=== PATIENT | female | born 1970 | race Two or more races ===

== ENCOUNTER 2020-03-03 16:26 | Emergency (ER) | payer OTHER, SELFPAY ==
--- NOTE | 2020-03-03 16:43 | ED.URI ---
HPI - URI/Sore Throat General Chief Complaint: Fever Stated Complaint: covid test Time Seen by Provider: 03/03/20 16:43 Source: patient Mode of arrival: ambulatory Limitations: no limitations History of Present Illness HPI Narrative: 49 y/o female with history of obesity, asthma, hx LE cellulitis presenting with intermittent fevers, dry cough, congestion, mid myalgias, MENSAH. Has been taking her PRN albuterol inhaler with improvement. She called her PCP today who recommended she get a COVID-19 test. MD elicited complaint: fever and cough (dry ) Pertinent past history: asthma Onset (ago): day(s) (4) Consistency: intermittent Severity: mild Able to tolerate fluids by mouth: Yes Exacerbating factors: exertion and deep breaths Associated symptoms: headache, nasal congestion and cough Treatments prior to arrival: none Related Data Previous Rx's Medication Instructions Recorded budesonide [Pulmicort Flexhaler] 2 inh INHALATION QAM #1 ea 03/03/20 Allergies Allergy/AdvReac Type Severity Reaction Status Date / Time hydrocodone [From Vicodin] Allergy Intermediate NAUSEA,DIZZ Unverified 02/18/20 14:55 Y acetaminophen [Percocet] Allergy Unknown Verified 12/21/19 00:00 oxycodone [From PERCOCET] AdvReac Intermediate VOMITING Unverified 02/18/20 14:55 Review of Systems Constitutional: Constitutional: Reports body ache(s), Reports fever(s), Reports headache(s) and Reports malaise Eyes: Eyes: Reports no additional eye complaints ENT: Reports system reviewed and no additional complaints, except as documented and Reports headache(s) Cardiovascular: Cardiovascular: Denies chest pain, Denies chest pain at rest, Denies chest pain with activity, Denies pedal edema, Denies leg edema, Denies lightheadedness, Denies dyspnea and Reports dyspnea on exertion (chronically, unchanged ) Respiratory: Respiratory: Denies pain on inspiration, Reports pain with cough, Denies dyspnea and Reports dyspnea on exertion (chronically, unchanged ) Gastrointestinal: Gastrointestinal: Reports no additional gastrointestinal complaints Genitourinary: Genitourinary: Reports no additional female genitourinary complaints Musculoskeletal: Musculoskeletal: Reports myalgias Neurologic: Reports system reviewed and no additional complaints, except as documented and Reports headache(s) Endocrine: Endocrine: Reports no additional endocrine complaints Hematologic/Lymphatic: Hematologic/Lymphatic: Reports no additional hematologic/lymphatic complaints [facility] Past Medical History Medical History (Updated 03/03/20 @ 17:16 by MARY Peralta) Asthma Surgical History (Updated 03/03/20 @ 17:11 by Sharlene Julien) History of hysterectomy History of lung surgery Social History Social History Advance Directives: No Advance Directives Information Provided: No Physical Exam Vital Signs and I&O and Narrative: Vital Signs and I&O: Vital Signs Temp 98.8 F 03/03/20 17:04 Pulse 93 03/03/20 17:04 Resp 20 03/03/20 17:04 BP 113/64 03/03/20 17:04 Pulse Ox 94 03/03/20 17:04 Intake & Output 03/02/20 03/03/20 03/03/20 18:59 06:59 18:59 Weight 136.985 kg Body Mass Index 47.2 Const: General: cooperative, no acute distress, well developed, alert and awake Nutritional Appearance: obese HENMT: Head: Yes normal to inspection Ears: hearing grossly normal bilaterally Face and sinus: Yes normal facial exam Mouth: Normal oral and palatal mucosa present Teeth and gingiva: dentition normal Throat: Yes posterior oropharynx normal Eyes: General: appearance normal, both eyes and all related structures Neck: Neck: Yes normal visual inspection Chest: Chest palpation & inspection: normal inspection of the chest and normal palpation of entire chest wall Resp: Effort & Inspection: normal respiratory effort and able to speak in complete sentences Auscultation: wheezes expiratory wheezes (mild ) and posterior Percussion: percussion normal Cardio: Rate: regular rate Rhythm: regular rhythm Heart sounds: S1 normal heart sound present and S2 normal heart sound present Skin: General skin exam: no rashes or lesions noted Wounds: no wounds Psych: Mental Status: mental status grossly normal Speech and movement: Normal speech and movement present Course Course Hospital Course: pt reports low grade fever for the last 4 days, minimal other symptoms except she feels her asthma is acting up slightly. has been taking her PRN albuterol inhaler with relief. fever resolved with Aleve at home. Afebrile here and patient appears well. COVID swab sent. Patient will follow up with her PCP this week. Instructed to return to the ER if symptoms worsen MDM - URI/Sore Throat Differential Diagnosis Differential diagnosis: Likely upper respiratory infection, sinusitis, viral infection, bronchitis and influenza Medical Records Attestation: I reviewed the patient's medical records. Critical Care Time Critical Care Time Critical Care Time: No Discharge Plan Discharge Clinical Impression: Viral infection Asthma Qualifiers: Asthma severity: mild Asthma persistence: intermittent Asthma complication type: with acute exacerbation Qualified Code(s): J45.21 - Mild intermittent asthma with (acute) exacerbation Patient Disposition: Home, Self-Care Instructions: Asthma (ED), Viral Syndrome (ED) Additional Instructions: You were tested for COVID-19 today. We will call you with the results in 2-4 days. Continue using your albuterol inhaler as needed for shortness of breath. If your asthma symptoms worsen, come back to the ER or call your doctor right away. Prescriptions: New Pulmicort Flexhaler 180 mcg/actuation aerosol powdr breath activated 2 inh inhalation QAM Qty: 1 RF: 0
[2020-03-03 17:04] VITALS: BP 113/64; PULSE 93; RESP 20; TEMP 37.1; O2SAT 94; BMI 47.2
== END 2020-03-03 17:41 | disposition home or self-care (01) ==
PROVIDERS: Emergency Medicine; Emergency Provider Emergency Medicine Emergency Medical Services; PCP Internal Medicine
DX: J45.31 Mild persistent asthma with (acute) exacerbation (principal); B34.9 Viral infection, unspecified; Z20.828 Contact with and (suspected) exposure to other viral communicable diseases
CPT/HCPCS: 36415; 87635; 99283

== ENCOUNTER 2020-04-11 10:22 | Outpatient (REF) | payer OTHER, SELFPAY ==
[2020-04-11 14:19] LABS: Hematocrit 41.8 % (37-47); Hemoglobin 13.1 g/dl (12.0-16.0); Mean Corpuscular HGB Conc 31.3 g/dl (31.0-35.0); Mean Corpuscular Hemoglobin 26.6 pg (27.0-33.0); Mean Corpuscular Volume 84.8 fL (80-98); Mean Platelet Volume 9.7 fL (9.4-12.3); Platelet Count 374 X10*3/uL (160-400); Red Blood Count 4.93 X10*6/uL (4.20-5.50); Red Cell Distribution Width 16.2 % (11.0-16.0); White Blood Count 8.9 X10*3/uL (4.8-10.8)
[2020-04-11 14:23] LABS: INTERNATIONAL NORM RATIO 0.9 (0.9-1.1); Prothrombin Time 11.1 SEC (10.8-13.0)
[2020-04-11 14:26] LABS: Partial Thromboplastin Time 26.7 SEC (24.1-38.0)
[2020-04-11 14:44] LABS: Alanine Aminotransferase 47 U/L (0-31); Albumin Level 4.1 g/dL (3.5-5.0); Alkaline Phosphatase 73 U/L (39-117); Aspartate Amino Transferase 23 U/L (5-31); Bilirubin Direct 0.3 mg/dL (0.0-0.5); Bilirubin Total 0.5 mg/dL (0.0-1.0); Total Protein 7.6 g/dL (6.5-8.0)
== END 2020-04-11 10:23 | disposition home or self-care (01) ==
LOC: HO.10HDL 10:22
PROVIDERS: Visit Provider Internal Medicine Gastroenterology
DX: R79.89 Other specified abnormal findings of blood chemistry (principal)
CPT/HCPCS: 36415; 80076; 85027; 85610; 85730

== ENCOUNTER → 2020-04-22 10:35 | Outpatient (BNVA) | payer OTHER, SELFPAY | PROVIDERS: PCP Internal Medicine; Referring Provider Internal Medicine; Visit Provider Student in an Organized Health Care Education/Training Program | DX: Z76.89 Persons encountering health services in other specified circumstances (principal) ==

== ENCOUNTER 2020-06-22 13:32 | Outpatient (REF) | payer OTHER, SELFPAY ==
[2020-06-22 14:52] LABS: MANUAL DIFF FLAG NO
[2020-06-22 14:57] LABS: Basophils Absolute Auto 0.1 X10*3/uL (0.0-0.2); Basophils Percent Auto 1.1 % (0-2); Eosinophils Absolute Auto 0.4 X10*3/uL (0.0-0.4); Eosinophils Percent Auto 6.6 % (0-4); Hematocrit 40.5 % (37-47); Hemoglobin 12.9 g/dl (12.0-16.0); Imm Gran Abs Auto 0.02 X10*3/uL (0.00-0.03); Imm Gran Pct Auto 0.4 % (0.0-0.4); Lymphocytes Absolute Auto 2.9 X10*3/uL (1.2-4.9); Lymphocytes Percent Auto 51.2 % (20-40); Mean Corpuscular HGB Conc 31.9 g/dl (31.0-35.0); Mean Corpuscular Hemoglobin 27.5 pg (27.0-33.0); Mean Corpuscular Volume 86.4 fL (80-98); Mean Platelet Volume 9.4 fL (9.4-12.3); Monocytes Absolute Auto 0.6 X10*3/uL (0.1-1.2); Monocytes Percent Auto 11.2 % (2-11); Neutrophils Absolute Auto 1.7 X10*3/uL (2.0-8.3); Neutrophils Percent Auto 29.5 % (45-73); Platelet Count 299 X10*3/uL (160-400); Red Blood Count 4.69 X10*6/uL (4.20-5.50); Red Cell Distribution Width 14.9 % (11.0-16.0); White Blood Count 5.6 X10*3/uL (4.8-10.8)
[2020-06-22 15:43] LABS: Erythrocyte Sedimentation Rate 63 MM/HR (0-20)
[2020-06-22 17:31] LABS: Alanine Aminotransferase 57 U/L (0-31); Albumin Level 3.9 g/dL (3.5-5.0); Alkaline Phosphatase 85 U/L (39-117); Anion Gap 13 (12-20); Aspartate Amino Transferase 31 U/L (5-31); Bilirubin Total 0.6 mg/dL (0.0-1.0); Blood Urea Nitrogen 9 mg/dL (9-16); C Reactive Protein 0.89 mg/dL (< or = 0.50); Calcium 9.4 mg/dL (8.4-10.2); Carbon Dioxide 27 mmol/L (22-29); Chloride 105 mmol/L (96-108); Estimated Glomerular Filt Rate > 60; Glucose Random 86 mg/dL (60-115); Potassium 4.1 mmol/l (3.3-5.1); Sodium 141 mmol/L (135-145); Total Protein 7.8 g/dL (6.5-8.0)
[2020-06-23 09:18] LABS: HBS Num1 1.58 mIU/mL (0-7.99); HBc Num1 0.14 S/CO (0.00-0.79); HBsAGNum1 0.23 S/CO (0.00-0.99); Hepatitis A Antibody IgM 0.28 Index (0-0.79); Hepatitis B Core Antibody Nonreactive (Nonreactive); Hepatitis B Surface Antigen Negative (Negative); ~Hepatitis A Antibody IgM Nonreactive (Nonreactive); ~Hepatitis B Surface Antibody NONREACTIVE (Nonreactive); ~Hepatitis C Antibody Nonreactive (Nonreactive)
[2020-06-26 22:43] LABS: TS Negative Control Passed; TS Panel A 0; TS Panel B 0; TS Positive Control Passed; TSpotTB Negative (SeeBelow)
== END 2020-06-22 13:33 | disposition home or self-care (01) ==
LOC: HO.LAB 13:32
PROVIDERS: PCP Internal Medicine; Visit Provider Student in an Organized Health Care Education/Training Program
DX: M47.819 Spondylosis without myelopathy or radiculopathy, site unspecified (principal); Z79.899 Other long term (current) drug therapy
CPT/HCPCS: 36415; 80053; 85025; 85652; 86140; 86481; 86704; 86706; 86709; 86803; 87340

== ENCOUNTER 2020-07-25 09:54 | Outpatient (REF) | payer OTHER, SELFPAY ==
--- NOTE | ~2020-07-25 | MR_ITS ---
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 Chronic low back pain, leg swelling, leg tingling. COMPARISON: Radiographs SI joints and lumbar spine 12/22/2019, CT pelvis 04/20/2019, MRI pelvis noncontrast 09/25/2016. TECHNIQUE: MRI of the pelvis without contrast is targeted to the sacrum with sagittal imaging, oblique coronal, and oblique axial imaging, along the short and long axis of the SI joints. FINDINGS: There is transitional vertebrae L5 with bilateral sacralization similar to prior imaging. There is normal lumbosacral lordosis. Mild broad-based annulus bulging is present at L4-L5. There is normal marrow signal. The SI joints appear normal with no erosive change or subchondral edema or fluid in the joints. There is normal exiting nerves through the sacral foramen. No perineural Tarlov cyst. No intrasacral meningocele. No presacral soft tissue swelling or mass. There is been prior hysterectomy. No pelvic mass or ascites. No bowel obstruction or adenopathy. MR/MR pelvis wo con IMPRESSION: 1. Transitional vertebrae L5 with bilateral sacralization. 2. Unremarkable exam. No sacroiliitis or mass.
== END 2020-07-25 09:55 | disposition home or self-care (01) ==
LOC: HO.MRI 09:54
PROVIDERS: Visit Provider Student in an Organized Health Care Education/Training Program
DX: M47.819 Spondylosis without myelopathy or radiculopathy, site unspecified (principal)
CPT/HCPCS: 72195

== ENCOUNTER → 2020-08-23 08:14 | Outpatient (BNVA) | payer OTHER, SELFPAY | PROVIDERS: PCP Internal Medicine; Referring Provider Internal Medicine; Visit Provider Student in an Organized Health Care Education/Training Program ==

== ENCOUNTER 2020-08-26 07:42 | Day surgery (SDC) | payer OTHER, SELFPAY ==
[2020-08-19 12:51] VITALS: BMI 49.8
--- NOTE | 2020-08-25 09:56 | P.CONAN_ITS ---
Documented by User: Eli Neff 08/25/20 09:59 HPI - Anesthesia Eval Consult details Narrative: 49yo F for Upper Endoscopy s/p RLL lung resection in 1999 [facility] Active Problems Active Problems: All Active Problems (Updated 08/19/20 @ 12:58 by Clare Kelley) Spondyloarthropathy (Acute) Past Medical History Medical History Arthritis Asthma Ear infection Elevated LFTs Fatty liver Headache History of cellulitis Hx of pneumothorax Low back pain Numbness and tingling of both legs Obesity PVD (peripheral vascular disease) Spondyloarthropathy Surgical History Surgical History History of cholecystectomy History of lung surgery Hx of laminectomy Hx of total hysterectomy with removal of both tubes and ovaries Social History Social History Smoking Status: Never smoker Use of substances other than those prescribed or required for medical reasons: No Advance Directives: No Advance Directives Information Provided: No Advance Directives on File: No Meds Allergies Allergy/AdvReac Type Severity Reaction Status Date / Time hydrocodone [From Vicodin] Allergy Severe NAUSEA,DIZZ Verified 08/23/20 08:20 Y oxycodone [From PERCOCET] AdvReac Severe nausea,VOMI Verified 08/23/20 08:20 TING Home Medications Medication Instructions Recorded Confirmed Last Taken Type cyclobenzaprine 10 mg tablet 10 mg PO TID PRN 04/22/20 08/19/20 Unknown History amoxicillin 500 mg PO BID 08/19/20 08/19/20 Unknown History beclomethasone dipropionate [Qvar 2 puff PO BID PRN 08/19/20 08/19/20 Unknown History RediHaler] budesonide [Pulmicort Flexhaler] 2 inh INHALATION Q4-6H PRN 08/19/20 08/19/20 Unknown History Exam Exam Date and Time: August 25, 2020 0956 Height,Weight and Vital Signs: Height 5 ft 7 in Weight 144.242 kg Pertinent Lab Results Pertinent Lab Results: Laboratory Tests 06/22/20 06/22/20 14:44 14:44 WBC 5.6 Hgb 12.9 Hct 40.5 Plt Count 299 Sodium 141 Potassium 4.1 Chloride 105 Carbon Dioxide 27 BUN 9 Creatinine 0.88 Narrative Narrative: EKG 2019: ST otherwise normal Assessment and Plan Assessment Anesthesia Assessment: Chart Reviewed Documented by User: Tanisha Terrell 08/26/20 09:10 [facility] Past Medical History Medical History Arthritis Asthma Ear infection Elevated LFTs Fatty liver Headache History of cellulitis Hx of pneumothorax Low back pain Numbness and tingling of both legs Obesity PVD (peripheral vascular disease) Spondyloarthropathy Surgical History Surgical History History of cholecystectomy History of lung surgery Hx of laminectomy Hx of total hysterectomy with removal of both tubes and ovaries Social History Social History Smoking Status: Never smoker Use of substances other than those prescribed or required for medical reasons: No Advance Directives: No Advance Directives Information Provided: No Advance Directives on File: No Meds Allergies Allergy/AdvReac Type Severity Reaction Status Date / Time hydrocodone [From Vicodin] Allergy Severe NAUSEA,DIZZ Verified 08/23/20 08:20 Y oxycodone [From PERCOCET] AdvReac Severe nausea,VOMI Verified 08/23/20 08:20 TING Home Medications Medication Instructions Recorded Confirmed Last Taken Type cyclobenzaprine 10 mg tablet 10 mg PO TID PRN 04/22/20 08/19/20 Unknown History amoxicillin 500 mg PO BID 08/19/20 08/19/20 Unknown History beclomethasone dipropionate [Qvar 2 puff PO BID PRN 08/19/20 08/19/20 Unknown History RediHaler] budesonide [Pulmicort Flexhaler] 2 inh INHALATION Q4-6H PRN 08/19/20 08/19/20 Unknown History Exam Airway Mallampati Class: II TM Dist: >3cm Neck ROM: Limited Heart: RRR Lungs: CTA Assessment and Plan Assessment Anesthesia Assessment: Anesthesia Plan Discussed and Chart Reviewed Final Anesthetic Review NPO: Yes ASA Class: III Final Preanesthetic Review: Meds/Allgs Chart Reviewed, Consent Obtained/Reviewed and Anes Risks/Benef Reviewed Patient Risk: Intermediate Procedure Risk: Intermediate Anesthetic Plan Anesthetic Plan: MAC: Disposition: Standard PACU
[2020-08-26 08:55] VITALS: BP 117/70; PULSE 78; RESP 18; TEMP 35.9; O2SAT 95
--- NOTE | 2020-08-26 09:32 | MHC.SHP ---
Pre-Procedural Eval Section A The patient is an INPATIENT: No Changes since office visit: No Cold of Flu in the past 2 weeks, No New Medical Problems, No Changes in Medication and No Patient answered all questions The History & Physical has been completed within 30 days and I have reviewed it.: Yes Section B Chief Complaint: abd pain Allergies: Allergies Allergy/AdvReac Type Severity Reaction Status Date / Time hydrocodone [From Vicodin] Allergy Severe NAUSEA,DIZZ Verified 08/23/20 08:20 Y oxycodone [From PERCOCET] AdvReac Severe nausea,VOMI Verified 08/23/20 08:20 TING Plan I have reviewed the history and physical and performed a pertinent physical examination on my patient. No changes have occurred unless specified.
--- NOTE | 2020-08-26 09:56 | PM.OP ---
Brief Operative Note Date of Service: 08/26/20 Pre-op diagnosis: ruq pain Post-op diagnosis: same Surgeon: Jan Del Rio Anesthesia: MAC Estimated blood loss (mL): 2 Pathology: other Condition: stable Disposition: PACU
[2020-08-26 09:57] VITALS: BP 109/68; PULSE 73; RESP 20; TEMP 36.1
[2020-08-26 10:12] VITALS: BP 115/56; PULSE 69; RESP 17; TEMP 36.2; O2SAT 98
--- NOTE | 2020-08-26 10:51 | OP_ITS ---
SURGEON: Jan Del Rio MD PREOPERATIVE DIAGNOSIS: POSTOPERATIVE DIAGNOSIS: PROCEDURE PERFORMED: Upper endoscopy with biopsy. ESTIMATED BLOOD LOSS: COMPLICATIONS: ANESTHESIA: ASSISTANTS: SPECIMENS: INDICATION: Right upper quadrant pain. MEDICATIONS: Monitored anesthesia care. DESCRIPTION OF PROCEDURE: History and physical performed. The risks and benefits of the procedure were explained to the patient. Informed consent was obtained. The patient was placed in left lateral decubitus position. The Olympus video gastroscope was introduced into the esophagus, stomach, and duodenum. Examination was performed and the scope was removed. She tolerated the procedure well and was taken to recovery area in stable condition. FINDINGS: ESOPHAGUS: The esophagus was normal. There was no esophagitis. Biopsies were obtained from the EG junction. STOMACH: The stomach showed no evidence of masses, ulcers, or polyps. Biopsies were obtained from the antrum. DUODENUM: The bulb and second portion were normal. IMPRESSION: Normal upper endoscopy. RECOMMENDATION: Follow up the biopsy results. Jan Del Rio MD BC/MODL / [id number]
== END 2020-08-26 11:09 | disposition home or self-care (01) ==
PROVIDERS: PCP Internal Medicine; Visit Provider Internal Medicine Gastroenterology
PROC: 0DJ08ZZ Inspection of Upper Intestinal Tract, Via Natural or Artificial Opening Endoscopic (ICD-10-PCS; CPT 43235; principal; 2020-08-26 09:10)
DX: R10.11 Right upper quadrant pain (principal); R79.89 Other specified abnormal findings of blood chemistry; K76.0 Fatty (change of) liver, not elsewhere classified; J45.909 Unspecified asthma, uncomplicated; I10 Essential (primary) hypertension; M19.90 Unspecified osteoarthritis, unspecified site; I73.9 Peripheral vascular disease, unspecified; N80.9 Endometriosis, unspecified; E66.9 Obesity, unspecified; Z68.42 Body mass index [BMI] 45.0-49.9, adult; Z90.49 Acquired absence of other specified parts of digestive tract; Z79.899 Other long term (current) drug therapy; Z79.51 Long term (current) use of inhaled steroids
CPT/HCPCS: 43239; 88305; 88342

== ENCOUNTER → 2020-09-12 08:08 | Outpatient (BNVA) | payer OTHER, SELFPAY | PROVIDERS: PCP Student in an Organized Health Care Education/Training Program; Visit Provider Nurse Practitioner Family ==

== ENCOUNTER 2020-12-08 15:05 | Outpatient (REF) | payer OTHER, SELFPAY ==
[2020-12-08 16:04] LABS: MANUAL DIFF FLAG NO
[2020-12-08 16:09] LABS: Basophils Absolute Auto 0.1 X10*3/uL (0.0-0.2); Basophils Percent Auto 1.1 % (0-2); Eosinophils Absolute Auto 0.3 X10*3/uL (0.0-0.4); Eosinophils Percent Auto 4.7 % (0-4); Hematocrit 41.1 % (37-47); Imm Gran Abs Auto 0.04 X10*3/uL (0.00-0.03); Imm Gran Pct Auto 0.6 % (0.0-0.4); Lymphocytes Absolute Auto 3.2 X10*3/uL (1.2-4.9); Mean Corpuscular HGB Conc 31.6 g/dl (31.0-35.0); Mean Corpuscular Hemoglobin 27.5 pg (27.0-33.0); Mean Corpuscular Volume 86.9 fL (80-98); Mean Platelet Volume 9.2 fL (9.4-12.3); Monocytes Absolute Auto 0.7 X10*3/uL (0.1-1.2); Monocytes Percent Auto 10.2 % (2-11); Neutrophils Absolute Auto 2.3 X10*3/uL (2.0-8.3); Neutrophils Percent Auto 35.4 % (45-73); Platelet Count 313 X10*3/uL (160-400); Red Blood Count 4.73 X10*6/uL (4.20-5.50); Red Cell Distribution Width 15.2 % (11.0-16.0); White Blood Count 6.6 X10*3/uL (4.8-10.8)
[2020-12-08 16:26] LABS: Alanine Aminotransferase 37 U/L (0-31); Alkaline Phosphatase 80 U/L (39-117); Anion Gap 14 (12-20); Aspartate Amino Transferase 21 U/L (5-31); Bilirubin Total 0.6 mg/dL (0.0-1.0); Blood Urea Nitrogen 11 mg/dL (9-16); C Reactive Protein 1.38 mg/dL (< or = 0.50); Calcium 9.8 mg/dL (8.4-10.2); Carbon Dioxide 24 mmol/L (22-29); Chloride 109 mmol/L (96-108); Estimated Glomerular Filt Rate 59; Glucose Random 96 mg/dL (60-115); Potassium 4.2 mmol/L (3.3-5.1); Sodium 143 mmol/L (135-145); Total Protein 7.6 g/dL (6.5-8.0)
[2020-12-08 17:34] LABS: Erythrocyte Sedimentation Rate 51 MM/HR (0-20)
== END 2020-12-08 15:06 | disposition home or self-care (01) ==
LOC: HO.LAB 15:05
PROVIDERS: PCP Internal Medicine; Referring Provider Internal Medicine; Visit Provider Student in an Organized Health Care Education/Training Program
DX: M47.819 Spondylosis without myelopathy or radiculopathy, site unspecified (principal); E66.01 Morbid (severe) obesity due to excess calories; E78.00 Pure hypercholesterolemia, unspecified; L03.115 Cellulitis of right lower limb
CPT/HCPCS: 36415; 80053; 85025; 85652; 86140

== ENCOUNTER 2021-01-29 17:24 | Inpatient (IN) | payer OTHER, SELFPAY ==
--- NOTE | ~2021-01-29 | XR_ITS ---
EXAMINATION: XR TIBIA AND FIBULA, LEFT CLINICAL INFORMATION: Cellulitis. Question subcutaneous air COMPARISON: 05/20/2019 TECHNIQUE: AP and lateral views of the left tibia and fibula were obtained. FINDINGS: There is diffuse soft tissue swelling with reticulation of the subcutaneous fat consistent with edema. No subcutaneous edema or radiopaque foreign body seen. Mild medial compartment joint space narrowing of the left knee. Left tibia and fibula are intact. XR/XR tibia fibula LT 2V IMPRESSION: Diffuse soft tissue swelling with reticulation of the subcutaneous fat consistent with edema. No radiopaque foreign body or soft tissue gas seen however.
--- NOTE | ~2021-01-29 | US_ITS ---
EXAMINATION: ULTRASOUND ARTERIAL DUPLEX LOWER EXTREMITY LEFT CLINICAL INFORMATION: Cellulitis for 1.5 months and swelling for one week. COMPARISON: None TECHNIQUE: Multiple 2-D grayscale and duplex Doppler ultrasound images of the arteries of the left lower extremity were obtained. FINDINGS: Duplex Doppler interrogation of the left lower extremity showed normal tri and biphasic arterial waveforms. Arterial peak systolic velocities are as follows: Common femoral: 147 cm/sec Profunda femoral: 70 cm/sec Superficial femoral proximal: 156 cm/sec Superficial femoral mid: 168 cm/sec. Superficial femoral distal: 97 cm/sec Popliteal: 91 cm/sec. Peroneal: 60 cm/sec Posterior tibial: 68cm/sec Mild to moderate subcutaneous edema is seen in the left calf without focal fluid collection. US/US arterial duplex LE LT IMPRESSION: 1. No hemodynamically significant arterial stenosis in the visualized arteries of the left lower extremity. 2. Mild to moderate subcutaneous edema in the left calf.
[2021-01-29 17:33] VITALS: BP 155/95; PULSE 95; RESP 20; TEMP 36.2; O2SAT 98; BMI 49.3
--- NOTE | 2021-01-29 19:29 | ED_ITS ---
HPI - Extremity Problem General Chief complaint: Extremity Problem Stated complaint: Leg pain Time Seen by Provider: 01/29/21 19:28 Source: patient Mode of arrival: ambulatory Limitations: no limitations History of Present Illness HPI Narrative: Patient with redness and swelling of the left leg for last 1 month noticed tiny red area at the nava questionable insect bite on 12/30 took 1 week of doxycycline and cephalexin without any response then repeated the same for 1 week and 2 days ago started on Bactrim from which she got hives and for last 24 hours redness has increased with increased pain. Patient does have history of recurrent cellulitis on the right leg Related Data Home Medications Medication Instructions Recorded Confirmed beclomethasone dipropionate 80 2 puff PO BID PRN 08/19/20 01/29/21 mcg/actuation HFA breath activated aerosol (Qvar RediHaler) budesonide 180 mcg/actuation 2 inh INHALATION Q4-6H PRN 08/19/20 01/29/21 breath activated powder inhaler (Pulmicort Flexhaler) Previous Rx's Medication Instructions Recorded cyclobenzaprine 10 mg tablet 10 mg PO TID PRN #90 tab 10/04/20 gabapentin 300 mg capsule 300 mg PO BEDTIME #30 cap 12/08/20 Allergies Allergy/AdvReac Type Severity Reaction Status Date / Time hydrocodone [From Vicodin] Allergy Severe NAUSEA,DIZZ Verified 01/29/21 17:37 Y sulfamethoxazole Allergy Rash Verified 01/29/21 20:35 [From Bactrim] trimethoprim [From Bactrim] Allergy Rash Verified 01/29/21 20:35 oxycodone [From PERCOCET] AdvReac Severe nausea,VOMI Verified 01/29/21 17:37 TING Review of Systems Review of Systems: Yes all other systems are reviewed and are negative PMFSH Past Medical History Medical History Arthritis Asthma Ear infection Elevated LFTs Fatty liver Headache History of cellulitis Hx of pneumothorax Low back pain Numbness and tingling of both legs Obesity PVD (peripheral vascular disease) Spondyloarthropathy Surgical History History of cholecystectomy History of lung surgery Hx of laminectomy Hx of total hysterectomy with removal of both tubes and ovaries Family History Family History Father Diabetes HTN (hypertension) Mother Stroke CVD (cardiovascular disease) Social History Social History Alcohol intake: current Alcohol intake frequency: holidays/special occasions only Patient Tobacco Use Status: Never used Tobacco Use of substances other than those prescribed or required for medical reasons: No Advance Directives: No Advance Directives Information Provided: Yes Patient : No Physical Exam Vital Signs: Vital Signs: Last Vital Signs Temp 98.7 F 01/29/21 21:50 Pulse 90 01/29/21 23:57 Resp 20 01/29/21 23:57 BP 118/66 01/29/21 23:57 Pulse Ox 98 01/29/21 23:57 Body Mass Index 49.3 Appearance: Alert. Oriented X3. No acute distress. ENT: Pharynx normal. Oral Mucosa moist Neck: Normal inspection. Neck supple. CVS: Normal heart rate and rhythm. Pulses normal. Respiratory: No respiratory distress. Equal air entry bilateral, no Abdomen: Soft and nontender. Skin: Skin warm and dry. Normal skin color. Normal skin turgor. Extremities: Nonpitting edema bilateral legs, area of cellulitis in left nava tender to touch Neuro: Oriented X 3. Extrem: Upper/lower leg/hip images: 1. Tender erythematous cellulitic area left lower leg no crepitus no calf tenderness neurovascular intact skin intact MDM - Extremity (Nontraumatic) MDM Narrative Medical decision making narrative: Patient with impressive cellulitis of left leg x-ray negative for subcutaneous air failed antibiotic treatment as outpatient 2 times will admit patient for IV antibiotics Lab Data Attestation: I reviewed the patient's lab results. Result diagrams: 01/29/21 20:12 01/29/21 20:12 Labs: Lab Results 01/29/21 01/29/21 01/29/21 Range/Units 20:12 20:12 20:12 WBC 8.8 (4.8-10.8) X10*3/uL RBC 4.88 (4.20-5.50) X10*6/uL Hgb 13.2 (12.0-16.0) g/dl Hct 42.6 (37-47) % MCV 87.3 (80-98) fL MCH 27.0 (27.0-33.0) pg MCHC 31.0 (31.0-35.0) g/dl RDW 15.0 (11.0-16.0) % Plt Count 298 (160-400) X10*3/uL MPV 9.1 L (9.4-12.3) fL Immature Gran % (Auto) 0.5 H (0.0-0.4) % Neut % (Auto) 54.7 (45-73) % Lymph % (Auto) 30.5 (20-40) % [place] % (Auto) 9.0 (2-11) % Eos % (Auto) 4.7 H (0-4) % Baso % (Auto) 0.6 (0-2) % Lymph # (Auto) 2.7 (1.2-4.9) X10*3/uL [place] # (Auto) 0.8 (0.1-1.2) X10*3/uL Eos # (Auto) 0.4 (0.0-0.4) X10*3/uL Baso # (Auto) 0.1 (0.0-0.2) X10*3/uL Abs Immat Gran (auto) 0.04 H (0.00-0.03) X10*3/uL Absolute Neuts (auto) 4.8 (2.0-8.3) X10*3/uL Absolute Nucleated RBC 0.000 (0.0-0.012) X10*3/uL Nucleated RBC % (auto) 0.0 (0.0-0.2) /100WBC Sodium 140 (135-145) mmol/L Potassium 4.2 (3.3-5.1) mmol/L Chloride 104 (96-108) mmol/L Carbon Dioxide 26 (22-29) mmol/L Anion Gap 14 (12-20) BUN 9 (9-16) mg/dL Creatinine 1.07 (0.5-1.4) mg/dL Estim Creat Clear Calc 95.5 Estimated GFR 55 Random Glucose 88 (60-115) mg/dL Lactic Acid 1.6 (0.5-2.0) mmol/L Calcium 10.0 (8.4-10.2) mg/dL COVID-19 (DANIELA) (Negative) COVID-19 Clin Com 01/29/21 Range/Units 20:12 WBC (4.8-10.8) X10*3/uL RBC (4.20-5.50) X10*6/uL Hgb (12.0-16.0) g/dl Hct (37-47) % MCV (80-98) fL MCH (27.0-33.0) pg MCHC (31.0-35.0) g/dl RDW (11.0-16.0) % Plt Count (160-400) X10*3/uL MPV (9.4-12.3) fL Immature Gran % (Auto) (0.0-0.4) % Neut % (Auto) (45-73) % Lymph % (Auto) (20-40) % [place] % (Auto) (2-11) % Eos % (Auto) (0-4) % Baso % (Auto) (0-2) % Lymph # (Auto) (1.2-4.9) X10*3/uL [place] # (Auto) (0.1-1.2) X10*3/uL Eos # (Auto) (0.0-0.4) X10*3/uL Baso # (Auto) (0.0-0.2) X10*3/uL Abs Immat Gran (auto) (0.00-0.03) X10*3/uL Absolute Neuts (auto) (2.0-8.3) X10*3/uL Absolute Nucleated RBC (0.0-0.012) X10*3/uL Nucleated RBC % (auto) (0.0-0.2) /100WBC Sodium (135-145) mmol/L Potassium (3.3-5.1) mmol/L Chloride (96-108) mmol/L Carbon Dioxide (22-29) mmol/L Anion Gap (12-20) BUN (9-16) mg/dL Creatinine (0.5-1.4) mg/dL Estim Creat Clear Calc Estimated GFR Random Glucose (60-115) mg/dL Lactic Acid (0.5-2.0) mmol/L Calcium (8.4-10.2) mg/dL COVID-19 (DANIELA) Negative (Negative) COVID-19 Clin Com See Note Discharge Plan Discharge Clinical Impression: Cellulitis Qualifiers: Site of cellulitis: extremity Site of cellulitis of extremity: lower extremity Laterality: left Qualified Code(s): L03.116 - Cellulitis of left lower limb Patient Disposition: Admitted As Inpatient
[2021-01-29 20:19] LABS: MANUAL DIFF FLAG NO
[2021-01-29 20:20] LABS: Basophils Absolute Auto 0.1 X10*3/uL (0.0-0.2); Basophils Percent Auto 0.6 % (0-2); Eosinophils Absolute Auto 0.4 X10*3/uL (0.0-0.4); Eosinophils Percent Auto 4.7 % (0-4); Hematocrit 42.6 % (37-47); Hemoglobin 13.2 g/dl (12.0-16.0); Imm Gran Abs Auto 0.04 X10*3/uL (0.00-0.03); Imm Gran Pct Auto 0.5 % (0.0-0.4); Lymphocytes Absolute Auto 2.7 X10*3/uL (1.2-4.9); Lymphocytes Percent Auto 30.5 % (20-40); Mean Corpuscular Volume 87.3 fL (80-98); Mean Platelet Volume 9.1 fL (9.4-12.3); Monocytes Absolute Auto 0.8 X10*3/uL (0.1-1.2); Neutrophils Absolute Auto 4.8 X10*3/uL (2.0-8.3); Neutrophils Percent Auto 54.7 % (45-73); Platelet Count 298 X10*3/uL (160-400); Red Blood Count 4.88 X10*6/uL (4.20-5.50); White Blood Count 8.8 X10*3/uL (4.8-10.8)
[2021-01-29 20:28] VITALS: BP 124/66; PULSE 82; RESP 18; TEMP 36.9; O2SAT 99
[2021-01-29 20:36] LABS: Lactic Acid 1.6 mmol/L (0.5-2.0)
[2021-01-29] MEDS: Piperacillin Sodium/Tazobactam 4.5 GM in 0.9 % Sodium Chloride 100 ML IV (20:37)
[2021-01-29 20:39] LABS: Anion Gap 14 (12-20); Blood Urea Nitrogen 9 mg/dL (9-16); Carbon Dioxide 26 mmol/L (22-29); Chloride 104 mmol/L (96-108); Creatinine Clr Calc Pharmacy 95.5; Estimated Glomerular Filt Rate 55; Glucose Random 88 mg/dL (60-115); Potassium 4.2 mmol/L (3.3-5.1); Sodium 140 mmol/L (135-145)
[2021-01-29 20:43] LABS: COVID-19 Test Negative (Negative)
--- NOTE | 2021-01-29 20:52 | PC.NURSE ---
Pt resting on stretcher in NAD, breathing with ease on RA, VSS. Pt c/o 03/12 LLE pain. This RN verifies pt's labs and bc x 2 have been drawn then medicated with IV abx per orders. Pt requesting pain control, this RN to notify provider. Pt provided warmed blankets per request. Stretcher low locked, rails raised, call vanessa within reach
[2021-01-29] MEDS: Ketorolac Tromethamine 15 MG/ML VIAL IVPUSH (21:44)
[2021-01-29 21:50] VITALS: BP 143/88; PULSE 85; RESP 22; TEMP 37.1; O2SAT 100
[2021-01-29 23:57] VITALS: BP 118/66; PULSE 90; RESP 20; O2SAT 98
[2021-01-30] VITALS (9 sets, daily range): BP systolic 105–162; BP diastolic 58–84; PULSE 72–110; RESP 16–29; TEMP 35.8–37.2; O2SAT 94–98; BMI 51.4
[2021-01-30] MEDS: Morphine Sulfate 4 MG/ML CARTRIDGE IVPUSH (01:31)
[2021-01-30] MEDS: cefTRIAXone sodium 1 GM in 0.9 % Sodium Chloride 50 ML IV (01:32)
[2021-01-30] MEDS: Gabapentin 300 MG CAPSULE PO (01:32)
--- NOTE | 2021-01-30 02:21 | PC.NURSE ---
MIRTHA Abdalla to bedside to bring pt up to assigned inpatient room. Pt c/o possible rxn to morphine. Rm notified this RN. This RN to bedside. Pt with sweat dripping off of face. Pt reports I just got cold sweats and belly cramping. This RN paused pt's rocephin. Pt reports I've had morphine before and this same thing happened but I didn't realize until now that it was a reaction to the morphine. This RN assessed pt's BGL; 123. This RN TT Dr Oliveira to notify her. No response at this time. This RN to call Dr Torre. Pt without angioedema/SOB. Pt's VSS.
--- NOTE | 2021-01-30 02:28 | PC.NURSE ---
This RN spoke to Dr Oliveira. Per Dr Oliveira, ok to resume rocephin and to treat pt's allergic response to morphine should it progress. This RN made CHRIS Ortega (receiving RN) aware.
[2021-01-30 02:29] LABS: Glucose, Whole Blood 123 mg/dL (60-115)
[2021-01-30 06:16] LABS: Basophils Percent Auto 0.4 % (0-2); Eosinophils Absolute Auto 0.1 X10*3/uL (0.0-0.4); Hematocrit 37.7 % (37-47); Hemoglobin 11.9 g/dl (12.0-16.0); Imm Gran Abs Auto 0.04 X10*3/uL (0.00-0.03); Imm Gran Pct Auto 0.6 % (0.0-0.4); Lymphocytes Absolute Auto 1.1 X10*3/uL (1.2-4.9); Lymphocytes Percent Auto 15.1 % (20-40); MANUAL DIFF FLAG NO; Mean Corpuscular HGB Conc 31.6 g/dl (31.0-35.0); Mean Corpuscular Hemoglobin 27.4 pg (27.0-33.0); Mean Corpuscular Volume 86.9 fL (80-98); Mean Platelet Volume 9.4 fL (9.4-12.3); Monocytes Absolute Auto 0.8 X10*3/uL (0.1-1.2); Monocytes Percent Auto 11.5 % (2-11); Neutrophils Percent Auto 71.4 % (45-73); Platelet Count 254 X10*3/uL (160-400); Red Blood Count 4.34 X10*6/uL (4.20-5.50); Red Cell Distribution Width 14.9 % (11.0-16.0)
--- NOTE | 2021-01-30 06:28 | PM.IMHP ---
History of Present Illness Date of Service: 01/29/21 Chief Complaint: Leg cellulitis 42-year-old female with past medical history of obesity, asthma presents to the hospital with complaints of nonhealing cellulitis of left lower extremity. Patient reports that the redness and swelling started in mid December, patient went to [place] and at the end of December started developing cellulitis symptoms. At that time she was giving a course of doxycycline which she finished 7 days of. She initially improved but continued to have swelling, with gradual return of pain, she went to [facility] and was given a 2nd course of doxycycline which was a higher dose per patient, with no significant improvements of her symptoms. Patient was then seen by her PCP and started on Bactrim about 4 days ago, but after starting Bactrim patient developed hives and therefore decided to come to the ED. Patient reports redness, swelling, pain in her left lower extremity around the nava area. Denies any fever but has chills, denies any nausea vomiting no abdominal pain, no diarrhea constipation, no chest pain or shortness of breath, no urinary symptoms and no numbness tingling. Vitals on arrival reviewed show a temp of 98.7?, heart rate of 85, respiratory rate of 22, blood pressure 143/88 satting 100% on room air Labs are Unremarkable Arterial duplex of left lower extremity shows no hemodynamically significant arterial stenosis in the visualized arteries mild to moderate subcutaneous edema in the left scalp Given her failed outpatient therapy patient will be admitted Review of Systems Review of Systems: Yes all other systems are reviewed and are negative [facility] Medical History Arthritis Asthma Ear infection Elevated LFTs Fatty liver Headache History of cellulitis Hx of pneumothorax Low back pain Numbness and tingling of both legs Obesity PVD (peripheral vascular disease) Spondyloarthropathy Family History Father Diabetes HTN (hypertension) Mother Stroke CVD (cardiovascular disease) Surgical History History of cholecystectomy History of lung surgery Hx of laminectomy Hx of total hysterectomy with removal of both tubes and ovaries Social History Household Members: Family Housing: Apartment Do you presently have visiting nurse or other home services: No Alcohol intake: current Alcohol intake frequency: holidays/special occasions only Patient Tobacco Use Status: Never used Tobacco Use of substances other than those prescribed or required for medical reasons: No Have you been hit, kicked, punched, or otherwise hurt by someone within the past year? If so, by whom?: No Do you feel safe in your current relationship?: Yes Is there a partner from a previous relationship who is making you feel unsafe now?: No Are you made to feel afraid or neglected: No Advance Directives: No Advance Directives Information Provided: Yes Do you have thoughts of harming others: None Do you have a plan to hurt others: No Plan Recently lost weight without trying: No Nutrition Risks: No Nutritional Risk Patient : No : No Poor oral hygiene: Yes Meds Allergies Allergy/AdvReac Type Severity Reaction Status Date / Time hydrocodone [From Vicodin] Allergy Severe NAUSEA,DIZZ Verified 01/29/21 17:37 Y sulfamethoxazole Allergy Rash Verified 01/29/21 20:35 [From Bactrim] trimethoprim [From Bactrim] Allergy Rash Verified 01/29/21 20:35 oxycodone [From PERCOCET] AdvReac Severe nausea,VOMI Verified 01/29/21 17:37 TING Active Medications: Current Medications Generic Name Dose Route Start Last Admin Trade Name Freq PRN Reason Stop Dose Admin Acetaminophen 650 mg 01/29/21 23:57 Acetaminophen 325 Mg Tablet PO Q6H PRN Pain, Mild (Pain Scale 1-3) Budesonide 2 puff 01/29/21 23:57 Budesonide 180 Mcg Aer.Pow.Ba INHALE Q4H PRN Shortness Of Breath Or Wheezing Cyclobenzaprine HCl 10 mg 01/29/21 23:57 Cyclobenzaprine Hcl 10 Mg Tablet PO TID PRN Pain Docusate Sodium 100 mg 01/29/21 23:57 Docusate Sodium 100 Mg Capsule PO DAILY PRN Constipation Fluticasone Propionate 2 puff 01/30/21 06:30 Fluticasone Propionate 100 Mcg Blst.W.Dev INHALE RBID PRN Shortness Of Breath Or Wheezing Gabapentin 300 mg 01/29/21 23:57 01/30/21 01:32 Gabapentin 300 Mg Capsule PO 300 mg BEDTIME [facility] Administration Heparin Sodium (Porcine) 5,000 unit 01/30/21 00:00 01/30/21 01:26 Heparin Sodium,Porcine 5,000 Unit/Ml Vial SUBCUT Not Given Q8H [facility] Ceftriaxone Sodium 1 gm/ 50 mls @ 100 mls/hr 01/30/21 01:00 01/30/21 03:11 Sodium Chloride IV Infused Q24H [facility] Infusion Morphine Sulfate 4 mg 01/29/21 23:57 01/30/21 01:31 Morphine Sulfate 4 Mg/Ml Cartridge IVPUSH 4 mg Q6H PRN Administration Pain, Severe (Pain Scale 7-10) Protocol Ondansetron HCl 4 mg 01/29/21 23:57 Ondansetron Hcl 4 Mg/2 Ml Vial IVPUSH Q8H PRN Nausea and Vomiting Sodium Chloride 3 ml 01/30/21 00:00 01/30/21 01:27 0.9 % Sodium Chloride Flush 3 Ml Syringe IVFLUSH Not Given QSHIFT [facility] Home Medications Medication Instructions Recorded Confirmed Last Taken Type beclomethasone dipropionate 80 2 puff PO BID PRN 08/19/20 01/29/21 Unknown History mcg/actuation HFA breath activated aerosol (Qvar RediHaler) budesonide 180 mcg/actuation 2 inh INHALATION Q4-6H PRN 08/19/20 01/29/21 Unknown History breath activated powder inhaler (Pulmicort Flexhaler) Physical Exam Vital Signs and Narrative: Vital Signs: Last Vital Signs Temp 97.8 F 01/30/21 03:16 Pulse 85 01/30/21 03:16 Resp 17 01/30/21 03:16 BP 162/84 H 01/30/21 03:16 Pulse Ox 98 01/30/21 03:16 Body Mass Index 51.4 Const: General: cooperative and no acute distress Orientation/consciousness: patient oriented x3 Eyes: General: appearance normal, both eyes and all related structures Resp: Effort & Inspection: normal respiratory effort Auscultation: clear to auscultation bilaterally Cardio: Rate: regular rate Rhythm: regular rhythm GI: Palpation (GI): Soft to palpation Auscultation: normal bowel sounds Skin: Other: Left lower extremity has erythema tenderness, warm as well as edema around the left nava region Neuro: General: patient oriented x3 Cognition (Neuro): normal cognition Extrem: General: Yes no pedal edema Results Labs CBC and Chem 7: 01/30/21 05:59 01/29/21 20:12 Labs: Laboratory Results - last 24 hr 01/29/21 01/29/21 01/29/21 20:12 20:12 20:12 MCV 87.3 MCH 27.0 MCHC 31.0 RDW 15.0 Plt Count 298 MPV 9.1 L Immature Gran % (Auto) 0.5 H Neut % (Auto) 54.7 Lymph % (Auto) 30.5 [place] % (Auto) 9.0 Eos % (Auto) 4.7 H Baso % (Auto) 0.6 Lymph # (Auto) 2.7 [place] # (Auto) 0.8 Eos # (Auto) 0.4 Baso # (Auto) 0.1 Abs Immat Gran (auto) 0.04 H Absolute Neuts (auto) 4.8 Absolute Nucleated RBC 0.000 Nucleated RBC % (auto) 0.0 Anion Gap 14 Estim Creat Clear Calc 95.5 Estimated GFR 55 POC Glucose Random Glucose 88 Lactic Acid 1.6 Calcium 10.0 COVID-19 (DANIELA) COVID-19 Clin Com 01/29/21 01/30/21 01/30/21 20:12 02:21 05:59 MCV 86.9 MCH 27.4 MCHC 31.6 RDW 14.9 Plt Count 254 MPV 9.4 Immature Gran % (Auto) 0.6 H Neut % (Auto) 71.4 Lymph % (Auto) 15.1 L [place] % (Auto) 11.5 H Eos % (Auto) 1.0 Baso % (Auto) 0.4 Lymph # (Auto) 1.1 L [place] # (Auto) 0.8 Eos # (Auto) 0.1 Baso # (Auto) 0.0 Abs Immat Gran (auto) 0.04 H Absolute Neuts (auto) 5.0 Absolute Nucleated RBC 0.000 Nucleated RBC % (auto) 0.0 Anion Gap Estim Creat Clear Calc Estimated GFR POC Glucose 123 H Random Glucose Lactic Acid Calcium COVID-19 (DANIELA) Negative COVID-19 Clin Com See Note Imaging Radiologist's Impressions: Impressions Tibia/Fibula X-Ray 01/29/21 19:37 IMPRESSION: Diffuse soft tissue swelling with reticulation of the subcutaneous fat consistent with edema. No radiopaque foreign body or soft tissue gas seen however. Duplex Scan Lower Extremity Artery 01/29/21 23:50 IMPRESSION: 1. No hemodynamically significant arterial stenosis in the visualized arteries of the left lower extremity. 2. Mild to moderate subcutaneous edema in the left calf. Assessment and Plan (1) Cellulitis: Qualifiers: Laterality: left Site of cellulitis: extremity Site of cellulitis of extremity: lower extremity Qualified Code(s): L03.116 - Cellulitis of left lower limb Status: Acute This is a 50-year-old female with past medical history of obesity, and osteoarthritis presents to the hospital with nonhealing cellulitis. # cellulitis - failed outpatient therapy - underwent 2 courses of doxycycline as well as Bactrim with no healing of cellulitis of left lower extremity - no systemic signs of infection - will start on ceftriaxone - follow cultures # asthma - continue home inhalers DVT prophylaxis: Heparin subQ Quality Stroke Does the patient have a stroke diagnosis?: No VTE Prior VTE?: No VTE Risk Level:: Medical - moderate - high VTE Device Contraindication: Treatment Not Indicated VTE Drug Contraindication: N/A - Med Ordered
[2021-01-30 06:44] LABS: Anion Gap 13 (12-20); Blood Urea Nitrogen 9 mg/dL (9-16); Calcium 8.8 mg/dL (8.4-10.2); Carbon Dioxide 24 mmol/L (22-29); Chloride 105 mmol/L (96-108); Creatinine Clr Calc Pharmacy 98.9; Estimated Glomerular Filt Rate 55; Glucose Random 124 mg/dL (60-115); Potassium 4.7 mmol/L (3.3-5.1); Sodium 137 mmol/L (135-145)
--- NOTE | 2021-01-30 08:45 | MHC.CM.PN ---
PATIENT LIVES WITH HER FAMILY. SHE IS FULLY INDEPENDENT WITH ADLS. NO DME OR VNA SERVICES. HCP IS ON FILE AND VERIFIED PATIENT HOPES TO RETURN HOME WITH NO SERVICES. CASE MANAGEMENT FOLLOWING FOR DISCHARGE NEEDS.
[2021-01-30] MEDS: Clindamycin Phosphate/D5W 600 MG/50 ML PIGGYBACK 100 MG IV ×3 (08:54→23:06)
[2021-01-30] MEDS: Heparin Sodium,Porcine 5,000 UNIT/ML VIAL 5000 UNIT SUBCUT ×3 (08:54→23:05)
[2021-01-30] MEDS: 0.9 % Sodium Chloride Flush 3 ML SYRINGE IVFLUSH ×3 (08:54→23:06)
--- NOTE | 2021-01-30 10:16 | PC.NURSE ---
Skin assessemnt completed today. Patient has bilateral lower leg cellulitis- no open areas just red and hot. No other skin issues noted.
[2021-01-30] MEDS: Miconazole 2 % Extra Thick Cr 56.7 Gm Tube 1 APPL TOPICAL ×2 (12:35→20:04)
--- NOTE | 2021-01-30 14:55 | P.PNIM_ITS ---
Subjective Subjective Date of Service: 01/30/21 Interval History: The patient was seen and evaluated this morning Laying in bed, feels comfortable Complaining of pain in her left lower extremity with swelling and tenderness Denies any fever, chills or shortness of breath No reported other overnight events. Systemic review: No fever, chills or weakness No chest pain, palpitation No shortness of breath or coughing No abdominal pain, nausea or vomiting No urinary symptoms Erythema and pain Physical Exam Vital Signs: Vital Signs: Last Vital Signs Temp 96.5 F L 01/30/21 11:51 Pulse 81 01/30/21 11:51 Resp 18 01/30/21 11:51 BP 116/71 01/30/21 11:51 Pulse Ox 98 01/30/21 11:51 Body Mass Index 51.4 Const: Other: Constitutional : Alert, oriented, not in distress Neck : Normal inspection, Supple Cardiovascular : RRR, S1 S2, no lower extremity edema Respiratory : Good bilateral air entry, no crackles, wheezes or rhonchi Gastrointestinal: soft, lax, Normal bowel sounds, Non tender Skin : Warm, Dry, bilateral lower extremity stasis dermatitis findings, LLE with erythema, warmth and tenderness with palpation and central dark colored area with no drainage noted. Neurological : Alert & oriented x3, No focal deficit Objective Data Current Medications Generic Name Dose Route Start Last Admin Trade Name Freq PRN Reason Stop Dose Admin Acetaminophen 650 mg 01/29/21 23:57 Acetaminophen 325 Mg Tablet PO Q6H PRN Pain, Mild (Pain Scale 1-3) Budesonide 2 puff 01/29/21 23:57 Budesonide 180 Mcg Aer.Pow.Ba INHALE Q4H PRN Shortness Of Breath Or Wheezing Cyclobenzaprine HCl 10 mg 01/29/21 23:57 Cyclobenzaprine Hcl 10 Mg Tablet PO TID PRN Pain Docusate Sodium 100 mg 01/29/21 23:57 Docusate Sodium 100 Mg Capsule PO DAILY PRN Constipation Fluticasone Propionate 2 puff 01/30/21 06:30 Fluticasone Propionate 100 Mcg Blst.W.Dev INHALE RBID PRN Shortness Of Breath Or Wheezing Gabapentin 300 mg 01/29/21 23:57 01/30/21 01:32 Gabapentin 300 Mg Capsule PO 300 mg BEDTIME [facility] Administration Heparin Sodium (Porcine) 5,000 unit 01/30/21 00:00 01/30/21 08:54 Heparin Sodium,Porcine 5,000 Unit/Ml Vial SUBCUT 5,000 unit Q8H [facility] Administration Clindamycin Phosphate 600 mg in 50 mls @ 100 mls/hr 01/30/21 08:00 01/30/21 09:39 Cleocin IV Infused Q8H [facility] Infusion Miconazole Nitrate 1 appl 01/30/21 10:40 01/30/21 12:35 Miconazole 2 % Extra Thick Cr 56.7 Gm Tube TOPICAL 1 appl BID [facility]CO[facility] Administration Protocol Morphine Sulfate 4 mg 01/29/21 23:57 01/30/21 01:31 Morphine Sulfate 4 Mg/Ml Cartridge IVPUSH 4 mg Q6H PRN Administration Pain, Severe (Pain Scale 7-10) Protocol Ondansetron HCl 4 mg 01/29/21 23:57 Ondansetron Hcl 4 Mg/2 Ml Vial IVPUSH Q8H PRN Nausea and Vomiting Sodium Chloride 3 ml 01/30/21 00:00 01/30/21 08:54 0.9 % Sodium Chloride Flush 3 Ml Syringe IVFLUSH 3 ml QSHIFT [facility] Administration Labs CBC & Chem 7: 01/30/21 05:59 01/30/21 05:59 Labs: Laboratory Results - last 24 hr 01/29/21 01/29/21 01/29/21 20:12 20:12 20:12 MCV 87.3 MCH 27.0 MCHC 31.0 RDW 15.0 Plt Count 298 MPV 9.1 L Immature Gran % (Auto) 0.5 H Neut % (Auto) 54.7 Lymph % (Auto) 30.5 [place] % (Auto) 9.0 Eos % (Auto) 4.7 H Baso % (Auto) 0.6 Lymph # (Auto) 2.7 [place] # (Auto) 0.8 Eos # (Auto) 0.4 Baso # (Auto) 0.1 Abs Immat Gran (auto) 0.04 H Absolute Neuts (auto) 4.8 Absolute Nucleated RBC 0.000 Nucleated RBC % (auto) 0.0 Anion Gap 14 Estim Creat Clear Calc 95.5 Estimated GFR 55 POC Glucose Random Glucose 88 Lactic Acid 1.6 Calcium 10.0 COVID-19 (DANIELA) COVID-19 Clin Com 01/29/21 01/30/21 01/30/21 20:12 02:21 05:59 MCV 86.9 MCH 27.4 MCHC 31.6 RDW 14.9 Plt Count 254 MPV 9.4 Immature Gran % (Auto) 0.6 H Neut % (Auto) 71.4 Lymph % (Auto) 15.1 L [place] % (Auto) 11.5 H Eos % (Auto) 1.0 Baso % (Auto) 0.4 Lymph # (Auto) 1.1 L [place] # (Auto) 0.8 Eos # (Auto) 0.1 Baso # (Auto) 0.0 Abs Immat Gran (auto) 0.04 H Absolute Neuts (auto) 5.0 Absolute Nucleated RBC 0.000 Nucleated RBC % (auto) 0.0 Anion Gap Estim Creat Clear Calc Estimated GFR POC Glucose 123 H Random Glucose Lactic Acid Calcium COVID-19 (DANIELA) Negative COVID-19 Clin Com See Note 01/30/21 05:59 MCV MCH MCHC RDW Plt Count MPV Immature Gran % (Auto) Neut % (Auto) Lymph % (Auto) [place] % (Auto) Eos % (Auto) Baso % (Auto) Lymph # (Auto) [place] # (Auto) Eos # (Auto) Baso # (Auto) Abs Immat Gran (auto) Absolute Neuts (auto) Absolute Nucleated RBC Nucleated RBC % (auto) Anion Gap 13 Estim Creat Clear Calc 98.9 Estimated GFR 55 POC Glucose Random Glucose 124 H D Lactic Acid Calcium 8.8 D COVID-19 (DANIELA) COVID-19 Clin Com Assessment and Plan (1) Cellulitis: Status: Acute Assessment and Plan: This is a 50-year-old female with past medical history of obesity, and osteoarthritis presents to the hospital with nonhealing cellulitis. # cellulitis failed outpatient therapy Start clindamycin To use Néstor wrap Pending cultures # asthma continue home inhalers DVT prophylaxis Heparin subQ Quality Stroke Does the patient have a stroke diagnosis?: No VTE Prior VTE?: No VTE Risk Level:: Medical - moderate - high VTE Device Contraindication: Treatment Not Indicated VTE Drug Contraindication: N/A - Med Ordered
[2021-01-31 03:12] VITALS: BP 148/84; PULSE 90; RESP 20; TEMP 36.6; O2SAT 93
[2021-01-31 06:45] LABS: Anion Gap 12 (12-20); Blood Urea Nitrogen 11 mg/dL (9-16); Calcium 9.5 mg/dL (8.4-10.2); Carbon Dioxide 24 mmol/L (22-29); Chloride 107 mmol/L (96-108); Creatinine Clr Calc Pharmacy 111.5; Estimated Glomerular Filt Rate > 60; Glucose Random 101 mg/dL (60-115); Potassium 4.1 mmol/L (3.3-5.1); Sodium 139 mmol/L (135-145)
[2021-01-31 07:20] VITALS: BP 117/78; PULSE 91; RESP 18; TEMP 36.6; O2SAT 95
[2021-01-31] MEDS: Clindamycin Phosphate/D5W 600 MG/50 ML PIGGYBACK 100 MG IV ×2 (08:49→16:18)
[2021-01-31] MEDS: 0.9 % Sodium Chloride Flush 3 ML SYRINGE IVFLUSH ×3 (08:59→22:03)
[2021-01-31] MEDS: Miconazole 2 % Extra Thick Cr 56.7 Gm Tube 1 APPL TOPICAL ×2 (08:59→22:02)
[2021-01-31 11:23] VITALS: BP 119/85; PULSE 96; RESP 18; TEMP 36.3; O2SAT 97
--- NOTE | 2021-01-31 11:23 | MHC.CM.PN ---
PLAN IS FOR ONE MORE DAY OF IV ABX, AND POTENTIAL DISCHARGE HOME ON SATURDAY. PATIENT IS INDEPENDENT WITH HER ADLS AND CARE
--- NOTE | 2021-01-31 12:59 | HO.PM.IMPN ---
Subjective Subjective Date of Service: 01/31/21 Interval History: The patient was seen and evaluated this morning Laying in bed, feels comfortable Complaining of pain in her left lower extremity , erythema and swelling improving Denies any fever, chills or shortness of breath No reported other overnight events. Systemic review: No fever, chills or weakness No chest pain, palpitation No shortness of breath or coughing No abdominal pain, nausea or vomiting No urinary symptoms Erythema and pain Physical Exam Vital Signs: Vital Signs: Last Vital Signs Temp 97.4 F 01/31/21 11:23 Pulse 96 01/31/21 11:23 Resp 18 01/31/21 11:23 BP 119/85 01/31/21 11:23 Pulse Ox 97 01/31/21 11:23 Body Mass Index 51.4 Const: Other: Constitutional : Alert, oriented, not in distress Neck : Normal inspection, Supple Cardiovascular : RRR, S1 S2, no lower extremity edema Respiratory : Good bilateral air entry, no crackles, wheezes or rhonchi Gastrointestinal: soft, lax, Normal bowel sounds, Non tender Skin : Warm, Dry, bilateral lower extremity stasis dermatitis findings, LLE with erythema, warmth and tenderness with palpation and central dark colored area with no drainage noted. Improved with Néstor wrap. Between toes evidence of lung infection. Neurological : Alert & oriented x3, No focal deficit Objective Data Current Medications Generic Name Dose Route Start Last Admin Trade Name Freq PRN Reason Stop Dose Admin Acetaminophen 650 mg 01/29/21 23:57 Acetaminophen 325 Mg Tablet PO Q6H PRN Pain, Mild (Pain Scale 1-3) Budesonide 2 puff 01/29/21 23:57 Budesonide 180 Mcg Aer.Pow.Ba INHALE Q4H PRN Shortness Of Breath Or Wheezing Cyclobenzaprine HCl 10 mg 01/29/21 23:57 Cyclobenzaprine Hcl 10 Mg Tablet PO TID PRN Pain Docusate Sodium 100 mg 01/29/21 23:57 Docusate Sodium 100 Mg Capsule PO DAILY PRN Constipation Fluticasone Propionate 2 puff 01/30/21 06:30 Fluticasone Propionate 100 Mcg Blst.W.Dev INHALE RBID PRN Shortness Of Breath Or Wheezing Gabapentin 300 mg 01/29/21 23:57 01/30/21 20:04 Gabapentin 300 Mg Capsule PO Not Given BEDTIME [facility] Heparin Sodium (Porcine) 5,000 unit 01/30/21 00:00 01/31/21 08:55 Heparin Sodium,Porcine 5,000 Unit/Ml Vial SUBCUT Not Given Q8H [facility] Hydromorphone HCl 0.5 mg 01/31/21 09:52 Hydromorphone Hcl 0.5 Mg/0.5 Ml Syringe IVPUSH Q4H PRN Pain, Severe (Pain Scale 7-10) Protocol Clindamycin Phosphate 600 mg in 50 mls @ 100 mls/hr 01/30/21 08:00 01/31/21 09:19 Cleocin IV Infused Q8H REPLACED BY [facility] Infusion Miconazole Nitrate 1 appl 01/30/21 10:40 01/31/21 08:59 Miconazole 2 % Extra Thick Cr 56.7 Gm Tube TOPICAL 1 appl BID REPLACED BY [facility] Administration Protocol Ondansetron HCl 4 mg 01/29/21 23:57 Ondansetron Hcl 4 Mg/2 Ml Vial IVPUSH Q8H PRN Nausea and Vomiting Sodium Chloride 3 ml 01/30/21 00:00 01/31/21 08:59 0.9 % Sodium Chloride Flush 3 Ml Syringe IVFLUSH 3 ml QSHIFT REPLACED BY [facility] Administration Labs CBC & Chem 7: 01/30/21 05:59 01/31/21 05:46 Labs: Laboratory Results - last 24 hr 01/31/21 05:46 Anion Gap 12 Estim Creat Clear Calc 111.5 Estimated GFR > 60 Random Glucose 101 Calcium 9.5 D Microbiology Microbiology Results: Microbiology 01/29/21 20:24 Blood Culture - Preliminary Blood - Venous No growth after 24 hours. 01/29/21 20:12 Blood Culture - Preliminary Blood - Venous No growth after 24 hours. Assessment and Plan (1) Cellulitis: Status: Acute Assessment and Plan: This is a 50-year-old female with past medical history of obesity, and osteoarthritis presents to the hospital with nonhealing cellulitis. # cellulitis failed outpatient therapy Continue IV clindamycin To use Néstor wrap Pending cultures # asthma continue home inhalers DVT prophylaxis Heparin subQ Quality Stroke Does the patient have a stroke diagnosis?: No VTE Prior VTE?: No VTE Risk Level:: Medical - moderate - high VTE Device Contraindication: Treatment Not Indicated VTE Drug Contraindication: N/A - Med Ordered
[2021-01-31] MEDS: HYDROmorphone HCl 0.5 MG/0.5 ML SYRINGE IVPUSH (14:25)
[2021-01-31 15:30] VITALS: BP 141/80; PULSE 79; RESP 20; TEMP 36.6; O2SAT 92
[2021-01-31] MEDS: Heparin Sodium,Porcine 5,000 UNIT/ML VIAL 5000 UNIT SUBCUT (16:18)
[2021-01-31 19:36] VITALS: BP 149/77; PULSE 90; RESP 20; TEMP 36.1; O2SAT 93
[2021-01-31] MEDS: Gabapentin 300 MG CAPSULE PO (22:02)
[2021-01-31 23:20] VITALS: BP 136/84; PULSE 85; RESP 17; TEMP 36.4; O2SAT 96
[2021-02-01] MEDS: Heparin Sodium,Porcine 5,000 UNIT/ML VIAL 5000 UNIT SUBCUT (01:38)
[2021-02-01] MEDS: Clindamycin Phosphate/D5W 600 MG/50 ML PIGGYBACK 100 MG IV ×2 (01:38→08:07)
[2021-02-01 03:11] VITALS: BP 129/72; PULSE 80; RESP 17; TEMP 36.3; O2SAT 95
[2021-02-01 06:42] LABS: Hematocrit 39.7 % (37-47); Hemoglobin 12.2 g/dl (12.0-16.0); Mean Corpuscular HGB Conc 30.7 g/dl (31.0-35.0); Mean Corpuscular Hemoglobin 27.1 pg (27.0-33.0); Mean Platelet Volume 9.7 fL (9.4-12.3); Platelet Count 295 X10*3/uL (160-400); Red Blood Count 4.51 X10*6/uL (4.20-5.50); Red Cell Distribution Width 15.4 % (11.0-16.0); White Blood Count 6.1 X10*3/uL (4.8-10.8)
[2021-02-01 07:03] LABS: Anion Gap 19 (12-20); Blood Urea Nitrogen 11 mg/dL (9-16); Carbon Dioxide 24 mmol/L (22-29); Chloride 103 mmol/L (96-108); Creatinine Clr Calc Pharmacy 123.3; Estimated Glomerular Filt Rate > 60; Glucose Random 114 mg/dL (60-115); Potassium 4.3 mmol/L (3.3-5.1); Sodium 142 mmol/L (135-145)
[2021-02-01 07:49] VITALS: BP 141/83; PULSE 83; RESP 18; TEMP 36; O2SAT 95
[2021-02-01] MEDS: 0.9 % Sodium Chloride Flush 3 ML SYRINGE IVFLUSH (08:12)
[2021-02-01 09:00] LABS: C Reactive Protein 6.39 mg/dL (< or = 0.50)
--- NOTE | 2021-02-01 11:08 | PM.DS ---
DS: Providers Provider Date of Service: 02/01/21 Date of admission: 01/29/21 22:45 Date of discharge: 02/01/21 Primary care physician: Kaitlynn Tam MD Admitting clinician: Gelacio Oliveira Attending physician on discharge: Brandon Aguilera DS: Diagnosis Discharge Diagnosis (1) Cellulitis: Status: Acute (2) Morbid obesity: Status: Acute DS: Medications Discharge Medications Home Medications: Home Medications Medication Instructions Recorded Confirmed beclomethasone dipropionate 80 2 puff PO BID PRN 08/19/20 01/29/21 mcg/actuation HFA breath activated aerosol (Qvar RediHaler) budesonide 180 mcg/actuation 2 inh INHALATION Q4-6H PRN 08/19/20 01/29/21 breath activated powder inhaler (Pulmicort Flexhaler) Previous Rx's Medication Instructions Recorded cyclobenzaprine 10 mg tablet 10 mg PO TID PRN #90 tab 10/04/20 gabapentin 300 mg capsule 300 mg PO BEDTIME #30 cap 12/08/20 clindamycin HCl 300 mg capsule 300 mg PO QID #28 cap 02/01/21 DS: Summary Hospital Course Hospital Course: from admission H+P by hospitalist Gelacio Oliveira, 01/29/21: 42-year-old female with past medical history of obesity, asthma presents to the hospital with complaints of nonhealing cellulitis of left lower extremity.? Patient reports that the redness and swelling started in mid December, patient went to [place] and at the end of December started developing cellulitis symptoms.? At that time she was giving a course of doxycycline which she finished 7 days of.? She initially improved but continued to have swelling, with gradual return of pain, she went to [facility] and was given a 2nd course of doxycycline which was a higher dose per patient, with no significant improvements of her symptoms.? Patient was then seen by her PCP and started on Bactrim about 4 days ago, but after starting Bactrim patient developed hives and therefore decided to come to the ED. Patient reports redness, swelling, pain in her left lower extremity around the nava area.? Denies any fever but has chills, denies any nausea vomiting no abdominal pain, no diarrhea constipation, no chest pain or shortness of breath, no urinary symptoms and no numbness tingling. Vitals on arrival reviewed show a temp of 98.7?, heart rate of 85, respiratory rate of 22, blood pressure 143/88 satting 100% on room air Labs are Unremarkable Arterial duplex of left lower extremity shows no hemodynamically significant arterial stenosis in the visualized arteries mild to moderate subcutaneous edema in the left scalp Given her failed outpatient therapy patient will be admitted The patient was admitted to the medical/surgical floor. She had clinical improvement with IV clindamycin. She was not septic. Blood cultures were negative. She was discharged home with 7 more days of clindamycin PO. She should follow up with her primary care doctor within 1 weeks. Outpatient bariatrics evaluation should be considered. Time Spent with Patient Time attestation: Total time spent providing and/or coordinating discharge services: Discharge coordination time: Greater than 30 minutes Quality: Stroke Does the patient have a stroke diagnosis?: No Physical Exam Vital Signs: Vital Signs: Last Vital Signs Temp 96.8 F 02/01/21 07:49 Pulse 83 02/01/21 07:49 Resp 18 02/01/21 07:49 BP 141/83 H 02/01/21 07:49 Pulse Ox 95 02/01/21 07:49 Body Mass Index 51.4 Gen: in no acute distress HEENT: sclera anicteric, moist mucus membranes Neck: supple Lungs: clear to auscultation bilaterally Heart: regular rate and rhythm, no murmurs Abd: soft, non-tender, non-distended, morbidly obese Ext: no edema Skin: warm/well-perfused, minimal swelling and hyperpigmentation left nava with no fluctuant areas Neuro: alert and oriented x3, no focal findings Psych: appropriate affect DS: Data Data Completed and Pending Completed studies during hospitalization [Text1]: Laboratory Results WBC 6.1 X10*3/uL (4.8-10.8) 02/01/21 06:01 RBC 4.51 X10*6/uL (4.20-5.50) 02/01/21 06:01 Hgb 12.2 g/dl (12.0-16.0) 02/01/21 06:01 Hct 39.7 % (37-47) 02/01/21 06:01 MCV 88.0 fL (80-98) 02/01/21 06:01 MCH 27.1 pg (27.0-33.0) 02/01/21 06:01 MCHC 30.7 g/dl (31.0-35.0) L 02/01/21 06:01 RDW 15.4 % (11.0-16.0) 02/01/21 06:01 Plt Count 295 X10*3/uL (160-400) 02/01/21 06:01 MPV 9.7 fL (9.4-12.3) 02/01/21 06:01 Immature Gran % (Auto) 0.6 % (0.0-0.4) H 01/30/21 05:59 Neut % (Auto) 71.4 % (45-73) 01/30/21 05:59 Lymph % (Auto) 15.1 % (20-40) L 01/30/21 05:59 Stearns % (Auto) 11.5 % (2-11) H 01/30/21 05:59 Eos % (Auto) 1.0 % (0-4) 01/30/21 05:59 Baso % (Auto) 0.4 % (0-2) 01/30/21 05:59 Lymph # (Auto) 1.1 X10*3/uL (1.2-4.9) L 01/30/21 05:59 Stearns # (Auto) 0.8 X10*3/uL (0.1-1.2) 01/30/21 05:59 Eos # (Auto) 0.1 X10*3/uL (0.0-0.4) 01/30/21 05:59 Baso # (Auto) 0.0 X10*3/uL (0.0-0.2) 01/30/21 05:59 Abs Immat Gran (auto) 0.04 X10*3/uL (0.00-0.03) H 01/30/21 05:59 Absolute Neuts (auto) 5.0 X10*3/uL (2.0-8.3) 01/30/21 05:59 Absolute Nucleated RBC 0.000 X10*3/uL (0.0-0.012) 02/01/21 06:01 Nucleated RBC % (auto) 0.0 /100WBC (0.0-0.2) 02/01/21 06:01 Sodium 142 mmol/L (135-145) 02/01/21 06:01 Potassium 4.3 mmol/L (3.3-5.1) 02/01/21 06:01 Chloride 103 mmol/L (96-108) 02/01/21 06:01 Carbon Dioxide 24 mmol/L (22-29) 02/01/21 06:01 Anion Gap 19 (12-20) 02/01/21 06:01 BUN 11 mg/dL (9-16) 02/01/21 06:01 Creatinine 0.85 mg/dL (0.5-1.4) 02/01/21 06:01 Estim Creat Clear Calc 123.3 02/01/21 06:01 Estimated GFR > 60 02/01/21 06:01 POC Glucose 123 mg/dL (60-115) H 01/30/21 02:21 Random Glucose 114 mg/dL (60-115) 02/01/21 06:01 Lactic Acid 1.6 mmol/L (0.5-2.0) 01/29/21 20:12 Calcium 10.0 mg/dL (8.4-10.2) 02/01/21 06:01 C-Reactive Protein 6.39 mg/dL (< or = 0.50) H 02/01/21 06:01 COVID-19 (DANIELA) Negative (Negative) 01/29/21 20:12 COVID-19 Clin Com See Note 01/29/21 20:12 Impressions Tibia/Fibula X-Ray 01/29/21 19:37 IMPRESSION: Diffuse soft tissue swelling with reticulation of the subcutaneous fat consistent with edema. No radiopaque foreign body or soft tissue gas seen however. Duplex Scan Lower Extremity Artery 01/29/21 23:50 IMPRESSION: 1. No hemodynamically significant arterial stenosis in the visualized arteries of the left lower extremity. 2. Mild to moderate subcutaneous edema in the left calf. Labs on day of discharge: Laboratory Results - last 24 hr 02/01/21 02/01/21 06:01 06:01 WBC 6.1 RBC 4.51 Hgb 12.2 Hct 39.7 MCV 88.0 MCH 27.1 MCHC 30.7 L RDW 15.4 Plt Count 295 MPV 9.7 Absolute Nucleated RBC 0.000 Nucleated RBC % (auto) 0.0 Sodium 142 Potassium 4.3 Chloride 103 Carbon Dioxide 24 Anion Gap 19 BUN 11 Creatinine 0.85 Estim Creat Clear Calc 123.3 Estimated GFR > 60 Random Glucose 114 Calcium 10.0 C-Reactive Protein 6.39 H Preliminary micro results at discharge 01/29/21 20:24 Blood Culture - Preliminary Blood - Venous No growth after 48 hours. 01/29/21 20:12 Blood Culture - Preliminary Blood - Venous No growth after 48 hours. Discharge Plan Discharge Patient Disposition: Home, Self-Care Discharge Diagnosis: cellulitis Referrals: Kaitlynn Tam MD [Primary Care Provider] - 1 Week Discharge Medications: New clindamycin HCl 300 mg capsule 300 mg PO QID Qty: 28 RF: 0 Continued cyclobenzaprine 10 mg tablet 10 mg PO TID PRN (Reason: Pain) Qty: 90 RF: 5 Pulmicort Flexhaler 180 mcg/actuation aerosol powdr breath activated 2 inh inhalation Q4-6H PRN (Reason: Shortness Of Breath Or Wheezing) RF: 0 Qvar RediHaler 80 mcg/actuation HFA aerosol breath activated 2 puff PO BID PRN (Reason: Shortness Of Breath Or Wheezing) RF: 0 gabapentin 300 mg capsule 300 mg PO BEDTIME Qty: 30 RF: 3 Discharge Orders: Discharge Order (Routine); Ordered 02/01/21 Ordered By: Brandon Aguilera Diet: advance to usual diet Activity on Discharge: As tolerated Stand Alone Forms: Patient Portal Discharge page Care Plan Goals: resolution of infection Health Concerns: cellulitis morbid obesity Plan of Treatment: clindamycin 300 mg 4x a day for 7 days total follow up with your primary care doctor within 1 week cnsider bariatrics evaluation Assessment: as above Patient Instructions: Clindamycin (By mouth), Cellulitis (DC)
--- NOTE | 2021-02-01 11:45 | MHC.CM.PN ---
PT CLEARED TO DC HOME TODAY WITH NO SERVICES
== END 2021-02-01 12:46 | disposition home or self-care (01) | DRG 603 ==
LOC: HO.ED 21:32 → HO.EDOVER 22:58 → HO.S3 01-30 02:03
PROVIDERS: Student in an Organized Health Care Education/Training Program; Admitting Provider Internal Medicine; Emergency Provider Internal Medicine; PCP Internal Medicine; Visit Provider Family Medicine
DX: L03.116 Cellulitis of left lower limb (principal); Z68.43 Body mass index [BMI] 50.0-59.9, adult; E66.01 Morbid (severe) obesity due to excess calories; J45.909 Unspecified asthma, uncomplicated; Z20.822 Contact with and (suspected) exposure to COVID-19; Z88.2 Allergy status to sulfonamides; Z88.5 Allergy status to narcotic agent; Z79.899 Other long term (current) drug therapy
CPT/HCPCS: 36415; 73590; 80048; 82947; 83605; 85025; 85027; 86140; 87040; 87635; 93926; 96365; 96367; 96375; 99218; 99285; J0696; J1170; J1885; J2270; J2543; J3370

== ENCOUNTER 2021-02-24 08:47 | Day surgery (SDC) | payer OTHER, SELFPAY ==
[2021-02-17 14:54] VITALS: BMI 49.3
--- NOTE | 2021-02-23 09:26 | HO.ANESPROP2 ---
Documented by User: Eli Neff NP 02/23/21 09:28 HPI - Anesthesia Eval Consult details Narrative: 50yo F for L3-L4-DR-L5 Diagnostic Medial Branch Blocks s/p RLL lung resection in 1999 [facility] Active Problems Active Problems: All Active Problems (Updated 02/17/21 @ 14:39 by Alejandra Willis RN) Lumbar facet arthropathy (Acute) Cellulitis (Acute) Morbid obesity (Acute) Spondyloarthropathy (Acute) Past Medical History Medical History Arthritis Asthma Ear infection Elevated LFTs Fatty liver Headache History of cellulitis Hx of pneumothorax Low back pain Numbness and tingling of both legs Obesity PVD (peripheral vascular disease) Spondyloarthropathy Family History Family History Father Diabetes HTN (hypertension) Mother Stroke CVD (cardiovascular disease) Surgical History Surgical History History of cholecystectomy History of esophagogastroduodenoscopy (EGD) History of lung surgery Hx of laminectomy Hx of total hysterectomy with removal of both tubes and ovaries Social History Social History Household Members: Family Housing: Apartment Do you presently have visiting nurse or other home services: No Alcohol intake: current Alcohol intake frequency: holidays/special occasions only Patient Tobacco Use Status: Never used Tobacco Use of substances other than those prescribed or required for medical reasons: No Advance Directives Information Provided: No (as above noted) Advance Directives on File: No service: No Current occupational status: employed Meds Allergies Allergy/AdvReac Type Severity Reaction Status Date / Time hydrocodone [From Vicodin] Allergy Severe NAUSEA,DIZZ Verified 01/29/21 17:37 Y sulfamethoxazole Allergy Rash Verified 01/29/21 20:35 [From Bactrim] trimethoprim [From Bactrim] Allergy Rash Verified 01/29/21 20:35 oxycodone [From PERCOCET] AdvReac Severe nausea,VOMI Verified 01/29/21 17:37 TING morphine AdvReac Unknown Verified 02/24/21 08:52 Home Medications Medication Instructions Recorded Confirmed Last Taken Type beclomethasone dipropionate 80 2 puff PO BID PRN 08/19/20 02/17/21 Unknown History mcg/actuation HFA breath activated aerosol (Qvar RediHaler) budesonide 180 mcg/actuation 2 inh INHALATION Q4-6H PRN 08/19/20 02/17/21 Unknown History breath activated powder inhaler (Pulmicort Flexhaler) Exam Exam Date and Time: February 23, 202126 Height,Weight and Vital Signs: Height 5 ft 7 in Weight 142.882 kg Pertinent Lab Results Pertinent Lab Results: Laboratory Tests 02/01/21 02/01/21 06:01 06:01 WBC 6.1 Hgb 12.2 Hct 39.7 Plt Count 295 Sodium 142 Potassium 4.3 Chloride 103 Carbon Dioxide 24 BUN 11 Creatinine 0.85 Narrative Narrative: EKG 2019: ST otherwise normal Assessment and Plan Assessment Anesthesia Assessment: Chart Reviewed Documented by User: Tanisha Terrell MD 02/24/21 11:15 PMFSH Past Medical History Medical History Arthritis Asthma Ear infection Elevated LFTs Fatty liver Headache History of cellulitis Hx of pneumothorax Low back pain Numbness and tingling of both legs Obesity PVD (peripheral vascular disease) Spondyloarthropathy Family History Family History Father Diabetes HTN (hypertension) Mother Stroke CVD (cardiovascular disease) Surgical History Surgical History History of cholecystectomy History of esophagogastroduodenoscopy (EGD) History of lung surgery Hx of laminectomy Hx of total hysterectomy with removal of both tubes and ovaries History of Problems with Anesthesia: No Social History Social History Household Members: Family Housing: Apartment Do you presently have visiting nurse or other home services: No Alcohol intake: current Alcohol intake frequency: holidays/special occasions only Patient Tobacco Use Status: Never used Tobacco Use of substances other than those prescribed or required for medical reasons: No Advance Directives Information Provided: No (as above noted) Advance Directives on File: No service: No Current occupational status: employed Meds Allergies Allergy/AdvReac Type Severity Reaction Status Date / Time hydrocodone [From Vicodin] Allergy Severe NAUSEA,DIZZ Verified 01/29/21 17:37 Y sulfamethoxazole Allergy Rash Verified 01/29/21 20:35 [From Bactrim] trimethoprim [From Bactrim] Allergy Rash Verified 01/29/21 20:35 oxycodone [From PERCOCET] AdvReac Severe nausea,VOMI Verified 01/29/21 17:37 TING morphine AdvReac Unknown Verified 02/24/21 08:52 Home Medications Medication Instructions Recorded Confirmed Last Taken Type beclomethasone dipropionate 80 2 puff PO BID PRN 08/19/20 02/17/21 Unknown History mcg/actuation HFA breath activated aerosol (Qvar RediHaler) budesonide 180 mcg/actuation 2 inh INHALATION Q4-6H PRN 08/19/20 02/17/21 Unknown History breath activated powder inhaler (Pulmicort Flexhaler) Exam Airway Mallampati Class: III (Full neck) TM Dist: >3cm Neck ROM: Limited Heart: RRR Lungs: CTA Assessment and Plan Assessment Anesthesia Assessment: Anesthesia Plan Discussed Final Anesthetic Review History of Problems with Anesthesia: No NPO: Yes ASA Class: III Final Preanesthetic Review: Meds/Allgs Chart Reviewed, Consent Obtained/Reviewed and Anes Risks/Benef Reviewed Patient Risk: Intermediate Procedure Risk: Intermediate Anesthetic Plan Anesthetic Plan: GA Disposition: Standard PACU
--- NOTE | 2021-02-23 20:57 | MHC.SHP ---
Pre-Procedural Eval Section A Date of Service: 02/23/21 The patient is an INPATIENT: No Changes since office visit: Yes Patient answered all questions The History & Physical has been completed within 30 days and I have reviewed it.: No Section B Chief Complaint: Lumbar Facet Arthropathy Details of Present Illness: as above Relevant Family History (Specify if Yes): No Relevant Social History: None Present Medications: see Short Stay Collaborative assessment Medical History: No relevant PMH History of Previous Operations: No relevant previous surgery Allergies: Allergies Allergy/AdvReac Type Severity Reaction Status Date / Time hydrocodone [From Vicodin] Allergy Severe NAUSEA,DIZZ Verified 01/29/21 17:37 Y sulfamethoxazole Allergy Rash Verified 01/29/21 20:35 [From Bactrim] trimethoprim [From Bactrim] Allergy Rash Verified 01/29/21 20:35 oxycodone [From PERCOCET] AdvReac Severe nausea,VOMI Verified 01/29/21 17:37 TING Review of Systems Sugical H&P ROS: Negative: Constitution, Cardiovascular, Respiratory, Neurological, Psychiatric, Hem-Onc, Allergic/Immunologic, Gastrointestinal, Genitourinary, Musculoskeletal, Integumentary, Endocrine and Eyes/Ears/Nose/Throat Exam Surgical H&P Exam: Normal: HEENT, Normal: Heart, Normal: Lungs, Normal: Extremities, Normal: Abdomen, Normal: Skin and Normal: Neurological Plan Diagnosis/Plan: Unchanged I have reviewed the history and physical and performed a pertinent physical examination on my patient. No changes have occurred unless specified.
[2021-02-24] VITALS (8 sets, daily range): BP systolic 110–143; BP diastolic 74–95; PULSE 73–85; RESP 16–18; TEMP 36.1–37.1; O2SAT 95–100
--- NOTE | ~2021-02-24 | FL_ITS ---
EXAMINATION: XR FLUOROSCOPY WITH IMAGES CLINICAL INFORMATION: Medial branch block COMPARISON: Radiographs lumbar spine 12/22/2019 TECHNIQUE: Fluoroscopy performed by Dr. Reji Wallis. Fluoroscopy time: 0.7 minutes DAP: 17.9 Gycm2 Images: 6 FINDINGS: There is transitional vertebrae at L5 with bilateral sacralization. There are spinal needles overlying the bilateral outer L3, L4, and L5 neural foramen. There is some contrast seen in the respective nerve sheaths. Some early transforaminal epidural extension is suggested. No visible vascular communication. FL/FL guidance in OR IMPRESSION: Fluoroscopy for pain management procedures.
[2021-02-24] MEDS: Lactated Ringers 1,000 ML 100 ML IVCONT (09:20)
--- NOTE | 2021-02-24 12:12 | P.BOP_ITS ---
Brief Operative Note Date of Service: 02/24/21 Pre-op diagnosis: Spondylosis lumbar spine Post-op diagnosis: same Procedure: Diagnostic medial branch block L3-L4 does ramus L5 bilateral. Implants: In a Surgeon: Reji Wallis MD Anesthesia: GETA Was an Rag Cutting Machine Operator used for this Procedure?: No Estimated blood loss (mL): 0 Disposition: PACU
--- NOTE | 2021-02-24 12:13 | P.OP_ITS ---
Operative Note Operative Note Date of Service: 02/24/21 Narrative: Madyson is very pleasant 50 years old female who is suffering from spondylosis of lumbar spine. She is also morbidly obese. Her BMI is 49.3 kg per squared meter. She came today to the operating room for the performance of diagnostic bilateral medial branch block L3-L4 dorsal ramus L5. The patient came to the operating room after obtaining informed consent. The patient was positioned supine in stretcher [place] [employer] monitors were applied and patient was induced with general anesthesia. She actually insisted on having general anesthesia for this procedure despite the explanations given about benefits of avoiding general anesthesia for this procedure. Endotracheal intubation was performed and after that the patient was transferred on the operating table prone. All pressure points were protected. Time-out was performed delineating correct site and side of the procedure. Date of and full name of the patient has were pronounced and risk of fire, antibiotic prophylaxis need, risk of DVT prophylaxis were assessed. Her lower back and upper buttocks were prepped with DuraPrep and draped with four utility sterile towels. C-arm was brought over the operating field and sq picture of L4 and L5 vertebra as as well as upper sacrum were delineated on the screen. The point of interest were delineated as confluence of the silhouette of the superior articular process of L4 and L5 vertebra bilaterally with corresponding transverse process bilaterally as well as bilateral superior articular process silhouette of S1 vertebra confluence with bilateral sacral alae. The projection of the point of interest into the skin were injected with small amount of mixture of lidocaine 2% with bupivacaine 0.5%. After that 22 gauge 5 in needle was driven to were the point of interest in tunnel vision fashion sequentially. When needle gently contacted the bone the small amount of the contrast was injected into this each side. There were no intravascular or intrathecal spread of the contrast. After that small amount of bupivacaine 0.5% was injected into each needle position without any Kenalog. Upon completion of the all injections the needle was removed sterile Band-Aids were applied. The patient was awaken transferred to the stretcher supine extubated and transferred stable to PACU for recovery. She went home without immediate complications.
[2021-02-24] MEDS: Acetaminophen 325 MG TABLET 650 MG PO (12:36)
[2021-02-24] MEDS: fentaNYL citrate/PF 100 MCG/2 ML VIAL 25 MCG IVPUSH (12:37)
== END 2021-02-24 14:11 | disposition home or self-care (01) ==
PROVIDERS: PCP Internal Medicine; Visit Provider Anesthesiology
PROC: (CPT 64493; principal; 2021-02-24 10:30)
DX: M47.816 Spondylosis without myelopathy or radiculopathy, lumbar region (principal); E66.01 Morbid (severe) obesity due to excess calories; Z68.42 Body mass index [BMI] 45.0-49.9, adult
CPT/HCPCS: 64493; 64494; J1100; J2250; J2370; J2405; J3010; Q9967

== ENCOUNTER → 2021-03-03 13:02 | Outpatient (BNVA) | payer OTHER, SELFPAY | PROVIDERS: PCP Internal Medicine; Visit Provider Nurse Practitioner Family ==

== ENCOUNTER → 2021-04-05 12:19 | Outpatient (BNVA) | payer OTHER, SELFPAY | PROVIDERS: PCP Internal Medicine; Visit Provider Nurse Practitioner Family ==

== ENCOUNTER 2021-04-13 17:55 | Outpatient (REF) | payer OTHER, SELFPAY ==
--- NOTE | ~2021-04-13 | MR_ITS ---
EXAMINATION: MR LUMBAR SPINE WITHOUT CONTRAST CLINICAL INFORMATION: 50-year-old with left-sided low back pain and lumbar radicular symptoms. COMPARISON: 02/20/2016 MRI. TECHNIQUE: MRI of the lumbar spine was obtained using routine sequences without contrast. FINDINGS: Coronal Alignment: Normal. Sagittal Alignment: Normal. Lumbosacral Junction: Transitional anatomy with lowest lumbar-like segment labeled as L5, which is partially sacralized on the left, with a rudimentary intervertebral disc space. Vertebral Bodies: Normal height. Disc Spaces and Endplates: Disc space heights are well maintained stable in appearance with disc desiccation noted at L4-L5, unchanged in appearance. There is new mild disc desiccation at L3-L4. Spinal Canal: No abnormal developmental findings. Bone Marrow: No significant marrow-replacing process or bone marrow edema. Conus Medullaris: Terminates at L2. Morphology and signal is normal. Intradural Nerve Roots: Within normal limits. SPINAL LEVELS: L5-S1: Transitional intervertebral disc noted without significant canal or neural foraminal stenosis, stable in appearance. L4-L5: Minor annular bulging with a tiny central disc protrusion stable in appearance, with minimal facet arthrosis stable in appearance without significant canal stenosis. No significant neural foraminal stenosis. L3-L4: Previously noted left-sided foraminal/extraforaminal disc protrusion is again noted, now with an annular fissure noted on the left at this location on the current study. Disc protrusion probably contacts the exiting left L3 nerve root with associated mild left-sided foraminal narrowing. No significant canal stenosis. There is [id number] facet arthropathy on the left slightly progressed from previous study. L2-L3: Disc space height and signal well maintained without significant disc bulge or herniation and no significant spondylosis, facet arthrosis, canal or neural foraminal stenosis. L1-L2: Disc space height and signal well maintained without significant disc bulge or herniation and no significant spondylosis, facet arthrosis, canal or neural foraminal stenosis. Paraspinal/Retroperitoneal: The paravertebral soft tissues are unremarkable. There is moderate distention of a left-sided extrarenal pelvis without hydroureter. MR/MR lumbar spine wo con IMPRESSION: 1. Mild disc desiccation at L4-L5 with tiny central disc protrusion and minimal annular bulging at this level stable in appearance, with L5 being a transitional level unchanged. 2. New mild disc desiccation at L3-L4. Small left-sided foraminal/extraforaminal disc protrusion at this level again noted, now with a left-sided annular fissure which contacts the exiting left L3 nerve root, similar to the previous exam. Left-sided facet arthrosis at this level appears slightly more prominent with mild left-sided neural foraminal stenosis, largely unchanged. 3. Transitional lumbosacral anatomy.
== END 2021-04-13 17:56 | disposition home or self-care (01) ==
LOC: HO.MRI 17:55
PROVIDERS: Visit Provider Nurse Practitioner Family
DX: M54.16 Radiculopathy, lumbar region (principal)
CPT/HCPCS: 72148

== ENCOUNTER → 2021-05-19 11:59 | Outpatient (BNVA) | payer OTHER, SELFPAY | PROVIDERS: PCP Internal Medicine; Visit Provider Nurse Practitioner Family ==

== ENCOUNTER → 2021-06-14 11:46 | Outpatient (BNVA) | payer OTHER, SELFPAY | PROVIDERS: Visit Provider Nurse Practitioner Family ==

== ENCOUNTER 2021-06-20 14:59 | Outpatient (REF) | payer OTHER, SELFPAY ==
[2021-06-20 15:10] LABS: MANUAL DIFF FLAG NO
[2021-06-20 15:37] LABS: Basophils Absolute Auto 0.1 X10*3/uL (0.0-0.2); Basophils Percent Auto 1.2 % (0-2); Eosinophils Absolute Auto 0.6 X10*3/uL (0.0-0.4); Eosinophils Percent Auto 8.2 % (0-4); Hematocrit 42.5 % (37.0-47.0); Hemoglobin 13.1 g/dl (12.0-16.0); Imm Gran Abs Auto 0.04 X10*3/uL (0.00-0.03); Imm Gran Pct Auto 0.6 % (0.0-0.4); Lymphocytes Absolute Auto 3.1 X10*3/uL (1.2-4.9); Lymphocytes Percent Auto 45.1 % (20-40); Mean Corpuscular HGB Conc 30.8 g/dl (31.0-35.0); Mean Corpuscular Hemoglobin 26.7 pg (27.0-33.0); Mean Corpuscular Volume 86.6 fL (80.0-98.0); Mean Platelet Volume 9.3 fL (9.4-12.3); Monocytes Absolute Auto 0.7 X10*3/uL (0.1-1.2); Monocytes Percent Auto 9.8 % (2-11); Neutrophils Absolute Auto 2.4 x10*3/uL (2.0-8.3); Neutrophils Percent Auto 35.1 % (45-73); Platelet Count 325 X10*3/uL (160-400); Red Blood Count 4.91 X10*6/uL (4.20-5.50); Red Cell Distribution Width 15.3 % (11.0-16.0); White Blood Count 6.8 X10*3/uL (4.8-10.8)
[2021-06-20 16:03] LABS: Alanine Aminotransferase 52 U/L (0-31); Albumin Level 3.7 g/dL (3.5-5.0); Alkaline Phosphatase 92 U/L (39-117); Anion Gap 12 (12-20); Aspartate Amino Transferase 31 U/L (5-31); Bilirubin Total 0.6 mg/dL (0.0-1.0); Blood Urea Nitrogen 10 mg/dL (9-16); Calcium 9.7 mg/dL (8.4-10.2); Carbon Dioxide 27 mmol/L (22-29); Chloride 108 mmol/L (96-108); Cholesterol 178 mg/dL; Estimated Glomerular Filt Rate > 60; Glucose Random 77 mg/dL (60-115); HDL Cholesterol 47 mg/dL; LDL Cholesterol Calculated 90 mg/dl; Potassium 4.4 mmol/L (3.3-5.1); Sodium 143 mmol/L (135-145); Total Protein 7.9 g/dL (6.5-8.0); Triglycerides 207 mg/dL
[2021-06-20 16:23] LABS: Thyroid Stimulating Hormone 1.05 uIU/mL (0.32-4.0)
== END 2021-06-20 15:00 | disposition home or self-care (01) ==
LOC: HO.LAB 14:59
PROVIDERS: PCP Internal Medicine; Visit Provider Internal Medicine
DX: E66.01 Morbid (severe) obesity due to excess calories (principal); E78.00 Pure hypercholesterolemia, unspecified; I73.9 Peripheral vascular disease, unspecified; L03.115 Cellulitis of right lower limb
CPT/HCPCS: 36415; 80053; 80061; 84443; 85025

== ENCOUNTER → 2021-07-06 12:42 | Outpatient (BNVA) | payer OTHER, SELFPAY | PROVIDERS: PCP Internal Medicine; Visit Provider Nurse Practitioner Family ==

== ENCOUNTER 2021-10-06 09:10 | Outpatient (REF) | payer OTHER, SELFPAY ==
[2021-10-06 10:14] LABS: MANUAL DIFF FLAG NO
[2021-10-06 10:34] LABS: Basophils Absolute Auto 0.1 X10*3/uL (0.0-0.2); Basophils Percent Auto 0.9 % (0-2); Eosinophils Absolute Auto 0.4 X10*3/uL (0.0-0.4); Eosinophils Percent Auto 6.6 % (0-4); Hematocrit 41.3 % (37.0-47.0); Hemoglobin 12.8 g/dl (12.0-16.0); Imm Gran Abs Auto 0.04 X10*3/uL (0.00-0.03); Imm Gran Pct Auto 0.6 % (0.0-0.4); Lymphocytes Absolute Auto 2.8 X10*3/uL (1.2-4.9); Lymphocytes Percent Auto 42.3 % (20-40); Mean Corpuscular Hemoglobin 26.8 pg (27.0-33.0); Mean Corpuscular Volume 86.6 fL (80.0-98.0); Mean Platelet Volume 9.5 fL (9.4-12.3); Monocytes Absolute Auto 0.8 X10*3/uL (0.1-1.2); Monocytes Percent Auto 11.6 % (2-11); Neutrophils Absolute Auto 2.5 x10*3/uL (2.0-8.3); Platelet Count 308 X10*3/uL (160-400); Red Blood Count 4.77 X10*6/uL (4.20-5.50); White Blood Count 6.7 X10*3/uL (4.8-10.8)
[2021-10-06 10:54] LABS: Alanine Aminotransferase 40 U/L (0-31); Albumin Level 3.9 g/dL (3.5-5.0); Alkaline Phosphatase 77 U/L (39-117); Anion Gap 12 (12-20); Aspartate Amino Transferase 22 U/L (5-31); Bilirubin Total 0.7 mg/dL (0.0-1.0); Blood Urea Nitrogen 11 mg/dL (9-16); C Reactive Protein 1.25 mg/dL (< or = 0.50); Calcium 9.7 mg/dL (8.4-10.2); Carbon Dioxide 26 mmol/L (22-29); Chloride 108 mmol/L (96-108); Estimated Glomerular Filt Rate > 60; Glucose Random 100 mg/dL (60-115); Potassium 4.2 mmol/L (3.3-5.1); Sodium 142 mmol/L (135-145); Total Protein 7.5 g/dL (6.5-8.0)
[2021-10-06 11:46] LABS: Erythrocyte Sedimentation Rate 51 MM/HR (0-20)
== END 2021-10-06 09:11 | disposition home or self-care (01) ==
LOC: HO.LAB 09:10
PROVIDERS: PCP Internal Medicine; Visit Provider Nurse Practitioner Family
DX: M47.819 Spondylosis without myelopathy or radiculopathy, site unspecified (principal)
CPT/HCPCS: 36415; 80053; 85025; 85652; 86140

== ENCOUNTER 2021-12-13 11:01 | Outpatient (REF) | payer OTHER, SELFPAY ==
[2021-12-13 11:09] LABS: MANUAL DIFF FLAG NO
[2021-12-13 11:29] LABS: Basophils Absolute Auto 0.1 X10*3/uL (0.0-0.2); Basophils Percent Auto 1.4 % (0-2); Eosinophils Absolute Auto 0.3 X10*3/uL (0.0-0.4); Eosinophils Percent Auto 4.9 % (0-4); Hematocrit 43.9 % (37.0-47.0); Hemoglobin 13.6 g/dl (12.0-16.0); Imm Gran Abs Auto 0.02 X10*3/uL (0.00-0.03); Imm Gran Pct Auto 0.3 % (0.0-0.4); Lymphocytes Absolute Auto 2.4 X10*3/uL (1.2-4.9); Lymphocytes Percent Auto 42.2 % (20-40); Mean Corpuscular Hemoglobin 26.6 pg (27.0-33.0); Mean Corpuscular Volume 85.9 fL (80.0-98.0); Mean Platelet Volume 9.5 fL (9.4-12.3); Monocytes Absolute Auto 0.6 X10*3/uL (0.1-1.2); Monocytes Percent Auto 10.5 % (2-11); Neutrophils Absolute Auto 2.3 x10*3/uL (2.0-8.3); Neutrophils Percent Auto 40.7 % (45-73); Platelet Count 302 X10*3/uL (160-400); Red Blood Count 5.11 X10*6/uL (4.20-5.50); Red Cell Distribution Width 15.2 % (11.0-16.0); White Blood Count 5.7 X10*3/uL (4.8-10.8)
[2021-12-13 11:39] LABS: Estimated Average Glucose 123 mg/dL; Hemoglobin A1c % 5.9 %
[2021-12-13 12:03] LABS: Alanine Aminotransferase 43 U/L (0-31); Albumin Level 4.1 g/dL (3.5-5.0); Alkaline Phosphatase 77 U/L (39-117); Anion Gap 13 (12-20); Aspartate Amino Transferase 25 U/L (5-31); Bilirubin Total 0.7 mg/dL (0.0-1.0); Blood Urea Nitrogen 10 mg/dL (9-16); Calcium 9.9 mg/dL (8.4-10.2); Carbon Dioxide 26 mmol/L (22-29); Chloride 108 mmol/L (96-108); Cholesterol 191 mg/dL; Estimated Glomerular Filt Rate > 60; Glucose Random 106 mg/dL (60-115); HDL Cholesterol 56 mg/dL; LDL Cholesterol Calculated 111 mg/dl; Potassium 4.6 mmol/L (3.3-5.1); Sodium 142 mmol/L (135-145); Total Protein 7.8 g/dL (6.5-8.0); Triglycerides 124 mg/dL
== END 2021-12-13 11:02 | disposition home or self-care (01) ==
LOC: HO.LAB 11:01
PROVIDERS: PCP Internal Medicine; Visit Provider Internal Medicine
DX: Z00.00 Encounter for general adult medical examination without abnormal findings (principal); E66.8 Other obesity; M51.16 Intervertebral disc disorders with radiculopathy, lumbar region; R74.01 Elevation of levels of liver transaminase levels
CPT/HCPCS: 36415; 80053; 80061; 83036; 85025

== ENCOUNTER 2022-06-25 11:37 | Outpatient (REF) | payer OTHER, SELFPAY ==
[2022-06-25 11:55] LABS: MANUAL DIFF FLAG NO
[2022-06-25 12:25] LABS: Basophils Absolute Auto 0.1 X10*3/uL (0.0-0.2); Basophils Percent Auto 1.1 % (0-2); Eosinophils Absolute Auto 0.3 X10*3/uL (0.0-0.4); Eosinophils Percent Auto 5.4 % (0-4); Hematocrit 41.6 % (37.0-47.0); Hemoglobin 13.3 g/dl (12.0-16.0); Imm Gran Abs Auto 0.04 X10*3/uL (0.00-0.03); Imm Gran Pct Auto 0.6 % (0.0-0.4); Lymphocytes Absolute Auto 2.5 X10*3/uL (1.2-4.9); Mean Corpuscular Hemoglobin 27.9 pg (27.0-33.0); Mean Corpuscular Volume 87.2 fL (80.0-98.0); Mean Platelet Volume 9.6 fL (9.4-12.3); Monocytes Absolute Auto 0.7 X10*3/uL (0.1-1.2); Monocytes Percent Auto 11.6 % (2-11); Neutrophils Absolute Auto 2.7 x10*3/uL (2.0-8.3); Neutrophils Percent Auto 42.3 % (45-73); Platelet Count 307 X10*3/uL (160-400); Red Blood Count 4.77 X10*6/uL (4.20-5.50); Red Cell Distribution Width 15.3 % (11.0-16.0); White Blood Count 6.3 X10*3/uL (4.8-10.8)
[2022-06-25 13:05] LABS: Erythrocyte Sedimentation Rate 56 MM/HR (0-20)
[2022-06-25 13:27] LABS: Alanine Aminotransferase 37 U/L (0-31); Aspartate Amino Transferase 20 U/L (5-31); Estimated Glomerular Filt Rate > 60
== END 2022-06-25 11:38 | disposition home or self-care (01) ==
LOC: HO.LAB 11:37
PROVIDERS: PCP Internal Medicine; Visit Provider Nurse Practitioner Family
DX: M47.819 Spondylosis without myelopathy or radiculopathy, site unspecified (principal)
CPT/HCPCS: 36415; 82565; 84450; 84460; 85025; 85652; 86140

== ENCOUNTER 2022-08-27 12:09 | Outpatient (REF) | payer OTHER, SELFPAY ==
--- NOTE | ~2022-08-27 | MM_ITS ---
EXAMINATION: MM SCREENING DIGITAL BREAST TOMOSYNTHESIS, BILATERAL CLINICAL INFORMATION: Screening. Asymptomatic. The lifetime risk of breast cancer based on the Tyrer-Cuzick Model is 4%. COMPARISON: Mammography: 09/06/2010, 10/14/2008 TECHNIQUE: Digital breast tomosynthesis is performed in both the craniocaudal and mediolateral oblique views along with computer-aided detection (CAD). Synthesized 2D images are generated from the tomosynthesis. Additional left CC and right MLO views are provided. FINDINGS: The breasts are almost entirely fatty (ACR BI-RADS breast composition Category a). Background stromal markings are normal. There are no significant masses, abnormal calcifications, or other abnormalities. There are scattered intramammary nodes again seen bilateral outer quadrants. No developing density or architectural abnormality. The axilla and skin contours are unremarkable. MM/MM tomosynthesis screening BI IMPRESSION: No mammographic evidence of malignancy. ASSESSMENT: BI-RADS 2: Benign RECOMMENDATION: Routine annual mammography screening. This patient's information was entered into a reminder system with a target due date for their next mammogram.
== END 2022-08-27 12:10 | disposition home or self-care (01) ==
LOC: HO.MAMMO 12:09
PROVIDERS: PCP Internal Medicine; Visit Provider Internal Medicine
DX: Z12.31 Encounter for screening mammogram for malignant neoplasm of breast (principal)
CPT/HCPCS: 77063; 77067

== ENCOUNTER → 2022-09-12 11:30 | Outpatient (BNVA) | payer OTHER, SELFPAY | PROVIDERS: PCP Internal Medicine; Visit Provider Nurse Practitioner Family | DX: Z13.89 Encounter for screening for other disorder (principal) ==

== ENCOUNTER 2022-11-13 08:35 | Day surgery (SDC) | payer OTHER, SELFPAY ==
--- NOTE | 2022-10-11 09:58 | HO.ANESPROP2 ---
HPI - Anesthesia Eval Consult details Narrative: 52yo F for Colonoscopy PMF Active Problems Active Problems: All Active Problems (Updated 09/13/22 @ 17:37 by Sunita Nam NP) Left lumbar radiculopathy (Acute) Lumbar facet arthropathy (Acute) Cellulitis (Acute) Morbid obesity (Acute) Spondyloarthropathy (Acute) Past Medical History Medical History (Updated 10/11/22 @ 09:59 by Eli Neff NP) Arthritis Asthma Ear infection Elevated LFTs Fatty liver Headache History of cellulitis HTN (hypertension) Hx of pneumothorax Low back pain Migraine Numbness and tingling of both legs Obesity PVD (peripheral vascular disease) Spondyloarthropathy Family History Family History Father Diabetes HTN (hypertension) Mother Stroke CVD (cardiovascular disease) Surgical History Surgical History History of cholecystectomy History of esophagogastroduodenoscopy (EGD) History of lung surgery Hx of laminectomy Hx of total hysterectomy with removal of both tubes and ovaries History of Problems with Anesthesia: No Social History Social History Household Members: Family Housing: Apartment Do you presently have visiting nurse or other home services: No Alcohol intake: current Alcohol intake frequency: holidays/special occasions only Patient Tobacco Use Status: Never used Tobacco service: No Current occupational status: employed Meds Allergies Allergy/AdvReac Type Severity Reaction Status Date / Time hydrocodone [From Vicodin] Allergy Severe NAUSEA,DIZZ Verified 09/12/22 11:49 Y sulfamethoxazole Allergy Rash Verified 09/12/22 11:49 [From Bactrim] trimethoprim [From Bactrim] Allergy Rash Verified 09/12/22 11:49 oxycodone [From PERCOCET] AdvReac Severe nausea,VOMI Verified 09/12/22 11:49 TING morphine AdvReac Unknown Verified 09/12/22 11:49 Home Medications Medication Instructions Recorded Confirmed Last Taken Type beclomethasone dipropionate 80 2 puff PO BID PRN Shortness Of 08/19/20 01/19/22 Unknown History mcg/actuation HFA breath activated Breath Or Wheezing aerosol (Qvar RediHaler) budesonide 180 mcg/actuation 2 inh inhalation Q4-6H PRN 08/19/20 01/19/22 Unknown History breath activated powder inhaler Shortness Of Breath Or Wheezing (Pulmicort Flexhaler) naproxen sodium 220 mg capsule 440 mg PO BID PRN 01/19/22 01/19/22 Unknown History (Aleve) omeprazole 40 mg capsule,delayed 40 mg PO DAILY 09/12/22 Unknown History release Exam Exam Date and Time: October 11, 2022 0958 Pertinent Lab Results Pertinent Lab Results: Laboratory Tests 06/25/22 11:54 WBC 6.3 Hgb 13.3 Hct 41.6 Plt Count 307 Assessment and Plan Assessment Anesthesia Assessment: Chart Reviewed Final Anesthetic Review History of Problems with Anesthesia: No
--- NOTE | 2022-11-12 12:59 | HO.ANESPROP2 ---
Documented by User: Eli Neff NP 11/12/22 13:00 HPI - Anesthesia Eval Consult details Narrative: 52yo F for Colonoscopy PMFSH Active Problems Active Problems: All Active Problems (Updated 10/11/22 @ 09:59 by Eli Neff NP) Left lumbar radiculopathy (Acute) Lumbar facet arthropathy (Acute) Cellulitis (Acute) Morbid obesity (Acute) Spondyloarthropathy (Acute) Past Medical History Medical History (Updated 10/11/22 @ 09:59 by Eli Neff NP) Arthritis Asthma Ear infection Elevated LFTs Fatty liver Headache History of cellulitis HTN (hypertension) Hx of pneumothorax Low back pain Migraine Numbness and tingling of both legs Obesity PVD (peripheral vascular disease) Spondyloarthropathy Family History Family History Father Diabetes HTN (hypertension) Mother Stroke CVD (cardiovascular disease) Surgical History Surgical History History of cholecystectomy History of esophagogastroduodenoscopy (EGD) History of lung surgery Hx of laminectomy Hx of total hysterectomy with removal of both tubes and ovaries History of Problems with Anesthesia: No Social History Social History Household Members: Family Housing: Apartment Do you presently have visiting nurse or other home services: No Alcohol intake: current Alcohol intake frequency: holidays/special occasions only Patient Tobacco Use Status: Never used Tobacco Use of substances other than those prescribed or required for medical reasons: No Are you DNR?: No Advance Directives: No Advance Directives Information Provided: Yes Recently lost weight without trying: No Nutrition Risks: No Nutritional Risk service: No Current occupational status: employed Meds Allergies Allergy/AdvReac Type Severity Reaction Status Date / Time hydrocodone [From Vicodin] Allergy Severe NAUSEA,DIZZ Verified 09/12/22 11:49 Y sulfamethoxazole Allergy Severe Rash Verified 11/13/22 08:48 [From Bactrim] trimethoprim [From Bactrim] Allergy Severe Rash Verified 11/13/22 08:48 morphine AdvReac Severe Chills Verified 11/13/22 08:48 oxycodone [From PERCOCET] AdvReac Severe nausea,VOMI Verified 09/12/22 11:49 TING Home Medications Medication Instructions Recorded Confirmed Last Taken Type beclomethasone dipropionate 80 2 puff PO BID PRN Shortness Of 08/19/20 11/13/22 Unknown History mcg/actuation HFA breath activated Breath Or Wheezing aerosol (Qvar RediHaler) budesonide 180 mcg/actuation 2 inh inhalation Q4-6H PRN 08/19/20 11/13/22 Unknown History breath activated powder inhaler Shortness Of Breath Or Wheezing (Pulmicort Flexhaler) omeprazole 40 mg capsule,delayed 40 mg PO DAILY 09/12/22 11/13/22 Unknown History release Exam Exam Date and Time: November 12, 2022 1259 Pertinent Lab Results Pertinent Lab Results: Laboratory Tests 06/25/22 11:54 WBC 6.3 Hgb 13.3 Hct 41.6 Plt Count 307 Assessment and Plan Assessment Anesthesia Assessment: Chart Reviewed Final Anesthetic Review History of Problems with Anesthesia: No Documented by User: Maral Gonzalez MD 11/13/22 09:27 [facility] Past Medical History Medical History (Updated 10/11/22 @ 09:59 by Eli Neff NP) Arthritis Asthma Ear infection Elevated LFTs Fatty liver Headache History of cellulitis HTN (hypertension) Hx of pneumothorax Low back pain Migraine Numbness and tingling of both legs Obesity PVD (peripheral vascular disease) Spondyloarthropathy Family History Family History Father Diabetes HTN (hypertension) Mother Stroke CVD (cardiovascular disease) Family history of problems with anesthesia: No Surgical History Surgical History History of cholecystectomy History of esophagogastroduodenoscopy (EGD) History of lung surgery Hx of laminectomy Hx of total hysterectomy with removal of both tubes and ovaries Social History Social History Household Members: Family Housing: Apartment Do you presently have visiting nurse or other home services: No Alcohol intake: current Alcohol intake frequency: holidays/special occasions only Patient Tobacco Use Status: Never used Tobacco Use of substances other than those prescribed or required for medical reasons: No Are you DNR?: No Advance Directives: No Advance Directives Information Provided: Yes Recently lost weight without trying: No Nutrition Risks: No Nutritional Risk service: No Current occupational status: employed Meds Allergies Allergy/AdvReac Type Severity Reaction Status Date / Time hydrocodone [From Vicodin] Allergy Severe NAUSEA,DIZZ Verified 09/12/22 11:49 Y sulfamethoxazole Allergy Severe Rash Verified 11/13/22 08:48 [From Bactrim] trimethoprim [From Bactrim] Allergy Severe Rash Verified 11/13/22 08:48 morphine AdvReac Severe Chills Verified 11/13/22 08:48 oxycodone [From PERCOCET] AdvReac Severe nausea,VOMI Verified 09/12/22 11:49 TING Home Medications Medication Instructions Recorded Confirmed Last Taken Type beclomethasone dipropionate 80 2 puff PO BID PRN Shortness Of 08/19/20 11/13/22 Unknown History mcg/actuation HFA breath activated Breath Or Wheezing aerosol (Qvar RediHaler) budesonide 180 mcg/actuation 2 inh inhalation Q4-6H PRN 08/19/20 11/13/22 Unknown History breath activated powder inhaler Shortness Of Breath Or Wheezing (Pulmicort Flexhaler) omeprazole 40 mg capsule,delayed 40 mg PO DAILY 09/12/22 11/13/22 Unknown History release Exam Airway Mallampati Class: III TM Dist: >3cm Neck ROM: Full Heart: rrr Lungs: cta Assessment and Plan Assessment Anesthesia Assessment: Anesthesia Plan Discussed Final Anesthetic Review Family History of Problems with Anesthesia: No NPO: Yes ASA Class: III Final Preanesthetic Review: No Changes in Pt Med Stat, Meds/Allgs Chart Reviewed, Consent Obtained/Reviewed and Anes Risks/Benef Reviewed Patient Risk: Intermediate Procedure Risk: Low Anesthetic Plan Anesthetic Plan: MAC: Disposition: Standard PACU
[2022-11-13 08:45] VITALS: BMI 51.7
[2022-11-13 08:55] VITALS: BP 140/85; PULSE 68; RESP 16; TEMP 36.1; O2SAT 95
[2022-11-13] MEDS: Lactated Ringers 1,000 ML 100 ML IVCONT (09:17)
--- NOTE | 2022-11-13 09:45 | MHC.SHP ---
Pre-Procedural Eval Section A Date of Service: 11/13/22 Section B Chief Complaint: Screening Details of Present Illness: see H&P no changes Relevant Family History (Specify if Yes): No Relevant Social History: None Present Medications: see Short Stay Collaborative assessment Medical History: No relevant PMH History of Previous Operations: No relevant previous surgery Allergies: Allergies Allergy/AdvReac Type Severity Reaction Status Date / Time hydrocodone [From Vicodin] Allergy Severe NAUSEA,DIZZ Verified 09/12/22 11:49 Y sulfamethoxazole Allergy Severe Rash Verified 11/13/22 08:48 [From Bactrim] trimethoprim [From Bactrim] Allergy Severe Rash Verified 11/13/22 08:48 morphine AdvReac Severe Chills Verified 11/13/22 08:48 oxycodone [From PERCOCET] AdvReac Severe nausea,VOMI Verified 09/12/22 11:49 TING Review of Systems Sugical H&P ROS: Negative: Constitution, Cardiovascular, Respiratory, Neurological, Psychiatric, Hem-Onc, Allergic/Immunologic, Gastrointestinal, Genitourinary, Musculoskeletal, Integumentary, Endocrine and Eyes/Ears/Nose/Throat Exam Surgical H&P Exam: Normal: HEENT, Normal: Heart, Normal: Lungs, Normal: Extremities, Normal: Abdomen, Normal: Skin and Normal: Neurological Plan Diagnosis/Plan: Unchanged I have reviewed the history and physical and performed a pertinent physical examination on my patient. No changes have occurred unless specified. Time Spent With Patient Time: Total time managing care of this patient today ____ minutes.
--- NOTE | 2022-11-13 10:16 | P.BOP_ITS ---
Brief Operative Note Date of Service: 11/13/22 Pre-op diagnosis: screening Procedure: colonoscopy Surgeon: Jan Del Rio Anesthesia: MAC Was an Enrollment Eligibility Representative used for this Procedure?: No Estimated blood loss (mL): 0 Pathology: other Condition: stable Disposition: PACU
[2022-11-13 10:19] VITALS: BP 109/61; PULSE 71; RESP 18; TEMP 36.6; O2SAT 94
[2022-11-13 10:34] VITALS: BP 119/69; PULSE 66; RESP 16; TEMP 36.4; O2SAT 96
--- NOTE | 2022-11-13 11:51 | OP_ITS ---
DATE OF SERVICE: 11/13/2022 SURGEON: Jan Del Rio MD INDICATIONS: Colon cancer screening. PREOPERATIVE DIAGNOSIS: POSTOPERATIVE DIAGNOSIS: PROCEDURE PERFORMED: Colonoscopy to the hepatic flexure. ESTIMATED BLOOD LOSS: COMPLICATIONS: ANESTHESIA: Monitored anesthesia care. ASSISTANTS: SPECIMENS: DESCRIPTION OF PROCEDURE: A history and physical was performed. The risks and benefits of the procedure were explained to the patient. Informed consent was obtained. The patient was placed in the left lateral decubitus position. A digital rectal exam was performed and was found to be normal. The Olympus pediatric video colonoscope was introduced into the rectum and advanced to the right colon. Examination was performed. The scope was removed. She tolerated the procedure well and was returned to the recovery area in stable condition. FINDINGS: The quality of the prep was poor with a large amount of formed and liquid stool, which limited the sensitivity examination for detection of small polyps. The scope was advanced to the hepatic flexure and proximal right colon, but the prep did not improve in the more proximal colon. No polyps were identified. Retroflexed examination was normal. IMPRESSION: Incomplete colonoscopy, nondiagnostic as above. RECOMMENDATION: Follow up for repeat colonoscopy in 6 to 12 months with a 2 day prep. MD DOREEN Nunes/CHASE / [id number]
== END 2022-11-13 10:50 | disposition home or self-care (01) ==
PROVIDERS: PCP Internal Medicine; Visit Provider Internal Medicine Gastroenterology
PROC: 0DJD8ZZ Inspection of Lower Intestinal Tract, Via Natural or Artificial Opening Endoscopic (ICD-10-PCS; CPT 45378; principal; 2022-11-13 09:30)
DX: Z12.11 Encounter for screening for malignant neoplasm of colon (principal); K21.9 Gastro-esophageal reflux disease without esophagitis; K76.0 Fatty (change of) liver, not elsewhere classified; R10.11 Right upper quadrant pain; I10 Essential (primary) hypertension; I73.9 Peripheral vascular disease, unspecified; J45.909 Unspecified asthma, uncomplicated; E66.01 Morbid (severe) obesity due to excess calories; G43.909 Migraine, unspecified, not intractable, without status migrainosus; L30.9 Dermatitis, unspecified; M19.90 Unspecified osteoarthritis, unspecified site; Z79.899 Other long term (current) drug therapy; Z79.1 Long term (current) use of non-steroidal anti-inflammatories (NSAID); Z79.51 Long term (current) use of inhaled steroids; Z90.49 Acquired absence of other specified parts of digestive tract; Z88.8 Allergy status to other drugs, medicaments and biological substances; Z88.2 Allergy status to sulfonamides
CPT/HCPCS: 45378; J3010

== ENCOUNTER 2022-12-13 08:24 | Outpatient (REF) | payer OTHER, SELFPAY ==
[2022-12-13 11:04] LABS: MANUAL DIFF FLAG NO
[2022-12-13 11:44] LABS: Basophils Absolute Auto 0.1 X10*3/uL (0.0-0.2); Basophils Percent Auto 0.8 % (0-2); Eosinophils Absolute Auto 0.3 X10*3/uL (0.0-0.4); Eosinophils Percent Auto 3.7 % (0-4); Hematocrit 42.2 % (37.0-47.0); Hemoglobin 13.2 g/dl (12.0-16.0); Imm Gran Abs Auto 0.07 X10*3/uL (0.00-0.03); Imm Gran Pct Auto 0.8 % (0.0-0.4); Lymphocytes Absolute Auto 3.1 X10*3/uL (1.2-4.9); Lymphocytes Percent Auto 33.6 % (20-40); Mean Corpuscular HGB Conc 31.3 g/dl (31.0-35.0); Mean Corpuscular Hemoglobin 26.8 pg (27.0-33.0); Mean Corpuscular Volume 85.8 fL (80.0-98.0); Mean Platelet Volume 11.4 fL (9.4-12.3); Monocytes Absolute Auto 0.7 X10*3/uL (0.1-1.2); Monocytes Percent Auto 7.1 % (2-11); Neutrophils Absolute Auto 4.9 x10*3/uL (2.0-8.3); Platelet Count 297 X10*3/uL (160-400); Red Blood Count 4.92 X10*6/uL (4.20-5.50); White Blood Count 9.1 X10*3/uL (4.8-10.8)
[2022-12-13 12:06] LABS: Alanine Aminotransferase 63 U/L (0-31); Albumin Level 3.8 g/dL (3.5-5.0); Alkaline Phosphatase 88 U/L (39-117); Anion Gap 11 (12-20); Aspartate Amino Transferase 35 U/L (5-31); Bilirubin Total 0.9 mg/dL (0.0-1.0); Blood Urea Nitrogen 11 mg/dL (9-16); Carbon Dioxide 28 mmol/L (22-29); Chloride 106 mmol/L (96-108); Cholesterol 167 mg/dL; Estimated Glomerular Filt Rate > 60; Glucose Random 100 mg/dL (60-115); HDL Cholesterol 57 mg/dL; LDL Cholesterol Calculated 90 mg/dl; Potassium 3.9 mmol/L (3.3-5.1); Sodium 141 mmol/L (135-145); Total Protein 7.6 g/dL (6.5-8.0); Triglycerides 101 mg/dL
[2022-12-13 12:25] LABS: Thyroid Stimulating Hormone 1.75 uIU/mL (0.32-4.0)
== END 2022-12-13 08:25 | disposition home or self-care (01) ==
LOC: HO.10HDL 08:24
PROVIDERS: Visit Provider Internal Medicine
DX: E66.8 Other obesity (principal); R74.01 Elevation of levels of liver transaminase levels; R19.7 Diarrhea, unspecified
CPT/HCPCS: 36415; 80053; 80061; 84443; 85025

== ENCOUNTER 2023-03-20 08:24 | Outpatient (AMB) | payer OTHER, SELFPAY ==
[2023-03-20 08:27] VITALS: BP 118/72; PULSE 67; TEMP 36.2; O2SAT 96; BMI 50.6
--- NOTE | 2023-03-20 08:27 | MHC.OFFVIS ---
Intake Vital Signs 03/20/23 08:27 Height 5 ft 7 in Weight 323 lb 3.163 oz BMI 50.6 BP 118/72 Blood Pressure Location Lt brachial Position Sitting Pulse 67 Pulse Source Pulse Oximeter Temp 97.1 F Temp Source Skin Pulse Oximetry (%) 96 Intake Visit Reasons: Back pain Intake Note: Patient presents today to follow up on spondyloarthropathy. Last seen- 09/12/22 Sunita Acid Operator Required: No Accompanied by: Self / Same As Patient Allergies hydrocodone [From Vicodin] Allergy (Severe, Verified 09/12/22 11:49) NAUSEA,DIZZY sulfamethoxazole [From Bactrim] Allergy (Severe, Verified 11/13/22 08:48) Rash trimethoprim [From Bactrim] Allergy (Severe, Verified 11/13/22 08:48) Rash morphine Adverse Reaction (Severe, Verified 11/13/22 08:48) Chills oxycodone [From PERCOCET] Adverse Reaction (Severe, Verified 09/12/22 11:49) nausea,VOMITING Medication List - Last Reconciled 03/20/23 by Jose Morocho MD beclomethasone dipropionate 80 mcg/actuation (Qvar RediHaler) 2 puffs PO BID PRN budesonide 180 mcg/actuation (Pulmicort Flexhaler) 2 inhalations inhalation Q4-6H PRN cyclobenzaprine 10 mg PO BEDTIME PRN omeprazole 40 mg PO DAILY HPI HPI Comments History of Present Illness Details The patient returns for evaluation of her back pain. She had been treated a few years ago for spondyloarthritis with Humira and then Enbrel. There was not a dramatic response that persisted. She eventually had to stop them because of recurrent lower extremity edema leading to cellulitis. She has not been on the TNF inhibitors for a couple of years. There still isl low back pain. It seems to be worse with prolonged sitting, standing or walking. It sometimes bothers her at night. It does occasionally radiate to the buttocks with some leg paresthesias. She was seen in pain management. She did get some evaluation but they wanted to put in a stimulator. She seems to not want to do that so she has not seen them in a couple of years. She does take acetaminophen 650 mg slow acting at night usually. Sometimes she takes it during the daytime. She also has some cyclobenzaprine 10 mg that she takes, usually in the evenings, if there is more back pain. She does work in a job requiring a lot of sitting but does get up and try to walk a bit. NSAIDs have been avoided because of her history of GERD. Recently she has been getting some right shoulder pain. This has been about 2 weeks now. Symptoms are worse with lying on the shoulder at night and lifting the arm overhead. There was no recent injury. She does recall a distant injury of an elbow fracture in the past but does not recall if there was any injury to the shoulder at the time. FOR[facility]LY [facility], [facility] Medical History (Updated 03/20/23 @ 08:52 by Jose Morocho MD) Migraine HTN (hypertension) Obesity Arthritis Low back pain History of cellulitis Headache PVD (peripheral vascular disease) Numbness and tingling of both legs Elevated LFTs Fatty liver Ear infection Hx of pneumothorax Spondyloarthropathy Asthma Surgical History History of esophagogastroduodenoscopy (EGD) History of cholecystectomy Hx of total hysterectomy with removal of both tubes and ovaries Hx of laminectomy History of lung surgery Family History Father Diabetes HTN (hypertension) Mother Stroke CVD (cardiovascular disease) Social History Household Members: Family Housing: Apartment Do you presently have visiting nurse or other home services: No Alcohol intake: current Alcohol intake frequency: holidays/special occasions only Patient Tobacco Use Status: Never used Tobacco service: No Current occupational status: employed Review of Systems Const Details: Negative for appetite change, weight change, fever, chills, malaise and fatigue Eyes Details: Negative for vision change, dry eyes,headaches and dizziness GI Details: Heartburn seems to be helped with regular use of omeprazole. Presently negative for indigestion,heartburn, nausea, abdominal pain, bowel changes, diarrhea, constipation and bloody stool. Details: Negative for dysuria, hematuria, nocturia, urinary retention or incontinence, decreased force/flow and genital discharge Skin/Breast Details: Negative for itching, rash, hives, Raynaud's symptoms, sun sensitivity, and skin cancer Neuro Details: Negative for epilepsy, palsy, stroke, changes in speech, tingling and weakness Endo Details: Negative for polyuria and polydypsia Rony/Lymph Details: Negative for excessive bruising or bleeding. Physical Exam Vital Signs: Last Vital Signs Temp 97.1 F 03/20/23 08:27 Pulse 67 03/20/23 08:27 BP 118/72 03/20/23 08:27 Pulse Ox 96 03/20/23 08:27 BMI result Body Mass Index 50.6 APPEARANCE: Patient in no acute distress EYES no redness, pupils equal and reactive to light, eyelids normal EXTREMITIES: Mild pretibial and pedal edema. There was some venous stasis changes in the skin but no open areas. Slight pretibial tenderness. No calf tenderness, normal peripheral pulses. NEURO: Oriented and alert x3. No focal weakness. Reflexes symmetric. Gait normal. SKIN: No inflammatory or neoplastic lesions. Normal color and turgor JOINT EXAM: ?? Cervical Spine: Full range of motion without pain; no tenderness. Thoracic Spine:? No scoliosis.? No tenderness on palpation. Lumbar Spine: Alignment normal.? Full range of motion, some pain with flexion at 70 degrees. Negative Sai's test. Normal occiput wall test. Tenderness to palpation of the lumbar spine and over the left posterior buttock. Positive straight leg raise on the left at about 60 degrees causing some lumbar pain to the buttock.. Hands:? Normal pain-free range of motion without tenderness, swelling, increased warmth or erythema. 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 Wrists:? Normal pain-free range of motion without tenderness, swelling, increased warmth or erythema. Elbows: Right: Mild lateral discomfort with extremes of extension. Slight lateral epicondylar tenderness but no tenderness or swelling over the joint space. Left: Normal pain-free range of motion without tenderness, swelling, increased warmth or erythema. Shoulders: Right: Mild pain with abduction at 90 degrees or with more than 20 degrees of internal or external rotation. There is mild anterior and subacromial tenderness without swelling, abductor weakness or adenopathy. Left:? Full range of motion without pain. No tenderness, weakness, swelling, increased warmth or erythema. Hips:? LEFT: Full range of motion, pain reported in left lower back with abduction. RIGHT: Full range of motion without pain. Hip bursa:? No tenderness. Knees:?? Normal pain-free range of motion without tenderness, swelling, increased warmth or erythema.? There is no effusion or crepitation Ankles:?Left: Normal pain free range of motion without tenderness. No swelling, warmth or erythema. Brawny edema noted Right: Normal pain-free range of motion without tenderness, swelling, increased warmth or erythema. Brawny edema noted Feet:? Normal pain-free range of motion without tenderness, swelling, increased warmth or erythema. ? Results Reviewed Results Reviewed: [address] [address] Magnetic Resonance Report Signed Patient: Madyson Arguelles MR#: [id number] : 1970 Acct:[id number] Age/Sex: 50 / F ADM Date: 04/13/[address]: Leda Mccoy NP Ordering Physician: Leda Mccoy NP Date of Service: 04/13/21 Procedure(s): MR lumbar spine wo con Accession Number(s): [id number] cc: Leda Mccoy NP~ EXAMINATION: MR LUMBAR SPINE WITHOUT CONTRAST CLINICAL INFORMATION: 50-year-old with left-sided low back pain and lumbar radicular symptoms. COMPARISON: 02/20/2016 MRI. TECHNIQUE: MRI of the lumbar spine was obtained using routine sequences without contrast. FINDINGS: Coronal Alignment: Normal. Sagittal Alignment: Normal. Lumbosacral Junction: Transitional anatomy with lowest lumbar-like segment labeled as L5, which is partially sacralized on the left, with a rudimentary intervertebral disc space. Vertebral Bodies: Normal height. Disc Spaces and Endplates: Disc space heights are well maintained stable in appearance with disc desiccation noted at L4-L5, unchanged in appearance. There is new mild disc desiccation at L3-L4. Spinal Canal: No abnormal developmental findings. Bone Marrow: No significant marrow-replacing process or bone marrow edema. Conus Medullaris: Terminates at L2. Morphology and signal is normal. Intradural Nerve Roots: Within normal limits. SPINAL LEVELS: L5-S1: Transitional intervertebral disc noted without significant canal or neural foraminal stenosis, stable in appearance. L4-L5: Minor annular bulging with a tiny central disc protrusion stable in appearance, with minimal facet arthrosis stable in appearance without significant canal stenosis. No significant neural foraminal stenosis. L3-L4: Previously noted left-sided foraminal/extraforaminal disc protrusion is again noted, now with an annular fissure noted on the left at this location on the current study. Disc protrusion probably contacts the exiting left L3 nerve root with associated mild left-sided foraminal narrowing. No significant canal stenosis. There is [id number]-evnvvkuv facet arthropathy on the left slightly progressed from previous study. L2-L3: Disc space height and signal well maintained without significant disc bulge or herniation and no significant spondylosis, facet arthrosis, canal or neural foraminal stenosis. L1-L2: Disc space height and signal well maintained without significant disc bulge or herniation and no significant spondylosis, facet arthrosis, canal or neural foraminal stenosis. Paraspinal/Retroperitoneal: The paravertebral soft tissues are unremarkable. There is moderate distention of a left-sided extrarenal pelvis without hydroureter. MR/MR lumbar spine wo con IMPRESSION: 1. Mild disc desiccation at L4-L5 with tiny central disc protrusion and minimal annular bulging at this level stable in appearance, with L5 being a transitional level unchanged. 2. New mild disc desiccation at L3-L4. Small left-sided foraminal/extraforaminal disc protrusion at this level again noted, now with a left-sided annular fissure which contacts the exiting left L3 nerve root, similar to the previous exam. Left-sided facet arthrosis at this level appears slightly more prominent with mild left-sided neural foraminal stenosis, largely unchanged. 3. Transitional lumbosacral anatomy. Dictated By: MOHIT BERMEO MD signed By: <Electronically signed by MOHIT BERMEO MD in OV> 04/19/212019 [address] [address] Magnetic Resonance Report Signed Patient: Madyson Arguelles MR#: [id number] : 1970 Acct:[id number] Age/Sex: 49 / F ADM Date: 07/25/[address]: Tom Pineda MD Ordering Physician: Tom Pineda MD Date of Service: 07/25/20 Procedure(s): MR pelvis wo con Accession Number(s): [id number] cc: Tom Pineda MD~ 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 Chronic low back pain, leg swelling, leg tingling. COMPARISON: Radiographs SI joints and lumbar spine 12/22/2019, CT pelvis 04/20/2019, MRI pelvis noncontrast 09/25/2016. TECHNIQUE: MRI of the pelvis without contrast is targeted to the sacrum with sagittal imaging, oblique coronal, and oblique axial imaging, along the short and long axis of the SI joints. FINDINGS: There is transitional vertebrae L5 with bilateral sacralization similar to prior imaging. There is normal lumbosacral lordosis. Mild broad-based annulus bulging is present at L4-L5. There is normal marrow signal. The SI joints appear normal with no erosive change or subchondral edema or fluid in the joints. There is normal exiting nerves through the sacral foramen. No perineural Tarlov cyst. No intrasacral meningocele. No presacral soft tissue swelling or mass. There is been prior hysterectomy. No pelvic mass or ascites. No bowel obstruction or adenopathy. MR/MR pelvis wo con IMPRESSION: 1. Transitional vertebrae L5 with bilateral sacralization. 2. Unremarkable exam. No sacroiliitis or mass. Dictated By: BRENDA MCGOWAN MD Signed By: <Electronically signed by BRENDA MCGOWAN MD in OV> 07/25/20 1706 Assessment & Plan Assessment & Plan (1) Right rotator cuff tendonitis: Code(s): M75.81 - Other shoulder lesions, right shoulder (2) Lumbar facet arthropathy: Code(s): M47.816 - Spondylosis without myelopathy or radiculopathy, lumbar region Plan Her back pain with some radiation down the legs continues. There is a suggestion here some radiculopathy but she has normal strength and reflexes. She has been treated in the past for spondyloarthritis but I do not see that there is a pain pattern here that would be consistent with that diagnosis and treatment with TNF inhibitors was unsuccessful. I think we should continue with symptomatic measures as we are doing. She could increase her acetaminophen up to 2 or 3 g in the day. She seems to tolerate this cyclobenzaprine so that can be continued as well. She could also revisit Pain Management to see if they had other suggestions since in the last couple of years she has not been seen. The right shoulder is a new finding with some painful range of motion. This does suggest some rotator cuff tendinitis with impingement. I instructed her in some gentle [id number] exercises and some heat in the morning. If this does not improve she should go for an x-ray. We could set her up some more formal physical therapy after that or consider a corticosteroid injection in the future. We will aim for follow-up at about 6 months to monitor her cyclobenzaprine use and back pain. Orders: Orders XR shoulder RT min 2V Today M75.81 - Other shoulder lesions, right shoulder Coding Level of Care Code Est Pt Level 3 (55743) Diagnoses Right rotator cuff tendonitis M75.81 Lumbar facet arthropathy M47.816
== END 2023-03-20 08:55 | disposition home or self-care (01) ==
PROVIDERS: PCP Internal Medicine; Visit Provider Internal Medicine Rheumatology
DX: M75.81 Other shoulder lesions, right shoulder (principal); M47.816 Spondylosis without myelopathy or radiculopathy, lumbar region
CPT/HCPCS: 99213

== ENCOUNTER → 2023-03-20 08:24 | Outpatient (BNVA) | payer OTHER, SELFPAY | PROVIDERS: PCP Internal Medicine; Visit Provider Internal Medicine Rheumatology ==

== ENCOUNTER 2023-06-11 09:08 | Outpatient (REF) | payer OTHER, SELFPAY ==
--- NOTE | ~2023-06-11 | XR_ITS ---
EXAMINATION: XR SHOULDER, RIGHT CLINICAL INFORMATION: Other shoulder lesions, right shoulder COMPARISON: None available. TECHNIQUE: AP external rotation, Grashey, scapular Y, and limited axillary views of the right shoulder. Patient body habitus, best obtainable views; unable to get axillary view after multiple attempts FINDINGS: The bones are intact. No fracture. Glenohumeral and acromioclavicular alignment is anatomic with normal joint space. No abnormal soft tissue calcifications. XR/XR shoulder RT min 2V IMPRESSION: No bony abnormality.
== END 2023-06-11 09:09 | disposition home or self-care (01) ==
LOC: HO.XRAY 09:08
PROVIDERS: PCP Internal Medicine; Visit Provider Internal Medicine Rheumatology
DX: M75.81 Other shoulder lesions, right shoulder (principal)
CPT/HCPCS: 73030

== ENCOUNTER 2023-06-25 10:19 | Outpatient (AMB) | payer OTHER, SELFPAY ==
[2023-06-25 10:27] VITALS: BP 128/86; PULSE 80; TEMP 35.9; O2SAT 94; BMI 50.1
--- NOTE | 2023-06-25 10:27 | A.OFFVIS_ITS ---
Intake Vital Signs 06/25/23 10:27 Height 5 ft 7 in Weight 319 lb 10.724 oz BMI 50.1 BP 128/86 Blood Pressure Location Rt brachial Position Sitting Pulse 80 Pulse Source Pulse Oximeter Temp 96.6 F L Temp Source Skin Pulse Oximetry (%) 94 Oxygen Delivery Method Room Air Intake Visit Reasons: arm pain Intake Note: Patient last seen 03/20/23 presents today for follow up. 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 Accompanied by: Self / Same As Patient Allergies hydrocodone [From Vicodin] Allergy (Severe, Verified 06/25/23 10:34) NAUSEA,DIZZY sulfamethoxazole [From Bactrim] Allergy (Severe, Verified 06/25/23 10:34) Rash trimethoprim [From Bactrim] Allergy (Severe, Verified 06/25/23 10:34) Rash morphine Adverse Reaction (Severe, Verified 06/25/23 10:34) Chills oxycodone [From PERCOCET] Adverse Reaction (Severe, Verified 06/25/23 10:34) nausea,VOMITING Medication List - Last Reconciled 06/25/23 by Manish Reyes MD beclomethasone dipropionate 80 mcg/actuation (Qvar RediHaler) 2 puffs PO BID PRN budesonide 180 mcg/actuation (Pulmicort Flexhaler) 2 inhalations inhalation Q4- 6H PRN cyclobenzaprine 10 mg PO BEDTIME PRN omeprazole 40 mg PO DAILY HPI HPI Comments History of Present Illness Details Patient returns for follow-up. She states that had right elbow and right arm pain for a few months but over the last 2 weeks it has been much worse. 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 She has tried taking Tylenol Arthritis without much relief. She has tried applying lidocaine patches without much relief. Most recent history by Dr. Morocho 03/2023: The patient returns for evaluation of her back pain. She had been treated a few years ago for spondyloarthritis with Humira and then Enbrel. There was not a dramatic response that persisted. She eventually had to stop them because of recurrent lower extremity edema leading to cellulitis. She has not been on the TNF inhibitors for a couple of years. There still isl low back pain. It seems to be worse with prolonged sitting, standing or walking. It sometimes bothers her at night. It does occasionally radiate to the buttocks with some leg p aresthesias. She was seen in pain management. She did get some evaluation but they wanted to put in a stimulator. She seems to not want to do that so she has not seen them in a couple of years. She does take acetaminophen 650 mg slow acting at night usually. Sometimes she takes it during the daytime. She also has some cyclobenzaprine 10 mg that she takes, usually in the evenings, if there is more back pain. She does work in a job requiring a lot of sitting but does get up and try to walk a bit. NSAIDs have been avoided because of her history of GERD. Recently she has been getting some right shoulder pain. This has been about 2 weeks now. Symptoms are worse with lying on the shoulder at night and lifting the arm overhead. There was no recent injury. She does recall a distant injury of an elbow fracture in the past but does not recall if there was any injury to the shoulder at the time. PENDING SALE TO [facility] Medical History Migraine HTN (hypertension) Obesity Arthritis Low back pain History of cellulitis Headache PVD (peripheral vascular disease) Numbness and tingling of both legs Elevated LFTs Fatty liver Ear infection Hx of pneumothorax Spondyloarthropathy Asthma Surgical History H/O colonoscopy History of esophagogastroduodenoscopy (EGD) History of cholecystectomy Hx of total hysterectomy with removal of both tubes and ovaries Hx of laminectomy History of lung surgery Family History Father Diabetes HTN (hypertension) Mother Stroke CVD (cardiovascular disease) Social History Household Members: Family Housing: Apartment Do you presently have visiting nurse or other home services: No Alcohol intake: current Alcohol intake frequency: holidays/special occasions only Patient Tobacco Use Status: Never used Tobacco service: No Current occupational status: employed Review of Systems Musc Reports arthralgias, Reports joint swelling and Reports stiffness Physical Exam Vital Signs: Last Vital Signs Temp 96.6 F L 06/25/23 10:27 Pulse 80 06/25/23 10:27 BP 128/86 06/25/23 10:27 Pulse Ox 94 06/25/23 10:27 Oxygen Delivery Method Room Air 06/25/23 10:27 BMI result Body Mass Index 50.1 Const General: cooperative, healthy appearing and comfortable Nutritional Appearance: obese morbidly obese Orientation/consciousness: patient oriented x3 Limitations: no limitations HEENT Head: Yes normocephalic and Yes atraumatic Resp Effort & Inspection: normal respiratory effort and able to speak in complete sentences Skin General skin exam: no rashes or lesions noted Neuro General: patient oriented x3 Extrem Other: Tenderness at the common extensor origin at the right lateral epicondyle with positive resisted wrist extension test Negative resisted wrist flexion test Negative rotator cuff provocative maneuvers bilaterally Results Reviewed Results Reviewed: [address] [address] Magnetic Resonance Report Signed Patient: Madyson Arguelles MR#: [id number] : 1970 Acct:[id number] Age/Sex: 50 / F ADM Date: 04/13/[address]: Leda Mccoy NP Ordering Physician: Leda Mccoy NP Date of Service: 04/13/21 Procedure(s): MR lumbar spine wo con Accession Number(s): [id number] cc: Leda Mccoy NP~ EXAMINATION: MR LUMBAR SPINE WITHOUT CONTRAST CLINICAL INFORMATION: 50-year-old with left-sided low back pain and lumbar radicular symptoms. COMPARISON: 02/20/2016 MRI. TECHNIQUE: MRI of the lumbar spine was obtained using routine sequences without contrast. FINDINGS: Coronal Alignment: Normal. Sagittal Alignment: Normal. Lumbosacral Junction: Transitional anatomy with lowest lumbar-like segment labeled as L5, which is partially sacralized on the left, with a rudimentary intervertebral disc space. Vertebral Bodies: Normal height. Disc Spaces and Endplates: Disc space heights are well maintained stable in appearance with disc desiccation noted at L4-L5, unchanged in appearance. There is new mild disc desiccation at L3-L4. Spinal Canal: No abnormal developmental findings. Bone Marrow: No significant marrow-replacing process or bone marrow edema. Conus Medullaris: Terminates at L2. Morphology and signal is normal. Intradural Nerve Roots: Within normal limits. SPINAL LEVELS: L5-S1: Transitional intervertebral disc noted without significant canal or neural foraminal stenosis, stable in appearance. L4-L5: Minor annular bulging with a tiny central disc protrusion stable in appearance, with minimal facet arthrosis stable in appearance without significant canal stenosis. No significant neural foraminal stenosis. L3-L4: Previously noted left-sided foraminal/extraforaminal disc protrusion is again noted, now with an annular fissure noted on the left at this location on the current study. Disc protrusion probably contacts the exiting left L3 nerve root with associated mild left-sided foraminal narrowing. No significant canal stenosis. There is [id number] facet arthropathy on the left slightly progressed from previous study. L2-L3: Disc space height and signal well maintained without significant disc bulge or herniation and no significant spondylosis, facet arthrosis, canal or neural foraminal stenosis. L1-L2: Disc space height and signal well maintained without significant disc bulge or herniation and no significant spondylosis, facet arthrosis, canal or neural foraminal stenosis. Paraspinal/Retroperitoneal: The paravertebral soft tissues are unremarkable. There is moderate distention of a left-sided extrarenal pelvis without hydroureter. MR/MR lumbar spine wo con IMPRESSION: 1. Mild disc desiccation at L4-L5 with tiny central disc protrusion and minimal annular bulging at this level stable in appearance, with L5 being a transitional level unchanged. 2. New mild disc desiccation at L3-L4. Small left-sided foraminal/extraforaminal disc protrusion at this level again noted, now with a left-sided annular fissure which contacts the exiting left L3 nerve root, similar to the previous exam. Left-sided facet arthrosis at this level appears slightly more prominent with mild left-sided neural foraminal stenosis, largely unchanged. 3. Transitional lumbosacral anatomy. Dictated By: MOHIT BERMEO MD signed By: <Electronically signed by MOHIT BERMEO MD in OV> 04/19/212019 [address] [address] Magnetic Resonance Report Signed Patient: Madyson Arguelles MR#: [id number] : 1970 Acct:[id number] Age/Sex: 49 / F ADM Date: 07/25/[address]: Tom Pineda MD Ordering Physician: Tom Pineda MD Date of Service: 07/25/20 Procedure(s): MR pelvis wo con Accession Number(s): [id number] cc: Tom Pineda MD~ 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 Chronic low back pain, leg swelling, leg tingling. COMPARISON: Radiographs SI joints and lumbar spine 12/22/2019, CT pelvis 04/20/2019, MRI pelvis noncontrast 09/25/2016. TECHNIQUE: MRI of the pelvis without contrast is targeted to the sacrum with sagittal imaging, oblique coronal, and oblique axial imaging, along the short and long axis of the SI joints. FINDINGS: There is transitional vertebrae L5 with bilateral sacralization similar to prior imaging. There is normal lumbosacral lordosis. Mild broad-based annulus bulging is present at L4-L5. There is normal marrow signal. The SI joints appear normal with no erosive change or subchondral edema or fluid in the joints. There is normal exiting nerves through the sacral foramen. No perineural Tarlov cyst. No intrasacral meningocele. No presacral soft tissue swelling or mass. There is been prior hysterectomy. No pelvic mass or ascites. No bowel obstruction or adenopathy. MR/MR pelvis wo con IMPRESSION: 1. Transitional vertebrae L5 with bilateral sacralization. 2. Unremarkable exam. No sacroiliitis or mass. Dictated By: BRENDA MCGOWAN MD Signed By: <Electronically signed by BRENDA MCGOWAN MD in OV> 07/25/20 9868 Assessment & Plan Assessment & Plan (1) Right tennis elbow: Code(s): M77.11 - Lateral epicondylitis, right elbow Plan: Discussed nature of tennis elbow with patient. It is an overuse tendinitis. I informed patient that the mainstay of therapy is rest and therapy. I offered patient an excuse letter to him prior to takes 2 weeks off of work. She refused. We discussed steroid injections versus occupational therapy. Patient opted to do occupational therapy. If there is no improvement with occupational therapy. Patient can call us and we can do a steroid injection. In the meantime, start taking OTC Aleve 220 mg 2 to 3 times day for 2 weeks then 1-2 tabs daily as needed for pain Plan I spent 16 minutes reviewing patient's chart, evaluating patient, placing orders, counseling patient and documenting in the chart Orders: Orders OT Evaluation and Treatment Today M77.11 - Lateral epicondylitis, right elbow Coding Level of Care Code Est Pt Level 3 (07592) Diagnoses Right tennis elbow M77.11
== END 2023-06-25 10:49 | disposition home or self-care (01) ==
PROVIDERS: PCP Internal Medicine; Visit Provider Student in an Organized Health Care Education/Training Program
DX: M77.11 Lateral epicondylitis, right elbow (principal)
CPT/HCPCS: 99213

== ENCOUNTER → 2023-06-25 10:19 | Outpatient (BNVA) | payer OTHER, SELFPAY | PROVIDERS: PCP Internal Medicine; Visit Provider Student in an Organized Health Care Education/Training Program ==

== ENCOUNTER 2023-08-13 11:45 | Outpatient (AMB) | payer OTHER, SELFPAY ==
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
[2023-08-13 11:47] VITALS: BP 124/68; PULSE 83; O2SAT 97; BMI 50.0
== END 2023-08-13 13:10 | disposition home or self-care (01) ==
LOC: HO.RHE 11:45
PROVIDERS: PCP Internal Medicine; Visit Provider Student in an Organized Health Care Education/Training Program
DX: M77.11 Lateral epicondylitis, right elbow (principal)
CPT/HCPCS: 20550; 99213

== ENCOUNTER → 2023-08-13 11:45 | Outpatient (BNVA) | payer OTHER, SELFPAY | PROVIDERS: PCP Internal Medicine; Visit Provider Student in an Organized Health Care Education/Training Program | DX: M77.11 Lateral epicondylitis, right elbow (principal) | CPT/HCPCS: 20550; J3301 ==

== ENCOUNTER 2023-08-19 14:15 | Outpatient (REF) | payer OTHER, SELFPAY ==
[2023-08-19 14:52] LABS: Basophils Absolute Auto 0.1 X10*3/uL (0.0-0.2); Eosinophils Absolute Auto 0.2 X10*3/uL (0.0-0.4); Eosinophils Percent Auto 3.3 % (0-4); Hematocrit 41.5 % (37.0-47.0); Hemoglobin 13.2 g/dl (12.0-16.0); Imm Gran Abs Auto 0.05 X10*3/uL (0.00-0.03); Imm Gran Pct Auto 0.8 % (0.0-0.4); Lymphocytes Absolute Auto 2.4 X10*3/uL (1.2-4.9); Lymphocytes Percent Auto 38.3 % (20-40); MANUAL DIFF FLAG SCAN; Mean Corpuscular HGB Conc 31.8 g/dl (31.0-35.0); Mean Corpuscular Hemoglobin 27.3 pg (27.0-33.0); Mean Corpuscular Volume 85.9 fL (80.0-98.0); Monocytes Absolute Auto 0.6 X10*3/uL (0.1-1.2); Monocytes Percent Auto 10.2 % (2-11); Neutrophils Absolute Auto 2.9 x10*3/uL (2.0-8.3); Neutrophils Percent Auto 46.4 % (45-73); PLT CLUMP 1; Red Blood Count 4.83 X10*6/uL (4.20-5.50); Red Cell Distribution Width 15.4 % (11.0-16.0); SCAN SMEAR FLAG 1
[2023-08-19 15:10] LABS: White Blood Count 6.3 X10*3/uL (4.8-10.8)
[2023-08-19 15:11] LABS: Platelet Count 314 X10*3/uL (160-400); SLIDE REVIEW VERIFIED
[2023-08-19 15:37] LABS: Alanine Aminotransferase 27 U/L (0-31); Alkaline Phosphatase 76 U/L (39-117); Anion Gap 11 (12-20); Aspartate Amino Transferase 13 U/L (5-31); Bilirubin Total 0.6 mg/dL (0.0-1.0); Blood Urea Nitrogen 12 mg/dL (9-16); Calcium 9.5 mg/dL (8.4-10.2); Carbon Dioxide 25 mmol/L (22-29); Chloride 109 mmol/L (96-108); Cholesterol 194 mg/dL (<200); Estimated Glomerular Filt Rate > 60; Glucose Random 106 mg/dL (60-115); HDL Cholesterol 63 mg/dL (>40); LDL Cholesterol Calculated 106 mg/dL (<100); Potassium 4.1 mmol/L (3.3-5.1); Sodium 141 mmol/L (135-145); Total Protein 7.5 g/dL (6.5-8.0); Triglycerides 127 mg/dL (<150)
[2023-08-19 15:52] LABS: Thyroid Stimulating Hormone 1.42 uIU/mL (0.32-4.0)
== END 2023-08-19 14:16 | disposition home or self-care (01) ==
LOC: HO.LAB 14:15
PROVIDERS: PCP Internal Medicine; Visit Provider Internal Medicine
DX: I10 Essential (primary) hypertension (principal); I73.9 Peripheral vascular disease, unspecified
CPT/HCPCS: 36415; 80053; 80061; 84443; 85025

== ENCOUNTER 2023-10-01 15:07 | Outpatient (AMB) | payer OTHER, SELFPAY ==
--- NOTE | 2023-10-01 15:08 | MHC.OFFVIS ---
Vital Signs 10/01/23 15:09 Height 5 ft 7 in Weight 319 lb BMI 50.0 Intake Visit Reasons: [employer]/ ref for Reoccurring cellulitis Intake Note: [employer]/ for bilateral LE re-occuring cellulitis, states that has been happening 3 years. Always resulted in IV Abx in hospital. States she had a Right GSV Ablation @ [facility] right before covid hit and was scheduled for Left LE as well but was cancelled, they no longer take her insurance. She states she is developing discoloration and large rope like VV. She also states she was bit by a dog on her thigh where she has a cluster of VV and it keeps leaking blood. Accompanied by: Self / Same As Patient Allergies hydrocodone [From Vicodin] Allergy (Severe, Verified 10/01/23 15:20) NAUSEA,DIZZY sulfamethoxazole [From Bactrim] Allergy (Severe, Verified 10/01/23 15:20) Rash trimethoprim [From Bactrim] Allergy (Severe, Verified 10/01/23 15:20) Rash morphine Adverse Reaction (Severe, Verified 10/01/23 15:20) Chills oxycodone [From PERCOCET] Adverse Reaction (Severe, Verified 10/01/23 15:20) nausea,VOMITING HPI HPI [employer]/ ref for Reoccurring cellulitis: Details: Very pleasant 53-year-old female patient presents for painful varicose veins. Complaints include pain over varicosities, swelling of lower extremities, cramping, fatigue, and heaviness of the lower extremities. It has been affecting there daily activities including walking. It is noted more so in left leg. She attributes this all to a spider bite that she had in the past. Patient prior history of right lower extremity venous [place] [address] Cifuentes Patient denies any history of DVT/ PE. Patient denies any history of phlebitis. Trial of compression includes - [id number] They now present for vascular evaluation regarding their varicose veins. [facility] Medical History Migraine HTN (hypertension) Obesity Arthritis Low back pain History of cellulitis Headache PVD (peripheral vascular disease) Numbness and tingling of both legs Elevated LFTs Fatty liver Ear infection Hx of pneumothorax Spondyloarthropathy Asthma Surgical History H/O colonoscopy History of esophagogastroduodenoscopy (EGD) History of cholecystectomy Hx of total hysterectomy with removal of both tubes and ovaries Hx of laminectomy History of lung surgery Family History Father Diabetes HTN (hypertension) Mother Stroke CVD (cardiovascular disease) Social History Household Members: Family Housing: Apartment Do you presently have visiting nurse or other home services: No Alcohol intake: current Alcohol intake frequency: holidays/special occasions only Patient Tobacco Use Status: Never used Tobacco service: No Current occupational status: employed Review of Systems Const Reports as per HPI ENT Reports no additional complaints Card Denies chest pain, Denies chest pain at rest and Denies chest pain with activity Resp Denies chest congestion and Denies cough GI Reports no additional complaints Musc Details: pain over varicosities, aching of lower extremities, swelling, cramping, heaviness and tiredness, itching Denies abnormal gait Skin/Breast Reports pruritus and Denies wounds Neuro Reports no additional complaints and Denies abnormal gait Psych Denies no additional complaints Physical Exam Vital Signs: BMI result Body Mass Index 50.0 Const General: cooperative, healthy appearing and comfortable Orientation/consciousness: oriented to person, oriented to place and oriented to time Neck Carotids: no bruits Chest Chest palpation & inspection: normal inspection of the chest and normal palpation of entire chest wall Resp Effort & Inspection: normal respiratory effort and able to speak in complete sentences Cardio Rate: regular rate Heart sounds: S1 normal heart sound present and S2 normal heart sound present Peripheral pulses: Peripheral pulses 2+ throughout GI Inspection: Yes normal to inspection Skin Other: +2 edema, large rope-like varicosities greater than 4 mm CEAP Classification C4 - skin color changes Ep - Etiology Primary As - superficial veins P - reflux General skin exam: dry skin Neuro General: oriented to person, oriented to place and oriented to time Extrem Right lower extremity: full ROM, normal capillary refill and edema Left lower extremity: full ROM, normal capillary refill and edema Psych Mental Status: mental status grossly normal Assessment & Plan Assessment & Plan (1) Varicose veins of right lower extremity with inflammation: Comment: 2020 - right lower extremity EVLT of great saphenous vein by Dr. Cifuentes at [facility] Code(s): I83.11 - Varicose veins of right lower extremity with inflammation Category: Medical Plan: See below (2) Varicose veins of left lower extremity with inflammation: Code(s): I83.12 - Varicose veins of left lower extremity with inflammation Category: Medical Plan: In short, the patient has evidence of venous insufficiency. I have discussed the pathophysiology with the patient. In addition I have provided informational material regarding venous disease to the patient. We have discussed conservative measures including compression, elevation, and exercise. I have also provided a handout regarding appropriate use of compression stockings and where to purchase good compression stockings as well. I have taken the liberty of ordering venous insufficiency testing with the patient. They will follow up with me after testing. The patient had an opportunity to ask questions regarding the treatment plan. All questions were answered. Imaging studies, laboratory studies and physical exam results were discussed and reviewed in detail. No major barriers to understanding were identified. The patient expressed understanding and agreement with the above treatment plan. The patient is aware they should contact our office by phone for worsening of the current condition or the appearance of new symptoms. Thank you for allowing me to participate in the vascular care of this patient. If you have any questions or concerns regarding the treatment for the above condition please do not hesitate to contact me. The office telephone contact is [phone]. This note is constructed using voice recognition software. While every effort has been made to ensure accuracy, sales and service representative errors may have been included. Thank you for allowing me to participate in the care of your patient. Yours sincerely, Robin Rain MD, FACS, R.P.V.I. Orders: Orders US venous duplex LE BI 1 Week I83.12 - Varicose veins of left lower extremity with inflammation Coding Level of Care Code New Pt Level 4 (34139) Diagnoses Varicose veins of right lower extremity with inflammation I83.11 Varicose veins of left lower extremity with inflammation I83.12
[2023-10-01 15:09] VITALS: BMI 50.0
== END 2023-10-01 15:55 | disposition home or self-care (01) ==
PROVIDERS: PCP Internal Medicine; Visit Provider Surgery Vascular Surgery
DX: I83.11 Varicose veins of right lower extremity with inflammation (principal); I83.12 Varicose veins of left lower extremity with inflammation
CPT/HCPCS: 99203

== ENCOUNTER → 2023-10-01 15:07 | Outpatient (BNVA) | payer OTHER, SELFPAY | PROVIDERS: PCP Internal Medicine; Visit Provider Surgery Vascular Surgery ==

== ENCOUNTER 2023-10-21 12:55 | Outpatient (REF) | payer OTHER, SELFPAY ==
--- NOTE | ~2023-10-21 | US_ITS ---
EXAMINATION: US LOWER EXTREMITY VENOUS (REFLUX EXAM), BILATERAL CLINICAL INDICATION: Lower extremity varicose veins with inflammation COMPARISON: None. TECHNIQUE: Color flow triplex imaging and compression Doppler was performed to evaluate both the deep and the superficial systems bilaterally. To evaluate the superficial system, the examination was performed in the upright position. Color-flow Doppler ultrasound and compression ultrasound were utilized. In addition, maneuvers were utilized to demonstrate reflux. FINDINGS: 1. DEEP VENOUS ULTRASOUND OF THE RIGHT LOWER EXTREMITY: Common Femoral Vein: Compressible, normal respiratory variation and augmented flow. Femoral Vein: Compressible, normal color flow and augmentation. Popliteal Vein: Compressible, normal augmentation. Deep Reflux: There is no evidence of reflux in the deep system in either the common femoral vein, superficial femoral or the popliteal vein. There is no evidence of a Rizvi's cyst. 2. SUPERFICIAL ULTRASOUND WITH DOPPLER OF RIGHT LOWER EXTREMITY: GREAT SAPHENOUS VEIN: Saphenofemoral Junction: 0.9 cm; Reflux: 0 ms Proximal Thigh: 0.4 cm; Reflux: 0 ms Mid Thigh: Not visualized Above Knee: 0.3 cm; Reflux: 0 ms At Knee: 0.2 cm; Reflux: 0 ms Below Knee: 0.2 cm; Reflux: 0 ms Mid Calf: 0.2 cm; Reflux: 0 ms Ankle: 0.2 cm; Reflux: 1928 ms DUPLICATED MEDIAL GREAT SAPHENOUS VEIN: Diameter: None imaged Reflux: NA DUPLICATED LATERAL GREAT SAPHENOUS VEIN: Diameter: None imaged Reflux: NA SMALL SAPHENOUS VEIN: Saphenopopliteal Junction: 0.3 cm; Reflux: 0 ms Proximal: 0.3 cm; Reflux: 0 ms Distal: 0.3 cm; Reflux: 2360 ms VEIN OF GIACOMINI: Size: NA Reflux: NA PERFORATORS: Location: Proximal calf extending into the great saphenous vein Size: 0.5 cm Reflux: 2444 ms VARICOSITIES: Location: Mid calf off the great saphenous vein Size: 0.5 cm Reflux: None 3. DEEP VENOUS ULTRASOUND OF THE LEFT LOWER EXTREMITY: Common Femoral Vein: Compressible, normal respiratory variation and augmented flow. Femoral Vein: Compressible, normal color flow and augmentation. Popliteal Vein: Compressible, normal augmentation. Deep Reflux: There is no evidence of reflux in the deep system in either the common femoral vein, superficial femoral or the popliteal vein. There is no evidence of a Rizvi's cyst. 4. SUPERFICIAL ULTRASOUND WITH DOPPLER OF LEFT LOWER EXTREMITY: GREAT SAPHENOUS VEIN: Saphenofemoral Junction: 1.0 cm; Reflux: 0 ms Proximal Thigh: 0.6 cm; Reflux: 0 ms Mid Thigh: 0.3 cm; Reflux: 2584 ms Above Knee: 0.3 cm; Reflux: 2572 ms At Knee: 0.3 cm; Reflux: 2072 ms Below Knee: 0.2 cm; Reflux: 0 ms Mid Calf: 0.1 cm; Reflux: 0 ms Ankle: 0.2 cm; Reflux: 0 ms DUPLICATED MEDIAL GREAT SAPHENOUS VEIN: Diameter: None imaged Reflux: NA DUPLICATED LATERAL GREAT SAPHENOUS VEIN: Diameter: None imaged Reflux: NA SMALL SAPHENOUS VEIN: Saphenopopliteal Junction: 0.3 cm; Reflux: 0 ms Proximal: 0.3 cm; Reflux: 0 ms Distal: 0.3 cm; Reflux: 0 ms VEIN OF GIACOMINI: Size: NA Reflux: NA PERFORATORS: Location: Mid calf extending into the varicose veins Size: 0.2 cm Reflux: 1532 ms VARICOSITIES: Location: Proximal thigh off the great saphenous vein Size: 0.4 cm Reflux: None US/US venous duplex LE BI IMPRESSION: Right: Focal segmental reflux in the great saphenous vein at the level the ankle. A focal segmental reflux in the small saphenous vein in the distal calf. Scattered small varicose veins, largest seen in the mid calf without significant reflux Left: Segmental areas of reflux in the left great saphenous vein from the mid thigh to the knee with branching varicosity also seen off the great saphenous vein in the proximal thigh as described above. Multiple small varicosities within the left calf.
== END 2023-10-21 12:56 | disposition home or self-care (01) ==
LOC: HO.US 12:55
PROVIDERS: PCP Internal Medicine; Visit Provider Surgery Vascular Surgery
DX: I83.12 Varicose veins of left lower extremity with inflammation (principal)
CPT/HCPCS: 93970

== ENCOUNTER → 2023-10-21 16:00 | Outpatient (BNV) | payer OTHER, SELFPAY | PROVIDERS: PCP Internal Medicine; Visit Provider Radiology Diagnostic Radiology | DX: Z12.31 Encounter for screening mammogram for malignant neoplasm of breast (principal) | CPT/HCPCS: 77063; 77067 ==

== ENCOUNTER 2023-10-21 16:08 | Outpatient (REF) | payer OTHER, SELFPAY | END 2023-10-21 16:09 | disposition home or self-care (01) | LOC: HO.MAMMO 16:08 | PROVIDERS: PCP Internal Medicine; Visit Provider Internal Medicine | DX: Z12.31 Encounter for screening mammogram for malignant neoplasm of breast (principal) | CPT/HCPCS: 77063; 77067 ==

== ENCOUNTER 2023-11-25 13:28 | Outpatient (AMB) | payer OTHER, SELFPAY ==
[2023-11-25 13:32] VITALS: BMI 50.0
--- NOTE | 2023-11-25 13:32 | MHC.OFFVIS ---
Vital Signs 11/25/23 13:32 Height 5 ft 7 in Weight 319 lb BMI 50.0 Intake Visit Reasons: f/u s/p 10/21/23 Intake Note: follow up 10/21/23 for re-occuring cellulitis x 3 yrs . Hx of Right GSV Ablation @ [facility]. Was scheduled for Left LE but was Cx due to covid . Has discoloration and rope like VV. no changes. Accompanied by: Self / Same As Patient Allergies hydrocodone [From Vicodin] Allergy (Severe, Verified 11/25/23 13:35) NAUSEA,DIZZY sulfamethoxazole [From Bactrim] Allergy (Severe, Verified 11/25/23 13:35) Rash trimethoprim [From Bactrim] Allergy (Severe, Verified 11/25/23 13:35) Rash morphine Adverse Reaction (Severe, Verified 11/25/23 13:35) Chills oxycodone [From PERCOCET] Adverse Reaction (Severe, Verified 11/25/23 13:35) nausea,VOMITING HPI HPI f/u s/p 10/21/23: Details: Very pleasant morbidly obese 53-year-old female presents for follow-up regarding venous insufficiency. She actually had undergone a right lower extremity ablation at [facility] back in 2019. She reports that the swelling and discomfort did not significantly improve postprocedure. She continues to have significant swelling of bilateral lower extremities. She now presents to us for follow-up evaluation [facility] Medical History Migraine HTN (hypertension) Obesity Arthritis Low back pain History of cellulitis Headache PVD (peripheral vascular disease) Numbness and tingling of both legs Elevated LFTs Fatty liver Ear infection Hx of pneumothorax Spondyloarthropathy Asthma Surgical History H/O colonoscopy History of esophagogastroduodenoscopy (EGD) History of cholecystectomy Hx of total hysterectomy with removal of both tubes and ovaries Hx of laminectomy History of lung surgery Family History Father Diabetes HTN (hypertension) Mother Stroke CVD (cardiovascular disease) Social History Household Members: Family Housing: Apartment Do you presently have visiting nurse or other home services: No Alcohol intake: current Alcohol intake frequency: holidays/special occasions only Patient Tobacco Use Status: Never used Tobacco service: No Current occupational status: employed Review of Systems Const Reports as per HPI ENT Reports no additional complaints Card Denies chest pain, Denies chest pain at rest and Denies chest pain with activity Resp Denies chest congestion and Denies cough GI Reports no additional complaints Musc Details: pain over varicosities, aching of lower extremities, swelling, cramping, heaviness and tiredness, itching Denies abnormal gait Skin/Breast Reports pruritus and Denies wounds Neuro Reports no additional complaints and Denies abnormal gait Psych Denies no additional complaints Physical Exam Vital Signs: BMI result Body Mass Index 50.0 Const General: cooperative, healthy appearing and comfortable Orientation/consciousness: oriented to person, oriented to place and oriented to time Neck Carotids: no bruits Chest Chest palpation & inspection: normal inspection of the chest and normal palpation of entire chest wall Resp Effort & Inspection: normal respiratory effort and able to speak in complete sentences Cardio Rate: regular rate Heart sounds: S1 normal heart sound present and S2 normal heart sound present Peripheral pulses: Peripheral pulses 2+ throughout GI Inspection: Yes normal to inspection Skin Other: +2 edema, large rope-like varicosities greater than 4 mm CEAP Classification C4 - skin color changes Ep - Etiology Primary As - superficial veins P - reflux General skin exam: dry skin Neuro General: oriented to person, oriented to place and oriented to time Extrem Other: Right in cm: Thigh 78.5 Knee 47 Calf 50.5 Ankle 32 Left in cm: Thigh 71 Knee 48 Calf 51 Ankle 30 Right lower extremity: full ROM, normal capillary refill and edema Left lower extremity: full ROM, normal capillary refill and edema Psych Mental Status: mental status grossly normal Results Reviewed Results Reviewed: Brief summary of venous insufficiency testing is as follows: right great saphenous vein: Ablated right small saphenous vein: negative right accessory vein: none present left great saphenous vein: Positive but vein small in caliber left small saphenous vein: negative left accessory vein: none present Please note there is no evidence of any venous aneurysms or significant tortuosity Assessment & Plan Assessment & Plan (1) Varicose veins of right lower extremity with inflammation: Comment: 2020 - right lower extremity EVLT of great saphenous vein by Dr. Cifuentes at [facility] Code(s): I83.11 - Varicose veins of right lower extremity with inflammation Category: Medical Plan: Doing well (2) Varicose veins of left lower extremity with inflammation: Code(s): I83.12 - Varicose veins of left lower extremity with inflammation Category: Medical Plan: Continue with compression elevation exercise (3) Lymphedema: Code(s): I89.0 - Lymphedema, not elsewhere classified Category: Medical Plan: In short the patient has late on sent lymphedema. The patient has been on conservative treatment for at least 3 months with minimal relief. Patient has tried 30 mm of mercury compression garments, elevation, exercise healthy diet and doing manual says self MLD to the best of their ability for over 4 weeks but with no significant relief. She has been compliant with the program but has provided minimal relief. In addition on physical we are noticing hyperpigmentation, lymphorrhea, and hyperplasia. It appears that she has stage 2 lymphedema. Patient has completed multiple forms of conservative therapy yet significant symptoms remain. Patient requires the use of a pneumatic compression device which we will assist in trying to have the patient obtain them. A pneumatic compression device will help reduce swelling and other lymphedema comorbidities. She will return to see us in lymphedema clinic Thank you for allowing us to assist in this patient's care. Coding Level of Care Code Est Pt Level 4 (12732) Diagnoses Varicose veins of right lower extremity with inflammation I83.11 Varicose veins of left lower extremity with inflammation I83.12 Lymphedema I89.0
== END 2023-11-25 14:00 | disposition home or self-care (01) ==
PROVIDERS: PCP Internal Medicine; Visit Provider Surgery Vascular Surgery
DX: I83.11 Varicose veins of right lower extremity with inflammation (principal); I83.12 Varicose veins of left lower extremity with inflammation; I89.0 Lymphedema, not elsewhere classified
CPT/HCPCS: 99214

== ENCOUNTER → 2023-11-25 13:28 | Outpatient (BNVA) | payer OTHER, SELFPAY | PROVIDERS: PCP Internal Medicine; Visit Provider Surgery Vascular Surgery ==

== ENCOUNTER 2023-12-09 07:38 | Outpatient (REF) | payer OTHER, SELFPAY ==
--- NOTE | ~2023-12-09 | XR_ITS ---
EXAMINATION: XR KNEE, LEFT CLINICAL INFORMATION: Left knee pain. COMPARISON: Left knee radiographs dated 05/20/2019 and left tibia/fibular radiographs dated 01/29/2021. TECHNIQUE: Three views of the left knee. FINDINGS: Mild medial compartment joint space narrowing. Tiny patellofemoral compartment marginal osteophytes. No osseous erosion. No fracture or dislocation. Trace joint effusion. No abnormal soft tissue calcification. XR/XR knee LT 3V IMPRESSION: Minimal medial and patellofemoral compartment arthrosis. Trace joint effusion.
== END 2023-12-09 07:39 | disposition home or self-care (01) ==
LOC: HO.HOSX 07:38
PROVIDERS: Visit Provider Orthopaedic Surgery
DX: M25.562 Pain in left knee (principal)
CPT/HCPCS: 73562

== ENCOUNTER 2023-12-09 08:14 | Outpatient (AMB) | payer OTHER, SELFPAY ==
[2023-12-09 08:40] VITALS: BMI 52.0
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
== END 2023-12-09 09:03 | disposition home or self-care (01) ==
PROVIDERS: PCP Internal Medicine; Visit Provider Orthopaedic Surgery
DX: M25.562 Pain in left knee (principal)
CPT/HCPCS: 99203

== ENCOUNTER 2023-12-18 09:01 | Outpatient (AMB) | payer OTHER, SELFPAY ==
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
[2023-12-18 09:04] VITALS: BP 156/95; PULSE 71; O2SAT 92; BMI 51.4
== END 2023-12-18 09:28 | disposition home or self-care (01) ==
PROVIDERS: PCP Internal Medicine; Visit Provider Registered Nurse Emergency
DX: M54.16 Radiculopathy, lumbar region (principal)
CPT/HCPCS: 99213

== ENCOUNTER → 2023-12-18 09:01 | Outpatient (BNVA) | payer OTHER, SELFPAY | PROVIDERS: PCP Internal Medicine; Visit Provider Registered Nurse Emergency ==

== ENCOUNTER 2024-01-08 15:35 | Outpatient (AMB) | payer OTHER, SELFPAY ==
[2024-01-08 15:48] VITALS: BP 130/64; PULSE 65; O2SAT 96; BMI 51.4
--- NOTE | 2024-01-08 15:48 | A.OFFVIS_ITS ---
Vital Signs 01/08/24 15:48 Height 5 ft 7 in Weight 328 lb BMI 51.4 BP 130/64 Blood Pressure Location Lt brachial Position Sitting Pulse 65 Pulse Source Pulse Oximeter Pulse Oximetry (%) 96 Oxygen Delivery Method Room Air Intake Visit Reasons: Right tennis elbow and lower back pain Intake Note: Patient last seen by Doctor Manish Reyes on 08/13/23. Presents todaypain. for f ollow up on right tennis elbow and lower back Allergies hydrocodone [From Vicodin] Allergy (Severe, Verified 01/08/24 15:52) NAUSEA,DIZZY sulfamethoxazole [From Bactrim] Allergy (Severe, Verified 01/08/24 15:52) Rash trimethoprim [From Bactrim] Allergy (Severe, Verified 01/08/24 15:52) Rash morphine Adverse Reaction (Severe, Verified 01/08/24 15:52) Chills oxycodone [From PERCOCET] Adverse Reaction (Severe, Verified 01/08/24 15:52) nausea,VOMITING Medication List - Last Reconciled 01/08/24 by Manish Reyes MD beclomethasone dipropionate 80 mcg/actuation (Qvar RediHaler) 2 puffs PO BID PRN budesonide 180 mcg/actuation (Pulmicort Flexhaler) 2 inhalations inhalation Q4- 6H PRN cyclobenzaprine 10 mg PO BEDTIME PRN naproxen 500 mg PO BID omeprazole 40 mg PO DAILY semaglutide (weight loss) (Wegovy) mg subcut HPI Comments Details: Patient returns for right tennis elbow evaluation. Patient had a right tennis elbow injection last visit on 08/2023. Per patient the injection helped for approximately 3 months. The pain has recurred in the same area about 2 months ago. She has done occupational therapy in the past. She was recently evaluated by pain management for sciatica and a lumbar spine MRI was ordered for radiculopathy. She started Wegovy about a month ago and she has lost 10 lb so far [facility] Medical History Migraine HTN (hypertension) Obesity Arthritis Low back pain History of cellulitis Headache PVD (peripheral vascular disease) Numbness and tingling of both legs Elevated LFTs Fatty liver Ear infection Hx of pneumothorax Spondyloarthropathy Asthma Surgical History H/O colonoscopy History of esophagogastroduodenoscopy (EGD) History of cholecystectomy Hx of total hysterectomy with removal of both tubes and ovaries Hx of laminectomy History of lung surgery Family History Father Diabetes HTN (hypertension) Mother Stroke CVD (cardiovascular disease) Social History Household Members: Family Housing: Apartment Do you presently have visiting nurse or other home services: No Alcohol intake: current Alcohol intake frequency: holidays/special occasions only Patient Tobacco Use Status: Never used Tobacco service: No Current occupational status: employed Review of Systems Musc Reports back pain, Reports arthralgias, Reports joint swelling, Reports limited range of motion and Reports stiffness Physical Exam Vital Signs: Last Vital Signs Pulse 65 01/08/24 15:48 BP 130/64 01/08/24 15:48 Pulse Ox 96 01/08/24 15:48 Oxygen Delivery Method Room Air 01/08/24 15:48 BMI result Body Mass Index 51.4 Const General: cooperative, healthy appearing and comfortable Nutritional Appearance: obese morbidly obese Orientation/consciousness: patient oriented x3 Limitations: no limitations HEENT Head: Yes normocephalic and Yes atraumatic Resp Effort & Inspection: normal respiratory effort and able to speak in complete sentences Skin General skin exam: no rashes or lesions noted Neuro General: patient oriented x3 Extrem Other: Tenderness and warmth at the common extensor origin at the right lateral epicondyle with positive resisted wrist extension test Negative resisted wrist flexion test Negative rotator cuff provocative maneuvers bilaterally Assessment & Plan Assessment & Plan (1) Right tennis elbow: Code(s): M77.11 - Lateral epicondylitis, right elbow Category: Medical Plan: Patient returns for right tennis elbow evaluation.? Patient had a right tennis elbow injection last visit on 08/2023.? Per patient the injection helped for approximately 3 months.? The pain has recurred in the same area about 2 months ago.? She has done occupational therapy in the past. I think patient should be evaluated by Orthopedics at this time. Follow-up with me as needed Plan I spent 16 minutes reviewing patient's chart, evaluating patient, placing orders, counseling patient and documenting in the chart Orders: Referrals Orthopedics Referral M77.11 - Lateral epicondylitis, right elbow Coding Level of Care Code Est Pt Level 3 (06904) Diagnoses Right tennis elbow M77.11
== END 2024-01-08 16:06 | disposition home or self-care (01) ==
PROVIDERS: PCP Internal Medicine; Visit Provider Student in an Organized Health Care Education/Training Program
DX: M77.11 Lateral epicondylitis, right elbow (principal)
CPT/HCPCS: 99213

== ENCOUNTER → 2024-01-08 15:35 | Outpatient (BNVA) | payer OTHER, SELFPAY | PROVIDERS: PCP Internal Medicine; Visit Provider Student in an Organized Health Care Education/Training Program ==

== ENCOUNTER 2024-01-21 13:34 | Outpatient (AMB) | payer OTHER, SELFPAY ==
--- NOTE | 2024-01-21 13:43 | MHC.OFFVIS ---
Vital Signs 01/21/24 13:50 Height 5 ft 7 in Weight 328 lb BMI 51.4 Intake Visit Reasons: New Prob- Left elbow pain Intake Note: Madyson a 53 year old right hand dominant female who presents today for a new problem visit for her left elbow pain. Patient reports her pain has been present for about 6-8 months and has been getting worse. Denies injury. She was seen by her conservation planner and an injection was given in August however this did not help. She has tried and failed PT. Currently she has throbbing pain and a tingling sensation that radiates down to her hand. She has no strength and finds it difficult to lift items. Finds no relief with naproxen and icing. Finds little relief with lidocaine patches. Allergies hydrocodone [From Vicodin] Allergy (Severe, Verified 01/08/24 15:52) NAUSEA,DIZZY sulfamethoxazole [From Bactrim] Allergy (Severe, Verified 01/08/24 15:52) Rash trimethoprim [From Bactrim] Allergy (Severe, Verified 01/08/24 15:52) Rash morphine Adverse Reaction (Severe, Verified 01/08/24 15:52) Chills oxycodone [From PERCOCET] Adverse Reaction (Severe, Verified 01/08/24 15:52) nausea,VOMITING HPI HPI New Prob- Left elbow pain: Details: 53-year-old right hand dominant female who presents in the office today, as a new patient,?for an evaluation of right elbow pain. The patient was being treated by Rheumatology on 01/08/24 for tennis elbow. He was given an injection of 40 mg of Kenalog mixed with 1 mL of 1% lidocaine on 08/13/2023, which gave her about three months of relief.? ? While in the office today, the patient reports pain that has been present for 6-8 months that has been increasing. She denies any prior injury. She describes her pain as throbbing with a tingling sensation that radiates down to her right hand. She reports having no strengthen and difficulty lifting items. She confirms the use of naproxen and icing with no relief. She reports relief with the use of topical patches. ? ? Patient has been followed by Rheumatology.? ? Patient has attended OT in the past. ? ? Patient has been followed by Pain Management for treatment of sciatica.? ? Patient has a history of left elbow injection with no relief. ? PFSH Medical History Migraine HTN (hypertension) Obesity Arthritis Low back pain History of cellulitis Headache PVD (peripheral vascular disease) Numbness and tingling of both legs Elevated LFTs Fatty liver Ear infection Hx of pneumothorax Spondyloarthropathy Asthma Surgical History H/O colonoscopy History of esophagogastroduodenoscopy (EGD) History of cholecystectomy Hx of total hysterectomy with removal of both tubes and ovaries Hx of laminectomy History of lung surgery Family History Father Diabetes HTN (hypertension) Mother Stroke CVD (cardiovascular disease) Social History Household Members: Family Housing: Apartment Do you presently have visiting nurse or other home services: No Alcohol intake: current Alcohol intake frequency: holidays/special occasions only Patient Tobacco Use Status: Never used Tobacco service: No Current occupational status: employed Review of Systems Const All systems reviewed & are unremarkable except as noted in HPI and below Physical Exam Vital Signs: BMI result Body Mass Index 51.4 Const General: cooperative, healthy appearing and no acute distress Resp Effort & Inspection: normal respiratory effort and able to speak in complete sentences Cardio Rate: regular rate Peripheral pulses: Peripheral pulses 2+ throughout GI Palpation (GI): Soft to palpation Skin Lesions: no lesions Rashes: no rashes Extrem Other: Right elbow: Normal to Inspection. No ecchymosis or erythema. Slight edema is located over the proximal ulna. No edema over the olecranon. No evidence of olecranon bursitis. No tenderness to palpation at the extensor tendon attachment on the lateral epicondyle. Full ROM. She endorses numbness and tingling in the right hand.? Assessment & Plan Assessment & Plan (1) Numbness and tingling in right hand: Code(s): R20.0 - Anesthesia of skin; R20.2 - Paresthesia of skin Category: Medical (2) Right elbow pain: Code(s): M25.521 - Pain in right elbow Category: Medical Plan Ms. Arguelles is a 53-year-old right hand dominant female who presents in the office today, as a new patient,?for an evaluation of right elbow pain. The patient was being treated by Rheumatology on 01/08/24 for tennis elbow. He was given an injection of 40 mg of Kenalog mixed with 1 mL of 1% lidocaine on 08/13/2023, which gave her about three months of relief.? ? While in the office today, the patient reports pain that has been present for 6-8 months that has been increasing. She denies any prior injury. She describes her pain as throbbing with a tingling sensation that radiates down to her right hand. She reports having no strengthen and difficulty lifting items. She confirms the use of naproxen and icing with no relief. She reports relief with the use of topical patches. ? ? Patient has been followed by Rheumatology.? ? Patient has attended OT in the past. ? ? Patient has been followed by Pain Management for treatment of sciatica.? ? Patient has a history of left elbow injection with no relief.? ? The patient complains of pain along the posterior, lateral aspect of the ulna. She endorses numbness and tingling into the right hand. She confirms the use of a counterforce brace, attending occupational therapy, and oral anti-inflammitories with no relief. She has tried topical Icy Hot patches which give mild relief. I have sent a prescription for a topical pain cream to the pharmacy. An order for an MRI of the right elbow was made and an order for an EMG study of the right upper extremity was made in the office today. The patient will contact the office once these have been obtained. I would like her to follow-up with a telehealth visit, or sooner if needed. ? ? X-rays of the right elbow which were obtained while in the office today and were reviewed by me, Janet Guajardo PA-C, revealed no acute fractures or dislocation.? Orders: Orders MR elbow RT wo con Today M77.11 - Lateral epicondylitis, right elbow NE electromyogram (EMG) Today M75.81 - Other shoulder lesions, right shoulder, R20.0 - Anesthesia of skin, R20.2 - Paresthesia of skin Patient Instructions: Scribed by Batool Stanley medical doctor md, for Janet Guajardo PA-C on 01/21/2024 at 1:35 pm, EST.? Coding Level of Care Code Est Pt Level 3 (29738) Diagnoses Numbness and tingling in right hand R20.0; R20.2 Right elbow pain M25.521
[2024-01-21 13:50] VITALS: BMI 51.4
== END 2024-01-21 16:09 | disposition home or self-care (01) ==
LOC: HO.HOS 13:34
PROVIDERS: PCP Internal Medicine; Visit Provider Physician Assistant
DX: R20.0 Anesthesia of skin (principal); R20.2 Paresthesia of skin; M25.521 Pain in right elbow
CPT/HCPCS: 99213

== ENCOUNTER → 2024-01-21 13:34 | Outpatient (BNVA) | payer OTHER, SELFPAY | PROVIDERS: PCP Internal Medicine; Visit Provider Physician Assistant ==

== ENCOUNTER 2024-01-29 07:49 | Outpatient (REF) | payer OTHER, SELFPAY ==
--- NOTE | ~2024-01-29 | MR_ITS ---
EXAMINATION: MR KNEE WITHOUT CONTRAST, LEFT CLINICAL INFORMATION: Left knee pain. COMPARISON: None available. TECHNIQUE: MRI of the knee without contrast was performed using routine sequences on a high-field scanner. FINDINGS: MENISCI: Medial Meniscus: Intact. Lateral Meniscus: Intact. LIGAMENTS: Cruciate: Intact. Collateral: Intact. EXTENSOR MECHANISM: Minimal quadriceps tendinosis. There is edema signal in the quadriceps fat-pad which bulges into the suprapatellar pouch. Patellar tendon is normal. ARTICULAR CARTILAGE/BONE: Patellofemoral Compartment: There is sohb-ra-pznbafqd nonuniform chondral thinning at the patella diffusely, more pronounced of the median ridge, with small marginal osteophytes. Trochlear cartilage appears relatively well preserved aside from minimal chondral surface irregularity at the medial trochlear facet. Medial Compartment: Normal. Lateral Compartment: A small chondral fissure is present at the posterior nonweightbearing surface of the lateral femoral condyle. Articular cartilage is relatively well-preserved at the weightbearing surfaces. JOINT FLUID AND BURSAE: Small joint effusion. No Rizvi's cyst. Mild prepatellar and superficial infrapatellar bursitis. Mild generalized subcutaneous edema. MR/MR knee LT wo con IMPRESSION: 1. 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 2. Intact ligaments and menisci. 3. Small joint effusion. 4. Mild prepatellar and superficial infrapatellar bursitis. 5. Minimal quadriceps tendinosis. 6. Edema signal in the quadriceps fat pad as can be seen with a fat pad impingement syndrome. Electronically signed by: Michael Hernandez MD 01/29/2024 06:13 PM EDT
== END 2024-01-29 07:50 | disposition home or self-care (01) ==
LOC: HO.MRI 07:49
PROVIDERS: PCP Internal Medicine; Visit Provider Orthopaedic Surgery
DX: M25.562 Pain in left knee (principal)
CPT/HCPCS: 73721

== ENCOUNTER 2024-01-31 08:11 | Outpatient (AMB) | payer OTHER, SELFPAY ==
[2024-01-31 08:26] VITALS: BP 132/81; PULSE 67; O2SAT 95; BMI 51.1
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
== END 2024-01-31 08:49 | disposition home or self-care (01) ==
PROVIDERS: PCP Internal Medicine; Visit Provider Registered Nurse Emergency
DX: M54.16 Radiculopathy, lumbar region (principal)
CPT/HCPCS: 99213

== ENCOUNTER → 2024-01-31 08:11 | Outpatient (BNVA) | payer OTHER, SELFPAY | PROVIDERS: PCP Internal Medicine; Visit Provider Registered Nurse Emergency ==

== ENCOUNTER 2024-02-07 08:16 | Outpatient (REF) | payer OTHER, SELFPAY ==
--- NOTE | 2024-02-07 08:19 | EMG_ITS ---
Chief complaint: Right hand numbness Reason for referral: Evaluate for Carpal Tunnel Syndrome Referred by: Janet HERNANDEZ Procedure done: Right upper extremity NCS/EMG Precautions and/or limitations: None The limb temperature was monitored continuously and remained between 32-36 degrees C during the performance of the NCS. Nerve Conduction Studies Anti Sensory Summary Table ?Stim Site NR Onset (ms) Norm Onset (ms) Peak (ms) Norm Peak (ms) O-P Amp (?V) Norm O-P Amp Site1 Site2 Delta-0 (ms) Dist (cm) Cristofer (m/s) Norm Cristofer (m/s) Right Median Anti Sensory (2nd Digit) Wrist ? 2.5 3.3 <3.6 28.3 >10 Wrist 2nd Digit 2.5 14.0 56 Right Ulnar Anti Sensory (5th Digit) Wrist ? 0.9 2.9 <3.7 17.7 >15.0 Wrist 5th Digit 0.9 14.0 156 Motor Summary Table ?Stim Site NR Onset (ms) Norm Onset (ms) O-P Amp (mV) Norm O-P Amp iAmp (mV) Amp (1st) (%) Site1 Site2 Delta-0 (ms) Dist (cm) Cristofer (m/s) Norm Cristofer (m/s) Right Median Motor (Abd Poll Brev) Wrist ? 3.0 <3.9 13.0 >4.5 18.4 100.0 Elbow Wrist 4.0 23.0 58 >45 Elbow ? 7.0 9.8 13.2 75.4 Right Ulnar Motor (Abd Dig Minimi) Wrist ? 2.3 <3.0 7.4 >5 9.7 100.0 B Elbow Wrist 3.8 21.0 55 >45 B Elbow ? 6.1 6.8 8.8 91.9 A Elbow B Elbow 1.1 10.0 91 >45 A Elbow ? 7.2 6.8 8.9 91.9 Comparison Summary Table ?Stim Site NR Peak (ms) Norm Peak (ms) P-T Amp (?V) Site1 Site2 Delta-P (ms) Norm Delta (ms) Right Median/Radial Dig I Comparison (Digit 1 - 10cm) Median ? 2.8 <2.9 289.1 Median Radial 0.6 Radial ? 2.2 <2.8 15.9 EMG ?Side Muscle Nerve Root Ins Act Fibs Psw Amp Dur Poly Recrt Int Pat Comment Right 1stDorInt Ulnar C8-T1 Nml Nml Nml Nml Nml 0 Nml Complete Right FlexCarRad Median C6-7 Nml Nml Nml Nml Nml 0 Nml Complete Right Biceps Musculocut C5-6 Nml Nml Nml Nml Nml 0 Nml Complete Right Triceps Radial C6-7-8 Nml Nml Nml Nml Nml 0 Nml Complete Right Deltoid Axillary C5-6 Nml Nml Nml Nml Nml 0 Nml Complete FINDINGS: Significant interlatency difference between right median radial sensory nerves. Otherwise rest of motor and sensory nerves tested were within normal. Concentric needle EMG was performed in selected muscles of the right upper extremity. Study did not reveal signs of electric abnormalities as shown in the table above. IMPRESSION: 1. This is an abnormal study. 2. There is electrodiagnostic evidence for right very mild/borderline median neuropathy at the wrist, could still be consistent with carpal tunnel syndrome. 3. There is no electrodiagnostic evidence for ulnar neuropathy, brachial plexopathy, or cervical radiculopathy. Thank you for your kind referral. Lizzette Varner MD, MAC Board Certified, [place] Board [employer] and [employer] (ABPMR) Board Certified, [place] Board of Electrodiagnostic [employer] (ABEM) CODIN [id number] MTDD
== END 2024-02-07 08:17 | disposition home or self-care (01) ==
LOC: HO.NEURO 08:16
PROVIDERS: PCP Internal Medicine; Visit Provider Physician Assistant
DX: R20.0 Anesthesia of skin (principal); R20.2 Paresthesia of skin; M75.81 Other shoulder lesions, right shoulder
CPT/HCPCS: 95886; 95909

== ENCOUNTER → 2024-02-07 08:19 | Outpatient (BNV) | payer OTHER, SELFPAY | PROVIDERS: PCP Internal Medicine; Visit Provider Physical Medicine & Rehabilitation | DX: G56.01 Carpal tunnel syndrome, right upper limb (principal) | CPT/HCPCS: 95886; 95909 ==

== ENCOUNTER 2024-02-11 07:44 | Outpatient (REF) | payer OTHER, SELFPAY ==
--- NOTE | 2024-02-11 07:48 | EMG_ITS ---
Left tibial and peroneal motor studies were performed. Left superficial peroneal, sural, median, and lateral plantar sensory studies were performed. Tibial H-reflex was obtained. Needle examination was performed. IMPRESSION: 1. Left lower lumbar radiculopathy. 2. Mild underlying sensory motor peripheral neuropathy. MD RAGHU Alvarado/CHASE / [id number]
== END 2024-02-11 07:45 | disposition home or self-care (01) ==
LOC: HO.NEURO 07:44
PROVIDERS: PCP Internal Medicine; Visit Provider Registered Nurse Emergency
DX: R20.2 Paresthesia of skin (principal)
CPT/HCPCS: 95886; 95910

== ENCOUNTER 2024-02-12 07:32 | Outpatient (AMB) | payer OTHER, SELFPAY ==
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
[2024-02-12 07:43] VITALS: BMI 51.1
== END 2024-02-12 07:58 | disposition home or self-care (01) ==
PROVIDERS: PCP Internal Medicine; Visit Provider Orthopaedic Surgery
DX: M17.12 Unilateral primary osteoarthritis, left knee (principal)
CPT/HCPCS: 99213

== ENCOUNTER → 2024-02-12 07:32 | Outpatient (BNVA) | payer OTHER, SELFPAY | PROVIDERS: PCP Internal Medicine; Visit Provider Orthopaedic Surgery ==

== ENCOUNTER 2024-02-19 18:10 | Outpatient (REF) | payer OTHER, SELFPAY ==
--- NOTE | ~2024-02-19 | MR_ITS ---
EXAMINATION: MR ELBOW WITHOUT CONTRAST, RIGHT CLINICAL INFORMATION: Right elbow pain. Lateral epicondylitis. Pain and swelling. Worsening symptoms. COMPARISON: None available. TECHNIQUE: MRI of the elbow was performed using routine sequences on a high-field scanner. FINDINGS: Ulnar collateral ligament: Intact. Common flexor tendon: Intact. Radial collateral ligament: Intact. Common extensor tendon: Thickening and heterogeneity of the common extensor tendon, consistent with moderate tendinosis. Anterior intrasubstance and undersurface partial tearing measures approximately 1.0 x 1.0 cm. No full-thickness tendon tear or tendon retraction. Adjacent soft tissue edema. Biceps/triceps tendon: Intact. Articular cartilage/bone: No acute fracture or dislocation. No marrow edema or evidence of acute osseous injury. Intact articular cartilage. No osteochondral lesion. Ulnar nerve: Intact. Joint fluid/soft tissues: Trace elbow joint effusion. No soft tissue mass or fluid collection. MR/MR elbow RT wo con IMPRESSION: 1. Moderate common extensor tendinosis with anterior intrasubstance and undersurface partial tearing measuring up to 1.0 x 1.0 cm No full-thickness transverse tendon tear or tendon retraction. Adjacent soft tissue edema. 2. Trace elbow joint effusion. Electronically signed by: Lopez Moraes MD 02/20/2024 04:45 PM EDT
== END 2024-02-19 18:11 | disposition home or self-care (01) ==
LOC: HO.MRI 18:10
PROVIDERS: PCP Internal Medicine; Visit Provider Physician Assistant
DX: M77.11 Lateral epicondylitis, right elbow (principal)
CPT/HCPCS: 73221

== ENCOUNTER 2024-02-20 09:11 | Outpatient (AMB) | payer OTHER, SELFPAY ==
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
== END 2024-02-20 09:12 | disposition home or self-care (01) ==
LOC: HO.PMC 09:11
PROVIDERS: PCP Internal Medicine; Visit Provider Registered Nurse Emergency
DX: M54.16 Radiculopathy, lumbar region (principal)
CPT/HCPCS: 99441

== ENCOUNTER → 2024-02-20 09:11 | Outpatient (BNVA) | payer OTHER, SELFPAY | PROVIDERS: PCP Internal Medicine; Visit Provider Registered Nurse Emergency ==

== ENCOUNTER 2024-02-28 08:44 | Outpatient (REF) | payer OTHER, SELFPAY ==
[2024-02-28 08:56] LABS: MANUAL DIFF FLAG NO
[2024-02-28 09:04] LABS: Basophils Absolute Auto 0.1 X10*3/uL (0.0-0.2); Basophils Percent Auto 1.1 % (0-2); Eosinophils Absolute Auto 0.2 X10*3/uL (0.0-0.4); Eosinophils Percent Auto 3.8 % (0-4); Hematocrit 40.7 % (37.0-47.0); Imm Gran Abs Auto 0.02 X10*3/uL (0.00-0.03); Imm Gran Pct Auto 0.4 % (0.0-0.4); Lymphocytes Absolute Auto 1.8 X10*3/uL (1.2-4.9); Lymphocytes Percent Auto 33.2 % (20-40); Mean Corpuscular HGB Conc 31.9 g/dl (31.0-35.0); Mean Corpuscular Hemoglobin 27.2 pg (27.0-33.0); Mean Corpuscular Volume 85.1 fL (80.0-98.0); Mean Platelet Volume 9.3 fL (9.4-12.3); Monocytes Absolute Auto 0.6 X10*3/uL (0.1-1.2); Monocytes Percent Auto 10.8 % (2-11); Neutrophils Absolute Auto 2.8 x10*3/uL (2.0-8.3); Neutrophils Percent Auto 50.7 % (45-73); Platelet Count 297 X10*3/uL (160-400); Red Blood Count 4.78 X10*6/uL (4.20-5.50); Red Cell Distribution Width 14.7 % (11.0-16.0); White Blood Count 5.5 X10*3/uL (4.8-10.8)
[2024-02-28 09:30] LABS: Alanine Aminotransferase 35 U/L (0-31); Albumin Level 3.9 g/dL (3.5-5.0); Alkaline Phosphatase 79 U/L (39-117); Anion Gap 11 (12-20); Aspartate Amino Transferase 17 U/L (5-31); Bilirubin Total 0.6 mg/dL (0.0-1.0); Blood Urea Nitrogen 11 mg/dL (9-16); Calcium 9.7 mg/dL (8.4-10.2); Carbon Dioxide 26 mmol/L (22-29); Chloride 111 mmol/L (96-108); Cholesterol 168 mg/dL (<200); Estimated Glomerular Filt Rate > 60; Glucose Random 89 mg/dL (60-115); HDL Cholesterol 51 mg/dL (>40); LDL Cholesterol Calculated 87 mg/dL (<100); Sodium 144 mmol/L (135-145); Total Protein 7.6 g/dL (6.5-8.0); Triglycerides 153 mg/dL (<150)
[2024-02-28 09:31] LABS: Estimated Average Glucose 111 mg/dL; Hemoglobin A1c % 5.5 % (<6.0)
== END 2024-02-28 08:45 | disposition home or self-care (01) ==
LOC: HO.LAB 08:44
PROVIDERS: PCP Internal Medicine; Visit Provider Internal Medicine
DX: Z00.00 Encounter for general adult medical examination without abnormal findings (principal); E66.01 Morbid (severe) obesity due to excess calories; J45.909 Unspecified asthma, uncomplicated; K21.9 Gastro-esophageal reflux disease without esophagitis; Z13.1 Encounter for screening for diabetes mellitus; M17.12 Unilateral primary osteoarthritis, left knee
CPT/HCPCS: 20610; 36415; 80053; 80061; 83036; 85025; J7323

== ENCOUNTER 2024-02-28 08:59 | Outpatient (AMB) | payer OTHER, SELFPAY ==
[2024-02-28 09:19] VITALS: BMI 51.1
--- NOTE | 2024-02-28 09:19 | MHC.OFFVIS ---
Vital Signs 02/28/24 09:19 Height 5 ft 7 in Weight 326 lb BMI 51.1 Intake Visit Reasons: Left Knee Euflexxa #1 Intake Note: Madyson is a 53 year old female who presents today for a Left Knee Euflexxa Injection #1 Allergies hydrocodone [From Vicodin] Allergy (Severe, Verified 02/12/24 07:43) NAUSEA,DIZZY sulfamethoxazole [From Bactrim] Allergy (Severe, Verified 02/12/24 07:43) Rash trimethoprim [From Bactrim] Allergy (Severe, Verified 02/12/24 07:43) Rash morphine Adverse Reaction (Severe, Verified 02/12/24 07:43) Chills oxycodone [From PERCOCET] Adverse Reaction (Severe, Verified 02/12/24 07:43) nausea,VOMITING HPI HPI Left Knee Euflexxa #1: Details: Madyson is a 53 year old female who presents today for a Left Knee Euflexxa Injection #1 PFSH Medical History Migraine HTN (hypertension) Obesity Arthritis Low back pain History of cellulitis Headache PVD (peripheral vascular disease) Numbness and tingling of both legs Elevated LFTs Fatty liver Ear infection Hx of pneumothorax Spondyloarthropathy Asthma Surgical History H/O colonoscopy History of esophagogastroduodenoscopy (EGD) History of cholecystectomy Hx of total hysterectomy with removal of both tubes and ovaries Hx of laminectomy History of lung surgery Family History Father Diabetes HTN (hypertension) Mother Stroke CVD (cardiovascular disease) Social History Household Members: Family Housing: Apartment Do you presently have visiting nurse or other home services: No Alcohol intake: current Alcohol intake frequency: holidays/special occasions only Patient Tobacco Use Status: Never used Tobacco service: No Current occupational status: employed Physical Exam Vital Signs: BMI result Body Mass Index 51.1 Office Procedures Joint Injection/Aspiration Joint Injection/Aspiration Details: Injected Euflexxa. Site was prepped using aseptic technique. Patient tolerated the procedure well. Primary Site: left knee Approach Used: anterolateral Coding - Large joint Procedure code (CPT) selection complete Assessment & Plan Assessment & Plan (1) Osteoarthritis of left knee: Code(s): M17.12 - Unilateral primary osteoarthritis, left knee Category: Medical Plan: Euflexxa 06/05. Coding Level of Care Code Est Pt Level 2 (94813) Diagnoses Osteoarthritis of left knee M17.12 CPT Codes Coding - Large joint: 02477 - Large joint ([id number])
== END 2024-02-28 09:39 | disposition home or self-care (01) ==
PROVIDERS: PCP Internal Medicine; Visit Provider Orthopaedic Surgery
DX: M17.12 Unilateral primary osteoarthritis, left knee (principal)
CPT/HCPCS: 20610

== ENCOUNTER 2024-03-06 09:25 | Outpatient (AMB) | payer OTHER, SELFPAY ==
--- NOTE | 2024-03-06 09:31 | MHC.OFFVIS ---
Intake Visit Reasons: Left Knee Euflexxa #2 Intake Note: Madyson is a 53 year old female who presents today for Left Knee Euflexxa #2 Allergies hydrocodone [From Vicodin] Allergy (Severe, Verified 02/12/24 07:43) NAUSEA,DIZZY sulfamethoxazole [From Bactrim] Allergy (Severe, Verified 02/12/24 07:43) Rash trimethoprim [From Bactrim] Allergy (Severe, Verified 02/12/24 07:43) Rash morphine Adverse Reaction (Severe, Verified 02/12/24 07:43) Chills oxycodone [From PERCOCET] Adverse Reaction (Severe, Verified 02/12/24 07:43) nausea,VOMITING HPI HPI Left Knee Euflexxa #2: Details: Madyson is a 53 year old female who presents today for Left Knee Euflexxa #2 PFSH Medical History Migraine HTN (hypertension) Obesity Arthritis Low back pain History of cellulitis Headache PVD (peripheral vascular disease) Numbness and tingling of both legs Elevated LFTs Fatty liver Ear infection Hx of pneumothorax Spondyloarthropathy Asthma Surgical History H/O colonoscopy History of esophagogastroduodenoscopy (EGD) History of cholecystectomy Hx of total hysterectomy with removal of both tubes and ovaries Hx of laminectomy History of lung surgery Family History Father Diabetes HTN (hypertension) Mother Stroke CVD (cardiovascular disease) Social History Household Members: Family Housing: Apartment Do you presently have visiting nurse or other home services: No Alcohol intake: current Alcohol intake frequency: holidays/special occasions only Patient Tobacco Use Status: Never used Tobacco service: No Current occupational status: employed Physical Exam Extrem Other: Skin clean dry and intact Office Procedures Joint Injection/Aspiration Joint Injection/Aspiration Details: Injected Euflexxa. Site was prepped using aseptic technique. Patient tolerated the procedure well. Primary Site: left knee Approach Used: anterolateral Coding 21589 - Large joint Procedure code (CPT) selection complete Assessment & Plan Assessment & Plan (1) Osteoarthritis of left knee: Code(s): M17.12 - Unilateral primary osteoarthritis, left knee Category: Medical Plan: Euflexxa left knee. 2/3 Coding Level of Care Code Est Pt Level 2 (78056) Diagnoses Osteoarthritis of left knee M17.12 CPT Codes Coding - 85203 Large joint: 75638 - Large joint ([id number])
== END 2024-03-06 10:04 | disposition home or self-care (01) ==
PROVIDERS: PCP Internal Medicine; Visit Provider Orthopaedic Surgery
DX: M17.12 Unilateral primary osteoarthritis, left knee (principal)
CPT/HCPCS: 20610

== ENCOUNTER → 2024-03-06 09:25 | Outpatient (BNVA) | payer OTHER, SELFPAY | PROVIDERS: PCP Internal Medicine; Visit Provider Orthopaedic Surgery | DX: M17.12 Unilateral primary osteoarthritis, left knee (principal) | CPT/HCPCS: 20610; J7323 ==

== ENCOUNTER 2024-03-10 15:12 | Outpatient (AMB) | payer OTHER, SELFPAY ==
[2024-03-10 15:38] VITALS: BMI 51.1
--- NOTE | 2024-03-10 15:38 | A.OFFVIS_ITS ---
Vital Signs 03/10/24 15:38 Height 5 ft 7 in Weight 326 lb BMI 51.1 Intake Visit Reasons: OV - right hand EMG review Intake Note: Madyson a 53 year old right hand dominant female who presents today for an EMG review. EMG done 02/07/24 showing mild to borderline median neuropathy on the right hand. 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 Denies numbness and tingling on her hand or fingers. Denies finger locking. Patient states numbness is worse at night. Patient uses a brace on the right hand for tendonitis flares. She states she has had multiple right basal injections to treat tendonitis administered by her PCP, most recent injection administered about a year ago. She has also done OT for her right hand. Denies any prior injuries or surgeries to the right hand. Patient is not interested on a basal join injection today, but would like her right elbow injected. Allergies hydrocodone [From Vicodin] Allergy (Severe, Verified 03/10/24 15:38) NAUSEA,DIZZY sulfamethoxazole [From Bactrim] Allergy (Severe, Verified 03/10/24 15:38) Rash trimethoprim [From Bactrim] Allergy (Severe, Verified 03/10/24 15:38) Rash morphine Adverse Reaction (Severe, Verified 03/10/24 15:38) Chills oxycodone [From PERCOCET] Adverse Reaction (Severe, Verified 03/10/24 15:38) nausea,VOMITING HPI HPI OV - right hand EMG review: Details: Madyson is a 53 year old right hand dominant woman who presents to discuss her right lateral epicondylitis. She complains of having right tennis elbow. She has pain with heavy gripping or lifting activities. She has been seen by Rheumatology for this, and received an injection on 08/13/23, with ~3 months of relief. She denies having an elbow brace. She complains of occasional right thumb numbness. Intermittent & occasional. She would like an elbow injection today. 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 She says these activities cause her pain, particularly piping decorations or heavy lifting/mixing activities. [facility] Medical History Migraine HTN (hypertension) Obesity Arthritis Low back pain History of cellulitis Headache PVD (peripheral vascular disease) Numbness and tingling of both legs Elevated LFTs Fatty liver Ear infection Hx of pneumothorax Spondyloarthropathy Asthma Surgical History H/O colonoscopy History of esophagogastroduodenoscopy (EGD) History of cholecystectomy Hx of total hysterectomy with removal of both tubes and ovaries Hx of laminectomy History of lung surgery Family History Father Diabetes HTN (hypertension) Mother Stroke CVD (cardiovascular disease) Social History Household Members: Family Housing: Apartment Do you presently have visiting nurse or other home services: No Alcohol intake: current Alcohol intake frequency: holidays/special occasions only Patient Tobacco Use Status: Never used Tobacco service: No Current occupational status: employed Review of Systems Const All systems reviewed & are unremarkable except as noted in HPI and below Physical Exam Vital Signs: BMI result Body Mass Index 51.1 Const General: cooperative, healthy appearing and no acute distress Orientation/consciousness: patient oriented x3 HEENT Head: Yes normocephalic and Yes atraumatic Eyes EOM: EOMs intact bilaterally Resp Effort & Inspection: normal respiratory effort and able to speak in complete sentences Cardio Jugular venous distension: no JVD Skin General skin exam: turgor normal Rashes: no rashes Neuro General: patient oriented x3 Extrem Other: Evaluation of Right Upper Extremity: The patient is alert, oriented, and in no acute distress Neuro: Median, Ulnar, Radial nerves motor and sensory intact and sensation is normal to the tips of all digits Vascular: Cap refill brisk ROM: She can make a fist and extend all her digits No locking or catching Skin: No lacerations or abrasions. General: No Ecchymosis. No Erythema or evidence of infection. Tender over the extensor origin, just distal to the lateral epicondyle Also Tender more distally over the muscle bellies of the extensors, though less so Pain with resisted wrist extension referred to the extensor origin Nerve Conduction Study: Right-side only IMPRESSION: 1. This is an abnormal study. 2. There is electrodiagnostic evidence for right very mild/borderline median neuropathy at the wrist, could still be consistent with carpal tunnel syndrome. 3. There is no electrodiagnostic evidence for ulnar neuropathy, brachial plexopathy, or cervical radiculopathy. Lizzette Varner MD, MAC 02/07/24 MRI: MR/MR elbow RT wo con IMPRESSION: 1. Moderate common extensor tendinosis with anterior intrasubstance and undersurface partial tearing measuring up to 1.0 x 1.0 cm No full-thickness transverse tendon tear or tendon retraction. Adjacent soft tissue edema. 2. Trace elbow joint effusion. Lopez Moraes MD 02/20/2024 Psych Appearance: grossly normal Affect: normal affect Attitude: cooperative Office Procedures AMB Fracture Care Details: No fracture, injection Fracture Billing Code: Fracture Billing Code Assessment & Plan Assessment & Plan (1) Right tennis elbow: Code(s): M77.11 - Lateral epicondylitis, right elbow Category: Medical (2) Carpal tunnel syndrome of right wrist: Code(s): G56.01 - Carpal tunnel syndrome, right upper limb Category: Medical Plan Assessment & Plan: 1. Right lateral epicondylitis, S/P injection Date of injection: 08/13/23 done by Rheumatology I educated her about this condition I discussed operative and non-operative treatment options The patient would like to proceed with an injection She should continue to attend OT hand therapy in [place], and perform her exercises at home I discussed activity modification, she should limit or avoid any heavy lifting activities, or activities which cause her pain. Injection #1: The risks and benefits of a steroid injection including but not limited to risk of damage to blood vessels, nerves, tendons, infection, skin bleaching, failure to improve symptoms, increased pain, and possible need for further injections or other intervention were discussed with the patient and the patient wishes to proceed with the steroid injection. Once consent was obtained, I sterilely prepped the area over the Right extensor origin, just distal to the lateral epicondyle. I then injected this area of maximal tenderness with a combination of 1 mL of dexamethasone (4mg/ml), and 1% plain Lidocaine. The patient tolerated the procedure well with no complications. Importantly, they had significant improvement in her painful symptoms. She can follow up in 2-3 months. We could consider another injection at that time if needed 2. Right carpal tunnel syndrome, very mild/borderline Seen on NCS Symptoms intermittent & occasional, only in the thumb Scribed for Jesika Huerta MD by Jun Ruano, medical director occupational health, on 03/10/24 at 4:20 PM, EST. Coding Level of Care Code Est Pt Level 4 (33514) Diagnoses Right tennis elbow M77.11 Carpal tunnel syndrome of right wrist G56.01 CPT Codes Fracture Care - Fracture Billing Code: Fracture Billing Code ([id number])
== END 2024-03-10 16:43 | disposition home or self-care (01) ==
PROVIDERS: PCP Internal Medicine; Visit Provider Orthopaedic Surgery
DX: M77.11 Lateral epicondylitis, right elbow (principal); G56.01 Carpal tunnel syndrome, right upper limb
CPT/HCPCS: 20551; 99213

== ENCOUNTER → 2024-03-10 15:12 | Outpatient (BNVA) | payer OTHER, SELFPAY | PROVIDERS: PCP Internal Medicine; Visit Provider Orthopaedic Surgery | DX: M77.11 Lateral epicondylitis, right elbow (principal); G56.01 Carpal tunnel syndrome, right upper limb | CPT/HCPCS: 20551; J1100; J2003 ==

== ENCOUNTER 2024-03-13 09:40 | Outpatient (AMB) | payer OTHER, SELFPAY ==
--- NOTE | 2024-03-13 09:45 | MHC.OFFVIS ---
Intake Visit Reasons: Left Knee Euflexxa #3 Intake Note: Madyson is a 53 year old female who presents today for her Last Left Knee Euflexxa injection, #3 Allergies hydrocodone [From Vicodin] Allergy (Severe, Verified 03/13/24 09:45) NAUSEA,DIZZY sulfamethoxazole [From Bactrim] Allergy (Severe, Verified 03/13/24 09:45) Rash trimethoprim [From Bactrim] Allergy (Severe, Verified 03/13/24 09:45) Rash morphine Adverse Reaction (Severe, Verified 03/13/24 09:45) Chills oxycodone [From PERCOCET] Adverse Reaction (Severe, Verified 03/13/24 09:45) nausea,VOMITING HPI HPI Left Knee Euflexxa #3: Details: Euflexxa 3/3 PFSH Medical History Migraine HTN (hypertension) Obesity Arthritis Low back pain History of cellulitis Headache PVD (peripheral vascular disease) Numbness and tingling of both legs Elevated LFTs Fatty liver Ear infection Hx of pneumothorax Spondyloarthropathy Asthma Surgical History H/O colonoscopy History of esophagogastroduodenoscopy (EGD) History of cholecystectomy Hx of total hysterectomy with removal of both tubes and ovaries Hx of laminectomy History of lung surgery Family History Father Diabetes HTN (hypertension) Mother Stroke CVD (cardiovascular disease) Social History Household Members: Family Housing: Apartment Do you presently have visiting nurse or other home services: No Alcohol intake: current Alcohol intake frequency: holidays/special occasions only Patient Tobacco Use Status: Never used Tobacco service: No Current occupational status: employed Physical Exam Extrem Other: Skin clean dry and intact Office Procedures Joint Injection/Aspiration Joint Injection/Aspiration Details: Injected Euflexxa. Site was prepped using aseptic technique. Patient tolerated the procedure well. Primary Site: left knee Approach Used: anterolateral Coding 93026 - Large joint Procedure code (CPT) selection complete Assessment & Plan Assessment & Plan (1) Osteoarthritis of left knee: Code(s): M17.12 - Unilateral primary osteoarthritis, left knee Category: Medical Plan: Euflexxa 08/03. f/u 3 mo Coding Level of Care Code Est Pt Level 2 (60543) Diagnoses Osteoarthritis of left knee M17.12 CPT Codes Coding - 87584 Large joint: 19399 - Large joint ([id number])
== END 2024-03-13 10:07 | disposition home or self-care (01) ==
PROVIDERS: PCP Internal Medicine; Visit Provider Orthopaedic Surgery
DX: M17.12 Unilateral primary osteoarthritis, left knee (principal)
CPT/HCPCS: 20610

== ENCOUNTER → 2024-03-13 09:40 | Outpatient (BNVA) | payer OTHER, SELFPAY | PROVIDERS: PCP Internal Medicine; Visit Provider Orthopaedic Surgery | DX: M17.12 Unilateral primary osteoarthritis, left knee (principal) | CPT/HCPCS: 20610; J7323 ==

== ENCOUNTER 2024-04-21 06:05 | Outpatient (REF) | payer OTHER, SELFPAY | END 2024-04-21 06:06 | disposition home or self-care (01) | LOC: CF 06:05 | PROVIDERS: Visit Provider Anesthesiology | DX: M54.16 Radiculopathy, lumbar region (principal) | CPT/HCPCS: 64483; J2003; J3301; Q9967 ==

== ENCOUNTER 2024-04-21 07:18 | Outpatient (AMB) | payer OTHER, SELFPAY ==
[2024-04-21 07:21] VITALS: BP 149/81; PULSE 101; RESP 19; O2SAT 95
[2024-04-21 08:03] VITALS: BP 128/70; PULSE 84; RESP 18; O2SAT 93
--- NOTE | 2024-04-21 08:04 | A.OFFVIS_ITS ---
Vital Signs 04/21/24 07:21 04/21/24 08:03 BP 149/81 H 128/70 Blood Pressure Location Lt brachial Lt brachial Position Sitting Sitting Respiration 19 18 Pulse 101 H 84 Pulse Source Pulse Oximeter Pulse Oximeter Pulse Oximetry (%) 95 93 Oxygen Delivery Method Room Air Room Air Comment Pre-op Post-op Intake Visit Reasons: LEFT L4, L5 TFESI Allergies hydrocodone [From Vicodin] Allergy (Severe, Verified 04/21/24 08:06) NAUSEA,DIZZY sulfamethoxazole [From Bactrim] Allergy (Severe, Verified 04/21/24 08:06) Rash trimethoprim [From Bactrim] Allergy (Severe, Verified 04/21/24 08:06) Rash morphine Adverse Reaction (Severe, Verified 04/21/24 08:06) Chills oxycodone [From PERCOCET] Adverse Reaction (Severe, Verified 04/21/24 08:06) nausea,VOMITING Medication List - Last Reconciled 04/21/24 by Elsa Oviedo beclomethasone dipropionate 80 mcg/actuation (Qvar RediHaler) 2 puffs PO BID PRN budesonide 180 mcg/actuation (Pulmicort Flexhaler) 2 inhalations inhalation Q4- 6H PRN cyclobenzaprine 10 mg PO BEDTIME PRN methocarbamol 500 mg PO TID PRN naproxen 500 mg PO BID omeprazole 40 mg PO DAILY semaglutide (weight loss) (Wegovy) mg subcut PFSH Medical History Migraine HTN (hypertension) Obesity Arthritis Low back pain History of cellulitis Headache PVD (peripheral vascular disease) Numbness and tingling of both legs Elevated LFTs Fatty liver Ear infection Hx of pneumothorax Spondyloarthropathy Asthma Surgical History H/O colonoscopy History of esophagogastroduodenoscopy (EGD) History of cholecystectomy Hx of total hysterectomy with removal of both tubes and ovaries Hx of laminectomy History of lung surgery Family History Father Diabetes HTN (hypertension) Mother Stroke CVD (cardiovascular disease) Social History (Reviewed 02/28/24 @ 09:19 by VASILE Avina Household Members: Family Housing: Apartment Do you presently have visiting nurse or other home services: No Alcohol intake: current Alcohol intake frequency: holidays/special occasions only Patient Tobacco Use Status: Never used Tobacco service: No Current occupational status: employed Physical Exam Vital Signs: Last Vital Signs Pulse 84 04/21/24 08:03 Resp 18 04/21/24 08:03 BP 128/70 04/21/24 08:03 Pulse Ox 93 04/21/24 08:03 Oxygen Delivery Method Room Air 04/21/24 08:03 Assessment & Plan Assessment & Plan (1) Left lumbar radiculopathy: Code(s): M54.16 - Radiculopathy, lumbar region Category: Medical Plan Left L4-5 Transforaminal epidural steroid injection Informed consent was thoroughly explained to the patient before the procedure. The patient came to the operating room. She was positioned prone on operating table with a pillow under her abdomen. Time-out was performed delineating correct site and side of the procedure, nature of the injection, name and date of of the patient. The lower back of the patient was prepped with ChloraPrep and draped with sterile utility towels. C-arm was brought over the operating field and sq picture of L4 vertebra was demonstrated on the screen. The left side was chosen as the side of the injection. Tilting machine ipsilateral to the left at the level of L4 the most prominent picture of the pedicle on the right was demonstrated on the screen. 3 mm below the most lowest point of the pedicle projection to the skin small amount of lidocaine 1% was injected to anesthetize the skin. After that 5 in 22 gauge Quincke point needle was inserted through the skin wheal and was advanced to were the L4-L5 foramina on anterior posterior, lateral and oblique views intermittently. When the needle entered foramina on AP view. When tip of the needle entered foramina projection on AP view injection of the contrast was performed demonstrating epidural and perineural spread of the contrast. After that injection of the treatment medicine 3 cc of preservative-free lidocaine 1% mixed with Kenalog 40 mg was injected into the foramina. No intrathecal and no intravascular spread of the contrast was noted. The needle was removed . Upon completion of the procedure needle was removed and sterile Band-Aid was applied. Patient tolerated the procedure well. Orders: Orders FL guidance in treatment room Today M54.16 - Radiculopathy, lumbar region Coding Level of Care Code Procedure Only Diagnoses Left lumbar radiculopathy M54.16
== END 2024-04-21 08:05 | disposition home or self-care (01) ==
LOC: HO.PMCPRC 07:18
PROVIDERS: PCP Internal Medicine; Visit Provider Anesthesiology
DX: M54.16 Radiculopathy, lumbar region (principal)
CPT/HCPCS: 64483

== ENCOUNTER 2024-05-13 08:00 | Outpatient (AMB) | payer OTHER, SELFPAY ==
[2024-05-13 08:23] VITALS: BP 157/89; PULSE 70; O2SAT 98; BMI 48.5
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
== END 2024-05-13 08:47 | disposition home or self-care (01) ==
PROVIDERS: PCP Internal Medicine; Visit Provider Registered Nurse Emergency
DX: M54.16 Radiculopathy, lumbar region (principal)
CPT/HCPCS: 99213

== ENCOUNTER 2024-05-21 14:47 | Emergency (ER) | payer OTHER, SELFPAY ==
--- NOTE | ~2024-05-21 | XR_ITS ---
EXAMINATION: XR CHEST CLINICAL INFORMATION: cough COMPARISON: 12/06/2018, 10/07/2016. TECHNIQUE: 2 views of the chest were obtained. FINDINGS: The cardiac, hilar, and mediastinal contours are normal. Lungs demonstrate patchy opacity in the left lower lobe, best appreciated on the lateral projection. Findings are suspicious for left lower lobe pneumonia. There are no effusions or pneumothoraces. Right lung is clear. There are cholecystectomy clips. There are no bony abnormalities. XR/XR chest 2V IMPRESSION: Subtle opacity left lower lobe. This is best appreciated on the lateral projection. Pneumonia suspected. Correlate with directed auscultation. Electronically signed by: Michael Mccauley MD 05/21/2024 04:04 PM [facility]
--- NOTE | 2024-05-21 14:51 | ECG_ITS ---
Test Reason : chest pain Blood Pressure : / mmHG Vent. Rate : 076 BPM Atrial Rate : 076 BPM P-R Int : 206 ms QRS Dur : 090 ms QT Int : 378 ms P-R-T Axes : 108 213 190 degrees QTc Int : 425 ms Suspect limb lead reversal, interpretation assumes no reversal Normal sinus rhythm Nonspecific ST and T wave abnormality Abnormal ECG When compared with ECG of 06-DEC-2018 23:29, Vent. rate has decreased BY 40 BPM [place] change vs limb lead reversal Referred By: Batool Vital Electronically Signed By:PREM GALE
[2024-05-21 15:18] VITALS: BP 149/86; PULSE 77; RESP 20; TEMP 36.5; O2SAT 95; BMI 47.9
--- NOTE | 2024-05-21 15:19 | ED_ITS ---
HPI - Asthma General Chief Complaint: Upper Respiratory Symptoms Stated Complaint: Chest pain , asthma Time Seen by Provider: 05/21/24 16:25 Source: patient and RN notes reviewed Mode of arrival: ambulatory Limitations: no limitations History of Present Illness ED Provider: Patricia Cuevas PA-C HPI Narrative: This is a 53-year-old female, with a history of asthma and right partial lobectomy, who presents emergency department with complaints of cough, congestion, shortness for breath, headache, chest tightness for the last 4 days. Patient also endorses subjective fevers and chills. She has been taking [id number] cold and cough medicine however states that this has not improved her symptoms. She also has been using her inhaler without any relief. She does endorse chest tightness with worsens with deep inspiration. She denies any severe chest pain. Reports pain worsens with coughing. Denies any recent travel, surgery, hospitalizations. She is not on control. Denies history of blood clots. She states that a family member was sick with a cold. No other complaints or concerns at this time. MD complaint: shortness of breath and wheezing Onset (ago): day(s) Severity: moderate Context: recent URI Associated symptoms: dry cough, fever and chest pain Related Data Current Asthma Therapy: inhaled bronchodilator Home Medications ?Medication ?Instructions ?Recorded ?Confirmed beclomethasone dipropionate 80 2 puff PO BID PRN Shortness Of 08/19/20 02/12/24 mcg/actuation HFA breath activated Breath Or Wheezing aerosol (Qvar RediHaler) budesonide 180 mcg/actuation 2 inh inhalation Q4-6H PRN 08/19/20 02/12/24 breath activated powder inhaler Shortness Of Breath Or Wheezing (Pulmicort Flexhaler) omeprazole 40 mg capsule,delayed 40 mg PO DAILY 09/12/22 02/12/24 release naproxen 500 mg tablet 500 mg PO BID 12/09/23 02/12/24 semaglutide (weight loss) 0.25 mg subcut 12/09/23 02/12/24 mg/0.5 mL subcutaneous pen injector (Violeta) Previous Rx's ?Medication ?Instructions ?Recorded cyclobenzaprine 10 mg tablet 10 mg PO BEDTIME PRN Pain #30 tabs 09/12/22 methocarbamol 500 mg tablet 500 mg PO TID PRN muscle spasm #90 01/31/24 tabs acetaminophen 500 mg tablet 500 mg PO Q6H PRN pain #30 tabs 05/21/24 (Tylenol Extra Strength) albuterol sulfate 2.5 mg/0.5 mL 5 mg inhalation Q6H PRN shortness 05/21/24 solution for nebulization of breath or wheezing #30 ea amoxicillin 875 mg-potassium 1 tab PO BID 7 days #14 tabs 05/21/24 clavulanate 125 mg tablet azithromycin 250 mg tablet See Rx Instructions PO .COMPLEX #6 05/21/24 tabs benzonatate 100 mg capsule 100 mg PO TID PRN cough #14 caps 05/21/24 ibuprofen 600 mg tablet 600 mg PO Q6H PRN pain #30 tabs 05/21/24 prednisone 20 mg tablet 40 mg (2 x 20 mg) PO DAILY 5 days 05/21/24 #10 tabs Allergies Allergy/AdvReac Type Severity Reaction Status Date / Time hydrocodone [From Vicodin] Allergy Severe NAUSEA,DIZZ Verified 05/21/24 15:23 Y sulfamethoxazole Allergy Severe Rash Verified 05/21/24 15:23 [From Bactrim] trimethoprim [From Bactrim] Allergy Severe Rash Verified 05/21/24 15:23 morphine AdvReac Severe Chills Verified 05/21/24 15:23 oxycodone [From PERCOCET] AdvReac Severe nausea,VOMI Verified 05/21/24 15:23 TING Review of Systems Review of Systems: Yes all other systems are reviewed and are negative Constitutional: Constitutional: Reports as per [facility] Past Medical History Medical History Migraine HTN (hypertension) Obesity Arthritis Low back pain History of cellulitis Headache PVD (peripheral vascular disease) Numbness and tingling of both legs Elevated LFTs Fatty liver Ear infection Hx of pneumothorax Spondyloarthropathy Asthma Surgical History H/O colonoscopy History of esophagogastroduodenoscopy (EGD) History of cholecystectomy Hx of total hysterectomy with removal of both tubes and ovaries Hx of laminectomy History of lung surgery Family History Family History Father Diabetes HTN (hypertension) Mother Stroke CVD (cardiovascular disease) Social History Social History Household Members: Family Housing: Apartment Do you presently have visiting nurse or other home services: No Alcohol intake: current Alcohol intake frequency: holidays/special occasions only Patient Tobacco Use Status: Never used Tobacco Advance Directives: No Advance Directives Information Provided: No Do you have a plan to hurt others: No Plan service: No Current occupational status: employed Physical Exam Vital Signs: Vital Signs: Last Vital Signs Temp 97.7 F 05/21/24 16:57 Pulse 77 05/21/24 16:57 Resp 20 05/21/24 16:57 BP 149/86 H 05/21/24 16:57 Pulse Ox 95 05/21/24 16:57 O2 Del Method Room Air 05/21/24 16:57 BMI result Body Mass Index 47.9 Const: General: cooperative, comfortable and no acute distress Orientation/consciousness: patient oriented x3 Limitations: no limitations HEENT: Other: Frontal, maxillary sinus tenderness palpation Head: Yes normal to inspection, Yes normocephalic and Yes atraumatic Ears: hearing grossly normal bilaterally and TM's normal bilaterally General nose exam: Normal external nose present Face and sinus: Yes normal facial exam Mouth: Normal oral and palatal mucosa present, oropharynx normal and moist mucous membranes Throat: Yes posterior oropharynx normal Eyes: General: appearance normal, both eyes and all related structures Eyelids: Yes eyelids normal Conjunctivae: conjunctivae normal Sclerae: sclerae normal Pupils: Equal, round and reactive pupils present EOM: EOMs intact bilaterally Neck: Neck: Yes normal visual inspection, Yes full ROM and Yes no lymphadenopathy Lymphatic: no lymphadenopathy noted Chest: Chest palpation & inspection: normal inspection of the chest Resp: Effort & Inspection: normal respiratory effort and able to speak in complete sentences Auscultation: clear to auscultation bilaterally, no crackles, no rales, no rhonchi and no wheezes Cardio: Rate: regular rate Rhythm: regular rhythm Heart sounds: S1 normal heart sound present and S2 normal heart sound present GI: Inspection: Yes normal to inspection Skin: General skin exam: no rashes or lesions noted Trauma: no lacerations or abrasions Wounds: no wounds Neuro: General: patient oriented x3 and moves all extremities Cranial nerves: Yes Equal, round and reactive pupils present Extrem: Other: No calf tenderness, no pedal edema General: Yes normal to inspection Right upper extremity: normal to inspection Left upper extremity: normal to inspection Right lower extremity: normal to inspection Left lower extremity: normal to inspection Course Course Course Narrative: This is a Rapid Medical Examination (RME) performed by Lilly Vital PA-C in triage. Full HPI, ROS, assessment and treatment plan per primary provider in the Main ED. 53 yo female presents to the ER for evaluation of sob, wheezing due to asthma with diffuse chest pain w/ coughing. has been using nebulizer and inhalers at home with minimal relief. cough is dry. reports fever of 102 at home. no abdominal pain, n/v/d. no chest pain at rest, only w/ coughing. speaking in complete sentences in triage. lung sounds coarse at the bases but no wheezing or rhonchi. Plan: cxr, viral swab Medical Decision Making Medical Decision Making [facility] Narrative: This is a 53-year-old female who presents emergency department with concerns for cough, congestion, shortness breast, headache, chest tightness, subjective fevers and chills for the last 4 days. On arrival, vital signs within normal limits. She is speaking in full sentences under no acute distress. Lungs are clear to auscultation bilaterally. Chest x-ray was performed, which reveals a subtle opacity in the left lower lobe, no pneumonia suspected. Given this fi nding, patient will be treated with course of azithromycin and Augmentin. Also given course of prednisone. Her lungs are clear therefore updraft not indicated at this time. She is saturating at 95% on room air. At this time, patient stable for discharge with close monitoring of her symptoms. Patient was given strict return precautions. She understands and agrees with plan. Patient stable for discharge Differential Diagnosis Differential Diagnoses: The differential diagnosis associated with the presentation includes Pneumonia, bronchitis, RSV, flu, COVID Admission/Observation Consideration of admission/observation: Escalation of care including admissio n/observation considered Lab Data [facility] Lab Attestation statement: I reviewed the patient's lab results. Negative viral swabs Labs: Lab Results 05/21/24 Range/Units 15:34 Influenza Type A (PCR) NEGATIVE (Negative) Influenza Type B (PCR) NEGATIVE (Negative) RSV RNA Qual (PCR) NEGATIVE (Negative) SARS-CoV-2 RNA (RT-PCR) NEGATIVE (Negative) Independent Interpretation I performed an independent interpretation of an: EKG Interpretation: EKG normal sinus rhythm with no ST elevation or depression. Ventricular rate of 76 beats per minute, QT QTC 382/429 Radiology Impression Discussion of test interpretation with radiology: I have reviewed the radiologist's reading. Radiologist Impression: [address] [address] XRay Report Signed Patient: Madyson Arguelles MR#: [id number] : 1970 Acct:[id number] Age/Sex: 53 / F ADM Date: 05/21/24 Loc: .ED Attending Dr: Ordering Physician: Batool Vital Date of Service: 05/21/24 Procedure(s): XR chest 2V Accession Number(s): [id number] cc: Kaitlynn Tam MD; Batool Vital~ EXAMINATION: XR CHEST CLINICAL INFORMATION: cough COMPARISON: 12/06/2018, 10/07/2016. TECHNIQUE: 2 views of the chest were obtained. FINDINGS: The cardiac, hilar, and mediastinal contours are normal. Lungs demonstrate patchy opacity in the left lower lobe, best appreciated on the lateral projection. Findings are suspicious for left lower lobe pneumonia. There are no effusions or pneumothoraces. Right lung is clear. There are cholecystectomy clips. There are no bony abnormalities. XR/XR chest 2V IMPRESSION: Subtle opacity left lower lobe. This is best appreciated on the lateral projection. Pneumonia suspected. Correlate with directed auscultation. Electronically signed by: Michael Mccauley MD 05/21/2024 04:04 PM [facility] Dictated By: Michael Mccauley MD Discharge Plan Discharge Clinical Impression: Pneumonia Patient Disposition: Home, Self-Care Instructions: Pneumonia (ED) Additional Instructions: You were seen in the emergency department and your chest x-ray was concerning for a left lower lobe pneumonia. Please take prescribed medication as directed, finish the entire course is even if your symptoms improve. Alternate between ibuprofen and or Tylenol as needed for pain and fevers. Drink plenty of fluids get plenty of rest. Tessalon is a medication that can help with cough, please take as prescribed. Prednisone is a steroid, this will help with inflammation. If any new or worsening symptoms occur including but not limited to high fevers not responding to Tylenol or Motrin, severe chest pain, severe shortness for breath, please seek emergent care. Prescriptions: New ibuprofen 600 mg tablet 600 mg PO Q6H PRN (Reason: pain) Qty: 30 0RF acetaminophen [Tylenol Extra Strength] 500 mg tablet 500 mg PO Q6H PRN (Reason: pain) Qty: 30 0RF prednisone 20 mg tablet 40 mg PO DAILY 5 Days Qty: 10 0RF benzonatate 100 mg capsule 100 mg PO TID PRN (Reason: cough) Qty: 14 0RF albuterol sulfate 2.5 mg/0.5 mL solution for nebulization 5 mg inhalation Q6H PRN (Reason: shortness of breath or wheezing) Qty: 30 0RF amoxicillin-pot clavulanate 875-125 mg tablet 1 tab PO BID 7 Days Qty: 14 0RF azithromycin 250 mg tablet See Rx Instructions PO .COMPLEX Qty: 6 0RF Rx Instructions: For 250 mg dose pack: take 500 mg today (day 1), then 250 mg for 4 days (days 2-5) No Action Pulmicort Flexhaler 180 mcg/actuation aerosol powdr breath activated 2 inh inhalation Q4-6H PRN (Reason: Shortness Of Breath Or Wheezing) Qvar RediHaler 80 mcg/actuation HFA aerosol breath activated 2 puff PO BID PRN (Reason: Shortness Of Breath Or Wheezing) omeprazole 40 mg capsule,delayed release(DR/EC) 40 mg PO DAILY cyclobenzaprine 10 mg tablet 10 mg PO BEDTIME PRN (Reason: Pain) Qty: 30 3RF methocarbamol 500 mg tablet 500 mg PO TID PRN (Reason: muscle spasm) Qty: 90 1RF Rx Instructions: Discontinue use of cyclobenzaprine. No driving while taking this medication. Do no take with alcohol or other A P [employer]PER[employer] Depressants Wegovy 0.25 mg/0.5 mL pen injector subcut naproxen 500 mg tablet 500 mg PO BID Stand Alone Forms: Work/School Release Interventions: ED Discharge Assessment Last Done: 05/21/24 16:57 Discharge Date/Time: 05/21/24 17:03 Print Language: [place]
[2024-05-21 16:27] LABS: Influenza A PCR NEGATIVE (Negative); Influenza B PCR NEGATIVE (Negative); Resp Syncy Virus RNA Qual PCR NEGATIVE (Negative); SARS COV2 PCR INHOUSE NEGATIVE (Negative)
[2024-05-21 16:57] VITALS: BP 149/86; PULSE 77; RESP 20; TEMP 36.5; O2SAT 95
== END 2024-05-21 17:03 | disposition home or self-care (01) ==
PROVIDERS: Physician Assistant; Emergency Provider Emergency Medicine; PCP Internal Medicine
DX: J18.9 Pneumonia, unspecified organism (principal); Z03.818 Encounter for observation for suspected exposure to other biological agents ruled out; I10 Essential (primary) hypertension; J45.909 Unspecified asthma, uncomplicated; Z79.899 Other long term (current) drug therapy
CPT/HCPCS: 0241U; 71046; 93005; 99283

== ENCOUNTER → 2024-05-21 14:51 | Outpatient (BNV) | payer OTHER, SELFPAY | PROVIDERS: Emergency Provider Emergency Medicine; PCP Internal Medicine; Visit Provider Internal Medicine | DX: R07.9 Chest pain, unspecified (principal); R94.31 Abnormal electrocardiogram [ECG] [EKG] | CPT/HCPCS: 93010 ==

== ENCOUNTER → 2024-05-21 15:22 | Outpatient (BNV) | payer OTHER, SELFPAY | PROVIDERS: Emergency Provider Emergency Medicine; PCP Internal Medicine; Visit Provider Radiology Diagnostic Radiology | DX: R05.9 Cough, unspecified (principal) | CPT/HCPCS: 71046 ==

== ENCOUNTER 2024-06-09 08:24 | Outpatient (AMB) | payer OTHER, SELFPAY ==
--- NOTE | 2024-06-09 08:29 | A.OFFVIS_ITS ---
Vital Signs 06/09/24 08:36 Height 5 ft 7 in Weight 305 lb BMI 47.8 Intake Visit Reasons: OV 3 mon f/u- right hand CTS Intake Note: Madyson 53 yr old right hand dominant female presents today for a follow up visit s/p right elbow injection from 03/10/24. States injection helped and would like to discuss repeat due to having pain again. Also states her right hand has worsen and would like to discuss CTR. Allergies hydrocodone [From Vicodin] Allergy (Severe, Verified 06/09/24 08:51) NAUSEA,DIZZY sulfamethoxazole [From Bactrim] Allergy (Severe, Verified 06/09/24 08:51) Rash trimethoprim [From Bactrim] Allergy (Severe, Verified 06/09/24 08:51) Rash morphine Adverse Reaction (Severe, Verified 06/09/24 08:51) Chills oxycodone [From PERCOCET] Adverse Reaction (Severe, Verified 06/09/24 08:51) nausea,VOMITING HPI HPI OV 3 mon f/u- right hand CTS: Details: Madyson is a 53 year old right hand dominant woman who returns to discuss her right lateral epicondylitis, S/P injection on 03/10/24. She reports some relief from her prior injection. She has pain with heavy gripping or lifting activities, which has particularly worsened in the last week. She finds limited relief from her elbow brace. 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 Her chief complaint today is her right carpal tunnel syndrome which she says is worsening. She reports numbness primarily in her middle & ring fingers, intermittent but daily. She complains of worsening pain in her hand and difficulty with gripping activities. She reports her whole hand feeling cold at times. 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 She says these activities cause her pain, particularly piping decorations or heavy lifting/mixing activities. She is currently taking Wegovy for weight loss. [facility] Medical History Migraine HTN (hypertension) Obesity Arthritis Low back pain History of cellulitis Headache PVD (peripheral vascular disease) Numbness and tingling of both legs Elevated LFTs Fatty liver Ear infection Hx of pneumothorax Spondyloarthropathy Asthma Surgical History H/O colonoscopy History of esophagogastroduodenoscopy (EGD) History of cholecystectomy Hx of total hysterectomy with removal of both tubes and ovaries Hx of laminectomy History of lung surgery Family History Father Diabetes HTN (hypertension) Mother Stroke CVD (cardiovascular disease) Social History Household Members: Family Housing: Apartment Do you presently have visiting nurse or other home services: No Alcohol intake: current Alcohol intake frequency: holidays/special occasions only Patient Tobacco Use Status: Never used Tobacco service: No Current occupational status: employed Review of Systems Const All systems reviewed & are unremarkable except as noted in HPI and below Physical Exam Vital Signs: BMI result Body Mass Index 47.8 Const General: no acute distress and alert Orientation/consciousness: patient oriented x3 Neuro General: patient oriented x3 Extrem Other: Evaluation of Right Upper Extremity: The patient is alert, oriented, and in no acute distress Neuro: Median, Ulnar, Radial nerves motor and sensory intact and sensation is normal to the tips of all digits No thenar or intrinsic wasting Good APB muscle belly firing and good finger cross Vascular: Cap refill brisk ROM: She can make a fist and extend all her digits No locking or catching Tender over the extensor origin, just distal to the lateral epicondyle Pain with resisted wrist extension referred to the extensor origin Nerve Conduction Study: Right-side only IMPRESSION: 1. This is an abnormal study. 2. There is electrodiagnostic evidence for right very mild/borderline median neuropathy at the wrist, could still be consistent with carpal tunnel syndrome. 3. There is no electrodiagnostic evidence for ulnar neuropathy, brachial plexopathy, or cervical radiculopathy. Lizzette Varner MD, MAC 02/07/24 Psych Appearance: grossly normal Affect: normal affect Attitude: cooperative Assessment & Plan Assessment & Plan (1) Right tennis elbow: Code(s): M77.11 - Lateral epicondylitis, right elbow Category: Medical (2) Carpal tunnel syndrome of right wrist: Code(s): G56.01 - Carpal tunnel syndrome, right upper limb Category: Medical Plan Assessment & Plan: 1. Right carpal tunnel syndrome, very mild/borderline Symptoms intermittent but daily, primarily in the middle & ring fingers I educated her about this condition I discussed operative and non-operative treatment options. I also explained that the more dorsal sided hand pain, swelling and weakness that she has not her hand may not improve following carpal tunnel release. She understands the carpal tunnel releases primarily to alleviate symptoms of numbness and tingling. The patient would like to proceed with surgery The risks and benefits of operative treatment were discussed with the patient and the patient wishes to proceed with surgery. These risks include, but are not limited to risk of damage to blood vessels, nerves, tendons, infection, recurrence, incomplete relief of preoperative symptoms, persistent pain, possible need for further surgery and the risks associated with regional blocks and anesthesia. The plan is to take the patient to the operating room sometime in the next few weeks for the following procedures: 1. Right carpal tunnel release, under local All of the preoperative paperwork including the consent was reviewed today. All the patient's questions were answered. The patient understands that they will be contacted by our presser and blocker knitted goods soon to schedule this procedure She denies Diabetes, blood thinners, heart, lung, kidney issues She has asthma which is controlled with inhalers. She is on Wegovy for weight loss. 2. Right lateral epicondylitis, S/P injections Date of injection: 03/10/24 by me, 08/13/23 done by Rheumatology I educated her about this condition She should continue to perform her stretching exercises at home She will continue to wear her brace with daily activities I discussed activity modification, she should limit or avoid any heavy lifting activities, or activities which cause her pain. We may consider a repeat injection in the future if needed. Scribed for Jesika Huerta MD by Jun Ruano, biomedical field service engineer, on 06/09/24 at 9:00 AM, EST. Coding Level of Care Code Est Pt Level 4 (67996) Diagnoses Right tennis elbow M77.11 Carpal tunnel syndrome of right wrist G56.01
[2024-06-09 08:36] VITALS: BMI 47.8
== END 2024-06-09 09:29 | disposition home or self-care (01) ==
PROVIDERS: PCP Internal Medicine; Visit Provider Orthopaedic Surgery
DX: M77.11 Lateral epicondylitis, right elbow (principal); G56.01 Carpal tunnel syndrome, right upper limb
CPT/HCPCS: 99214

== ENCOUNTER → 2024-06-09 08:24 | Outpatient (BNVA) | payer OTHER, SELFPAY | PROVIDERS: PCP Internal Medicine; Visit Provider Orthopaedic Surgery ==

== ENCOUNTER 2024-06-15 09:10 | Outpatient (AMB) | payer OTHER, SELFPAY ==
--- NOTE | 2024-06-15 09:12 | A.OFFVIS_ITS ---
Intake Visit Reasons: OV - Left Knee OA - S/P Euflexxa Intake Note: Madyson is a 53 year old female who presents today for a follow up of her Left Knee OA. Euflexxa Injections administered 02/28/24-03/13/24. Patient reports that she is doing well, she has occasional flair ups of pain and swelling. The knees are no longer giving out on her. Allergies hydrocodone [From Vicodin] Allergy (Severe, Verified 06/09/24 08:51) NAUSEA,DIZZY sulfamethoxazole [From Bactrim] Allergy (Severe, Verified 06/09/24 08:51) Rash trimethoprim [From Bactrim] Allergy (Severe, Verified 06/09/24 08:51) Rash morphine Adverse Reaction (Severe, Verified 06/09/24 08:51) Chills oxycodone [From PERCOCET] Adverse Reaction (Severe, Verified 06/09/24 08:51) nausea,VOMITING HPI HPI OV - Left Knee OA - S/P Euflexxa: Details: Emily is doing well status post Euflexxa injection. She complains of occasional pain but for the most part she feels that it was helpful. [facility] Medical History Migraine HTN (hypertension) Obesity Arthritis Low back pain History of cellulitis Headache PVD (peripheral vascular disease) Numbness and tingling of both legs Elevated LFTs Fatty liver Ear infection Hx of pneumothorax Spondyloarthropathy Asthma Surgical History H/O colonoscopy History of esophagogastroduodenoscopy (EGD) History of cholecystectomy Hx of total hysterectomy with removal of both tubes and ovaries Hx of laminectomy History of lung surgery Family History Father Diabetes HTN (hypertension) Mother Stroke CVD (cardiovascular disease) Social History Household Members: Family Housing: Apartment Do you presently have visiting nurse or other home services: No Alcohol intake: current Alcohol intake frequency: holidays/special occasions only Patient Tobacco Use Status: Never used Tobacco service: No Current occupational status: employed Physical Exam Extrem Other: No gait antalgia. Motion. No tenderness to palpation. Assessment & Plan Assessment & Plan (1) Osteoarthritis of left knee: Code(s): M17.12 - Unilateral primary osteoarthritis, left knee Category: Medical Plan: 53-year-old woman with left knee osteoarthritis. Viscosupplementation he is helpful. She is currently doing well. I reviewed treatment options for her and recommended she continue to in daily physical activity and she may follow up as needed. We can repeat viscosupplementation 6-9 months depending insurance. Coding Level of Care Code Est Pt Level 3 (66692) Diagnoses Osteoarthritis of left knee M17.12
== END 2024-06-15 09:26 | disposition home or self-care (01) ==
PROVIDERS: PCP Internal Medicine; Visit Provider Orthopaedic Surgery
DX: M17.12 Unilateral primary osteoarthritis, left knee (principal)
CPT/HCPCS: 99213

== ENCOUNTER → 2024-06-15 09:10 | Outpatient (BNVA) | payer OTHER, SELFPAY | PROVIDERS: PCP Internal Medicine; Visit Provider Orthopaedic Surgery ==

== ENCOUNTER 2024-07-02 13:53 | Outpatient (AMB) | payer OTHER, SELFPAY ==
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
[2024-07-02 13:56] VITALS: BP 141/79; PULSE 79; O2SAT 94; BMI 47.6
--- OUTSIDE RECORDS SUMMARY | 2024-07-02 17:45 | XMS_ITS | Clinical Summary ---
Author Organization [facility] Address [id number] [place] [id number] Care Team Providers Care Jewelry Drill Operator Name Role Phone Kaitlynn Garrett MD Primary Care Provider [phone] Medical History Medical History Date Comments Asthma 03/29/2020 DX:Asthma Eczema 03/29/2020 DX:Eczema Social History Tobacco Use Types Packs/Day Years Used Date Smoking Tobacco: Never Smokeless Tobacco: Never Sex and Gender Information Value Date Recorded Sex Assigned at Not on file Gender Identity Not on file Sexual Orientation Not on file Obstetrics History Last Filed Vital Signs Vital Sign Reading Time Taken Comments Blood Pressure - - Pulse - - Temperature - - Respiratory Rate - - Oxygen Saturation - - Inhaled Oxygen Concentration - - Weight 149 kg (328 lb) 08/08/2021 11:53 AM EST Height 170.2 cm (5' 7 ) 08/08/2021 11:53 AM EST Body Mass Index 51.37 08/08/2021 11:53 AM EST Plan of Treatment Health Maintenance Due Date Last Done Comments Pneumococcal Vaccine: Pediat rics (0 to 5 Years) and At-Risk Patients (6 to 64 Years) (1 of 2 - PCV) 1978 DTaP,Tdap,and Td Vaccines (1 - Tdap) 09/01/1991 Hepatitis B Vaccines (1 of 3 - 19+ 3-dose series) 09/01/1991 Cervical Cancer Screening: P ap Smear 1993 Breast Cancer Screening 12/03/2020 12/03/2018 Cholesterol Screening (Lipid Panel) 05/05/2022 Colorectal Cancer Screening: Colonoscopy 05/05/2022 Depression Screening 05/05/2022 HIV Screening 05/05/2022 Hepatitis C Screening 05/05/2022 Social Influencers of Health Screening 05/05/2022 Zoster Vaccines (1 of 2) 2022 COVID-19 Vaccine (2023-2 5 season) 2024 Influenza Vaccine (#1) 2024 07/03/2018 HIB Vaccines Aged Out No longer eligi ble based on patient's age to complete this topic HPV Vaccines Aged Out No longer eligi ble based on patient's age to complete this topic Hepatitis A Vaccines Aged Out No long er eligible based on patient's age to complete this topic IPV Vaccines Aged Out No longer eligi ble based on patient's age to complete this topic MMR Vaccines Aged Out No longer eligi ble based on patient's age to complete this topic Meningococcal ACWY Vaccine Aged Out N o longer eligible based on patient's age to complete this topic RSV Immunization Patients Un ebony 20 months Aged Out No longer eligible b ased on patient's age to complete this topic Varicella Vaccines Aged Out No longer eligible based on patient's age to complete this topic Procedures Procedure Name Priority Date/Time Associated Diagnosis Comments [facility] SCREENING DIGITAL Routine 12/03/2018 5:27 PM EDT Encounter for screening mammogram for malignant neoplasm of breast from Last 3 Months or Most Recently Relevant to Health Maintenance Results * [facility] SCREENING DIGITAL (12/03/2018 5:27 PM EDT) Anatomical Region Laterality Modality Mammography 12/03/2018 3:09 PM EDT Narrative 12/03/2018 5:27 PM EDT [facility] Diagnostic Imaging Department [address] [place], [place] [id number] Patient: ??GLADYS,MADYSON ?/Age/Sex: 1970 - 48 - F Unit#: ??[id number] ? Location/Status: ??SPDIMAM/REG CLI ? Mnemonic/Ordering Site: ??DIGSC/SPMAM Ordering Physician: ??KAITLYNN GARRETT MD Jennifer Screening Digital - 12/03/18 - 1538 History: Bilateral breast cancer screening. Technique: Bilateral digital mammography. Conventional CC and MLO projections with tomosynthesis MLO views and computer-aided detection Comparison: Outside mammography 09/06/2010 and 10/14/2008. Findings: Breast tissue is mostly ??fatty replaced (category A density). ??There is no suspicious group of microcalcification, no suspicious mass, architectural distortion or suspicious change in breast tissue density. Intramammary lymph nodes noted upper outer quadrant bilaterally. Impression: ??No evidence of malignancy. Breast cancer, if present, is more likely to be diagnosed at a smaller size and earlier stage with more frequent intervals of screening. ??Recommend annual or biennial mammography. BIRADS category 1, negative examination, 3341F 81595, , [address] Note: Patient information entered ??into a reminder system with a target due date for the next mammogram; PQRI II 5848F Dictating Physician: ??MIKE CORDERO MD Electronically Signed by: ??MIKE CORDERO MD Dic Date/Time: ??12/03/181722 Sign date/Time: ??12/03/18 1727 Procedure Note Mike Cordero - 05/23/2022 [facility] Diagnostic Imaging Department [address] [place], [place] [id number] Patient: GLADYSMADYSON /Age/Sex: 1970 - 48 - F Unit#: [id number] Location/Status: SPDIMAM/REG CLI Mnemonic/Ordering Site: [facility] Ordering Physician: KAITLYNN GARRETT MD Jennifer Screening Digital - 12/03/18 - 1538 History: Bilateral breast cancer screening. Technique: Bilateral digital mammography. Conventional CC and MLOprojections with tomosynthesis MLO views and computer-aided detection Comparison: Outside mammography 09/06/2010 and 10/14/2008. Findings: Breast tissue is mostly fatty replaced (category A density). There isno suspicious group of microcalcification, no suspicious mass,architectural distortion or suspicious change in breast tissue density. Intramammarylymph nodes noted upper outer quadrant bilaterally. Impression: No evidence of malignancy. Breast cancer, if present, is more likely to be diagnosed at a smallersize and earlier stage with more frequent intervals of screening. Recommend annualor biennial mammography. BIRADS category 1, negative examination, 3341F 42291, , [address] Note: Patient information entered into a reminder system with a targetdue date for the next mammogram; PQRI II 7000F Dictating Physician: MIKE CORDERO MD Electronically Signed by: MIKE CORDERO MD Dic Date/Time: 12/03/181722 Sign date/Time: 12/03/181726 Kaitlynn Garrett MD IMG BI PROCEDURES from Last 3 Months or Most Recently Relevant to Health Maintenance Care Teams Jewelry Drill Operator Relationship Specialty Start Date End Date Kaitlynn Garrett MD [address] [facility] [address] [place], [place] PCP - General Internal Medicine 11/07/16
== END 2024-07-02 14:22 | disposition home or self-care (01) ==
PROVIDERS: PCP Internal Medicine; Visit Provider Registered Nurse Emergency
DX: M54.16 Radiculopathy, lumbar region (principal)
CPT/HCPCS: 99214

== ENCOUNTER → 2024-07-02 13:53 | Outpatient (BNVA) | payer OTHER, SELFPAY | PROVIDERS: PCP Internal Medicine; Visit Provider Registered Nurse Emergency ==

== ENCOUNTER 2024-07-06 09:12 | Outpatient (AMB) | payer OTHER, SELFPAY ==
--- NOTE | 2024-07-06 09:14 | A.SPINEOV_ITS ---
Vital Signs 07/06/24 09:15 Height 5 ft 7 in Weight 304 lb BMI 47.6 Intake Visit Reasons: LBP Intake Note: Ms. Arguelles is here today c/o Left sided low back pain. 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 Allergies hydrocodone [From Vicodin] Allergy (Severe, Verified 07/06/24 09:16) NAUSEA,DIZZY sulfamethoxazole [From Bactrim] Allergy (Severe, Verified 07/06/24 09:16) Rash trimethoprim [From Bactrim] Allergy (Severe, Verified 07/06/24 09:16) Rash morphine Adverse Reaction (Severe, Verified 07/06/24 09:16) Chills oxycodone [From PERCOCET] Adverse Reaction (Severe, Verified 07/06/24 09:16) nausea,VOMITING Physical Exam Vital Signs: BMI result Body Mass Index 47.6 Assessment & Plan Assessment & Plan (1) Left lumbar radiculopathy: Code(s): M54.16 - Radiculopathy, lumbar region Category: Medical Plan Dear Nataliya, Thank you for referring Mrs Arguelles to our office today. She is a very nice 53-year-old female, remote history of what sounds like an arachnoid cyst removed by Dr. Leon from the thoracic spine about 10 years ago or more, who presents now with left leg symptoms that shoot down the left leg from the low back into the outer calf in the foot. The symptoms are aggravated when she bends interest to come up to an upright posture. It seems to be getting worse over the last year so. She is trying different medications without much success. She underwent physical therapy. There was a cortisone injection you did for her recently that gave her about 2 months of relief. That is the only thing that seems to have helped. PMH: History of thoracic arachnoid cyst resected by 10 years ago for myelopathic symptoms, she seemed to do well after that. History of asthma, right lung resection secondary to some kind of infection, hysterectomy, gallbladder removal Social hx: She has not smoke, drink use any recreational drugs Medications: She takes 3 inhalers as well as Wegovy Allergies: Percocet, morphine Physical exam: Awake alert oriented no acute distress, gait is normal, she has a well-healed midline thoracic incision, strength and reflexes normal in the lower extremities. Imaging review: Lumbar MRI done at [facility] reveals normal alignment, some very mild disc degeneration at L4-5 but no evidence of disc herniation or nerve compression. Impression: 53-year-old female, remote history of thoracic arachnoid cyst removal by 10 years ago, presents with left leg pain which seems to be in an L5 distribution. Her MRI is unremarkable with no nerve compression seen. She had an EMG consistent with lumbar radiculopathy. Unfortunately I can not match the 2 together as there is no anatomical compression of the nerves in the lumbar spine. This maybe some kind of intrinsic nerve inflammation. Unfortunately it is nothing that we can offer surgery to fix. I explained all this to the patient. Thank you for allowing us to care for your patient. The total time spent with this visit with this patient was 45 minutes reviewing history, physical exam, lumbar imaging review, and implementation of treatment plan or further diagnostic testing Swapnil Brennan MD,PhD [facility] Coding Level of Care Code New Pt Level 4 (04733) Diagnoses Left lumbar radiculopathy M54.16
[2024-07-06 09:15] VITALS: BMI 47.6
--- OUTSIDE RECORDS SUMMARY | 2024-07-06 09:30 | XMS_ITS | Clinical Summary ---
Author Organization [facility] Address [address] [place] [id number] Care Team Providers Care Dictionary Editor Name Role Phone Kaitlynn Garrett MD Primary Care Provider [phone] Medical History Medical History Date Comments Asthma [...] Procedure Name Priority Date/Time Associated Diagnosis Comments [facility] SCREENING DIGITAL Routine 12/03/2018 5:27 PM EDT Encounter for screening mammogram for malignant neoplasm of breast from Last 3 Months or Most Recently Relevant to Health Maintenance Results * [facility] SCREENING DIGITAL (12/03/2018 5:27 PM EDT) Anatomical Region Laterality Modality Mammography 12/03/2018 3:09 PM EDT Narrative 12/03/2018 5:[address] [facility] Diagnostic Imaging Department [address] [place], [place] [address] Patient: ??GLADYS,MADYSON ?/Age/Sex: 1970 - 48 - F Unit#: ??[id number] ? Location/Status: ??SPDIMAM/REG CLI ? Mnemonic/Ordering Site: [...] mammography. BIRADS category 1, negative examination, 3341F 97794, , [address]12[address] Note: Patient information entered ??into a reminder system with a target due date for the next mammogram; PQRI II 9603F Dictating Physician: ??MIKE CORDERO MD Electronically Signed by: ??MIKE CORDERO MD Dic Date/Time: ??12/03/181722 Sign date/Time: ??12/03/18 1727 Procedure Note Mike Cordero - 05/23/2022 [facility] Diagnostic Imaging Department [address] [place], [place] [address] Patient: GLADYSMADYSON /Age/Sex: 1970 - 48 - F Unit#: [id number] Location/Status: SPDIMAM/REG CLI Mnemonic/Ordering Site: [facility] Ordering Physician: KAITLYNN GARRETT MD Jennifer Screening [...] mammography. BIRADS category 1, negative examination, 3341F 86717, , [address] Note: Patient information entered into a reminder system with a targetdue date for the next mammogram; PQRI II 7015F Dictating Physician: MIKE CORDERO MD Electronically Signed by: MIKE CORDERO MD Dic Date/Time: 12/03/181722 Sign date/Time: 12/03/181726 Kaitlynn Garrett MD IMG BI PROCEDURES from Last 3 Months or Most Recently Relevant to Health Maintenance Care Teams Dictionary Editor Relationship Specialty Start Date End Date Kaitlynn Garrett MD [address] [facility] [address] [place], [place] PCP - General Internal Medicine 11/07/16
== END 2024-07-06 09:59 | disposition home or self-care (01) ==
PROVIDERS: PCP Internal Medicine; Referring Provider Registered Nurse Emergency; Visit Provider Physician Assistant
DX: M54.16 Radiculopathy, lumbar region (principal)
CPT/HCPCS: 99204

== ENCOUNTER → 2024-07-06 09:12 | Outpatient (BNVA) | payer OTHER, SELFPAY | PROVIDERS: PCP Internal Medicine; Referring Provider Registered Nurse Emergency; Visit Provider Physician Assistant ==

== ENCOUNTER 2024-09-08 06:05 | Outpatient (REF) | payer OTHER, SELFPAY ==
--- NOTE | ~2024-09-08 | FL_ITS ---
EXAMINATION: FL GUIDANCE ONLY HISTORY: M54.16 - Radiculopathy, lumbar region COMPARISON: None available. TECHNIQUE: Fluoroscopy time: 19.4 seconds. Cumulative Dose: 16.592 mGy. DAP: 6.2999 mGym2 Images: 3. FINDINGS: Images demonstrate a needle and contrast in the region of the left L4-5 facet joint. FL/FL guidance in treatment room IMPRESSION: Fluoroscopy during procedure. Please see procedure report for additional information. Electronically signed by: Nino Barrera MD 09/08/2024 09:21 AM EDT
--- OUTSIDE RECORDS SUMMARY | 2024-09-08 06:08 | XMS_ITS | Clinical Summary ---
Author Organization [facility] Address [address] [place] [address] Care Team Providers Care Bellhop Service Captain Name Role Phone Kaitlynn Garrett MD Primary Care Provider [phone] Medical History Medical History Date Comments Asthma 03/29/2020 DX:Asthma Eczema 03/29/2020 DX:Eczema Social History Tobacco Use Types Packs/Day Years Used Date Smoking Tobacco: Never Smokeless Tobacco: Never Comments Unknown Sex and Gender Information Value Date Recorded Sex Assigned at Not on file Legal Sex Female 7:31 PM EST Gender Identity Not on file Sexual Orientation [...] Health Maintenance Due Date Last Done Comments DTaP,Tdap,and Td Vaccines (1 - Tdap) 09/01/1991 Hepatitis B Vaccines (1 of 3 - 19+ 3-dose series) 09/01/1991 Pneumococcal Vaccine: 50+ Ye ars (1 of 2 - PCV) 09/01/1991 Pneumococcal Vaccine: Pediat rics (0 to 5 Years) and At-Risk Patients (6 to 64 Years) (1 of 2 - PCV) 09/01/1991 Cervical Cancer Screening: P ap Smear [...] patient's age to complete this topic Meningococcal B Vaccine Aged Out No l onger eligible based on patient's age to complete this topic RSV Immunization Patients Un ebony 20 months Aged Out No longer eligible b ased on patient's age to complete this topic Varicella Vaccines Aged Out No longer eligible based on patient's age to complete this topic Procedures Procedure Name Priority Date/Time Associated Diagnosis Comments [facility] SCREENING DIGITAL Routine 12/03/2018 5:27 PM EDT Encounter for screening mammogram for malignant neoplasm of breast from Last 3 Months or Most Recently Relevant to Health Maintenance Results * [facility] SCREENING DIGITAL (12/03/2018 5:27 PM EDT) Anatomical Region Laterality Modality Mammography 12/03/2018 3:09 PM EDT Narrative 12/03/2018 5:27 PM EDT [facility] Diagnostic Imaging Department [address] [place] [address] Patient: ??MADYSON GRAHAM ?/Age/Sex: 1970 - 48 - F Unit#: ??[id number] ? Location/Status: ??SPDIMAM/REG CLI ? Mnemonic/Ordering Site: [...] mammography. BIRADS category 1, negative examination, 3341F 28805, , [id number] Note: Patient information entered ??into a reminder system with a target due date for the next mammogram; PQRI II 6304F Dictating Physician: ??MIKE CORDERO MD Electronically Signed by: ??MIKE CORDERO MD Dic Date/Time: ??12/03/18 1723 Sign date/Time: ??12/03/18 1727 Procedure Note Mike Cordero - 05/23/2022 [facility] Diagnostic Imaging Department [address] [place] [address] Patient: MADYSON GRAHAM /Age/Sex: 1970 - 48 - F Unit#: [id number] Location/Status: SPDIMAM/REG CLI Mnemonic/Ordering Site: [facility] Ordering Physician: KAITLYNN GARRETT MD Jennifer Screening Digital - 12/03/18 - 153 History: Bilateral breast cancer screening. Technique: Bilateral [...] mammography. BIRADS category 1, negative examination, 3341F 64673, , [address]297 Note: Patient information entered into a reminder system with a targetdue date for the next mammogram; PQRI II 7025F Dictating Physician: MIKE CORDERO MD Electronically Signed by: MIKE CORDERO MD Dic Date/Time: 12/03/181722 Sign date/Time: 12/03/181726 Kaitlynn Garrett MD IMG BI PROCEDURES Final Resul t from Last 3 Months or Most Recently Relevant to Health Maintenance Care Teams Bellhop Service Captain Relationship Specialty Start Date End Date Kaitlynn Garrett MD [address] [place] [address] [address] [place] PCP - General Internal Medicine 11/07/16
== END 2024-09-08 06:06 | disposition home or self-care (01) ==
LOC: CF 06:05
PROVIDERS: Visit Provider Anesthesiology
DX: M54.16 Radiculopathy, lumbar region (principal)
CPT/HCPCS: 64483; J2003; J3301; Q9967

== ENCOUNTER 2024-09-08 07:19 | Outpatient (AMB) | payer OTHER, SELFPAY ==
--- OUTSIDE RECORDS SUMMARY | 2024-09-08 07:21 | XMS_ITS | Clinical Summary ---
Author Organization [facility] Address [address] [place] [address] Care Team Providers Care Biochemistry Teacher Name Role Phone Kaitlynn Garrett MD Primary Care Provider [phone] Medical History Medical History Date Comments Asthma [...] Procedure Name Priority Date/Time Associated Diagnosis Comments [facility] SCREENING DIGITAL Routine 12/03/2018 5:27 PM EDT Encounter for screening mammogram for malignant neoplasm of breast from Last 3 Months or Most Recently Relevant to Health Maintenance Results * JENNIFER SCREENING DIGITAL (12/03/2018 5:27 PM EDT) Anatomical Region Laterality Modality Mammography 12/03/2018 3:09 PM EDT Narrative 12/03/2018 5:27 PM EDT [facility] Diagnostic Imaging Department [address] [place] [address] Patient: ??MADYSON GRAHAM ?/Age/Sex: 1970 - 48 - F Unit#: ??[id number] ? Location/Status: ??SPDIMAM/REG CLI ? Mnemonic/Ordering Site: [...] mammography. BIRADS category 1, negative examination, 3341F 22567, , [address]198 Note: Patient information entered ??into a reminder system with a target due date for the next mammogram; PQRI II 1402F Dictating Physician: ??MIKE CORDERO MD Electronically Signed by: ??MIKE CORDERO MD Dic Date/Time: ??12/03/18 1723 Sign date/Time: ??12/03/18 1727 Procedure Note Mike Cordero - 05/23/2022 [facility] Diagnostic Imaging Department [address] [place] [address] Patient: MADYSON GRAHAM /Age/Sex: 1970 - 48 - F Unit#: [id number] Location/Status: SPDIMAM/REG CLI Mnemonic/Ordering Site: [facility] Ordering Physician: KAITLYNN GARRETT MD [...] mammography. BIRADS category 1, negative examination, 3341F [address]26, , [address]261 Note: Patient information entered into a reminder system with a targetdue date for the next mammogram; PQRI II 7025F Dictating Physician: MIKE CORDERO MD Electronically Signed by: MIKE CORDERO MD Dic Date/Time: 12/03/181722 Sign date/Time: 12/03/181726 Kaitlynn Garrett MD IMG BI PROCEDURES Final Resul t from Last 3 Months or Most Recently Relevant to Health Maintenance Care Teams Biochemistry Teacher Relationship Specialty Start Date End Date Kaitlynn Garrett MD [address] [place] [address] [address] [place] PCP - General Internal Medicine 11/07/16
[2024-09-08 07:30] VITALS: BP 142/86; PULSE 67; RESP 16; O2SAT 99
--- NOTE | 2024-09-08 07:30 | MHC.OFFVIS ---
Vital Signs 09/08/24 07:30 09/08/24 07:49 BP 142/86 H 155/96 H Blood Pressure Location Lt brachial Rt radial Position Sitting Sitting Respiration 16 16 Pulse 67 69 Pulse Source Pulse Oximeter Pulse Oximeter Pulse Oximetry (%) 99 96 Oxygen Delivery Method Room Air Room Air Intake Visit Reasons: LEFT L4, L5 TFESI Occupational Health Coordinator Required: No Allergies hydrocodone [From Vicodin] Allergy (Severe, Verified 09/08/24 07:31) NAUSEA,DIZZY sulfamethoxazole [From Bactrim] Allergy (Severe, Verified 09/08/24 07:31) Rash trimethoprim [From Bactrim] Allergy (Severe, Verified 09/08/24 07:31) Rash morphine Adverse Reaction (Severe, Verified 09/08/24 07:31) Chills oxycodone [From PERCOCET] Adverse Reaction (Severe, Verified 09/08/24 07:31) nausea,VOMITING Medication List - Last Reconciled 09/08/24 by Shira Pizarro LPN acetaminophen (Tylenol Extra Strength) 500 mg PO Q6H PRN albuterol sulfate 5 mg inhalation Q6H PRN beclomethasone dipropionate 80 mcg/actuation (Qvar RediHaler) 2 puffs PO BID PRN benzonatate 100 mg PO TID PRN budesonide 180 mcg/actuation (Pulmicort Flexhaler) 2 inhalations inhalation Q4-6H PRN cyclobenzaprine 10 mg PO BEDTIME PRN duloxetine 20 mg PO BID ibuprofen 600 mg PO Q6H PRN methocarbamol 500 mg PO TID PRN naproxen 500 mg PO BID omeprazole 40 mg PO DAILY semaglutide (weight loss) (Wegovy) mg subcut PFSH Medical History Migraine HTN (hypertension) Obesity Arthritis Low back pain History of cellulitis Headache PVD (peripheral vascular disease) Numbness and tingling of both legs Elevated LFTs Fatty liver Ear infection Hx of pneumothorax Spondyloarthropathy Asthma Surgical History H/O colonoscopy History of esophagogastroduodenoscopy (EGD) History of cholecystectomy Hx of total hysterectomy with removal of both tubes and ovaries Hx of laminectomy History of lung surgery Family History Father Diabetes HTN (hypertension) Mother Stroke CVD (cardiovascular disease) Social History Household Members: Family Housing: Apartment Do you presently have visiting nurse or other home services: No Alcohol intake: current Alcohol intake frequency: holidays/special occasions only Patient Tobacco Use Status: Never used Tobacco service: No Current occupational status: employed Physical Exam Vital Signs: Last Vital Signs Pulse 69 09/08/24 07:49 Resp 16 09/08/24 07:49 BP 155/96 H 09/08/24 07:49 Pulse Ox 96 09/08/24 07:49 Oxygen Delivery Method Room Air 09/08/24 07:49 Assessment & Plan Assessment & Plan (1) Radiculopathy, lumbar region: Code(s): M54.16 - Radiculopathy, lumbar region Category: Medical Plan Transforaminal L4-5 epidural steroid injection on the left. Caren is very pleasant 54 years old female who came today to the injection area to perform left L4-5 transforaminal epidural steroid injection. Informed consent was thoroughly explained to the patient, the risks and benefits were explained to the patient, the risks were delineated as bleeding infection peripheral nerve damage spinal cord damage and headache. the patient was brought to the operating room and positioned prone on operating table. Her lower back was prepped and draped with ChloraPrep and self adhesive sterile utility towels. C-arm was brought over the operating field and sq picture of L4 and L5 vertebra were demonstrated on the screen. Left superior articular process of L5 was chosen as the starting point of the injection. The projection of the starting point to the skin was injected with small amount of lidocaine 1%. After that 22 gauge 5 in spinal needle was inserted through the skin wheal and advanced to were the lateral border superior articular process of L5 under anterior posterior and oblique views. When tip of the needle gently contacted the point of interest it was deviated slightly lateral advanced few mm in and deviated back in medial. The sq picture was demonstrating the tip of the needle positioned few mm in to the silhouette of the spinal column but not beyond the midline of the L4 pedicle. Injection of the contrast demonstrated spread of the contrast in the epidural space. After that injection of the treatment solution of lidocaine 1% 3 cc mixed with Kenalog 40 mg was performed into the needle. The patient tolerated injection well. The needle was withdrawn sterile Band-Aid was applied. Patient of the operating room to recovery room where she recovered uneventfully. Orders: Orders FL guidance in treatment room Today M54.16 - Radiculopathy, lumbar region Coding Level of Care Code Procedure Only Diagnoses Radiculopathy, lumbar region M54.16
[2024-09-08 07:49] VITALS: BP 155/96; PULSE 69; RESP 16; O2SAT 96
== END 2024-09-08 07:49 | disposition home or self-care (01) ==
LOC: HO.PMCPRC 07:19
PROVIDERS: PCP Internal Medicine; Visit Provider Anesthesiology
DX: M54.16 Radiculopathy, lumbar region (principal)
CPT/HCPCS: 64483

== ENCOUNTER 2024-09-22 08:03 | Day surgery (SDC) | payer OTHER, SELFPAY ==
[2024-09-22 08:31] VITALS: BMI 48.3
[2024-09-22 08:32] VITALS: BP 134/79; PULSE 68; RESP 18; TEMP 36.6; O2SAT 97
--- NOTE | 2024-09-22 09:27 | MHC.SHP ---
Pre-Procedural Eval Section A - 24 Hr Update-Section A only Date of Service: 09/22/24 The patient is an INPATIENT: No Changes since office visit: No Cold of Flu in the past 2 weeks, No New Medical Problems, No Changes in Medication and No Patient answered all questions The patient has been examined within 24 hours of the surgical procedure. The History & Physical has been completed within 30 days and I have reviewed it.: Yes Section B - Complete if H&P > 30 days Chief Complaint: Carpal tunnel syndrome, right upper limb Allergies: Allergies Allergy/AdvReac Type Severity Reaction Status Date / Time hydrocodone [From Vicodin] Allergy Severe NAUSEA,DIZZ Verified 09/22/24 08:33 Y sulfamethoxazole Allergy Severe Rash Verified 09/22/24 08:33 [From Bactrim] trimethoprim [From Bactrim] Allergy Severe Rash Verified 09/22/24 08:33 morphine AdvReac Severe Chills Verified 09/22/24 08:33 oxycodone [From PERCOCET] AdvReac Severe nausea,VOMI Verified 09/22/24 08:33 TING Plan Diagnosis/Plan: Unchanged I have reviewed the history and physical and performed a pertinent physical examination on my patient. No changes have occurred unless specified. Time Spent With Patient Time: Total time managing care of this patient today ____ minutes.
--- NOTE | 2024-09-22 09:28 | W.PM.OPN ---
Operative Note Operative Note Date of Service: 09/22/24 Narrative: Preop diagnosis: 1. Right Carpal tunnel syndrome Postop diagnosis: same Procedure: 1. Right Carpal tunnel release Surgeon: Jesika Huerta MD Elevator Service Technician: Deshaun HERNANDEZ Anesthesia: local block using 1% lidocaine with epinephrine Findings: Thickened transverse carpal ligament. EBL: Less than 5 mL Specimens: None Complications: None Disposition: Brought to recovery room in stable condition Plan: Follow-up for 10-14 days for wound check and suture removal Indications: The patient is 54 years old, with right carpal tunnel syndrome that has been unresponsive to nonoperative management. The risks and benefits of operative treatment including but not limited to risk of damage to blood vessels, nerves, tendons, infection, persistent pain, persistent symptoms, or possible need for additional surgery were discussed with the patient and the patient wishes to proceed with surgery. Procedure: Once consent was obtained a local block was performed using a combination of 1% lidocaine with epinephrine. The patient was then brought back to the operating suite and placed on the operative table in supine position. The right upper extremity was prepped and draped in a standard surgical fashion. Once assured that we had a good block, a 2.0 cm longitudinal incision was made centered over the carpal tunnel. The incision was made through the skin to the subcutaneous tissues using a #15 blade. Dissection was made down to the level of the transverse carpal ligament with care being taken to protect the palmar cutaneous nerve. Once the transverse carpal ligament was clearly visualized, a longitudinal incision was made in the transverse carpal ligament 1st using a #15 blade, then using tenotomy scissors under direct visualization. Care was taken to look for and protect the motor branch of the median nerve when seen in this area. Once satisfied with our carpal tunnel release the wound was copiously irrigated with normal saline and hemostasis was obtained with a brief period of local pressure. The skin edges were reapproximated with some 5.0 nylon suture material and a sterile dressing was applied. The patient appears to have tolerated the procedure well and with no complications. All digits were well vascularized at the conclusion of the case.
[2024-09-22 10:15] VITALS: BP 146/84; PULSE 61; RESP 18; TEMP 36.8; O2SAT 98
== END 2024-09-22 10:21 | disposition home or self-care (01) ==
PROVIDERS: PCP Internal Medicine; Visit Provider Orthopaedic Surgery
PROC: (CPT 64721; principal; 2024-09-22 10:30)
DX: G56.01 Carpal tunnel syndrome, right upper limb (principal); M79.641 Pain in right hand; M25.521 Pain in right elbow; M77.11 Lateral epicondylitis, right elbow; Z98.890 Other specified postprocedural states; M19.90 Unspecified osteoarthritis, unspecified site; R20.0 Anesthesia of skin; I10 Essential (primary) hypertension; I73.9 Peripheral vascular disease, unspecified; K76.0 Fatty (change of) liver, not elsewhere classified; J45.909 Unspecified asthma, uncomplicated; E66.9 Obesity, unspecified; Z68.42 Body mass index [BMI] 45.0-49.9, adult; Z79.85 Long-term (current) use of injectable non-insulin antidiabetic drugs; Z88.2 Allergy status to sulfonamides; Z88.5 Allergy status to narcotic agent; Z79.899 Other long term (current) drug therapy
CPT/HCPCS: 64721; J0171; J2003

== ENCOUNTER → 2024-09-22 08:03 | Outpatient (BNV) | payer OTHER, SELFPAY | PROVIDERS: PCP Internal Medicine; Visit Provider Orthopaedic Surgery | DX: G56.01 Carpal tunnel syndrome, right upper limb (principal) | CPT/HCPCS: 64721 ==

== ENCOUNTER 2024-09-29 08:04 | Outpatient (AMB) | payer OTHER, SELFPAY ==
--- OUTSIDE RECORDS SUMMARY | 2024-09-29 08:12 | XMS_ITS | Clinical Summary ---
[facility] Organization [facility] Address [address] [place] [id number] Care Team Providers Care Street Car Inspector Name Role Phone Kaitlynn Garrett MD Primary Care Provider [phone] Medical History Medical History Date Comments Asthma [...] Vaccine (2023-2 5 season) 2024 Influenza Vaccine (Season Ended) 2025 07/03/19 19 HIB Vaccines Aged Out No longer eligi [...] PM EDT Narrative 12/03/2018 5:27 PM EDT [facility] Diagnostic Imaging Department [address] [place], [place] [id number] Patient: ??GRAHAM,MADYSON ?/Age/Sex: 1970 - 48 - F Unit#: ??[id number] ? Location/Status: ??SPDIMAM/REG CLI ? Mnemonic/Ordering Site: [...] mammography. BIRADS category 1, negative examination, 3341F [address]167, , [address] Note: Patient information entered ??into a reminder system with a target due date for the next mammogram; PQRI II 4199F Dictating Physician: ??MIKE CORDERO MD Electronically Signed by: ??MIKE CORDERO MD Dic Date/Time: ??12/03/18 1723 Sign date/Time: ??12/03/18 1727 Procedure Note Mike Cordero - 05/23/2022 [facility] Diagnostic Imaging Department [address] [place] [address] Patient: MADYSON GRAHAM /Age/Sex: 1970 - 48 - F Unit#: [id number] Location/Status: SPDIMAM/REG CLI Mnemonic/Ordering Site: [facility] Ordering Physician: KAITLYNN GARRETT MD [...] mammography. BIRADS category 1, negative examination, 3341F 76597, , [address] Note: Patient information entered into a reminder system with a targetdue date for the next mammogram; PQRI II 7025F Dictating Physician: MIKE CORDERO MD Electronically Signed by: MIKE CORDERO MD Dic Date/Time: 12/03/181722 Sign date/Time: 12/03/181726 Kaitlynn Garrett MD IMG BI PROCEDURES Final Resul t from Last 3 Months or Most Recently Relevant to Health Maintenance Care Teams Street Car Inspector Relationship Specialty Start Date End Date Kaitlynn Garrett MD [address] [place] [address] [address] [place] PCP - General Internal Medicine 11/07/16
--- NOTE | 2024-09-29 08:21 | MHC.OFFVISWM ---
VS Expanded 09/29/24 08:43 Height 5 ft 7 in Weight 304 lb 12 oz BMI 47.7 Body Fat % 50.6 Body Fat Mass 154.2 Fat Free Mass 154.2 Visceral Fat Rating 18 Body Water Mass 107.2 Basal Metabolic Rate/Score 2,170 Intake Visit Reasons: TV [employer] HAND SWL BMI 48.3 Allergies hydrocodone [From Vicodin] Allergy (Severe, Verified 09/29/24 08:23) NAUSEA,DIZZY sulfamethoxazole [From Bactrim] Allergy (Severe, Verified 09/29/24 08:23) Rash trimethoprim [From Bactrim] Allergy (Severe, Verified 09/29/24 08:23) Rash morphine Adverse Reaction (Severe, Verified 09/29/24 08:23) Chills oxycodone [From PERCOCET] Adverse Reaction (Severe, Verified 09/29/24 08:23) nausea,VOMITING Medication List - Last Reconciled 09/29/24 by Haroon Rice MD acetaminophen (Tylenol Extra Strength) 500 mg PO Q6H PRN albuterol sulfate 5 mg inhalation Q6H PRN beclomethasone dipropionate 80 mcg/actuation (Qvar RediHaler) 2 puffs PO BID PRN benzonatate 100 mg PO TID PRN budesonide 180 mcg/actuation (Pulmicort Flexhaler) 2 inhalations inhalation Q4-6H PRN cyclobenzaprine 10 mg PO BEDTIME PRN duloxetine 20 mg PO BID montelukast 10 mg PO DAILY naproxen 500 mg PO BID omeprazole 20 mg PO DAILY HPI HPI [employer] SWL BMI 48.3: Details: Start time: 8.11, End time: 9.11am I spent 55 minutes speaking with the patient on the phone plus an additional 5 minutes reviewing and updating records for a total of 60 minutes HPI Comments Details: Previous weight loss efforts: Herbalife: 10lbs, cleansing, Wegovy (7mths: lost 18lbs) Wakes up: 6am, Sleeps: 11pm Breakfast: eggs with sausage Lunch: 11am (salad or sandwich) Dinner: 6pm (chicken starch, vegetables) Snacks: 9am (yogurt or fruit), 8pm (fruit, cereal) Exercise: none Beverages: Coffee x1/wk (milk and sugar), tea: 1 cup/d (honey), soda: Pepsi and Gingerale (daily), juice: iced tea (with calories), ETOH: none PFSH Medical History (Updated 09/29/24 @ 08:32 by Haroon Rice MD) GERD (gastroesophageal reflux disease) Migraine HTN (hypertension) Obesity Arthritis Low back pain History of cellulitis Headache PVD (peripheral vascular disease) Numbness and tingling of both legs Elevated LFTs Fatty liver Ear infection Hx of pneumothorax Spondyloarthropathy Asthma Surgical History H/O colonoscopy History of esophagogastroduodenoscopy (EGD) History of cholecystectomy Hx of total hysterectomy with removal of both tubes and ovaries Hx of laminectomy History of lung surgery Family History Father Diabetes HTN (hypertension) Mother Stroke CVD (cardiovascular disease) Social History (Reviewed 06/09/24 @ 08:52 by Rebekah Sanchez [facility]) Household Members: Family Housing: Apartment Are you a primary customer care coordinator to a significant other at home: No Do you presently have visiting nurse or other home services: No Alcohol intake: current Alcohol intake frequency: holidays/special occasions only Patient Tobacco Use Status: Never used Tobacco service: No Current occupational status: employed Telehealth Telehealth Telehealth Platform: Telephone Location of provider rendering services: practice address Location of patient: address on file Patient Identification confirmed using: Name, : Yes Telehealth method: voice only Patient verbally consented to treatment: Yes Patient verbally consented to billing insurance company: Yes Patient informed of any privacy concerns related to visit: Yes Minutes spent on Phone/Video with Pt.: 60 Assessment & Plan Assessment & Plan (1) Morbid obesity: Code(s): E66.01 - Morbid (severe) obesity due to excess calories Category: Medical Plan: 1. Plan for lap sleeve gastrectomy. If diaphragmatic or ventral hernias are present at time of surgery, these will be repaired laparoscopically as well. I emphasized the importance of close follow-up, adherence to instructions and good communication. The surgery does not replace the need to change your lifestlyle which is the cause of the obesity problem. The surgery provides the motivation to try again to change your lifestyle, it reduces the appetite and make the transition to a better lifestyle easier and doubles the amount of weight you would lose compared to doing the lifestyle change without the surgery. You will need to be on a liquid diet with protein shakes for 2 weeks before surgery to maximize weight loss and boost your nutritional status to recover better from surgery and also for the first two weeks after surgery to let the stomach heal before we introduce other foods. After the first 2 weeks we will introduce protein bars and soft foods like scrambled eggs, cottage cheese and yogurt and after the 6th week will introduce meat, fish and cooked vegetables in small amounts. Over time you should be able to eat everything in small amounts. Side effects like nausea, vomiting, heartburn or abdominal pain are not common in the practice unless you are not following in the practice. This operation requires lifetime commitment to following in our practice and communication with me. You will much less weight and experience side effects if you don?t communicate or not following in the practice. Complications are rare and in our practice is about 1/10 of the national average. However, you can develop bleeding that may require transfusion (hasn?t happened for year in the practice), you may from complications (we did not have any deaths in the practice) and infections. Infections are usually a result of breakdown in communication or not understanding or following directions correctly. They are difficult to treat, they can happen during the first 6 weeks, they may require to be in the hospital for weeks or even months, not being able to eat by mouth and you may have drains and surgeries to try and correct the issue. Other risks and complications include possible conversion to an open procedure, leaks, small bowel obstruction, blood clots, cardiac, or pulmonary complications, as half-way complications such as ulcers, insufficient weight loss and vitamin deficiencies. 2. You will receive a link of our software dylon to generate an individualized nutritional and exercise plan specific for you. Please send me a screenshot of the plans you will generate Meal to include lean meat (beef, fish, pork, turkey, chicken), or estonian yogurt, or egg whites, or beans with a salad with olive oil and fruits (berries, pears, apples, kiwi). Avoid salt, breads, potatoes, rice, pasta, desserts. 3. If you choose shakes, each shake would be drunk slowly, like coffee in a period of 2 hours. 4. If you choose bars, cut each bar in 4 pieces and eat each piece in 30min to make each bar last 2 hours. 5. I emphasized the importance of measuring accurately the food portion and measure it when serving the food in plate 6. The meal portions include a specific number of forks of meat and salad. You always eat the meat portion but you can replace up to half of salad/vegetables portion with rice, potatoes or pasta, or a fruit if you like. The less you do it the better weight loss will be. 7. One full-size fork is what it can be scooped on the fork without falling aside and not what can be bit with the fork. Use regular forks like those you find in a typical restaurant. 8. Please buy the body composition scale we discussed and send me weight measurements as soon as possible and then once a week. Always include your diet and exercise plan. 9. The best choice would be to purchase a stationary bike, elliptical or treadmill at home that can track calories. Let me know if you do so I can give you an exercise plan. 10. It is important of avoiding and for at least 18 months postoperatively and has been discussed at the infosession. 11. Goal is to lose at least 1.5-2lbs per week 12. Goal to lose 10% of your weight before surgery, which is about 30lbs. Ultimate weight goal: 278lbs before surgery 13. Please follow the diet plan exactly without any change. If you don't like something about the plan or you feel hungry you need to communicate with me so I can help you revise the plan. You should not change the plan yourself. 14. To be scheduled for EGD to assess the stomach's anatomy.The possibility of biopsies was discussed. Patient needs to avoid use of NSAIDs and aspirin for 1 week prior to EGD. You must be on liquids only the day before your endoscopy. Risks of perforation and bleeding was discussed with the patient. This will be an outpatient procedure with IV sedation. Orders: Orders Insulin Today E66.01 - Morbid (severe) obesity due to excess calories, K21.9 - Gastro-esophageal reflux disease without esophagitis IRON PROFILE Today E66.01 - Morbid (severe) obesity due to excess calories, K21.9 - Gastro-esophageal reflux disease without esophagitis Comprehensive Met. Panel Today E66.01 - Morbid (severe) obesity due to excess calories, K21.9 - Gastro-esophageal reflux disease without esophagitis Vitamin B12 and Folate Today E66.01 - Morbid (severe) obesity due to excess calories, K21.9 - Gastro-esophageal reflux disease without esophagitis Vitamin B1 Today E66.01 - Morbid (severe) obesity due to excess calories, K21.9 - Gastro-esophageal reflux disease without esophagitis Ferritin Today E66.01 - Morbid (severe) obesity due to excess calories, K21.9 - Gastro-esophageal reflux disease without esophagitis XR chest 2V Today E66.01 - Morbid (severe) obesity due to excess calories, K21.9 - Gastro-esophageal reflux disease without esophagitis ECG 12 lead EKG Today E66.01 - Morbid (severe) obesity due to excess calories, K21.9 - Gastro-esophageal reflux disease without esophagitis Hemoglobin A1c Today E66.01 - Morbid (severe) obesity due to excess calories, K21.9 - Gastro-esophageal reflux disease without esophagitis H Pylori Breath Test Today E66.01 - Morbid (severe) obesity due to excess calories, K21.9 - Gastro-esophageal reflux disease without esophagitis Complete Blood Count Auto Diff Today E66.01 - Morbid (severe) obesity due to excess calories, K21.9 - Gastro-esophageal reflux disease without esophagitis Lipid Panel Today E66.01 - Morbid (severe) obesity due to excess calories, K21.9 - Gastro-esophageal reflux disease without esophagitis Zinc Today E66.01 - Morbid (severe) obesity due to excess calories, K21.9 - Gastro-esophageal reflux disease without esophagitis C Reactive Protein Today E66.01 - Morbid (severe) obesity due to excess calories, K21.9 - Gastro-esophageal reflux disease without esophagitis Vitamin A Today E66.01 - Morbid (severe) obesity due to excess calories, K21.9 - Gastro-esophageal reflux disease without esophagitis TSH reflex Free T4 Today E66.01 - Morbid (severe) obesity due to excess calories, K21.9 - Gastro-esophageal reflux disease without esophagitis Vitamin D 25-OH Total Today E66.01 - Morbid (severe) obesity due to excess calories, K21.9 - Gastro-esophageal reflux disease without esophagitis US abdomen comp w elastography Today E66.01 - Morbid (severe) obesity due to excess calories, K21.9 - Gastro-esophageal reflux disease without esophagitis FL upper GI w air Today E66.01 - Morbid (severe) obesity due to excess calories, K21.9 - Gastro-esophageal reflux disease without esophagitis Referrals Behavioral Health Referral E66.01 - Morbid (severe) obesity due to excess calories, K21.9 - Gastro-esophageal reflux disease without esophagitis Nutrition/Dietitian Referral E66.01 - Morbid (severe) obesity due to excess calories, K21.9 - Gastro-esophageal reflux disease without esophagitis
[2024-09-29 08:43] VITALS: BMI 47.7
== END 2024-09-29 09:12 | disposition home or self-care (01) ==
LOC: HO.HBS 08:04
PROVIDERS: PCP Internal Medicine; Visit Provider Surgery
DX: E66.01 Morbid (severe) obesity due to excess calories (principal); E66.813 Obesity, class 3; Z68.42 Body mass index [BMI] 45.0-49.9, adult
CPT/HCPCS: 98011

== ENCOUNTER 2024-10-02 10:02 | Outpatient (AMB) | payer OTHER, SELFPAY ==
--- NOTE | 2024-10-02 10:06 | MHC.OFFVIS ---
Intake Visit Reasons: PO RT CTR 09/22/24 AR-wound check Intake Note: Madyson is a 54 year old female who presents today post operatively after undergoing a right hand CTR on 09/22/[address] Huerta. Patient reports her numbness and tingling has subsided. She has concerns of redness around incision and throbbing pain. Denies drainage. Allergies hydrocodone [From Vicodin] Allergy (Severe, Verified 10/02/24 10:11) NAUSEA,DIZZY sulfamethoxazole [From Bactrim] Allergy (Severe, Verified 10/02/24 10:11) Rash trimethoprim [From Bactrim] Allergy (Severe, Verified 10/02/24 10:11) Rash morphine Adverse Reaction (Severe, Verified 10/02/24 10:11) Chills oxycodone [From PERCOCET] Adverse Reaction (Severe, Verified 10/02/24 10:11) nausea,VOMITING HPI HPI PO RT CTR 09/22/24 AR-wound check: Details: Madyson is a 54 year old female who presents today post operatively after undergoing a right hand CTR on 09/22/[address] Huerta. Patient reports her numbness and tingling has subsided. She has concerns of redness around incision and throbbing pain. Denies drainage. [facility] Medical History (Updated 09/29/24 @ 08:32 by Haroon Rice MD) GERD (gastroesophageal reflux disease) Migraine HTN (hypertension) Obesity Arthritis Low back pain History of cellulitis Headache PVD (peripheral vascular disease) Numbness and tingling of both legs Elevated LFTs Fatty liver Ear infection Hx of pneumothorax Spondyloarthropathy Asthma Surgical History H/O colonoscopy History of esophagogastroduodenoscopy (EGD) History of cholecystectomy Hx of total hysterectomy with removal of both tubes and ovaries Hx of laminectomy History of lung surgery Family History Father Diabetes HTN (hypertension) Mother Stroke CVD (cardiovascular disease) Social History (Reviewed 06/09/24 @ 08:52 by Rebekah Sanchez [facility] Household Members: Family Housing: Apartment Are you a primary customer care specialist to a significant other at home: No Do you presently have visiting nurse or other home services: No Alcohol intake: current Alcohol intake frequency: holidays/special occasions only Patient Tobacco Use Status: Never used Tobacco service: No Current occupational status: employed Review of Systems Const All systems reviewed & are unremarkable except as noted in HPI and below Physical Exam Extrem Other: Patient is alert, oriented, and in no acute distress. Neuro: Normal sensation of the tips of all digits of the right hand at this time Vascular: Cap refill brisk Pain: Mild tenderness to palpation about the incision site in the volar right wrist No pain with range of motion ROM: Patient is able to make a closed fist and extend all digits of the right hand fully Skin: Well-approximated incision site noted on the volar right wrist No lacerations or abrasions. General: There is noted to be a small amount of erythema and small amounts of purulence around the 2 most proximal sutures, consistent with small suture abscess No active drainage at this time Psych: Appears grossly normal Affect normal Attitude cooperative Assessment & Plan Assessment & Plan (1) Carpal tunnel syndrome of right wrist: Code(s): G56.01 - Carpal tunnel syndrome, right upper limb Category: Medical Plan 1. Status post right carpal tunnel release DOS 09/22/2024 Sutures removed, Steri-Strips applied Due to evidence of small suture abscess, patient was prescribed a one-week course of Augmentin Patient will follow-up next week for wound check Patient was amenable to this plan Medications: New amoxicillin-pot clavulanate 875-125 mg 1 tab PO BID 7 days 14 tabs 0RF Coding Level of Care Code Global (96970) Diagnoses Carpal tunnel syndrome of right wrist G56.01
--- OUTSIDE RECORDS SUMMARY | 2024-10-02 11:01 | XMS_ITS | Clinical Summary ---
[facility] Address [address] [place] [address] Care Team Providers Care Wheelchair Van Driver Name Role Phone Kaitlynn Garrett MD Primary Care Provider [phone] Medical History Medical History Date Comments Asthma [...] Procedure Name Priority Date/Time Associated Diagnosis Comments [facility] Routine 12/03/2018 5:27 PM EDT Encounter for screening mammogram for malignant neoplasm of breast from Last 3 Months or Most Recently Relevant to Health Maintenance Results * [facility] (12/03/2018 5:27 PM EDT) Anatomical Region Laterality Modality Mammography 12/03/2018 3:09 PM EDT Narrative 12/03/2018 5:27 PM EDT [facility] Diagnostic Imaging Department [address] [place], [place] [id number] Patient: ??GRAHAM,MADYSON ?/Age/Sex: 1970 - 48 - F Unit#: ??[id number] ? Location/Status: ??SPDIMAM/REG CLI ? Mnemonic/Ordering Site: [...] mammography. BIRADS category 1, negative examination, [id number], , [id number] Note: Patient information entered ??into a reminder system with a target due date for the next mammogram; PQRI II [id number] Dictating Physician: ??MIKE CORDERO MD Electronically Signed by: ??MIKE CORDERO MD Dic Date/Time: ??12/03/18 1723 Sign date/Time: ??12/03/18 1727 Procedure Note Mike Cordero - 05/23/2022 [facility] Diagnostic Imaging Department [address] [place] [id number] Patient: MADYSON GRAHAM /Age/Sex: 1970 - 48 - F Unit#: [id number] Location/Status: SPDIMAM/REG CLI Mnemonic/Ordering Site: [facility] Ordering Physician: KAITLYNN GARRETT MD Jennifer [...] mammography. BIRADS category 1, negative examination, 3341F 00141, , [id number] Note: Patient information entered into a reminder system with a targetdue date for the next mammogram; PQRI II [id number] Dictating Physician: MIKE CORDERO MD Electronically Signed by: MIKE CORDERO MD Dic Date/Time: 12/03/181722 Sign date/Time: 12/03/181726 Kaitlynn Garrett MD IMG BI PROCEDURES Final Resul t from Last 3 Months or Most Recently Relevant to Health Maintenance Care Teams Wheelchair Van Driver Relationship Specialty Start Date End Date Kaitlynn Garrett MD [address] [place] [address] [address] [place] P[facility] - General Internal Medicine 11/07/16
== END 2024-10-02 11:49 | disposition home or self-care (01) ==
LOC: HO.HOS 10:03
PROVIDERS: PCP Internal Medicine
DX: G56.01 Carpal tunnel syndrome, right upper limb (principal)
CPT/HCPCS: 99024

== ENCOUNTER → 2024-10-02 10:02 | Outpatient (BNVA) | payer OTHER, SELFPAY | PROVIDERS: PCP Internal Medicine ==

== ENCOUNTER 2024-10-06 09:55 | Outpatient (AMB) | payer OTHER, SELFPAY ==
--- NOTE | 2024-10-06 09:59 | A.OFFVIS_ITS ---
Vital Signs 10/06/24 09:59 Height 5 ft 7 in Intake Visit Reasons: PO RT CTR wound check 09/22/24 AR Intake Note: Madyson is a 54 year old right hand dominant male presents today for a post operative wound check s/p Right CTR 09/22/24. Patient reports that she is ding well, it is feeling better. She had some itching this morning but believes that this is due to healing. Allergies hydrocodone [From Vicodin] Allergy (Severe, Verified 10/02/24 10:11) NAUSEA,DIZZY sulfamethoxazole [From Bactrim] Allergy (Severe, Verified 10/02/24 10:11) Rash trimethoprim [From Bactrim] Allergy (Severe, Verified 10/02/24 10:11) Rash morphine Adverse Reaction (Severe, Verified 10/02/24 10:11) Chills oxycodone [From PERCOCET] Adverse Reaction (Severe, Verified 10/02/24 10:11) nausea,VOMITING HPI HPI PO RT CTR wound check 09/22/24 AR: Details: Madyson is a 54 year old right hand dominant male presents today for a post operative wound check s/p Right CTR 09/22/24. Patient reports that she is ding well, it is feeling better. She had some itching this morning but believes that this is due to healing. The patient also reports she is experiencing significant pain at the base of the thumb near the radial styloid. Denies further numbness and tingling. [facility] Medical History (Updated 10/06/24 @ 10:09 by MARY Carballo) GERD (gastroesophageal reflux disease) Migraine HTN (hypertension) Obesity Arthritis Low back pain History of cellulitis Headache PVD (peripheral vascular disease) Numbness and tingling of both legs Elevated LFTs Fatty liver Ear infection Hx of pneumothorax Spondyloarthropathy Asthma Surgical History H/O colonoscopy History of esophagogastroduodenoscopy (EGD) History of cholecystectomy Hx of total hysterectomy with removal of both tubes and ovaries Hx of laminectomy History of lung surgery Family History Father Diabetes HTN (hypertension) Mother Stroke CVD (cardiovascular disease) Social History Household Members: Family Housing: Apartment Are you a primary care management associate to a significant other at home: No Do you presently have visiting nurse or other home services: No Alcohol intake: current Alcohol intake frequency: holidays/special occasions only Patient Tobacco Use Status: Never used Tobacco service: No Current occupational status: employed Review of Systems Const All systems reviewed & are unremarkable except as noted in HPI and below Physical Exam Extrem Other: Patient is alert, oriented, and in no acute distress. Neuro: Normal sensation of the tips of all digits of the right hand at this time Vascular: Cap refill brisk Pain: No tenderness to palpation about the incision site in the volar right wrist No pain with range of motion Patient does have significant tenderness to palpation of the radial styloid [place] on the right ROM: Patient is able to make a closed fist and extend all digits of the right hand fully Skin: Well-approximated incision site noted on the volar right wrist No lacerations or abrasions. General: Erythema and purulence have resolved completely No active drainage at this time Psych: Appears grossly normal Affect normal Attitude cooperative Assessment & Plan Assessment & Plan (1) Carpal tunnel syndrome of right wrist: Code(s): G56.01 - Carpal tunnel syndrome, right upper limb Category: Medical (2) De Quervain's tenosynovitis, right: Code(s): M65.4 - Radial styloid tenosynovitis [de Quervain] Category: Medical Plan 1. De Quervain tenosynovitis, right Patient is educated about this condition Patient is educated about the typical treatment course At this time, patient is provided with a comfort cool thumb spica brace and a referral to occupational therapy for treatment of de Quervain tenosynovitis Patient was amenable to this plan 2. Status post right carpal tunnel release DOS 09/22/2024 Infection appears resolved No further follow-up needed Patient is educated on proper recovery course Follow-up as needed Orders: Orders OT Evaluation and Treatment Today G56.01 - Carpal tunnel syndrome, right upper limb, M65.4 - Radial styloid tenosynovitis [de Quervain] Coding Level of Care Code Est Pt Level 3 (61187) Diagnoses Carpal tunnel syndrome of right wrist G56.01 De Quervain's tenosynovitis, right M65.4
--- OUTSIDE RECORDS SUMMARY | 2024-10-06 11:08 | XMS_ITS | Clinical Summary ---
Author Organization [facility] Address [address] [place] [id number] Care Team Providers Care Data Integrity Specialist Name Role Phone Kaitlynn Garrett MD Primary Care Provider [phone] Medical History Medical History Date Comments Asthma [...] Procedure Name Priority Date/Time Associated Diagnosis Comments [facility] SCREENING DIGITAL Routine 12/03/2018 5:27 PM EDT Encounter for screening mammogram for malignant neoplasm of breast from Last 3 Months or Most Recently Relevant to Health Maintenance Results * [facility] SCREENING DIGITAL (12/03/2018 5:27 PM EDT) Anatomical Region Laterality Modality Mammography 12/03/2018 3:09 PM EDT Narrative 12/03/2018 5:27 PM EDT [facility] Diagnostic Imaging Department [address] [place], [place] [id number] Patient: ??GRAHAM,MADYSON ?/Age/Sex: 1970 - 48 - F Unit#: ??[id number] ? Location/Status: ??SPDIMAM/REG CLI ? Mnemonic/Ordering Site: [...] mammography. BIRADS category 1, negative examination, 3341F 41800, , [id number] Note: Patient information entered ??into a reminder system with a target due date for the next mammogram; PQRI II 2052F Dictating Physician: ??MIKE CORDERO MD Electronically Signed by: ??MIKE CORDERO MD Dic Date/Time: ??12/03/18 1723 Sign date/Time: ??12/03/18 1727 Procedure Note Mike Cordero - 05/23/2022 [facility] Diagnostic Imaging Department [address] [place] [address] Patient: MADYSON GRAHAM /Age/Sex: 1970 - 48 - F Unit#: [id number] Location/Status: SPDIMAM/REG CLI Mnemonic/Ordering Site: [facility] Ordering Physician: KAITLYNN GARRETT MD Jennifer [...] mammography. BIRADS category 1, negative examination, 3341F 73877, , [id number] Note: Patient information entered into a reminder system with a targetdue date for the next mammogram; PQRI II 7025F Dictating Physician: MIKE CORDERO MD Electronically Signed by: MIKE CORDERO MD Dic Date/Time: 12/03/181722 Sign date/Time: 12/03/181726 Kaitlynn Garrett MD IMG BI PROCEDURES Final Resul t from Last 3 Months or Most Recently Relevant to Health Maintenance Care Teams Data Integrity Specialist Relationship Specialty Start Date End Date Kaitlynn Garrett MD [address] [place] [address] [address] [place] PCP - General Internal Medicine 11/07/16
== END 2024-10-06 10:17 | disposition home or self-care (01) ==
PROVIDERS: PCP Internal Medicine
DX: G56.01 Carpal tunnel syndrome, right upper limb (principal); M65.4 Radial styloid tenosynovitis [de Quervain]
CPT/HCPCS: 99024

== ENCOUNTER 2024-10-08 10:02 | Outpatient (REF) | payer OTHER, SELFPAY ==
--- NOTE | ~2024-10-08 | XR_ITS ---
EXAMINATION: XR CHEST 2 VIEWS HISTORY: E66.01 - Morbid (severe) obesity due to excess calories COMPARISON: Comparison is made with the prior examination dated 05/21/2024. FINDINGS: PA and lateral views of the chest are submitted. Again seen is increased density at the left lung base, although less prominent than on the prior study. There is no pleural effusion, pneumothorax, or pulmonary vascular congestion. The heart is normal in size. The bones are intact. XR/XR chest 2V IMPRESSION: Persistent increased density at the left lung base, although this is less prominent than on the prior study. Further evaluation with chest CT is suggested. Electronically signed by: Nino Barrera MD 10/08/2024 11:36 AM EDT
[2024-10-08 10:44] LABS: MANUAL DIFF FLAG NO
--- NOTE | 2024-10-08 10:44 | ECG_ITS ---
Test Reason : MOR OBESITY Blood Pressure : */* mmHG Vent. Rate : 62 BPM Atrial Rate : 62 BPM P-R Int : 194 ms QRS Dur : 90 ms QT Int : 404 ms P-R-T Axes : 49 -14 18 degrees QTcB Int : 410 ms Normal sinus rhythm Normal ECG When compared with ECG of 21-May-2024 15:03, QRS axis Shifted right Criteria for Anterolateral infarct are no longer Present Referred By: Haroon Rice Electronically Signed By: PREM GALE
--- OUTSIDE RECORDS SUMMARY | 2024-10-08 11:53 | XMS_ITS | Clinical Summary ---
[facility] Address [address] [place] [phone] Care Team Providers Care Maths Tutor Name Role Phone Kaitlynn Garrett MD Primary Care Provider [phone] Medical History Medical History Date Comments Asthma [...] Procedure Name Priority Date/Time Associated Diagnosis Comments [facility] SCREENING DIGITAL Routine 12/03/2018 5:27 PM EDT Encounter for screening mammogram for malignant neoplasm of breast from Last 3 Months or Most Recently Relevant to Health Maintenance Results * [facility] SCREENING DIGITAL (12/03/2018 5:27 PM EDT) Anatomical Region Laterality Modality Mammography 12/03/2018 3:09 PM EDT Narrative 12/03/2018 5:27 PM EDT [facility] Diagnostic Imaging Department [address] [place], [place] [id number] Patient: ??GRAHAM,MADYSON ?/Age/Sex: 1970 - 48 - F Unit#: ??[id number] ? Location/Status: ??SPDIMAM/REG CLI ? Mnemonic/Ordering Site: [...] mammography. BIRADS category 1, negative examination, 3341F [address]5631, , [address] Note: Patient information entered ??into a reminder system with a target due date for the next mammogram; PQRI II 0681F Dictating Physician: ??MIKE CORDERO MD Electronically Signed by: ??MIKE CORDERO MD Dic Date/Time: ??12/03/18 1723 Sign date/Time: ??12/03/18 1727 Procedure Note Mike Cordero - 05/23/2022 [facility] Diagnostic Imaging Department [address] [place] [address] Patient: MADYSON GRAHAM /Age/Sex: 1970 - 48 - F Unit#: [id number] Location/Status: SPDIMAM/REG CLI Mnemonic/Ordering Site: [facility] Ordering Physician: KAITLYNN GARRETT MD Jennifer [...] mammography. BIRADS category 1, negative examination, 3341F 65395, , [address] Note: Patient information entered into a reminder system with a targetdue date for the next mammogram; PQRI II 7025F Dictating Physician: MIKE CORDERO MD Electronically Signed by: MIKE CORDERO MD Dic Date/Time: 12/03/181722 Sign date/Time: 12/03/181726 Kaitlynn Garrett MD IMG BI PROCEDURES Final Resul t from Last 3 Months or Most Recently Relevant to Health Maintenance Care Teams Maths Tutor Relationship Specialty Start Date End Date Kaitlynn Garrett MD [address] [place] [address] [address] [place] PCP - General Internal Medicine 11/07/16
[2024-10-08 11:57] LABS: Basophils Absolute Auto 0.1 X10*3/uL (0.0-0.2); Basophils Percent Auto 1.1 % (0-2); Eosinophils Absolute Auto 0.4 X10*3/uL (0.0-0.4); Eosinophils Percent Auto 6.8 % (0-4); Hematocrit 41.9 % (37.0-47.0); Hemoglobin 13.4 g/dl (12.0-16.0); Imm Gran Abs Auto 0.02 X10*3/uL (0.00-0.03); Imm Gran Pct Auto 0.4 % (0.0-0.4); Lymphocytes Absolute Auto 1.9 X10*3/uL (1.2-4.9); Lymphocytes Percent Auto 34.3 % (20-40); Mean Corpuscular Hemoglobin 27.3 pg (27.0-33.0); Mean Corpuscular Volume 85.5 fL (80.0-98.0); Mean Platelet Volume 9.7 fL (9.4-12.3); Monocytes Absolute Auto 0.6 X10*3/uL (0.1-1.2); Monocytes Percent Auto 11.4 % (2-11); Neutrophils Absolute Auto 2.5 x10*3/uL (2.0-8.3); Platelet Count 329 X10*3/uL (160-400); White Blood Count 5.4 X10*3/uL (4.8-10.8)
[2024-10-08 12:03] LABS: Estimated Average Glucose 117 mg/dL; Hemoglobin A1C 134.8575 umol/L; Hemoglobin A1c % 5.7 % (<6.0)
[2024-10-08 12:40] LABS: Alanine Aminotransferase 42 U/L (0-31); Alkaline Phosphatase 78 U/L (39-117); Anion Gap 11 (12-20); Aspartate Amino Transferase 25 U/L (5-31); Bilirubin Total 0.7 mg/dL (0.0-1.0); Blood Urea Nitrogen 10 mg/dL (9-16); C Reactive Protein 1.15 mg/dL (< or = 0.50); Carbon Dioxide 28 mmol/L (22-29); Chloride 109 mmol/L (96-108); Cholesterol 207 mg/dL (<200); Estimated Glomerular Filt Rate > 60; Glucose Random 78 mg/dL (60-115); HDL Cholesterol 61 mg/dL (>40); Iron 62 mcg/dL (30-160); LDL Cholesterol Calculated 122 mg/dL (<100); Percent Iron Saturation 21 % (15-50); Sodium 144 mmol/L (135-145); Total Iron Binding Capacity 296 mcg/dL (228-428); Total Protein 7.6 g/dL (6.5-8.0); Triglycerides 121 mg/dL (<150); Unsaturated Iron Binding 234 ug/dL
[2024-10-08 13:05] LABS: Folate 6.4 ng/mL (> or = 4.0); Vitamin B12 310 pg/mL (200-900)
[2024-10-08 13:06] LABS: Ferritin 60 ng/mL (10-250); TSH reflex Free T4 1.75 uIU/mL (0.32-4.0); Vitamin D 25-OH Total 9.5 ng/mL (>30)
[2024-10-08 13:10] LABS: Insulin 12 uU/mL (2-29)
[2024-10-11 19:09] LABS: Zinc 63 mcg/dL (60-130)
[2024-10-15 06:28] LABS: Vitamin B1 11 nmol/L (8-30)
== END 2024-10-08 10:03 | disposition home or self-care (01) ==
LOC: HO.XRAY 10:02
PROVIDERS: Absent Provider Surgery; PCP Internal Medicine; Visit Provider Physician Assistant Surgical
DX: E66.01 Morbid (severe) obesity due to excess calories (principal); K21.9 Gastro-esophageal reflux disease without esophagitis; Z13.1 Encounter for screening for diabetes mellitus
CPT/HCPCS: 36415; 71046; 80053; 80061; 82306; 82607; 82728; 82746; 83036; 83525; 83540; 84425; 84443; 84590; 84630; 85025; 86140; 93005

== ENCOUNTER → 2024-10-08 10:44 | Outpatient (BNV) | payer OTHER, SELFPAY | PROVIDERS: Absent Provider Surgery; PCP Internal Medicine; Visit Provider Internal Medicine | DX: E66.01 Morbid (severe) obesity due to excess calories (principal) | CPT/HCPCS: 93010 ==

== ENCOUNTER → 2024-10-08 10:52 | Outpatient (BNV) | payer OTHER, SELFPAY | PROVIDERS: Absent Provider Surgery; PCP Internal Medicine; Visit Provider Radiology Diagnostic Radiology | DX: R91.8 Other nonspecific abnormal finding of lung field (principal) | CPT/HCPCS: 71046 ==

== ENCOUNTER 2024-10-13 08:12 | Outpatient (AMB) | payer OTHER, SELFPAY ==
--- NOTE | 2024-10-13 08:00 | A.OFFWM_ITS ---
Intake Intake Visit Reasons: TV BH Intake Allergies hydrocodone [From Vicodin] Allergy (Severe, Verified 10/02/24 10:11) NAUSEA,DIZZY sulfamethoxazole [From Bactrim] Allergy (Severe, Verified 10/02/24 10:11) Rash trimethoprim [From Bactrim] Allergy (Severe, Verified 10/02/24 10:11) Rash morphine Adverse Reaction (Severe, Verified 10/02/24 10:11) Chills oxycodone [From PERCOCET] Adverse Reaction (Severe, Verified 10/02/24 10:11) nausea,VOMITING PFSH Medical History (Updated 10/11/24 @ 22:52 by Haroon Rice MD) GERD (gastroesophageal reflux disease) Migraine HTN (hypertension) Obesity Arthritis Low back pain History of cellulitis Headache PVD (peripheral vascular disease) Numbness and tingling of both legs Elevated LFTs Fatty liver Ear infection Hx of pneumothorax Spondyloarthropathy Asthma Surgical History H/O colonoscopy History of esophagogastroduodenoscopy (EGD) History of cholecystectomy Hx of total hysterectomy with removal of both tubes and ovaries Hx of laminectomy History of lung surgery Family History Father Diabetes HTN (hypertension) Mother Stroke CVD (cardiovascular disease) Social History Household Members: Family Housing: Apartment Are you a primary nurse wound care to a significant other at home: No Do you presently have visiting nurse or other home services: No Alcohol intake: current Alcohol intake frequency: holidays/special occasions only Patient Tobacco Use Status: Never used Tobacco service: No Current occupational status: employed Behavioral Health Assessment Weight Management Therapy Therapy Notes Details The patient is a 54-year-old female presenting for her initial visit to begin a behavioral health (BH) assessment as part of the surgical weight loss program. She was referred to the program by her primary care provider (PCP). Last year, she was on weight-loss medication (Wegovy) for approximately six months and exp erienced a weight loss of about 30 pounds. Presenting Concerns Referral Source WMP-Provider. Reason for referral Completion of behavioral health assessment as part of process for weight-loss surgery. Precipitating Event Obesity. Food/Weight/Diet Expectations of change PT started the program at 304 lbs, and the initial goal is to lose 10% of her weight before surgery, which is about 30 lbs. Ultimate weight goal: 278 lbs before surgery. PT states her most recent weight as of 10/08/2024 was 302 lbs. The patient's goal is to be back at a weight where she can be active and live a normal life. She doesn't have a target weight goal, but wants to focus on physical health. PT is implementing the following: Current meal plan: Moderate plan - Using RightBMIapp - Combination of shakes, bars, and 1 meal. Exercise plan: Scale: Yes Communication with provider: Yes. History/Relationship with food PT reports she tends to skip meals, then meals would be with multiple carbs, and at times, dinner would be her biggest meal. Since she started We[employer]ream[employer] last year, she has cut down on portions. In her family, they o out to eat for celebrations, however, she tries to pick healthier options. PT denies stress-eating. Example of meals before starting the program: Breakfast: Skip, but always coffee with milk and sugar. Lunch: a sandwich or a salad. When out would be fast food like [employer]. Dinner: @6pm - homemade meals. Rice/beans and a type of meat with salad (potato salad, macaroni salad, or green salad) Snacks: yogurt. Not daily. Drinks/Liquids: Coffee: 1-2 per day. Soda: 3 cans at day (Pepsi). Juice: 1 cup in the morning. Energy Drinks: None. Water: 3-4 bottles at day. History/Relationship with weight PT reports she has always been a big girl . In HS she was around 170Lbs and after she had her first child at age 21 she passed the 200Lbs. PT report she was at 275 for several years, then she was put on prednisone 5 years ago, and during this year she gained about 80 lbs. In the last 10 years, the patient's Lowest weight has been 275Lbs and the highest 352Lbs (2023). History/Relationship with dieting Bethanyy 2023 - lost 30 lbs. Herbalife - Lost 10 Lbs. Slimfast OTC pill for metabolism and gym membership - lost lots of weight, but the medication damaged her gallbladder and then she gained weight. Social History Family history and relationship Pt has been for 4 years. She has 2 adult children from a previous relationship. She has 1 sister on her mom's side, she has 8 siblings on her dad's side. Father , mother is alive. PT reports very close family relationships. Parental/Familial director of workforce development obligations Her 82 year old mother who has medical issues and currently lives with her. Developmental history and status None reported. Currently WNL. Social support , children, mother. Family in general. Community support Some friends and her PCP. Islam/Spirituality Oriental Orthodox. Cultural/Ethnic information . Parents are from [place]. Legal Involvement and History Current or historical involvement with the legal system? None reported. Education Highest grade completed Associate Degree. Preferred learning style Verbal and Visual Currently enrolled in educational program? Yes Interested in further educational program? 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 ) Wants help to find employment? No Meaningful activities Travel, dance, decorating, and listening to music. Financial Situation Describe current financial situation Comfortable Financial assistance? None Service Service? No Questionnaires PHQ-9 Over the last 2 weeks, how often have you been bothered by any of the following problems? 1. Little interest or pleasure in doing things: not at all 2. Feeling down, depressed, or hopeless: not at all 3. Trouble falling or staying asleep, or sleeping too much: not at all 4. Feeling tired or having little energy: not at all 5. Poor appetite or overeating: not at all 6. Feeling bad about yourself - or that you are a failure or have let yourself or your family down: not at all 7. Trouble concentrating on things, such as reading the newspaper or watching television: not at all 8. Moving or speaking so slowly that other people could have noticed. Or the opposite - being so fidgety or restless that you have been moving around a lot more than usual: not at all 9. Thoughts that you would be better off or of hurting yourself in some way: not at all Total score: 0 Depression Screening Interpretation: Negative (From New PT pack completed on 09/15/24) Depression Screening Done: Yes Source: Developed by Drs. Nino Luna, Zamzam Dalton, Dilan Gonzalez and colleagues, with an educational yessy from [employer]. Assessment & Plan Assessment & Plan (1) Adjustment disorder: Code(s): F43.20 - Adjustment disorder, unspecified (2) Inappropriate diet or eating habits: Code(s): Z72.4 - Inappropriate diet and eating habits (3) Pre-bariatric surgery psychological evaluation: Code(s): Z71.89 - Other specified counseling Plan The patient has not yet been cleared, as the behavioral health assessment is still in progress. She is scheduled to follow up in two weeks to continue the evaluation. At the next visit, a new PHQ-9 will be administered, and the Binge Eating Scale (BES) will be reviewed. Next Appointment: 10/29/2024 at 9am, Telehealth. Telehealth Telehealth Telehealth Platform: [facility] Location of provider rendering services: other Location of patient: address on file Patient Identification confirmed using: Name, : Yes Telehealth method: voice only Patient verbally consented to treatment: Yes Patient verbally consented to billing insurance company: Yes Patient informed of any privacy concerns related to visit: Yes Minutes spent on Phone/Video with Pt.: 55 Coding Level of Care Code New Pt Tele Psy Diag Eval (71126) Patient Type New Diagnoses Adjustment disorder F43.20 Inappropriate diet or eating habits Z72.4 Pre-bariatric surgery psychological evaluation Z71.89 Time Spent (min) 55
--- OUTSIDE RECORDS SUMMARY | 2024-10-13 08:17 | XMS_ITS | Clinical Summary ---
[facility] Organization [facility] Address [address] [place] [address] Care Team Providers Care Payloader Operator Name Role Phone Kaitlynn Garrett MD Primary Care Provider [phone] Medical History Medical History Date Comments Asthma [...] Procedure Name Priority Date/Time Associated Diagnosis Comments [facility] SCREENING DIGITAL Routine 12/03/2018 5:27 PM EDT Encounter for screening mammogram for malignant neoplasm of breast from Last 3 Months or Most Recently Relevant to Health Maintenance Results * [facility] SCREENING DIGITAL (12/03/2018 5:27 PM EDT) Anatomical Region Laterality Modality Mammography 12/03/2018 3:09 PM EDT Narrative 12/03/2018 5:27 PM EDT [facility] Diagnostic Imaging Department [address] [place], [place] [address] Patient: ??GRAHAM,MADYSON ?/Age/Sex: 1970 - 48 - F Unit#: ??[id number] ? Location/Status: ??SPDIMAM/REG CLI ? Mnemonic/Ordering Site: [...] mammography. BIRADS category 1, negative examination, 3341F 30417, , [address]76 Note: Patient information entered ??into a reminder system with a target due date for the next mammogram; PQRI II 8410F Dictating Physician: ??MIKE CORDERO MD Electronically Signed by: ??MIKE CORDERO MD Dic Date/Time: ??12/03/18 1723 Sign date/Time: ??12/03/18 1727 Procedure Note Mike Cordero - 05/23/2022 [facility] Diagnostic Imaging Department [address] [place] [address] Patient: MADYSON GRAHAM /Age/Sex: 1970 - 48 - F Unit#: [id number] Location/Status: SPDIMAM/REG CLI Mnemonic/Ordering Site: [facility] Ordering Physician: KAITLYNN GARRETT MD [...] mammography. BIRADS category 1, negative examination, 3341F 77006, , 19308 Note: Patient information entered into a reminder system with a targetdue date for the next mammogram; PQRI II 7025F Dictating Physician: MIKE CORDERO MD Electronically Signed by: MIKE CORDERO MD Dic Date/Time: 12/03/181722 Sign date/Time: 12/03/181726 Kaitlynn Garrett MD IMG BI PROCEDURES Final Resul t from Last 3 Months or Most Recently Relevant to Health Maintenance Care Teams Payloader Operator Relationship Specialty Start Date End Date Kaitlynn Garrett MD [address] [place] [address] [address] [place] PCP - General Internal Medicine 11/07/16
== END 2024-10-13 09:04 | disposition home or self-care (01) ==
LOC: HO.HBST 08:12
PROVIDERS: PCP Internal Medicine; Visit Provider Counselor Mental Health
DX: F43.20 Adjustment disorder, unspecified (principal); Z72.4 Inappropriate diet and eating habits; Z71.89 Other specified counseling
CPT/HCPCS: 90791

== ENCOUNTER 2024-10-16 09:51 | Outpatient (AMB) | payer OTHER, SELFPAY ==
--- NOTE | 2024-10-16 09:52 | MHC.OFFVIS ---
Vital Signs 10/16/24 09:56 Height 5 ft 7 in Weight 304 lb 8 oz BMI 47.7 BP 163/89 H Blood Pressure Location Rt brachial Position Sitting Pulse 66 Pulse Source Pulse Oximeter Pulse Oximetry (%) 94 Oxygen Delivery Method Room Air Intake Visit Reasons: LEFT L4, L5 TFESI Intake Note: Pain today 01/10 Blocker Metal Base Required: No Accompanied by: Self / Same As Patient Allergies hydrocodone [From Vicodin] Allergy (Severe, Verified 10/02/24 10:11) NAUSEA,DIZZY sulfamethoxazole [From Bactrim] Allergy (Severe, Verified 10/02/24 10:11) Rash trimethoprim [From Bactrim] Allergy (Severe, Verified 10/02/24 10:11) Rash morphine Adverse Reaction (Severe, Verified 10/02/24 10:11) Chills oxycodone [From PERCOCET] Adverse Reaction (Severe, Verified 10/02/24 10:11) nausea,VOMITING HPI Comments Details: The patient is a 54-year-old female presenting for follow up 1 month s/p left L4-5 TFESI. She reports the injection about five weeks ago did not yield prolonged relief, leading to persistent and possibly exacerbated symptoms. The pain, which localizes predominantly to the left sacroiliac region, radiates into the buttock and was noted during various physical maneuvers during examination. Additionally, the patient reports coccygeal pain exacerbated by sitting and a history of arthritis. She also experiences discomfort in her thighs and has been managing weight issues, for which she recently began Zepbound, potentially contributing to muscle aches. The patient has a history of back pain due to previous falls and arthritis. Her current pain hampers movement, particularly after sitting, bending, or standing. She denies any recent physical trauma or constipation and does not report falling directly on her buttocks. Despite previous MRI findings suggesting no abnormality, nerve impairment has been noted, supporting the presence of ongoing neurological involvement. Thus, she has been advised for further diagnostic injections to clarify the pain origin and guide treatment. - Pain onset: Persistent, worsened after recent epidural injection five weeks ago. - Quality and Character: Dull and aching, becoming sharp with movement. - Primary Location: Left sacroiliac joint. - Radiation: Buttock and tailbone. - Aggravating Factors: Sitting, bending, standing for prolonged periods, and transitioning from seated. - Alleviating Factors: Lying down, resting. - Interference with Activities: Difficulty moving from sitting, pain when bending during activities such as showering, significant immobility after long periods of standing or walking. - Affect: Reports significant frustration and limitation in daily activities due to pain. - Analgesia: Previous epidural steroid injections with initial relief; now considering diagnostic sacroiliac injection without steroids. - Adverse Effects: Reports muscle aches potentially linked to Zepbound medication. - Activities of Daily Living: Pain restricts normal movement, causing difficulty with basic activities and transitions from sitting. - Aberrant Drug Related Behaviors: None reported. FORMERLY [facility], [facility] Medical History (Updated 10/16/24 @ 11:18 by Nataliya Larsen APRN, NETWORK ENGINEERING ADVISOR) GERD (gastroesophageal reflux disease) Migraine HTN (hypertension) Obesity Arthritis Low back pain History of cellulitis Headache PVD (peripheral vascular disease) Numbness and tingling of both legs Elevated LFTs Fatty liver Ear infection Hx of pneumothorax Spondyloarthropathy Asthma Surgical History H/O colonoscopy History of esophagogastroduodenoscopy (EGD) History of cholecystectomy Hx of total hysterectomy with removal of both tubes and ovaries Hx of laminectomy History of lung surgery Family History Father Diabetes HTN (hypertension) Mother Stroke CVD (cardiovascular disease) Social History Household Members: Family Housing: Apartment Are you a primary director of healthcare systems to a significant other at home: No Do you presently have visiting nurse or other home services: No Alcohol intake: current Alcohol intake frequency: holidays/special occasions only Patient Tobacco Use Status: Never used Tobacco service: No Current occupational status: employed Review of Systems Const Details: - Musculoskeletal: Reports persistent sacroiliac and coccygeal pain, worsened with prolonged standing and movement. - Neurological: Reports episodes of numbness and tingling in the left lower extremity. - Gastrointestinal: Denies constipation. - Genitourinary: Denies recent trauma or fall. Physical Exam Vital Signs: Last Vital Signs Pulse 66 10/16/24 09:56 BP 163/89 H 10/16/24 09:56 Pulse Ox 94 10/16/24 09:56 Oxygen Delivery Method Room Air 10/16/24 09:56 BMI result Body Mass Index 47.7 General: awake, alert, oriented. Answers questions appropriately. Fully engaged in examination. Skin: warm, dry, intact HEENT: Normocephalic. Hearing intact. Cardiac: External chest normal in appearance. Respiratory: No cough, audible wheezing or stridor. Abdomen: without gross distension. MS: No obvious swelling or deformities. Able to transition from sit to stand unassisted. Ambulates with bilaterally normal heel strike and toe off Tenderness over left PSIS. Pain with thigh thrust, [place], SI compression Neurological: Oriented to person, place, time and situation. Thought process intact. No gait abnormalities appreciated. Psychiatric: Appropriate mood and affect. Good judgment and insight. Results Reviewed Results Reviewed: 02/11/24 Left tibial and peroneal motor studies were performed. Left superficial peroneal, sural, median, and lateral plantar sensory studies were performed. Tibial H-reflex was obtained. Needle examination was performed. IMPRESSION: 1. Left lower lumbar radiculopathy. 2. Mild underlying sensory motor peripheral neuropathy. 01/27/24 MRI LS Assessment & Plan Assessment & Plan (1) Radiculopathy, lumbar region: Code(s): M54.16 - Radiculopathy, lumbar region Category: Medical (2) Lumbar spondylosis: Code(s): M47.816 - Spondylosis without myelopathy or radiculopathy, lumbar region Category: Medical (3) Sacroiliac joint dysfunction of left side: Code(s): M53.3 - Sacrococcygeal disorders, not elsewhere classified Category: Medical Plan A diagnostic injection is planned for the left sacroiliac joint without steroids to ascertain pain relief potential. If effective, consider steroid inclusion for subsequent treatments. Order new lumbar and sacroiliac joint X-rays with bending views to investigate back instability. Continue weight management strategies and monitor the patient's adaptation to Zepbound. Addressing sacroiliac joint dysfunction with precise diagnostics and weight management focus allows for a comprehensive approach to reducing pain impact and enhancing mobility in daily activities. We discussed performing a diagnostic injection on the left sacroiliac joint to potentially identify and relieve the pain source. If effective, this may be followed by steroid treatment. The importance of updated imaging, including X-rays with bending views, was emphasized to assess spinal stability. We outlined the role of weight management in alleviating symptoms and considered potential adjustments in medication if muscle aches persisted. The patient is informed about ongoing evaluations to ensure targeted interventions for both pain relief and functional enhancement. Will schedule for fluoroscopy guided left diagnostic sacroiliac joint injection with local anesthetic. Patient was informed and verbally consented to the use of an ambient scribe for clinic note documentation during this visit. Orders: Orders XR sacrum coccyx min 2V Today M53.3 - Sacrococcygeal disorders, not elsewhere classified XR lumbar spine 6V w bending Today M47.816 - Spondylosis without myelopathy or radiculopathy, lumbar region Coding Level of Care Code Est Pt Level 3 (54514) Complex EM visit Add On G2211 Diagnoses Radiculopathy, lumbar region M54.16 Lumbar spondylosis M47.816 Sacroiliac joint dysfunction of left side M53.3
[2024-10-16 09:56] VITALS: BP 163/89; PULSE 66; O2SAT 94; BMI 47.7
--- OUTSIDE RECORDS SUMMARY | 2024-10-16 10:08 | XMS_ITS | Clinical Summary ---
[facility] Organization [facility] Address [address] [place] [id number] Care Team Providers Care Digital Hardware Design Engineer Name Role Phone Kaitlynn Garrett MD Primary Care Provider [phone] Medical History Medical History Date Comments Asthma [...] Procedure Name Priority Date/Time Associated Diagnosis Comments [facility] SCREENING DIGITAL Routine 12/03/2018 5:27 PM EDT Encounter for screening mammogram for malignant neoplasm of breast from Last 3 Months or Most Recently Relevant to Health Maintenance Results * [facility] SCREENING DIGITAL (12/03/2018 5:27 PM EDT) Anatomical Region Laterality Modality Mammography 12/03/2018 3:09 PM EDT Narrative 12/03/2018 5:27 PM EDT [facility] Diagnostic Imaging Department [address] [place], [place] [id number] Patient: ??GRAHAM,MADYSON ?/Age/Sex: 1970 - 48 - F Unit#: ??[id number] ? Location/Status: ??SPDIMAM/REG CLI ? Mnemonic/Ordering Site: [...] mammography. BIRADS category 1, negative examination, 3341F [address]48, , [address]857 Note: Patient information entered ??into a reminder system with a target due date for the next mammogram; PQRI II 9261F Dictating Physician: ??MIKE CORDERO MD Electronically Signed by: ??MIKE CORDERO MD Dic Date/Time: ??12/03/18 1723 Sign date/Time: ??12/03/18 1727 Procedure Note Mike Cordero - 05/23/2022 [facility] Diagnostic Imaging Department [address] [place] [address] Patient: MADYSON GRAHAM /Age/Sex: 1970 - 48 - F Unit#: [id number] Location/Status: SPDIMAM/REG CLI Mnemonic/Ordering Site: [facility] Ordering Physician: KAITLYNN GARRETT MD Jennifer Screening [...] mammography. BIRADS category 1, negative examination, 3341F [address]93, , [address] Note: Patient information entered into a reminder system with a targetdue date for the next mammogram; PQRI II 7025F Dictating Physician: MIKE CORDERO MD Electronically Signed by: MIKE CORDERO MD Dic Date/Time: 12/03/181722 Sign date/Time: 12/03/181726 Kaitlynn Garrett MD IMG BI PROCEDURES Final Resul t from Last 3 Months or Most Recently Relevant to Health Maintenance Care Teams Digital Hardware Design Engineer Relationship Specialty Start Date End Date Kaitlynn Garrett MD [address] [place] [address] [phone] [place] PCP - General Internal Medicine 11/07/16
== END 2024-10-16 10:22 | disposition home or self-care (01) ==
LOC: HO.PMC 09:51
PROVIDERS: PCP Internal Medicine; Visit Provider Registered Nurse Emergency
DX: M54.16 Radiculopathy, lumbar region (principal); M47.816 Spondylosis without myelopathy or radiculopathy, lumbar region; M53.3 Sacrococcygeal disorders, not elsewhere classified
CPT/HCPCS: 99213

== ENCOUNTER 2024-10-16 09:51 | Outpatient (REF) | payer OTHER, SELFPAY ==
--- OUTSIDE RECORDS SUMMARY | 2024-10-16 10:58 | XMS_ITS | Clinical Summary ---
[facility] Organization [facility] Address [address] [place] [id number] Care Team Providers Care Dean Of Student Services Name Role Phone Kaitlynn Garrett MD Primary Care Provider [phone] Medical History Medical History Date Comments Asthma [...] Procedure Name Priority Date/Time Associated Diagnosis Comments [facility] SCREENING DIGITAL Routine 12/03/2018 5:27 PM EDT Encounter for screening mammogram for malignant neoplasm of breast from Last 3 Months or Most Recently Relevant to Health Maintenance Results * [facility] SCREENING DIGITAL (12/03/2018 5:27 PM EDT) Anatomical Region Laterality Modality Mammography 12/03/2018 3:09 PM EDT Narrative 12/03/2018 5:[address] [facility] Diagnostic Imaging Department [address] [place], [place] [id number] Patient: ??GRAHAM,MADYSON ?/Age/Sex: 1970 - 48 - F Unit#: ??[id number] ? Location/Status: ??SPDIMAM/REG CLI ? Mnemonic/Ordering Site: [...] mammography. BIRADS category 1, negative examination, 3341F [address]104, , [address] Note: Patient information entered ??into a reminder system with a target due date for the next mammogram; PQRI II 6864F Dictating Physician: ??MIKE CORDERO MD Electronically Signed by: ??MIKE CORDERO MD Dic Date/Time: ??12/03/18 1723 Sign date/Time: ??12/03/18 1727 Procedure Note Mike Cordero - 05/23/2022 [facility] Diagnostic Imaging Department [address] [place] [address] Patient: MADYSON GRAHAM /Age/Sex: 1970 - 48 - F Unit#: [id number] Location/Status: SPDIMAM/REG CLI Mnemonic/Ordering Site: [facility] Ordering Physician: KAITLYNN GARRETT MD [...] mammography. BIRADS category 1, negative examination, 3341F [address]8864, , [address] Note: Patient information entered into a reminder system with a targetdue date for the next mammogram; PQRI II 7025F Dictating Physician: MIKE CORDERO MD Electronically Signed by: MIKE CORDERO MD Dic Date/Time: 12/03/181722 Sign date/Time: 12/03/181726 Kaitlynn Garrett MD IMG BI PROCEDURES Final Resul t from Last 3 Months or Most Recently Relevant to Health Maintenance Care Teams Dean Of Student Services Relationship Specialty Start Date End Date Kaitlynn Garrett MD [address] [place] [address] [address] [place] PCP - General Internal Medicine 11/07/16
[2024-10-21 00:33] LABS: Vitamin A 40 mcg/dL (38-98)
== END 2024-10-16 09:52 | disposition home or self-care (01) ==
LOC: HO.LAB 09:51
PROVIDERS: Absent Provider Surgery; PCP Internal Medicine; Visit Provider Registered Nurse Emergency
DX: E66.01 Morbid (severe) obesity due to excess calories (principal); K21.9 Gastro-esophageal reflux disease without esophagitis
CPT/HCPCS: 36415; 84590

== ENCOUNTER 2024-10-22 12:47 | Day surgery (SDC) | payer OTHER, SELFPAY ==
[2024-10-20 12:08] VITALS: BMI 47.7
[2024-10-20 15:06] VITALS: BMI 47.6
--- NOTE | 2024-10-20 15:06 | P.CONAN_ITS ---
Documented by User: Eli Neff NP 10/20/24 15:06 HPI - Anesthesia Eval Consult details Narrative: 54yo F for Upper Endoscopy Anesthesia Pre-Procedure Meds Is the patient on any of the following meds?: GLP1/DPP4 PMFSH Active Problems Active Problems: All Active Problems Pre-op evaluation (Acute) Sacroiliac joint dysfunction of left side (Acute) Lumbar spondylosis (Acute) Abnormal chest xray (Acute) Vitamin B12 deficiency (Acute) Vitamin D deficiency (Acute) De Quervain's tenosynovitis, right (Acute) Radiculopathy, lumbar region (Acute) Carpal tunnel syndrome of right wrist (Acute) Osteoarthritis of left knee (Acute) Left leg paresthesias (Acute) Right elbow pain (Acute) Numbness and tingling in right hand (Acute) Left knee pain (Acute) Lymphedema (Acute) Varicose veins of left lower extremity with inflammation (Acute) Varicose veins of right lower extremity with inflammation (Acute) Right tennis elbow (Acute) Right rotator cuff tendonitis (Acute) Left lumbar radiculopathy (Acute) Morbid obesity (Acute) Cellulitis (Acute) Lumbar facet arthropathy (Acute) GERD (gastroesophageal reflux disease) (Acute) Spondyloarthropathy (Acute) Past Medical History Medical History GERD (gastroesophageal reflux disease) Migraine HTN (hypertension) Obesity Arthritis Low back pain History of cellulitis Headache PVD (peripheral vascular disease) Numbness and tingling of both legs Elevated LFTs Fatty liver Ear infection Hx of pneumothorax Spondyloarthropathy Asthma Family History Family History Father Diabetes HTN (hypertension) Mother Stroke CVD (cardiovascular disease) Family history of problems with anesthesia: No Surgical History Surgical History History of carpal tunnel surgery of right wrist (09/22/24) H/O colonoscopy History of esophagogastroduodenoscopy (EGD) History of cholecystectomy Hx of total hysterectomy with removal of both tubes and ovaries Hx of laminectomy History of lung surgery History of Problems with Anesthesia: No Social History Social History Household Members: Family Housing: Apartment Are you a primary care management assistant to a significant other at home: No Do you presently have visiting nurse or other home services: No Alcohol intake: current Alcohol intake frequency: holidays/special occasions only Patient Tobacco Use Status: Never used Tobacco Use of substances other than those prescribed or required for medical reasons: No Have you been hit, kicked, punched, or otherwise hurt by someone within the past year? If so, by whom?: No Are you DNR?: No Advance Directives: No (will bring dos) Advance Directives Information Provided: Yes Advance Directives on File: No Patient : No (hx hysterectomy) Poor oral hygiene: No service: No Current occupational status: employed Meds Allergies Allergy/AdvReac Type Severity Reaction Status Date / Time hydrocodone [From Vicodin] Allergy Severe NAUSEA,DIZZ Verified 10/02/24 10:11 Y sulfamethoxazole Allergy Severe Rash Verified 10/02/24 10:11 [From Bactrim] trimethoprim [From Bactrim] Allergy Severe Rash Verified 10/02/24 10:11 morphine AdvReac Severe Chills Verified 10/02/24 10:11 oxycodone [From PERCOCET] AdvReac Severe nausea,VOMI Verified 10/02/24 10:11 TING Home Medications ?Medication ?Instructions ?Recorded ?Confirmed ?Last Taken ?Type beclomethasone dipropionate 80 2 puff PO BID PRN Shortness Of 08/19/20 10/20/24 Unknown History mcg/actuation HFA breath activated Breath Or Wheezing aerosol (Qvar RediHaler) budesonide 180 mcg/actuation 2 inh inhalation Q4-6H PRN 08/19/20 10/20/24 Unknown History breath activated powder inhaler Shortness Of Breath Or Wheezing (Pulmicort Flexhaler) omeprazole 20 mg capsule,delayed 20 mg PO DAILY 09/15/24 10/20/24 Unknown History release Exam Height,Weight and Vital Signs: Height 5 ft 7 in Weight 138.232 kg Assessment and Plan Assessment Anesthesia Assessment: Chart Reviewed Final Anesthetic Review Family History of Problems with Anesthesia: No History of Problems with Anesthesia: No Documented by User: Tanisha Terrell MD 10/22/24 14:17 PMFSH Past Medical History Medical History GERD (gastroesophageal reflux disease) Migraine HTN (hypertension) Obesity Arthritis Low back pain History of cellulitis Headache PVD (peripheral vascular disease) Numbness and tingling of both legs Elevated LFTs Fatty liver Ear infection Hx of pneumothorax Spondyloarthropathy Asthma Family History Family History Father Diabetes HTN (hypertension) Mother Stroke CVD (cardiovascular disease) Surgical History Surgical History History of carpal tunnel surgery of right wrist (09/22/24) H/O colonoscopy History of esophagogastroduodenoscopy (EGD) History of cholecystectomy Hx of total hysterectomy with removal of both tubes and ovaries Hx of laminectomy History of lung surgery Social History Social History Household Members: Family Housing: Apartment Are you a primary care management assistant to a significant other at home: No Do you presently have visiting nurse or other home services: No Alcohol intake: current Alcohol intake frequency: holidays/special occasions only Patient Tobacco Use Status: Never used Tobacco Use of substances other than those prescribed or required for medical reasons: No Have you been hit, kicked, punched, or otherwise hurt by someone within the past year? If so, by whom?: No Are you DNR?: No Advance Directives: No (will bring dos) Advance Directives Information Provided: Yes Advance Directives on File: No Patient : No (hx hysterectomy) Poor oral hygiene: No service: No Current occupational status: employed Meds Allergies Allergy/AdvReac Type Severity Reaction Status Date / Time hydrocodone [From Vicodin] Allergy Severe NAUSEA,DIZZ Verified 10/02/24 10:11 Y sulfamethoxazole Allergy Severe Rash Verified 10/02/24 10:11 [From Bactrim] trimethoprim [From Bactrim] Allergy Severe Rash Verified 10/02/24 10:11 morphine AdvReac Severe Chills Verified 10/02/24 10:11 oxycodone [From PERCOCET] AdvReac Severe nausea,VOMI Verified 10/02/24 10:11 TING Home Medications ?Medication ?Instructions ?Recorded ?Confirmed ?Last Taken ?Type beclomethasone dipropionate 80 2 puff PO BID PRN Shortness Of 08/19/20 10/20/24 Unknown History mcg/actuation HFA breath activated Breath Or Wheezing aerosol (Qvar RediHaler) budesonide 180 mcg/actuation 2 inh inhalation Q4-6H PRN 08/19/20 10/20/24 Unknown History breath activated powder inhaler Shortness Of Breath Or Wheezing (Pulmicort Flexhaler) omeprazole 20 mg capsule,delayed 20 mg PO DAILY 09/15/24 10/20/24 Unknown History release Exam Airway Mallampati Class: III TM Dist: >3cm Neck ROM: Full Loose/Missing/Broken Teeth: No Heart: RRR Lungs: CTA Assessment and Plan Assessment Anesthesia Assessment: Anesthesia Plan Discussed Final Anesthetic Review NPO: Yes ASA Class: III Final Preanesthetic Review: Meds/Allgs Chart Reviewed, Consent Obtained/Reviewed and Anes Risks/Benef Reviewed Patient Risk: Intermediate Procedure Risk: Intermediate Anesthetic Plan Anesthetic Plan: MAC: Disposition: Standard PACU
[2024-10-22 12:52] VITALS: BP 171/95; PULSE 89; RESP 18; TEMP 36.9; O2SAT 97
[2024-10-22 13:21] VITALS: BMI 47.6
[2024-10-22] MEDS: Lactated Ringers 1,000 ML 100 ML IVCONT (13:34)
--- NOTE | 2024-10-22 13:46 | MHC.SHP ---
Pre-Procedural Eval Section A - 24 Hr Update-Section A only Date of Service: 10/22/24 The patient is an INPATIENT: No The patient has been examined within 24 hours of the surgical procedure. The History & Physical has been completed within 30 days and I have reviewed it.: Yes Section B - Complete if H&P > 30 days Chief Complaint: Morbid (severe) obesity due to excess calories Details of Present Illness: GERD Relevant Family History (Specify if Yes): No Relevant Social History: None Present Medications: None Medical History: No relevant PMH History of Previous Operations: No relevant previous surgery Allergies: Allergies Allergy/AdvReac Type Severity Reaction Status Date / Time hydrocodone [From Vicodin] Allergy Severe NAUSEA,DIZZ Verified 10/02/24 10:11 Y sulfamethoxazole Allergy Severe Rash Verified 10/02/24 10:11 [From Bactrim] trimethoprim [From Bactrim] Allergy Severe Rash Verified 10/02/24 10:11 morphine AdvReac Severe Chills Verified 10/02/24 10:11 oxycodone [From PERCOCET] AdvReac Severe nausea,VOMI Verified 10/02/24 10:11 TING Review of Systems Sugical H&P ROS: Negative: Constitution, Cardiovascular, Respiratory, Neurological, Psychiatric, Hem-Onc, Allergic/Immunologic, Gastrointestinal, Genitourinary, Musculoskeletal, Integumentary, Endocrine and Eyes/Ears/Nose/Throat Exam Surgical H&P Exam: Normal: HEENT, Normal: Heart, Normal: Lungs, Normal: Extremities, Normal: Abdomen, Normal: Skin and Normal: Neurological Plan Diagnosis/Plan: Unchanged (EGD to assess etiology of GERD. Risks of bleeding and perforation were discussed with the patient and she is in agreement with the plan.) I have reviewed the history and physical and performed a pertinent physical examination on my patient. No changes have occurred unless specified. Time Spent With Patient Time: Total time managing care of this patient today ____ minutes.
--- NOTE | 2024-10-22 13:48 | P.BOP_ITS ---
Brief Operative Note Date of Service: 10/22/24 Pre-op diagnosis: GERD Post-op diagnosis: same Procedure: PROCEDURE DATE: 10/22/2024 PREOPERATIVE DIAGNOSIS: GERD POSTOPERATIVE DIAGNOSIS: ?Same as above. 1) small diaphragmatic hernia PROCEDURE: Ponilhxc-pwqfyd-qhratukolzco with biopsies Surgeon: Qamar Rice M.D.. Ph.D. Brake Repairer Hydraulic: None ? Anesthesia: IV sedation Estimated blood loss: ?Minimal FINDINGS AND PROCEDURE: ? OPERATIVE INDICATIONS: ?The patient is a 54 year old female known to me who is interested in bariatric surgery. The patient has GERD. Based on this information I recommended an upper endoscopy to evaluate the patient's symptoms. Risks and complications of the surgery were discussed with the patient in advance particularly the possibility of perforation or bleeding that may require surgical intervention. The patient understood the risks and was in agreement with the plan. ? PROCEDURE: After informed consent was obtained by the patient, the patient was ?transferred to the Operating Room and was placed in the supine position.? After successful induction of IV sedation, a mouth block was inserted and the patient was placed in the left lateral decubitus position. An upper endoscopy was performed next, the oropharynx and esophagus appeared within the normal limits. There was a small 2cm diaphragmatic hernia. The z-line was smooth. Two biopsies were obtained from the distal esophagus 2-3 cm proximal to the GE junction and two additional biopsies from the GE junction. The stomach was entered and it appeared to be of normal size. There was mild gastritis at distal antrum. There was no stricture or ulcer. A biopsy was obtained from the distal antrum. No significant bleeding was noted from any of the biopsy sites. Retroflexion of the scope confirmed the presence of a small diaphragmatic hernia. The scope was then advanced into the duodenum which appeared to be normal as well. At that point the duodenum ?and the stomach were decompressed and the scope was withdrawn from the patient's mouth. The patient extubated and was transferred in stable condition to the Recovery Room for further care. I was present and performed all steps of the procedure. There were no residents to assist with this case. Skyler Rice M.D., Ph.D. Surgeon: Haroon Rice MD Anesthesia: MAC Was an Brake Repairer Hydraulic used for this Procedure?: No Estimated blood loss (mL): 0 IV fluids (mL): 400 Urine output (mL): 0 (Albert Casey to record output) Pathology: other (1) antrum x1, 2) fundus x1, 3) GE junction x2, 4) distal esophagus x2) Condition: stable Disposition: PACU
[2024-10-22 14:27] VITALS: BP 113/52; PULSE 76; RESP 18; TEMP 36.5; O2SAT 95
[2024-10-22 14:42] VITALS: BP 121/59; PULSE 73; RESP 16; O2SAT 96
[2024-10-22 14:56] VITALS: BP 123/67; PULSE 67; RESP 20; TEMP 36.4; O2SAT 95
== END 2024-10-22 15:24 | disposition home or self-care (01) ==
PROVIDERS: PCP Internal Medicine; Visit Provider Surgery
PROC: 0DJ08ZZ Inspection of Upper Intestinal Tract, Via Natural or Artificial Opening Endoscopic (ICD-10-PCS; CPT 43235; principal; 2024-10-22 14:30)
DX: K21.9 Gastro-esophageal reflux disease without esophagitis (principal); E66.01 Morbid (severe) obesity due to excess calories; Z68.42 Body mass index [BMI] 45.0-49.9, adult; K29.50 Unspecified chronic gastritis without bleeding; K29.60 Other gastritis without bleeding; K44.9 Diaphragmatic hernia without obstruction or gangrene; I10 Essential (primary) hypertension; I73.9 Peripheral vascular disease, unspecified; K76.0 Fatty (change of) liver, not elsewhere classified; R79.89 Other specified abnormal findings of blood chemistry; M54.50 Low back pain, unspecified; M47.9 Spondylosis, unspecified; R20.0 Anesthesia of skin; R20.2 Paresthesia of skin; M19.90 Unspecified osteoarthritis, unspecified site; J45.909 Unspecified asthma, uncomplicated; Z79.1 Long term (current) use of non-steroidal anti-inflammatories (NSAID); Z79.899 Other long term (current) drug therapy; Z88.2 Allergy status to sulfonamides; Z88.5 Allergy status to narcotic agent
CPT/HCPCS: 43239; 88305; 88313; 88342; J2003; J2704

== ENCOUNTER → 2024-10-22 12:47 | Outpatient (BNV) | payer OTHER, SELFPAY | PROVIDERS: PCP Internal Medicine; Visit Provider Surgery | DX: K44.9 Diaphragmatic hernia without obstruction or gangrene (principal); K29.70 Gastritis, unspecified, without bleeding | CPT/HCPCS: 43239 ==

== ENCOUNTER 2024-10-29 10:34 | Outpatient (AMB) | payer OTHER, SELFPAY ==
--- NOTE | 2024-10-29 10:30 | MHC.WMTHER ---
Intake Intake Visit Reasons: TV BH Intake Part 2 Allergies hydrocodone [From Vicodin] Allergy (Severe, Verified 10/02/24 10:11) NAUSEA,DIZZY sulfamethoxazole [From Bactrim] Allergy (Severe, Verified 10/02/24 10:11) Rash trimethoprim [From Bactrim] Allergy (Severe, Verified 10/02/24 10:11) Rash morphine Adverse Reaction (Severe, Verified 10/02/24 10:11) Chills oxycodone [From PERCOCET] Adverse Reaction (Severe, Verified 10/02/24 10:11) nausea,VOMITING PFSH Medical History GERD (gastroesophageal reflux disease) Migraine HTN (hypertension) Obesity Arthritis Low back pain History of cellulitis Headache PVD (peripheral vascular disease) Numbness and tingling of both legs Elevated LFTs Fatty liver Ear infection Hx of pneumothorax Spondyloarthropathy Asthma Surgical History History of carpal tunnel surgery of right wrist (09/22/24) H/O colonoscopy History of esophagogastroduodenoscopy (EGD) History of cholecystectomy Hx of total hysterectomy with removal of both tubes and ovaries Hx of laminectomy History of lung surgery Family History Father Diabetes HTN (hypertension) Mother Stroke CVD (cardiovascular disease) Social History Household Members: Family Housing: Apartment Are you a primary customer care coordinator to a significant other at home: No Do you presently have visiting nurse or other home services: No Alcohol intake: current Alcohol intake frequency: holidays/special occasions only Patient Tobacco Use Status: Never used Tobacco service: No Current occupational status: employed Behavioral Health Assessment Weight Management Therapy Therapy Notes Details The patient is a 54-year-old female attending a follow-up visit to complete a behavioral health assessment as part of the surgical weight loss program. She was referred to this program by her primary care provider. Last year, she was on Wegovy for approximately six months, resulting in a weight loss of about 30 pounds. The patient denies any history of mental health treatment, hospitalization, or crisis related to behavioral health. She also reports no history or recent concerns regarding suicidal ideation, suicide attempts, self-harm, or harm to others. Additionally, there is no reported history of substance use. The patient does not exhibit stress or emotional eating, and her Binge Eating Scale (BES) scores indicate a low risk for binge eating behavior. The Patient Health Questionnaire (PHQ) scores reveal no active symptoms or concerns related to depression. Furthermore, her mental status examination is within normal limits, indicating unimpaired functioning. At this time, the patient is cleared from a behavioral health standpoint. Presenting Concerns Referral Source WMP-Provider. Reason for referral Completion of behavioral health assessment as part of process for weight-loss surgery. Precipitating Event Obesity. Living Situation Current Living Situation Rent At risk of losing current housing? No Satisfied with current living situation? Yes Comments PT lives with her , mother and daughter. Food/Weight/Diet Expectations of change PT started the program at 304 lbs, and the initial goal is to lose 10% of her weight before surgery, which is about 30 lbs. Ultimate weight goal: 278 lbs before surgery. weight as of 10/08/2024: 302 lbs. Weight as of 10/25/2024: 294.6Lbs The patient's goal is to be back at a weight where she can be active and live a normal life. She doesn't have a target weight goal, but wants to focus on physical health. PT is implementing the following: Current meal plan: Moderate plan - Using RightBMIapp - Combination of shakes, bars, and 1 meal. Exercise plan: outdoor walking. Scale: Yes Communication with provider: Yes. History/Relationship with food PT reports she tends to skip meals, then meals would be with multiple carbs, and at times, dinner would be her biggest meal. Since she started [employer] last year, she has cut down on portions. In her family, they o out to eat for celebrations, however, she tries to pick healthier options. PT denies stress-eating. Example of meals before starting the program: Breakfast: Skip, but always coffee with milk and sugar. Lunch: a sandwich or a salad. When out would be fast food like [employer]. Dinner: @6pm - homemade meals. Rice/beans and a type of meat with salad (potato salad, macaroni salad, or green salad) Snacks: yogurt. Not daily. Drinks/Liquids: Coffee: 1-2 per day. Soda: 3 cans at day (Pepsi). Juice: 1 cup in the morning. Energy Drinks: None. Water: 3-4 bottles at day. History/Relationship with weight PT reports she has always been a big girl . In HS she was around 170Lbs and after she had her first child at age 21 she passed the 200Lbs. PT report she was at 275 for several years, then she was put on prednisone 5 years ago, and during this year she gained about 80 lbs. In the last 10 years, the patient's Lowest weight has been 275Lbs and the highest 352Lbs (2023). History/Relationship with dieting Violeta 2023 - lost 30 lbs. Herbalife - Lost 10 Lbs. Slimfast OTC pill for metabolism and gym membership - lost lots of weight, but the medication damaged her gallbladder and then she gained weight. Binge Eating Do you frequently eat large amounts of food in short periods of time, not feeling physically hungry? No Do you feel out of control when you eat a large amount of food in a short period of time? No Do you eat large amounts of food rapidly and typically alone? No Night Eating Do you wake up at least once during the night to eat? No If you wake up in the night, do you find that it is necessary to eat something in order to fall back asleep? No Do you have little or no appetite in the morning and feel very hungry in the evening, often overeating between dinner and when you go to bed? No Social History Family history and relationship Pt has been for 4 years. She has 2 adult children from a previous relationship. She has 1 sister on her mom's side, she has 8 siblings on her dad's side. Father , mother is alive. PT reports very close family relationships. Parental/Familial steam conditioner filling obligations Her 82 year old mother who has medical issues and currently lives with her. Developmental history and status None reported. Currently WNL. Social support , children, mother. Family in general. Community support Some friends and her PCP. Spiritism/Spirituality Rastafarian. Cultural/Ethnic information . Parents are from [place]. Legal Involvement and History Current or historical involvement with the legal system? None reported. Education Highest grade completed Associate Degree. Preferred learning style Verbal and Visual Currently enrolled in educational program? Yes Interested in further educational program? 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 ) Wants help to find employment? No Meaningful activities Travel, dance, decorating, and listening to music. Financial Situation Describe current financial situation Comfortable Financial assistance? None Service Service? No Mental Health and Addiction Treatment Current/Past substance abuse? No Comments Alcohol:1-2 month, mix drinks/cocktails no more than 2. Cigarettes/Tobacco: none. Vaping: None Cannabis/Edibles: none. Current/Past addictive behavior concerns? No Psychiatric history PT reports she has never been in counseling, denies ever been in crisis or inpatient for mental health. There is no history and/or current concern about SI/SA and self-harm or other harm. Medical and Physical Health Summary Additional Medical History not covered in history None reported. Sexual History concerns None reported. Physical exam in the last year? Yes (Due in january/2025.) Pain Screening Current pain? Yes Pain in the last few months? Yes Comments the one that bothers her the most is lower back pain is daily. She wakes up in pain most days, there are days she can't walk too much or stand for so long. Medications Is the patient compliant with medications? Yes Does the patient have Maldonado Guardian in place? Not applicable Does the patient use complimentary health approaches? No Trauma/Abuse History History of trauma? No Questionnaires PHQ-9 Over the last 2 weeks, how often have you been bothered by any of the following problems? 1. Little interest or pleasure in doing things: not at all 2. Feeling down, depressed, or hopeless: not at all 3. Trouble falling or staying asleep, or sleeping too much: not at all 4. Feeling tired or having little energy: not at all 5. Poor appetite or overeating: not at all 6. Feeling bad about yourself - or that you are a failure or have let yourself or your family down: not at all 7. Trouble concentrating on things, such as reading the newspaper or watching television: not at all 8. Moving or speaking so slowly that other people could have noticed. Or the opposite - being so fidgety or restless that you have been moving around a lot more than usual: not at all 9. Thoughts that you would be better off or of hurting yourself in some way: not at all Total score: 0 Depression Screening Interpretation: Negative Depression Screening Done: Yes 65509 - PHQ-9 Billing: Yes Source: Developed by Drs. Nino Luna, Zamzam Dalton, Dilan Gonzalez and colleagues, with an educational yessy from [employer]. Binge Eating Scale Group 1 A. I don't feel self-conscious about my wt. or body size when I'm with others. B. I feel concerned about how I look to others, but it normally does not make me fell disappointed with myself C. I do get self-conscious about my appearance and wt. which makes me feel disappointed in myself. D. I feel very self-conscious about my wt. and frequently I feel intense shame and disgust for myself. I try to avoid social contacts because of my self-consciousness. Response Group 1: C Group 2 A. I don't have any difficulty eating slowly in the proper manner. B. Although I seem to gobble down foods, I don't end up feeling stuffed because of eating to much. C. At times, I tend to eat quickly and then, I feel uncomfortably full afterwards. D. I have the habit of bolting down my food, without really chewing it. When this happens I usually feel uncomfortably stuffed because I've eaten to much. Response Group 2: A Group 3 A. I feel capable to control my eating urges when I want to. B. I feel like I have failed to control my eating more than the average person. C. I feel utterly helpless when it comes to feeling in control of my eating urges. D. Because I feel so helpless about controlling my eating I have become very desperate about trying to get control. Response Group 3: A Group 4 A. I don't have the habit of eating when I'm bored. B. I sometimes eat when I'm bored, but often I'm able to get busy and get my mind off food. C. I have a regular habit of eating when I'm bored, but occasionally, I can use some other activity to get my mind off eating. D. I have a strong habit of eating when I'm bored. Nothing seems to help me breath the habit. Response Group 4: A Group 5 A. I'm usually physically hungry when I eat something. B. Occasionally, I eat something on impulse even though I really am not hungry. C. I have the regular habit of eating foods, that I might not really enjoy, to satisfy a hungry feeling even though physically, I don't need the food. D. Although I'm not physically hungry, I get a hungry feeling in my mouth that only seems to be satisfied when I eat a food, like sandwich, that fills my mouth. Sometimes, when I eat the food to satisfy my mouth hunger, I then spit the food out so I won't gain weight. Response Group 5: A Group 6 A. I don't feel any guilt or self-hate after I overeat. B. After I overeat, occasionally I feel guilt or self-hate. C. Almost all the time I experience strong guilt or self-hate after I overeat. Response Group 6: A Group 7 A. I don't lose total control of my eating when dieting even after periods when I overeat. B. Sometimes when I eat a forbidden food on a diet, I feel like I blew it and eat even more. C. Frequently, I have the habit of saying to myself, I've blown it now, why not go all the way, when I overeat on a diet. When that happens I eat more. D. I have a regular habit of starting a strict diets for myself but I break the diets by going on an eating binge. My life seems to be either a feast or famine. Response Group 7: A Group 8 A. I rarely eat so much food that I feel uncomfortably stuffed afterwards. B. Usually about once a month, I each such a quantity of food, I end up feeling very stuffed. C. I have regular periods during the month when I eat large amounts of food, either at mealtime or at snacks. D. I eat so much food that I regularly feel quite uncomfortable after eating and sometimes a bit nauseous. Response Group 8: A Group 9 A. My level of calorie intake does not go up very high or go down very low on a regular basis. B. Sometimes after I overeat, I will try to reduce my caloric intake to almost nothing to compensate for the excess calories I've eaten. C. I have a regular habit of overeating during the night. It seems that my routine is not to be hungry in the morning but overeat in the evening. D. In my adult years, I have had week-long periods where I practically starve myself. This follows periods when I overeat. It seems I live a life of either feast or famine. Response Group 9: A Group 10 A. I usually am able to stop eating when I want to. I know when enough is enough. B. Every so often, I experience a compulsion to eat which I can't seem to control. C. Frequently, I experience strong urges to eat which I seem unable to control, but at other times I can control my eating urges. D. I feel incapable of controlling urges to eat. I have a fear of not being able to stop eating voluntarily. Response Group 10: A Group 11 A. I don't have any problem stopping eating when I feel full. B. I usually can stop eating when I feel full but occasionally overeat leaving me feeling uncomfortably stuffed. C. I have a problem stopping eating once I start and usually I feel uncomfortably stuffed after I eat a meal. D. Because I have a problem not being able to stop eating when I want, I sometimes have to induce vomiting to relieve my stuffed feeling. Response Group 11: A Group 12 A. I seem to eat just as much when I'm with others, Family social gatherings as when I'm by myself. B. Sometimes, when I'm with other persons, I don't eat as much as I want to eat because I'm self-conscious about my eating. C. Frequently, I eat only a small amount of food when others are present, because I'm very embarrassed about my eating. D. I feel so ashamed about overeating that I pick times to overeat when I know no one will see me. I feel like a closet eater. Response Group 12: B Group 13 A. I eat three meals a day with only an occasional between meal snack. B. I eat 3 meals a day, but I also normally snack between meals. C. When I am snacking heavily, I get in the habit of skipping regular meals. D. There are regular periods when I seem to be continually eating, with no planned meals. Response Group 13: A Group 14 A. I don't think much about trying to control unwanted eating urges. B. At least some of the time, I feel my thoughts are pre-occupied with trying to control my eating urges. C. I feel that frequently I spend much time thinking about how much I ate or about trying not to eat anymore. D. It seems to me that most of my waking hours are pre-occupied by thoughts about eating or not eating. I feel like I'm constantly struggling not to eat. Response Group 14: A Group 15 A. I don't think about food a great deal. B. I have strong craving for food but they last only for brief periods of time. C. I have days when I can't seem to think about anything else but food. D. Most of my days seem to be pre-occupied with thoughts about food. I feel like I live to eat. Response Group 15: A Group 16 A. I usually know whether or not I'm physically hungry. I take the right portion of food to satisfy me. B. Occasionally, I feel uncertain about knowing whether or not I'm physically hungry. A these times it's hard to know how much food I should take to satisfy me. C. Even though I might know how many calories I should eat, I don't have any idea what is a normal amount of food for me. Response Group 16: A Binge Eating Score: 3 Score less than 17 Minimal Risk Score between 18-26 Moderate Risk Score between 27-46 High Risk Assessment & Plan Assessment & Plan (1) Adjustment disorder: Code(s): F43.20 - Adjustment disorder, unspecified (2) Inappropriate diet or eating habits: Code(s): Z72.4 - Inappropriate diet and eating habits (3) Pre-bariatric surgery psychological evaluation: Code(s): Z71.89 - Other specified counseling Plan The patient has been cleared from a behavioral health standpoint and is ready to be submitted for insurance approval. She will be scheduled for a follow-up visit 2-4 weeks post-surgery for continued behavioral health support. Telehealth Telehealth Telehealth Platform: Telephone Location of provider rendering services: practice address Location of patient: address on file Patient Identification confirmed using: Name, : Yes Telehealth method: voice only Patient verbally consented to treatment: Yes Patient verbally consented to billing insurance company: Yes Patient informed of any privacy concerns related to visit: Yes Minutes spent on Phone/Video with Pt.: 40 Coding Level of Care Code Established Pt Tele Psytx 45 mins (53321) Patient Type Established Diagnoses Adjustment disorder F43.20 Inappropriate diet or eating habits Z72.4 Pre-bariatric surgery psychological evaluation Z71.89 Additional Codes PHQ-9 - 39399 - PHQ-9 Billing: Yes ([id number]) Time Spent (min) 40
--- OUTSIDE RECORDS SUMMARY | 2024-10-29 11:01 | XMS_ITS | Clinical Summary ---
[facility] Organization [facility] Address [address] [place] [address] Care Team Providers Care Setter Induction Heating Equipment Name Role Phone Kaitlynn Garrett MD Primary Care Provider [phone] Medical History Medical History Date Comments Asthma [...] Procedure Name Priority Date/Time Associated Diagnosis Comments [facility] SCREENING DIGITAL Routine 12/03/2018 5:27 PM EDT Encounter for screening mammogram for malignant neoplasm of breast from Last 3 Months or Most Recently Relevant to Health Maintenance Results * [facility] SCREENING DIGITAL (12/03/2018 5:27 PM EDT) Anatomical Region Laterality Modality Mammography 12/03/2018 3:09 PM EDT Narrative 12/03/2018 5:27 PM EDT [facility] Diagnostic Imaging Department [address] [place], [place] [address] Patient: ??GRAHAM,MADYSON ?/Age/Sex: 1970 - 48 - F Unit#: ??[id number] ? Location/Status: ??SPDIMAM/REG CLI ? Mnemonic/Ordering Site: [...] mammography. BIRADS category 1, negative examination, 3341F 56514, , 59451 Note: Patient information entered ??into a reminder system with a target due date for the next mammogram; PQRI II 1978F Dictating Physician: ??MIKE CORDERO MD Electronically Signed by: ??MIKE CORDERO MD Dic Date/Time: ??12/03/18 1723 Sign date/Time: ??12/03/18 1727 Procedure Note Mike Cordero - 05/23/2022 [facility] Diagnostic Imaging Department [address] [place] [address] Patient: MADYSON GRAHAM /Age/Sex: 1970 - 48 - F Unit#: [id number] Location/Status: SPDIMAM/REG CLI Mnemonic/Ordering Site: [facility] Ordering Physician: KAITLYNN GARRETT MD Jennifer [...] mammography. BIRADS category 1, negative examination, 3341F 29869, , 50995 Note: Patient information entered into a reminder system with a targetdue date for the next mammogram; PQRI II 7025F Dictating Physician: MIKE CORDERO MD Electronically Signed by: MIKE CORDERO MD Dic Date/Time: 12/03/181722 Sign date/Time: 12/03/181726 Kaitlynn Garrett MD IMG BI PROCEDURES Final Resul t from Last 3 Months or Most Recently Relevant to Health Maintenance Care Teams Setter Induction Heating Equipment Relationship Specialty Start Date End Date Kaitlynn Garrett MD [address] [place] [address] [address] [place] PCP - General Internal Medicine 11/07/16
== END 2024-10-29 11:11 | disposition home or self-care (01) ==
LOC: HO.HBST 10:34
PROVIDERS: PCP Internal Medicine; Visit Provider Counselor Mental Health
DX: F43.20 Adjustment disorder, unspecified (principal); Z72.4 Inappropriate diet and eating habits; Z71.89 Other specified counseling
CPT/HCPCS: 90834

== ENCOUNTER 2024-11-13 08:13 | Outpatient (REF) | payer SELFPAY ==
--- NOTE | ~2024-11-13 | US_ITS ---
EXAMINATION: US ABDOMEN COMPLETE WITH LIVER ELASTOGRAPHY HISTORY: E66.01 - Morbid (severe) obesity due to excess calories TECHNIQUE: Real-time grayscale ultrasound imaging of the abdomen was performed and images were reviewed. COMPARISON: Comparison is made with the prior examination dated 01/22/2020. FINDINGS: Liver: The right lobe of the liver measures 17.1 cm in size. The left lobe of the liver measures 12.5 cm in size. The liver demonstrates increased echotexture, consistent with steatosis. No focal mass or intrahepatic biliary ductal dilatation is identified. There is normal hepatopedal flow in the portal vein. Ultrasound elastography of the liver was performed with 10 separate measurements of the liver parenchyma with the patient in the supine position. Measurements were obtained approximately 2 cm below Brandon's capsule and perpendicular to the capsule. The median shear wave velocity is 1.13 m/s. The interquartile range/median (IQR/median) is 0.24. Gallbladder and biliary tree: The gallbladder is surgically absent. The common bile duct is normal in caliber measuring 4 mm. Kidneys: The right kidney measures 11.3 cm in length. The left kidney measures 10.6 cm in length. The kidneys are unremarkable, without evidence of masses, hydronephrosis, or calculi. Pancreas: The pancreatic head, neck, and body are unremarkable. The pancreatic tail is obscured by bowel gas. Spleen: The spleen is normal in size and contour, measuring 8.8 cm in length. Abdominal aorta and inferior vena cava: The visualized portions of the abdominal aorta and inferior vena cava are normal in caliber. There is no free fluid in the abdomen. US/US abdomen comp w elastography IMPRESSION: Hepatomegaly and hepatic steatosis. The median shear wave velocity in the liver is 1.13 m/s, corresponding to a median liver stiffness of 3.87 kPa. The IQR/median value is 0.24. This is indicative of a poor quality data set, and the estimated liver stiffness may be unreliable. Findings are indicative of a normal elastography value with a low likelihood of severe fibrosis or cirrhosis. REFERENCE: Society of Radiologists in Ultrasound Liver Stiffness Thresholds (2019): LIVER STIFFNESS THRESHOLDS: *Shear wave velocity less than 1.3 m/s (Liver Stiffness equal or less than 5 kPa): High probability of being normal. *Shear wave velocity less than 1.7 m/s (Liver Stiffness less than 9 kPa): In the absence of other known clinical signs, rules out compensated advanced chronic liver disease. *Shear wave velocity between 1.7-2.1 m/s (Liver Stiffness 9-13 kPa): Suggestive of compensated advanced chronic liver disease but need further test for confirmation. *Shear wave velocity between 2.1-2.4 m/s (Liver Stiffness 13-17 kPa): Rules in compensated advanced chronic liver disease. *Shear wave velocity greater than 2.4 m/s (Liver Stiffness over 17 kPa): Suggestive of clinically significant portal hypertension. QUALITY OF DATA SET: *IQR/Median value equal or less than 0.15 implies a quality data set. *IQR/Median value over 0.15 implies a poor quality data set. SIGNIFICANT CHANGE FROM PRIOR EXAM: Significant change if liver stiffness measurement is 10% or greater from prior exam. OTHER CONSIDERATIONS: The stage of liver fibrosis may be overestimated in the setting of acute hepatitis, liver inflammation, elevated liver function tests, hepatic vascular congestion, obstructive cholestasis, non-fasting state, and infiltrative diseases such as amyloidosis and lymphoma. In some patients with NAFLD, the liver stiffness thresholds for compensated advanced chronic liver disease may be lower. In causes other than viral hepatitis and NAFLD, liver stiffness thresholds are not well established. Electronically signed by: Nino Barrera MD 11/13/2024 09:16 AM EDT
--- OUTSIDE RECORDS SUMMARY | 2024-11-13 08:19 | XMS_ITS | Clinical Summary ---
[facility] Organization [facility] Address [address] [place] [address] Care Team Providers Care Metal Furniture Glazier Name Role Phone Kaitlynn Garrett MD Primary Care Provider [phone] Medical History Medical History Date Comments Asthma [...] Procedure Name Priority Date/Time Associated Diagnosis Comments [facility] SCREENING DIGITAL Routine 12/03/2018 5:27 PM EDT Encounter for screening mammogram for malignant neoplasm of breast from Last 3 Months or Most Recently Relevant to Health Maintenance Results * [facility] SCREENING DIGITAL (12/03/2018 5:27 PM EDT) Anatomical Region Laterality Modality Mammography 12/03/2018 3:09 PM EDT Narrative 12/03/2018 5:27 PM EDT [facility] Diagnostic Imaging Department [address] [place], [place] [id number] Patient: ??GRAHAM,MADYSON ?/Age/Sex: 1970 - 48 - F Unit#: ??[id number] ? Location/Status: ??SPDIMAM/REG CLI ? Mnemonic/Ordering Site: [...] mammography. BIRADS category 1, negative examination, 3341F 43724, , 98991 Note: Patient information entered ??into a reminder system with a target due date for the next mammogram; PQRI II 0318F Dictating Physician: ??MIKE CORDERO MD Electronically Signed by: ??MIKE CORDERO MD Dic Date/Time: ??12/03/18 1723 Sign date/Time: ??12/03/18 1727 Procedure Note Mike Cordero - 05/23/2022 [facility] Diagnostic Imaging Department [address] [place] [address] Patient: MADYSON GRAHAM /Age/Sex: 1970 - 48 - F Unit#: [id number] Location/Status: SPDIMAM/REG CLI Mnemonic/Ordering Site: [facility] Ordering Physician: KAITLYNN GARRETT MD [...] mammography. BIRADS category 1, negative examination, 3341F 32981, , 27348 Note: Patient information entered into a reminder system with a targetdue date for the next mammogram; PQRI II 7025F Dictating Physician: MIKE CORDERO MD Electronically Signed by: MIKE CORDERO MD Dic Date/Time: 12/03/181722 Sign date/Time: 12/03/181726 Kaitlynn Garrett MD IMG BI PROCEDURES Final Resul t from Last 3 Months or Most Recently Relevant to Health Maintenance Care Teams Metal Furniture Glazier Relationship Specialty Start Date End Date Kaitlynn Garrett MD [address] [place] [address] 216 [place] PCP - General Internal Medicine 11/07/16
== END 2024-11-13 08:14 | disposition home or self-care (01) ==
LOC: HO.US 08:13
PROVIDERS: PCP Internal Medicine; Visit Provider Surgery
DX: E66.01 Morbid (severe) obesity due to excess calories (principal); K21.9 Gastro-esophageal reflux disease without esophagitis
CPT/HCPCS: 76700; 76981

== ENCOUNTER → 2024-11-13 08:17 | Outpatient (BNV) | payer SELFPAY | PROVIDERS: PCP Internal Medicine; Visit Provider Radiology Diagnostic Radiology | DX: R16.0 Hepatomegaly, not elsewhere classified (principal) | CPT/HCPCS: 76700 ==

== ENCOUNTER 2024-11-16 14:31 | Outpatient (REF) | payer OTHER, SELFPAY ==
--- NOTE | ~2024-11-16 | XR_ITS ---
EXAMINATION: XR LUMBOSACRAL SPINE CLINICAL INFORMATION: M47.816 - Spondylosis without myelopathy or radiculopathy, lumbar region COMPARISON: December 22, 2019 TECHNIQUE: 6 views of the lumbar spine, inclusive of flexion and extension views, were obtained. FINDINGS: Clips in the upper quadrant related to prior cholecystectomy. There are 5 nonrib-bearing lumbar segments. There is sacralization of the fifth lumbar segment with enlarged transverse processes that may pseudoarticulating with the superior sacrum, greater on the left. L1-2: There is minimal disc space narrowing L2-3: There is a stable subtle retrolisthesis. There is abutment of the spinous processes on the neutral view and sclerosis. L3-4: There is mild grade 1 anterolisthesis, stable. There is mild disc space narrowing and mild facet sclerosis. L4-5: Disc spaces preserved. There is facet sclerosis and osteophytes. L5-S1: There is mild disc space narrowing and facet sclerosis. No evidence of instability during flexion and extension. XR/XR lumbar spine 6V w bending IMPRESSION: Multilevel degenerative disc disease and facet arthropathy, described above, and increased since the prior. L2-3: Possible abutment of the spinous processes which can be symptomatic. Sacralized L5 segment. Electronically signed by: Tyler Duarte MD 11/16/2024 04:56 PM EDT
--- NOTE | ~2024-11-16 | CT_ITS ---
EXAMINATION: CT CHEST WITH CONTRAST CLINICAL INFORMATION: R93.89 - Abnormal findings on diagnostic imaging of other specified body. Left basilar density on chest x-ray DLP: 319 mGY*cm COMPARISON: None available. TECHNIQUE: Multidetector volumetric CT imaging of the chest was obtained after the administration of 50 mL of Omnipaque 350 intravenous contrast without immediate adverse reactions. Axial MIP volume rendering provided. Sagittal and coronal reformatted images were obtained. This CT examination was performed using dose optimization techniques as appropriate, variously including the following: *Automated exposure control *Adjustment of mA and/or kV according to patient size (this includes techniques or standardized protocols for targeted exams where dose is matched to indication/reason for exam; i.e. extremities or head) *Use of iterative reconstruction technique FINDINGS: LUNGS: There is a 16 mm nodule in the posterior lateral basal left lower lobe with slightly spiculated margins. It contacts pleura. Focal pleural calcification 3 cm wide is noted in the medial posterior base of the right lower lobe. There is comet tail opacity extending anteriorly from the anterior pleural thickening suggesting rounded atelectasis. Lungs are clear otherwise. MEDIASTINUM: The mediastinum is normal. PLEURA: There is no pleural effusion. There is pleural thickening with calcification, as noted in the Lungs section. AXILLA: No lymphadenopathy. UPPER ABDOMEN: Fatty changes are present in the liver. Cholecystectomy clips are present. OSSEOUS STRUCTURES: Disc space narrowing and vacuum phenomenon is present in the mid to lower thoracic spine. CT/CT chest w IV con IMPRESSION: 16 mm nodular density is evident in the posterior lateral base of the left lower lobe with slightly spiculated margins. Fleischner recommendation is consider CT in 3 months, PET/CT, or tissue sampling Focal pleural thickening with calcification and adjacent comet tail artifact in the medial basal right lower lobe likely represents rounded atelectasis. Fatty liver Cholecystectomy Electronically signed by: Tyler Durate MD 11/16/2024 06:11 PM EDT
--- NOTE | ~2024-11-16 | XR_ITS ---
EXAMINATION: XR SACRUM AND COCCYX CLINICAL INFORMATION: M53.3 - Sacrococcygeal disorders, not elsewhere classified COMPARISON: None available. TECHNIQUE: 2 views of the sacrum and 2 views of the coccyx were obtained. FINDINGS: Mild sclerosis and the sacroiliac joints. No acute cortical disruption. No lytic or blastic lesions. Vascular clips in the dependent portion left lower pelvis and overlapping the right transverse processes of L5. Prominent transverse processes of L5, right greater than the left side joining the S1. XR/XR sacrum coccyx min 2V IMPRESSION: No acute fracture. 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 Electronically signed by: Jacques Patiño MD 11/16/2024 03:57 PM EDT
[2024-11-16 15:48] LABS: Anion Gap 11 (12-20); Blood Urea Nitrogen 14 mg/dL (9-16); Calcium 9.9 mg/dL (8.4-10.2); Carbon Dioxide 27 mmol/L (22-29); Chloride 109 mmol/L (96-108); Estimated Glomerular Filt Rate > 60; Glucose Random 89 mg/dL (60-115); Sodium 143 mmol/L (135-145)
--- OUTSIDE RECORDS SUMMARY | 2024-11-16 16:17 | XMS_ITS | Clinical Summary ---
Author Organization [facility] Address [address] [place] [address] Care Team Providers Care Glass Beveler Name Role Phone Kaitlynn Garrett MD Primary Care Provider [phone] Medical History Medical History Date Comments Asthma [...] Procedure Name Priority Date/Time Associated Diagnosis Comments [facility] SCREENING DIGITAL Routine 12/03/2018 5:27 PM EDT Encounter for screening mammogram for malignant neoplasm of breast from Last 3 Months or Most Recently Relevant to Health Maintenance Results * [facility] SCREENING DIGITAL (12/03/2018 5:27 PM EDT) Anatomical Region Laterality Modality Mammography 12/03/2018 3:09 PM EDT Narrative 12/03/2018 5:27 PM EDT [facility] Diagnostic Imaging Department [address] [place], [place] [address] Patient: ??GRAHAM,MADYSON ?/Age/Sex: 1970 - 48 - F Unit#: ??[id number] ? Location/Status: ??SPDIMAM/REG CLI ? Mnemonic/Ordering Site: [...] mammography. BIRADS category 1, negative examination, 3341F 40148, , 854[address] Note: Patient information entered ??into a reminder system with a target due date for the next mammogram; PQRI II 5746F Dictating Physician: ??MIKE CORDERO MD Electronically Signed by: ??MIKE CORDERO MD Dic Date/Time: ??12/03/18 1723 Sign date/Time: ??12/03/18 1727 Procedure Note Mike Cordero - 05/23/2022 [facility] Diagnostic Imaging Department [address] [place] [address] Patient: MADYSON GRAHAM /Age/Sex: 1970 - 48 - F Unit#: [id number] Location/Status: SPDIMAM/REG CLI Mnemonic/Ordering Site: [facility] Ordering Physician: KAITLYNN GARRETT MD Jennifer [...] mammography. BIRADS category 1, negative examination, 3341F 45668, , [address] Note: Patient information entered into a reminder system with a targetdue date for the next mammogram; PQRI II 7025F Dictating Physician: MIKE CORDERO MD Electronically Signed by: MIKE CORDERO MD Dic Date/Time: 12/03/181722 Sign date/Time: 12/03/181726 Kaitlynn Garrett MD IMG BI PROCEDURES Final Resul t from Last 3 Months or Most Recently Relevant to Health Maintenance Care Teams Glass Beveler Relationship Specialty Start Date End Date Kaitlynn Garrett MD [address] [place] [address] 216 [place]ridge[place] PCP - General Internal Medicine 11/07/16
[2024-11-16] MEDS: iohexoL 350 MG/ML 100 ML INFUS..BTL IV (17:09)
== END 2024-11-16 14:32 | disposition home or self-care (01) ==
LOC: HO.CT 14:31
PROVIDERS: PCP Internal Medicine; Visit Provider Physician Assistant Surgical
DX: Z01.818 Encounter for other preprocedural examination (principal); M53.3 Sacrococcygeal disorders, not elsewhere classified; M47.816 Spondylosis without myelopathy or radiculopathy, lumbar region; R93.89 Abnormal findings on diagnostic imaging of other specified body structures
CPT/HCPCS: 36415; 71260; 72114; 72220; 80048; Q9967

== ENCOUNTER → 2024-11-16 14:50 | Outpatient (BNV) | payer OTHER, SELFPAY | PROVIDERS: PCP Internal Medicine; Visit Provider Radiology Diagnostic Radiology | DX: R91.1 Solitary pulmonary nodule (principal); M47.816 Spondylosis without myelopathy or radiculopathy, lumbar region; M46.1 Sacroiliitis, not elsewhere classified | CPT/HCPCS: 71260; 72114; 72220 ==

== ENCOUNTER 2024-11-18 09:20 | Outpatient (RCR) | payer OTHER, SELFPAY ==
--- NOTE | 2024-10-28 12:27 | MHC.OT.EP ---
[address] [phone] Occupational Therapy Plan of Care Patient Name: Madyson Arguelles Date of Evaluation: 10/28/24 Diagnosis: Right DeQuervains tenosynovitis and s/p right CTR Pain Location: Right volar wrist Current: 6/10 Worst: 8/10 Pain Score: 6 Pain Scale Used: Numeric (0 - 10) Aggravating Factors: Rainy weather, grasping, repetitive movements, heavy lifting Alleviating Factors: Ice, ibuprofen Assessment: Pt is a 54 y/o right hand dominant female referred to OT s/p right CTR on 09/22/[address] Huerta. Since the procedure, she reports increased pain in the right thumb and demonstrates a positive River?s test. She also experiences intermittent numbness at the base of the right thumb and reports constant pain rated at 6/10 in the right radial wrist. QuickDASH score is 36.4%, indicating moderate functional impairment. Right hand wreath and garland maker strength measures 15 lbs compared to 40 lbs on the left. Patient would benefit from skilled OT services to address pain, functional deficits, and strength limitations in order to support her return to prior level of function. Frequency and Duration: The patient will be seen 2x/wk for 6 weeks Short Term Goals: Decrease right wrist/thumb pain <3/10 IND with joint protection and adaptive techniques with cake decorating and work tasks Improve right wreath and garland maker strength by 10# Halfway Goals: Pain free right hand/thumb with ADL's/IADL's IND with HEP Right gross grasp >30# Increase hand function as evidenced by Quick DASH <20% Treatment Plan: Therapeutic Exercise Therapeutic Activity Home Exercise Program Patient Education Ultrasound MHP Soft Tissue Mobilization Kinesiotaping Electronically Signed By: Symone Raza MS OTR/L Please Sign and return to therapist. Thank you once again for your referral.
--- NOTE | 2024-11-25 12:09 | MHC.OT.DC ---
[address] [phone] F: [phone] Occupational Therapy Discharge Note Patient Name: Madyson Arguelles Provider: Deshaun Kemp Diagnosis: Right DeQuervains tenosynovitis and s/p right CTR Date of Surgery: 09/22/24 Date of Evaluation: 10/28/24 Date of Discharge: 11/25/24 Treatments to Date: 3 Discharge Status: Patient Elected to Stop Discharge Summary: Pt arrived with increased pain and hypersensitivity in volar scar site. Focused on pain management and desensitizing with modalities. No increased redness, although noted swelling today. Pt encouraged to continue with scar massage and towel rubbing. Verbalized understanding of k-tape wearing schedule and skin checks. 11/26/23 - Pt called to self-discharge due to conflicting appointments and personal reasons. Electronically Signed By: Symone Raza MS OTR/L Reviewed/agree with student documentation: Therapist: Please Sign and return to therapist, thank you for your referral.
== END 2025-03-10 14:08 | disposition home or self-care (01) ==
LOC: HO.OTS 09:20
DX: G56.01 Carpal tunnel syndrome, right upper limb (principal); M65.4 Radial styloid tenosynovitis [de Quervain]
CPT/HCPCS: 97035; 97110; 97165

== ENCOUNTER 2024-12-28 08:08 | Outpatient (AMB) | payer OTHER, SELFPAY ==
--- OUTSIDE RECORDS SUMMARY | 2024-12-28 08:15 | XMS_ITS | Clinical Summary ---
Author Organization [facility] Address [address] [place] [address] Phone Care Team Providers Care Cigarette Making Machine Operator Name Role Phone Kaitlynn Tam MD Primary Care Provider Allergies Active Allergy Reactions Criticality Noted Date Comments Oxycodone-Acetaminophen Nausea and/or Vomiting 05/05/2020 Medications inhaler spacing device (AEROCHAMBER,BEATA ATHERITE) Spcr Inhale into the lungs. Active cyclobenzaprine (FLEXERIL) 10 MG tablet Take 10 mg by mouth 3 (three) times a day as needed for muscle spasms. Active Family History Medical History Relation Comments Skin cancer Neg Hx Social History Tobacco Use Types Packs/Day Years Used Date Smoking Tobacco: Never Assessed Education Answer Date Recorded Are you interested in more education? Not on paola e 09/28/2022 Are you concerned about learning? Not on file 09/28/2022 No 09/28/2022 No 09/28/2022 Digital Access Answer Date Recorded No 10/27/2022 No 10/27/2022 Reliable internet access at home? Not on file 10/27/2022 Device with a working camera? Not on file Comments Unknown Sex and Gender Information Value Date Recorded Sex Assigned at Female 03/24/2020 1:41 PM EDT Legal Sex Female 1:33 PM EDT Gender Identity Female 03/24/2020 1:41 PM EDT Sexual Orientation Straight 03/24/2020 1: 41 PM EDT Plan of Treatment Health Maintenance Due Date Last Done Comments Adult Td,Tdap Booster 1970 LIPID PANEL 1972 DEPRESSION SCREENING 1984 SMOKING Hx and SMOKELESS TOBACCO SCREENING 1985 HEPATITIS C SCREENING 1990 HIV ONE-TIME SCREENING (18-6 5 YEARS) 1990 PAP SMEAR 1993 MAMMOGRAM 2012 COLOGUARD 2017 COLONOSCOPY 2017 COLORECTAL CANCER SCREENING 2017 FIT TEST 2017 FOBT 2017 SIGMOIDOSCOPY 2017 VIRTUAL COLONOSCOPY 2017 PNEUMOCOCCAL VACCINES (50+ years) (1 of 1 - PCV) 2022 ZOSTER VACCINES (1 of 2) 2022 COVID-19 VACCINE (3 - 2023-2 5 season) 2024 10/14/2020, 09/23/2020 HEPATITIS A VACCINES Aged Out No long er eligible based on patient's age to complete this topic HIB VACCINES Aged Out No longer eligi ble based on patient's age to complete this topic MENINGOCOCCAL VACCINES (ACWY) Aged Out No longer eligible based on patient's age to complete this topic MENINGOCOCCAL VACCINES (B) Aged Out N o longer eligible based on patient's age to complete this topic Medical Devices Not on file [facility] POS CIG[place] [facility] CIG HMO POS CIG HMO POS CIGNA HMO POS Care Teams Cigarette Making Machine Operator Relationship Specialty Start Date End Date Kaitlynn Tam MD [address] [place] [address] [place] [phone] PCP - General Internal Medicine 03/24/20 Additional Source Comments The information contained in this document represents components of the legal health record. It is not the complete legal health record.[facility]
--- OUTSIDE RECORDS SUMMARY | 2024-12-28 08:15 | XMS_ITS | Clinical Summary ---
Author Organization [facility] Address [address] [place] [phone] Care Team Providers Care Industrial Court Magistrate Name Role Phone Kaitlynn Garrett MD Primary Care Provider [phone] Medical History Medical History Date Comments Asthma [...] ars (1 of 2 - PCV) 09/01/1991 Cervical Cancer Screening: P ap Smear 1993 Breast Cancer Screening 12/03/2020 12/03/2018 Cholesterol Screening (Lipid Panel) 05/05/2022 Colorectal Cancer Screening: Colonoscopy 05/05/2022 HIV Screening 05/05/2022 Hepatitis C Screening 05/05/2022 Social Influencers of Health Screening 05/05/2022 Zoster Vaccines (1 of 2) 2022 COVID-19 Vaccine ( - 2023-2 5 season) 2024 Depression Screening 06/03/2024 Influenza Vaccine (#1) 2025 07/03/2018 HIB Vaccines Aged Out No longer [...] Procedure Name Priority Date/Time Associated Diagnosis Comments [facility] SCREENING DIGITAL Routine 12/03/2018 5:27 PM EDT Encounter for screening mammogram for malignant neoplasm of breast from Last 3 Months or Most Recently Relevant to Health Maintenance Results * [facility] SCREENING DIGITAL (12/03/2018 5:27 PM EDT) Anatomical Region Laterality Modality Mammography 12/03/2018 3:09 PM EDT Narrative 12/03/2018 5:27 PM EDT [facility] Diagnostic Imaging Department [address] [place] [address] Patient: GLADYSKISHOREMADYSON /Age/Sex: 1970 - 48 - F Unit#: [id number] Location/Status: SPDIMAM/REG CLI Mnemonic/Ordering Site: [facility] Ordering Physician: KAITLYNN GARRETT MD Jennifer Screening Digital - 12/03/18 - 1538 History: Bilateral breast cancer screening. Technique: Bilateral digital mammography. Conventional CC and MLO projections with tomosynthesis MLO views and computer-aided detection Comparison: Outside mammography 09/06/2010 and 10/14/2008. Findings: Breast tissue is mostly fatty replaced (category A density). There is no suspicious group of microcalcification, no suspicious mass, architectural distortion or suspicious change in breast tissue density. Intramammary lymph nodes noted upper outer quadrant bilaterally. Impression: No evidence of malignancy. Breast cancer, if present, is more likely to be diagnosed at a smaller size and earlier stage with more frequent intervals of screening. Recommend annual or biennial mammography. BIRADS category 1, negative examination, 3341F 12732, , 48871 Note: Patient information entered into a reminder system with a target due date for the next mammogram; PQRI II 7017F Dictating Physician: MIEK CORDERO MD Electronically Signed by: MIKE CORDERO MD Dic Date/Time: 12/03/181722 Sign date/Time: 12/03/181726 Procedure Note Mike Cordero - 05/23/2022 [facility] Diagnostic Imaging Department [address] [place] [address] Patient: MADYSON GRAHAM /Age/Sex: 1970 - 48 - F Unit#: [id number] Location/Status: [facility] CLI Mnemonic/Ordering Site: [facility] Ordering Physician: KAITLYNN GARRETT MD Jennifer Screening [...] mammography. BIRADS category 1, negative examination, 3341F 28432, , 72429 Note: Patient information entered into a reminder system with a targetdue date for the next mammogram; PQRI II 7025F Dictating Physician: MIKE CORDERO MD Electronically Signed by: MIKE CORDERO MD Dic Date/Time: 12/03/181722 Sign date/Time: 12/03/181726 Kaitlynn Garrett MD IMG BI PROCEDURES Final Resul t from Last 3 Months or Most Recently Relevant to Health Maintenance Care Teams Industrial Court Magistrate Relationship Specialty Start Date End Date Kaitlynn Garrett MD [address] [facility] [address] [place] PCP - General Internal Medicine 11/07/16
--- NOTE | 2024-12-28 12:05 | MHC.OFFVISWM ---
VS Expanded 12/28/24 12:27 Height 5 ft 7 in Weight 272 lb 8 oz BMI 42.7 Body Fat % 57.5 Body Fat Mass 156.8 Fat Free Mass 116 Visceral Fat Rating 23 Body Water % 29.2 Body Water Mass 79.6 Basal Metabolic Rate/Score 1,505 Intake Visit Reasons: TV Pre Op LSG 01/12/2025 Allergies hydrocodone (From Vicodin) Allergy (Severe, Verified 12/28/24 12:15) NAUSEA,DIZZY sulfamethoxazole (From Bactrim) Allergy (Severe, Verified 12/28/24 12:15) Rash trimethoprim (From Bactrim) Allergy (Severe, Verified 12/28/24 12:15) Rash morphine Adverse Reaction (Severe, Verified 12/28/24 12:15) Chills oxycodone (From PERCOCET) Adverse Reaction (Severe, Verified 12/28/24 12:15) nausea,VOMITING Medication List - Last Reconciled 12/28/24 by Haroon Rice MD albuterol sulfate 5 mg inhalation Q6H PRN beclomethasone dipropionate 80 mcg/actuation (Qvar RediHaler) 2 puffs PO BID PRN budesonide 180 mcg/actuation (Pulmicort Flexhaler) 2 inhalations inhalation Q4-6H PRN cholecalciferol (vitamin D3) 125 mcg PO DAILY duloxetine 20 mg PO BID mecobalamin (vitamin B12) 1,000 mcg sublingual DAILY omeprazole 20 mg PO DAILY ondansetron 4 mg PO Q12H pantoprazole 40 mg PO DAILY polyethylene glycol 3350 17 grams PO DAILY sucralfate 10 mL PO BID HPI HPI TV Pre Op LSG 01/12/2025: Details: Start time: 12.10m, End time: 12.40pm I spent 25 minutes speaking with the patient on the phone plus an additional 5 minutes reviewing and updating records for a total of 30 minutes HPI Comments Details: Overall weight loss: 36lbs, or 11.66% TBWL Is doing 2 Premier shakes per day, 2 Fit Crunch protein bars and one meal Exercise: Gym x4/wk doing the treadmill for 300 calories PFSH Medical History GERD (gastroesophageal reflux disease) Migraine HTN (hypertension) Obesity Arthritis Low back pain History of cellulitis Headache PVD (peripheral vascular disease) Numbness and tingling of both legs Elevated LFTs Fatty liver Ear infection Hx of pneumothorax Spondyloarthropathy Asthma Surgical History History of carpal tunnel surgery of right wrist (09/22/24) H/O colonoscopy History of esophagogastroduodenoscopy (EGD) History of cholecystectomy Hx of total hysterectomy with removal of both tubes and ovaries Hx of laminectomy History of lung surgery Family History Father Diabetes HTN (hypertension) Mother Stroke CVD (cardiovascular disease) Social History Household Members: Family Housing: Apartment Are you a primary healthcare specialist to a significant other at home: No Do you presently have visiting nurse or other home services: No Alcohol intake: current Alcohol intake frequency: holidays/special occasions only Patient Tobacco Use Status: Never used Tobacco service: No Current occupational status: employed Telehealth Telehealth Telehealth Platform: Telephone Location of provider rendering services: practice address Location of patient: address on file Patient Identification confirmed using: Name, : Yes Telehealth method: voice only Patient verbally consented to treatment: Yes Patient verbally consented to billing insurance company: Yes Patient informed of any privacy concerns related to visit: Yes Minutes spent on Phone/Video with Pt.: 30 Assessment & Plan Assessment & Plan (1) Morbid obesity: Code(s): E66.01 - Morbid (severe) obesity due to excess calories Category: Medical Plan: 1. Plan for lap sleeve gastrectomy including upper GI endoscopy. All tests has been completed and reviewed and the patient is cleared for the surgery. If diaphragmatic or ventral hernias are present at time of surgery, these will be repaired laparoscopically as well. The surgery does not replace the need to change your lifestlyle which is the cause of the obesity problem. The surgery provides the motivation to try again to change your lifestyle, it reduces the appetite and make the transition to a better lifestyle easier and doubles the amount of weight you would lose compared to doing the lifestyle change without the surgery. You will need to be on a liquid diet with protein shakes for 2 weeks before surgery to maximize weight loss and boost your nutritional status to recover better from surgery and also for the first two weeks after surgery to let the stomach heal before we introduce other foods. After the first 2 weeks we will introduce protein bars and soft foods like scrambled eggs, cottage cheese and yogurt and after the 6th week will introduce meat, fish and cooked vegetables in small amounts. Over time you should be able to eat everything in small amounts. Side effects like nausea, vomiting, heartburn or abdominal pain are not common in the practice unless you are not following in the practice. This operation requires lifetime commitment to following in our practice and communication with me. You will much less weight and experience side effects if you don?t communicate or not following in the practice. Complications are rare and in our practice is about 1/10 of the national average. However, you can develop bleeding that may require transfusion (hasn?t happened for year in the practice), you may from complications (we did not have any deaths in the practice) and infections. Infections are usually a result of breakdown in communication or not understanding or following directions correctly. They are difficult to treat, they can happen during the first 6 weeks, they may require to be in the hospital for weeks or even months, not being able to eat by mouth and you may have drains and surgeries to try and correct the issue. Other risks and complications include possible conversion to an open procedure, leaks, small bowel obstruction, blood clots, cardiac, or pulmonary complications, as equipment operator intermodal yard complications such as ulcers, insufficient weight loss and vitamin deficiencies. So far she has proven to be an excellent communicator and very compliant with all our directions accomplishing a great weight loss. I believe that she is an excellent candidate and she is ready. 2. Preop prescriptions were provided and explained the purpose of each one. Need to be purchased preop. Start Pantoprazole now as you get it from the pharmacy, 1 pill per day. Sucralfate and Zofran are for after surgery as needed. 3. Bowel prep: please do 7 packets of Miralax mixing each one with a an 8oz glass of water, crystal light, gatorade zero, or propel on 01/10/25 and the same amount on 01/11/25. The Miralax you begin with one packet at a time in 8oz water or crystal light, gatorade zero, or propel as early in the day as you can and you do them back to back until you finish them. Continue the protein shakes during the bowel prep. 4. Needs to purchase 1oz medicine cups . 5. Needs to purchase Children's liquid Tylenol for postop pain control. 6. Avoid aspirin, motrin, Advil, Aleve, Ibuprofen, Naproxyn. Tylenol is OK. 7. She needs to purchase the Celebrate multivitamins from the hospital's gift shop. 8. Will do basic preop blood work-up any day between Saturday01/04/25 and Saturday01/08/25 fasting for 12 hours and is scheduled to see the Anesthesiologist prior to the day of surgery. 9. Importance of adherence to postop folllow-up and recommendations was underscored and she understands that. 10. Stop food and bars as of Saturday01/03/25 and continue with 5 premade PREMIER protein shakes (8oz of PREMIER shakes each and NOT the whole bottle) at 7am-9am, 10am-12pm, 1pm-3pm, 4pm-6pm and at 7pm-9pm 11. No soups, broths or V8 12. The patient's medical history has been reviewed and they are considered low risk for post op DVT and therefore DVT prophylaxis is not considered necessary. Travel after surgery was reviewed. The patient has not disclosed any travel plans during the first 30 days after surgery and they have been advised that within the first 30 days after surgery any bus, plane, train or car travel over 2 hours in duration is contraindicated due to the possibility of developing blood clots from immobility. Any travel, needs to include periods of ambulation of 10 minutes in duration every 2 hours. Patient was instructed to discuss any plans for travel during this period with their bariatric surgeon. 13. Please take at the day of surgery the following medications: NONE 14. Stop any control pills and don't use them for one month after surgery 15. Absolutely no smoking or vaping, or marijuana until the surgery and for at least the first 4 weeks. Only nicotine patches are allowed. 16. Send me weight measurements on Saturday01/02/25 and on 01/09/25 and then on 01/12/25, the day of surgery before you go to the hospital. 17. Avoid any steroids by mouth for any reason. Let me know if someone prescribes them to you 18. These instructions supersede anything else you read in the handbook, anything you watched in videos or classes or you were told by any other provider. If there is any conflict, you follow the above instructions and nothing else. Orders: Orders Comprehensive Met. Panel Today E66.01 - Morbid (severe) obesity due to excess calories Prothrombin Time INR Today E66.01 - Morbid (severe) obesity due to excess calories Type and Screen Today E66.01 - Morbid (severe) obesity due to excess calories Lipid Panel Today E66.01 - Morbid (severe) obesity due to excess calories Hemoglobin A1c Today E66.01 - Morbid (severe) obesity due to excess calories C Reactive Protein Today E66.01 - Morbid (severe) obesity due to excess calories Complete Blood Count Auto Diff Today E66.01 - Morbid (severe) obesity due to excess calories TSH reflex Free T4 Today E66.01 - Morbid (severe) obesity due to excess calories Partial Thromboplastin Time Today E66.01 - Morbid (severe) obesity due to excess calories Insulin Today E66.01 - Morbid (severe) obesity due to excess calories Medications: New pantoprazole 40 mg PO DAILY 90 tabs 0RF K21.9 - Gastro-esophageal reflux disease without esophagitis ondansetron Only take one every 12 hours as needed if you have nausea 4 mg PO Q12H 20 tabs 0RF nausea and vomiting R11.0 - Nausea sucralfate 10 mL PO BID 600 mL 2RF K21.9 - Gastro-esophageal reflux disease without esophagitis polyethylene glycol 3350 Mix each measuring cup with 8oz of water, Crystal light, or Gatorade zero, or Propel and do 7 measuring cups on 01/10/2025 and another 7 measuring cups on 01/11/2025 17 grams PO DAILY 238 grams 0RF Z01.818 - Encounter for other preprocedural examination
[2024-12-28 12:27] VITALS: BMI 42.7
== END 2024-12-28 12:41 | disposition home or self-care (01) ==
LOC: HO.HBS 08:08
PROVIDERS: PCP Internal Medicine; Visit Provider Surgery
DX: E66.01 Morbid (severe) obesity due to excess calories (principal)
CPT/HCPCS: 98010

== ENCOUNTER 2025-01-05 09:28 | Outpatient (REF) | payer OTHER, SELFPAY ==
--- NOTE | ~2025-01-05 | FL_ITS ---
EXAMINATION: XR FLUOROSCOPY UPPER GI SERIES CLINICAL INFORMATION: Morbid obesity due to excess calories. Preoperative bariatric exam. COMPARISON: None TECHNIQUE: Fluoroscopic air contrast upper GI examination was performed utilizing standard techniques with thin and thick barium and effervescent granules. Numerous spot images were obtained. Several fluoroscopic image hold cine sequences were also obtained. FINDINGS: UPPER GI SERIES: Lateral cine images of the oropharynx and hypopharynx demonstrate normal swallow mechanism with normal epiglottic inversion and soft palate elevation. No laryngeal penetration, glottic or subglottic aspiration identified. No nasopharyngeal reflux present. Hypopharyngeal structures appear normal without evidence of mass or diverticulum. There was no significant cricopharyngeal achalasia. Dual and single contrast images of the esophagus demonstrate normal caliber, contour, and mucosal pattern. No evidence of stricture, mass, or ulcerations identified. Esophageal peristalsis was normal. Small type I hiatus hernia present. Gastroesophageal reflux identified to the level of the thoracic inlet. Dual contrast and single contrast images of the stomach demonstrated normal contour and mucosal pattern without evidence of mass, ulceration, or other abnormality. Normal rugal fold pattern. Contrast freely passed into the gastric antrum and duodenal bulb without delay. Single and air-contrast images of the duodenal bulb demonstrate no abnormality. The duodenal sweep has a normal appearance, course, and mucosal fold appearance. There are cholecystectomy clips present. FLUOROSCOPY TIME: 2 minutes 10 seconds. Number of Spot Images:8 Number of cines obtained: 11 DOSE AREA PRODUCT: 4103 uGy-m2 (microgray-meter squared) FL/FL upper GI w air IMPRESSION: 1. Small type I hiatus hernia. 2. Gastroesophageal reflux observed to the level of the thoracic inlet. 3. Remainder of the examination is normal. Electronically signed by: Michael Mccauley MD 01/05/2025 10:53 AM EDT
--- OUTSIDE RECORDS SUMMARY | 2025-01-05 09:53 | XMS_ITS | Clinical Summary ---
Author Organization [facility] Address [id number] [place] [id number] Care Team Providers Care Molecular Biology Professor Name Role Phone Kaitlynn Garrett MD Primary Care Provider [phone] Medical History Medical History Date Comments Asthma [...] Procedure Name Priority Date/Time Associated Diagnosis Comments [facility] SCREENING DIGITAL Routine 12/03/2018 5:27 PM EDT Encounter for screening mammogram for malignant neoplasm of breast from Last 3 Months or Most Recently Relevant to Health Maintenance Results * JENNIFER SCREENING DIGITAL (12/03/2018 5:27 PM EDT) Anatomical Region Laterality Modality Mammography 12/03/2018 3:09 PM EDT Narrative 12/03/2018 5:27 PM EDT [facility] Diagnostic Imaging Department [address] [place] [address] Patient: GLADYSKISHOREMADYSON /Age/Sex: 1970 - 48 - F Unit#: [id number] Location/Status: SPDIMAM/REG CLI Mnemonic/Ordering Site: DIGSC/SPMAM Ordering [...] mammography. BIRADS category 1, negative examination, 3341F [address]689, , [id number] Note: Patient information entered into a reminder system with a target due date for the next mammogram; PQRI II 7099F Dictating Physician: MIKE CORDERO MD Electronically Signed by: MIKE CORDERO MD Dic Date/Time: 12/03/181722 Sign date/Time: 12/03/181726 Procedure Note Mike Cordero - 05/23/2022 [facility] Diagnostic Imaging Department [address] [place] [address] Patient: MADYSON GRAHAM /Age/Sex: 1970 - 48 - F Unit#: [id number] Location/Status: [facility] CLI Mnemonic/Ordering Site: [facility]/SP[facility] Ordering Physician: KAITLYNN GARRETT MD Jennifer [...] mammography. BIRADS category 1, negative examination, 3341F [address]342, , [id number] Note: Patient information entered into a reminder system with a targetdue date for the next mammogram; PQRI II 7025F Dictating Physician: MIKE CORDERO MD Electronically Signed by: MIKE CORDERO MD Dic Date/Time: 12/03/181722 Sign date/Time: 12/03/181726 Kaitlynn Garrett MD IMG BI PROCEDURES Final Resul t from Last 3 Months or Most Recently Relevant to Health Maintenance Care Teams Molecular Biology Professor Relationship Specialty Start Date End Date Kaitlynn Garrett MD [address] [facility] [address] [place] PCP - General Internal Medicine 11/07/16
--- OUTSIDE RECORDS SUMMARY | 2025-01-05 09:53 | XMS_ITS | Clinical Summary ---
Author Organization [facility] Address [address] [place] [id number] Phone Care Team Providers Care Quality Assurance Monitor Body Name Role Phone Kaitlynn Tam MD Primary [...] topic Medical Devices Not on file [facility] O POS [facility] O POS [facility] CIG HMO POS CIG HMO POS CIGNA HMO POS Care Teams Quality Assurance Monitor Body Relationship Specialty Start Date End Date Kaitlynn Tam MD [address] [place] [address] [place] [id number] PCP - General Internal Medicine 03/24/20 Additional Source Comments The information contained in this document represents components of the legal health record. It is not the complete legal health record.[facility]
== END 2025-01-05 09:29 | disposition home or self-care (01) ==
LOC: HO.XRAY 09:28
PROVIDERS: PCP Internal Medicine; Visit Provider Surgery
DX: K21.9 Gastro-esophageal reflux disease without esophagitis (principal); E66.01 Morbid (severe) obesity due to excess calories
CPT/HCPCS: 74246

== ENCOUNTER → 2025-01-05 09:30 | Outpatient (BNV) | payer OTHER, SELFPAY | PROVIDERS: PCP Internal Medicine; Visit Provider Radiology Diagnostic Radiology | DX: K21.9 Gastro-esophageal reflux disease without esophagitis (principal); K44.9 Diaphragmatic hernia without obstruction or gangrene | CPT/HCPCS: 74246 ==

== ENCOUNTER 2025-01-12 06:02 | Inpatient (IN) | payer OTHER, SELFPAY ==
[2025-01-06 09:19] VITALS: BMI 42.3
[2025-01-08 08:27] LABS: MANUAL DIFF FLAG NO
[2025-01-08 09:13] LABS: Hematocrit 41.7 % (37.0-47.0); Hemoglobin 13.2 g/dl (12.0-16.0); Imm Gran Abs Auto 0.02 X10*3/uL (0.00-0.03); Imm Gran Pct Auto 0.4 % (0.0-0.4); Lymphocytes Absolute Auto 1.9 X10*3/uL (1.2-4.9); Mean Corpuscular HGB Conc 31.7 g/dl (31.0-35.0); Mean Corpuscular Hemoglobin 27.4 pg (27.0-33.0); Mean Corpuscular Volume 86.5 fL (80.0-98.0); NRBC Abs Auto 0.000 X10*3/uL (0.0-0.012); NRBC Pct Auto 0.0 /100WBC (0.0-0.2); Platelet Count 302 X10*3/uL (160-400); Red Blood Count 4.82 X10*6/uL (4.20-5.50); White Blood Count 4.8 X10*3/uL (4.8-10.8)
[2025-01-08 09:18] LABS: INTERNATIONAL NORM RATIO 1.0 (0.9-1.1); Prothrombin Time 11.0 SEC (10.9-12.4)
[2025-01-08 09:21] LABS: Partial Thromboplastin Time 27.9 SEC (26.7-34.1)
[2025-01-08 09:25] LABS: Hemoglobin A1C 127.0004 umol/L; Total Hemoglobin (HGBA1C) 3354.1707 umol/L
[2025-01-08 10:54] LABS: Alanine Aminotransferase 36 U/L (0-31); Albumin Level 4.2 g/dL (3.5-5.0); Alkaline Phosphatase 75 U/L (39-117); Anion Gap 12 (12-20); Aspartate Amino Transferase 26 U/L (5-31); Blood Urea Nitrogen 8 mg/dL (9-16); Calcium 9.6 mg/dL (8.4-10.2); Carbon Dioxide 27 mmol/L (22-29); Chloride 109 mmol/L (96-108); Cholesterol 193 mg/dL (<200); Creatinine Clr Calc Pharmacy 98.1; Estimated Glomerular Filt Rate > 60; HDL Cholesterol 59 mg/dL (>40); Potassium 4.0 mmol/L (3.3-5.1); Sodium 144 mmol/L (135-145); Total Protein 7.7 g/dL (6.5-8.0); Triglycerides 117 mg/dL (<150)
--- NOTE | 2025-01-11 09:01 | HO.ANESPROP2 ---
Documented by User: Eli Neff NP 01/11/25 09:02 HPI - Anesthesia Eval Consult details Narrative: 54yo F for Gastrectomy Sleeve,EGD,possible Diaphragmatic Hernia,possible Ventral Hernia,possible Open PMFSH Active Problems Active Problems: All Active Problems Lung nodule (Acute) Lung nodule seen on imaging study (Acute) Pre-op evaluation (Acute) Sacroiliac joint dysfunction of left side (Acute) Lumbar spondylosis (Acute) Abnormal chest xray (Acute) Vitamin B12 deficiency (Acute) Vitamin D deficiency (Acute) De Quervain's tenosynovitis, right (Acute) Radiculopathy, lumbar region (Acute) Carpal tunnel syndrome of right wrist (Acute) Osteoarthritis of left knee (Acute) Left leg paresthesias (Acute) Right elbow pain (Acute) Numbness and tingling in right hand (Acute) Left knee pain (Acute) Lymphedema (Acute) Varicose veins of left lower extremity with inflammation (Acute) Varicose veins of right lower extremity with inflammation (Acute) Right tennis elbow (Acute) Right rotator cuff tendonitis (Acute) Left lumbar radiculopathy (Acute) Morbid obesity (Acute) Cellulitis (Acute) Lumbar facet arthropathy (Acute) GERD (gastroesophageal reflux disease) (Acute) Spondyloarthropathy (Acute) Past Medical History Medical History GERD (gastroesophageal reflux disease) Migraine HTN (hypertension) Obesity Arthritis Low back pain History of cellulitis Headache PVD (peripheral vascular disease) Numbness and tingling of both legs Elevated LFTs Fatty liver Ear infection Hx of pneumothorax Spondyloarthropathy Asthma Family History Family History Father Diabetes HTN (hypertension) Mother Stroke CVD (cardiovascular disease) Family history of problems with anesthesia: No Surgical History Surgical History History of esophagogastroduodenoscopy (EGD) (10/22/24) History of carpal tunnel surgery of right wrist (09/22/24) H/O colonoscopy History of esophagogastroduodenoscopy (EGD) History of cholecystectomy Hx of total hysterectomy with removal of both tubes and ovaries Hx of laminectomy History of lung surgery History of Problems with Anesthesia: No Social History Social History Household Members: Family Housing: House Are you a primary care transitions manager to a significant other at home: No Do you presently have visiting nurse or other home services: No Alcohol intake: current Alcohol intake frequency: holidays/special occasions only Patient Tobacco Use Status: Never used Tobacco e-Cigarette/Vaping Use: Never Used Use of substances other than those prescribed or required for medical reasons: No Have you been hit, kicked, punched, or otherwise hurt by someone within the past year? If so, by whom?: No Are you DNR?: No Advance Directives: No Advance Directives Information Provided: Yes Advance Directives on File: No Poor oral hygiene: No service: No Current occupational status: employed Meds Allergies Allergy/AdvReac Type Severity Reaction Status Date / Time hydrocodone (From Vicodin) Allergy Severe NAUSEA,DIZZ Verified 12/28/24 12:15 Y sulfamethoxazole (From Allergy Severe Rash Verified 12/28/24 12:15 Bactrim) trimethoprim (From Bactrim) Allergy Severe Rash Verified 12/28/24 12:15 morphine AdvReac Severe Chills Verified 12/28/24 12:15 oxycodone (From PERCOCET) AdvReac Severe nausea,VOMI Verified 12/28/24 12:15 TING Home Medications ?Medication ?Instructions ?Recorded ?Confirmed ?Last Taken ?Type beclomethasone dipropionate 80 2 puff PO BID PRN Shortness Of 08/19/20 01/06/25 Unknown History mcg/actuation HFA breath activated Breath Or Wheezing aerosol (Qvar RediHaler) budesonide 180 mcg/actuation 2 inh inhalation Q4-6H PRN 08/19/20 01/06/25 Unknown History breath activated powder inhaler Shortness Of Breath Or Wheezing (Pulmicort Flexhaler) omeprazole 20 mg capsule,delayed 20 mg PO DAILY 09/15/24 12/28/24 Unknown History release acetaminophen 500 mg tablet 500 mg PO Q6H PRN pain 01/06/25 01/06/25 Unknown History Exam Height,Weight and Vital Signs: Height 5 ft 7 in Weight 122.47 kg Pertinent Lab Results Pertinent Lab Results: Laboratory Tests 01/08/25 01/08/25 08:15 08:26 WBC 4.8 RBC 4.82 Hgb 13.2 Hct 41.7 MCV 86.5 MCH 27.4 MCHC 31.7 RDW 14.6 Plt Count 302 MPV 10.0 Immature Gran % (Auto) 0.4 Neut % (Auto) 43.7 L Lymph % (Auto) 39.4 Hernando % (Auto) 11.8 H Eos % (Auto) 3.6 Baso % (Auto) 1.1 Lymph # (Auto) 1.9 Hernando # (Auto) 0.6 Eos # (Auto) 0.2 Baso # (Auto) 0.1 Abs Immat Gran (auto) 0.02 Absolute Neuts (auto) 2.1 Absolute Nucleated RBC 0.000 Nucleated RBC % (auto) 0.0 PT 11.0 INR 1.0 APTT 27.9 Sodium 144 Potassium 4.0 Chloride 109 H Carbon Dioxide 27 Anion Gap 12 BUN 8 L Creatinine 0.91 Estim Creat Clear Calc 98.1 Estimated GFR > 60 Random Glucose 98 Estimat Average Glucose 114 Hemoglobin A1c % 5.6 Insulin Level 15 Calcium 9.6 Total Bilirubin 0.8 AST 26 ALT 36 H Alkaline Phosphatase 75 C-Reactive Protein 1.04 H Total Protein 7.7 Albumin 4.2 Triglycerides 117 Cholesterol 193 LDL Cholesterol, Calc 111 H HDL Cholesterol 59 TSH 1.22 Blood Type B Positive Antibody Screen NEGATIVE Narrative Narrative: EKG 10/2024 Vent. Rate : 62 BPM Atrial Rate : 62 BPM P-R Int : 194 ms QRS Dur : 90 ms QT Int : 404 ms P-R-T Axes : 49 -14 18 degrees QTcB Int : 410 ms Normal sinus rhythm Normal ECG When compared with ECG of 21-May-2024 15:03, QRS axis Shifted right Criteria for Anterolateral infarct are no longer Present Assessment and Plan Assessment Anesthesia Assessment: Chart Reviewed Final Anesthetic Review Family History of Problems with Anesthesia: No History of Problems with Anesthesia: No Documented by User: Tanisha Terrell MD 01/12/25 07:30 [facility] Past Medical History Medical History GERD (gastroesophageal reflux disease) Migraine HTN (hypertension) Obesity Arthritis Low back pain History of cellulitis Headache PVD (peripheral vascular disease) Numbness and tingling of both legs Elevated LFTs Fatty liver Ear infection Hx of pneumothorax Spondyloarthropathy Asthma Family History Family History Father Diabetes HTN (hypertension) Mother Stroke CVD (cardiovascular disease) Surgical History Surgical History History of esophagogastroduodenoscopy (EGD) (10/22/24) History of carpal tunnel surgery of right wrist (09/22/24) H/O colonoscopy History of esophagogastroduodenoscopy (EGD) History of cholecystectomy Hx of total hysterectomy with removal of both tubes and ovaries Hx of laminectomy History of lung surgery Social History Social History Household Members: Family Housing: House Are you a primary care transitions manager to a significant other at home: No Do you presently have visiting nurse or other home services: No Alcohol intake: current Alcohol intake frequency: holidays/special occasions only Patient Tobacco Use Status: Never used Tobacco e-Cigarette/Vaping Use: Never Used Use of substances other than those prescribed or required for medical reasons: No Have you been hit, kicked, punched, or otherwise hurt by someone within the past year? If so, by whom?: No Are you DNR?: No Advance Directives: No Advance Directives Information Provided: Yes Advance Directives on File: No Poor oral hygiene: No service: No Current occupational status: employed Meds Allergies Allergy/AdvReac Type Severity Reaction Status Date / Time hydrocodone (From Vicodin) Allergy Severe NAUSEA,DIZZ Verified 12/28/24 12:15 Y sulfamethoxazole (From Allergy Severe Rash Verified 12/28/24 12:15 Bactrim) trimethoprim (From Bactrim) Allergy Severe Rash Verified 12/28/24 12:15 morphine AdvReac Severe Chills Verified 12/28/24 12:15 oxycodone (From PERCOCET) AdvReac Severe nausea,VOMI Verified 12/28/24 12:15 TING Home Medications ?Medication ?Instructions ?Recorded ?Confirmed ?Last Taken ?Type beclomethasone dipropionate 80 2 puff PO BID PRN Shortness Of 08/19/20 01/06/25 Unknown History mcg/actuation HFA breath activated Breath Or Wheezing aerosol (Qvar RediHaler) budesonide 180 mcg/actuation 2 inh inhalation Q4-6H PRN 08/19/20 01/06/25 Unknown History breath activated powder inhaler Shortness Of Breath Or Wheezing (Pulmicort Flexhaler) omeprazole 20 mg capsule,delayed 20 mg PO DAILY 09/15/24 12/28/24 Unknown History release acetaminophen 500 mg tablet 500 mg PO Q6H PRN pain 01/06/25 01/06/25 Unknown History Exam Airway Mallampati Class: III TM Dist: >3cm Neck ROM: Full Loose/Missing/Broken Teeth: No Heart: RRR Lungs: CTA Assessment and Plan Assessment Anesthesia Assessment: Anesthesia Plan Discussed Final Anesthetic Review NPO: Yes ASA Class: III Final Preanesthetic Review: Meds/Allgs Chart Reviewed, Consent Obtained/Reviewed and Anes Risks/Benef Reviewed Patient Risk: Intermediate Procedure Risk: Intermediate Anesthetic Plan Anesthetic Plan: GA Disposition: Standard PACU
[2025-01-12] VITALS (12 sets, daily range): BP systolic 106–141; BP diastolic 62–88; PULSE 67–83; RESP 16–18; TEMP 36.2–36.9; O2SAT 92–98; BMI 45.4
--- OUTSIDE RECORDS SUMMARY | 2025-01-12 06:26 | XMS_ITS | Clinical Summary ---
[facility] Organization [facility] Address [id number] [place] [id number] Care Team Providers Care Manager Urology Name Role Phone Kaitlynn Garrett MD Primary Care Provider [phone] Medical History Medical History Date Comments Asthma [...] Procedure Name Priority Date/Time Associated Diagnosis Comments [facility] SCREENING DIGITAL Routine 12/03/2018 5:27 PM EDT Encounter for screening mammogram for malignant neoplasm of breast from Last 3 Months or Most Recently Relevant to Health Maintenance Results * JENNIFER SCREENING DIGITAL (12/03/2018 5:27 PM EDT) Anatomical Region Laterality Modality Mammography 12/03/2018 3:09 PM EDT Narrative 12/03/2018 5:[address] [facility] Diagnostic Imaging Department [address] [place] [id number] Patient: GLADYSKISHOREMADYSON /Age/Sex: 1970 - 48 - F Unit#: [id number] Location/Status: SPDIMAM/REG CLI Mnemonic/Ordering Site: DIGSC/SPMAM Ordering [...] mammography. BIRADS category 1, negative examination, 3341F [id number], , [id number] Note: Patient information entered into a reminder system with a target due date for the next mammogram; PQRI II 7018F Dictating Physician: MIKE CORDERO MD Electronically Signed by: MIKE CORDERO MD Dic Date/Time: 12/03/181722 Sign date/Time: 12/03/181726 Procedure Note Mike Cordero - 05/23/2022 [facility] Diagnostic Imaging Department [address] [place] [id number] Patient: MADYSON GRAHAM /Age/Sex: 1970 - 48 - F Unit#: [id number] Location/Status: [facility] CLI Mnemonic/Ordering Site: [facility] Ordering Physician: KAITLYNN GARRETT MD Jennifer [...] mammography. BIRADS category 1, negative examination, 3341F [id number], , [id number] Note: Patient information entered into a reminder system with a targetdue date for the next mammogram; PQRI II 7025F Dictating Physician: MIKE CORDERO MD Electronically Signed by: MIKE CORDERO MD Dic Date/Time: 12/03/181722 Sign date/Time: 12/03/181726 Kaitlynn Garrett MD IMG BI PROCEDURES Final Resul t from Last 3 Months or Most Recently Relevant to Health Maintenance Care Teams Manager Urology Relationship Specialty Start Date End Date Kaitlynn Garrett MD [address] [facility] [address] [place] PCP - General Internal Medicine 11/07/16
--- OUTSIDE RECORDS SUMMARY | 2025-01-12 06:26 | XMS_ITS | Clinical Summary ---
Author Organization [facility] Address [address] [place] [phone] Phone Care Team Providers Care Client Services Director Name Role Phone Kaitlynn Tam MD Primary [...] topic Medical Devices Not on file Insurance [place] [employer] [facility] POS CIGNA O POS CIGMILITARY HEALTH SYSTEMO POS CIGNA O POS CIGNA O POS CIGMILITARY HEALTH SYSTEMO POS CIG HMO POS CIG HMO POS CIGNA HMO POS Care Teams Client Services Director Relationship Specialty Start Date End Date Kaitlynn Tam MD [address] [place] [address] [place] [phone] PCP - General Internal Medicine 03/24/20 Additional Source Comments The information contained in this document represents components of the legal health record. It is not the complete legal health record.[facility]
[2025-01-12] MEDS: Aprepitant 32 MG/4.4 ML VIAL IVPUSH (06:29)
[2025-01-12] MEDS: Lactated Ringers 1,000 ML 999 ML IV (06:29)
--- NOTE | 2025-01-12 07:35 | MHC.SHP ---
Pre-Procedural Eval Section A - 24 Hr Update-Section A only Date of Service: 01/12/25 The patient is an INPATIENT: Yes The patient has been examined within 24 hours of the surgical procedure. The History & Physical has been completed within 30 days and I have reviewed it.: Yes Section B - Complete if H&P > 30 days Chief Complaint: Morbid obesity Relevant Family History (Specify if Yes): No Relevant Social History: None Present Medications: None Medical History: No relevant PMH History of Previous Operations: No relevant previous surgery Allergies: Allergies Allergy/AdvReac Type Severity Reaction Status Date / Time hydrocodone (From Vicodin) Allergy Severe NAUSEA,DIZZ Verified 12/28/24 12:15 Y sulfamethoxazole (From Allergy Severe Rash Verified 12/28/24 12:15 Bactrim) trimethoprim (From Bactrim) Allergy Severe Rash Verified 12/28/24 12:15 morphine AdvReac Severe Chills Verified 12/28/24 12:15 oxycodone (From PERCOCET) AdvReac Severe nausea,VOMI Verified 12/28/24 12:15 TING Review of Systems Sugical H&P ROS: Negative: Constitution, Cardiovascular, Respiratory, Neurological, Psychiatric, Hem-Onc, Allergic/Immunologic, Gastrointestinal, Genitourinary, Musculoskeletal, Integumentary, Endocrine and Eyes/Ears/Nose/Throat Exam Surgical H&P Exam: Normal: HEENT, Normal: Heart, Normal: Lungs, Normal: Extremities, Normal: Abdomen, Normal: Skin and Normal: Neurological Plan Diagnosis/Plan: Unchanged I have reviewed the history and physical and performed a pertinent physical examination on my patient. No changes have occurred unless specified. Time Spent With Patient Time: Total time managing care of this patient today ____ minutes.
--- NOTE | 2025-01-12 07:49 | PM.OP ---
Brief Operative Note Date of Service: 01/12/25 Pre-op diagnosis: Morbid obesity with comorbidities (see below) Post-op diagnosis: same (Abdominal adhesions, extremely large omentum) Procedure: INITIAL PATIENT BMI ON PRESENTATION AT OUR OFFICE: 47.7 kg/m2 LAST BMI BEFORE SURGERY: 43.2 kg/m2 COMORBIDITIES: hypetension, GERD, PVD, DJD, liver steatosis ?The patient presented to the Weight Management Program with significant obesity that was negatively impacting the patient's comorbidities as listed above.? The program is a phased program with a special focus on preoperative medical weight management to promote substantial weight loss and prepare the patients for the second phase of the program: bariatric surgery. The patient participated in an intensive weekly lifestyle ?intervention and exercise program during which the patient ?has lost between the initial office visit and the last preoperative visit 39.8lbs, or 12.9% of initial actual body weight. It was deemed appropriate for the patient to now have bariatric surgery. In light of the current Covid-19 pandemic and the well documented strong association of obesity and increased risk of worse outcomes if infected with Covid-19 (REFERENCES:https://pubmed.ncbi.nlm.nih.gov/85519609/,?https://pubmed.ncbi.nlm.nih.gov/87440859/), any delay in undergoing bariatric surgery may lead to the patient's worsening health condition and increased?risk of more severe Covid-19 disease if infected. In addition a recent?study from [facility] published in [facility] on 05/29/2021 ([email or web address]) found that, among patients with obesity, substantial weight loss achieved with surgery was associated with improved outcomes of COVID-19 infection. The findings suggest that obesity can be a modifiable risk factor for the severity of COVID-19 infection. In addition, the patient met the BMI-criteria for bariatric surgery based on the BMI on initial presentation. The patient should not be penalized for achieving such weight loss because ?it is not sustainable long-term without surgical intervention and it was achieved in preparation for bariatric surgery ?under my direction and based on my published research ([email or web address]).pdf and?https://www.soard.org/article/J2136-1235(62)99927-X/pdf) ?that a 10% preoperative weight loss improves long-term weight loss after surgery and reduces perioperative complications.? Insurance carriers such as [facility] have endorsed my recommendations ?and have included in their policies criteria to include a 10% preoperative weight loss requirement. PROCEDURE: Esophago-gastroscopy, laparoscopic lysis of adhesions, laparoscopic sleeve gastrectomy and laparoscopic gastropexy INDICATIONS: This is a 54 year-old female who was electively scheduled for laparoscopic, possibly open sleeve gastrectomy. The risks and complications of the procedure were discussed with the patient in advance, particularly the possibility of ; pulmonary embolism; staple line leak; bleeding; GERD; cardiac, pulmonary, or renal complications; as well as long-term problems such as insufficient weight loss, vitamin deficiency, strictures, or ulcers. The patient understood all the risks, and was in agreement to proceed with surgery. DESCRIPTION OF PROCEDURE: After informed consent was obtained from the patient, the patient was given preoperative antibiotics, and was transferred to the operating room. After successful induction of general anesthesia, pneumatic compression devices were placed on both lower extremities. An upper endoscopy was performed next. The oropharynx and esophagus appeared to be within normal limits. There was no significant diaphragmatic hernia present. The stomach was entered. Then after all fluid and air were suctioned and the stomach was fully decompressed, the scope was withdrawn and secured in the mid esophagus. The patient was then prepped and draped in the usual sterile manner, and abdominal access was established at the right upper quadrant with the Monique technique. A 12 mm blunt port was inserted, and the abdomen was insufflated with CO2 to a pressure of 15 mmHg. Under direct visualization, additional ports were placed, specifically two 5 mm Versi-step ports to the left upper quadrant, and a 5 mm Versi-Step port to the right upper quadrant. 1% lidocaine plain was used to infiltrate all port sites as well as all fascia defects. Following that, the patient was placed in a steep reverse Trendelenburg position. An additional 5 mm port was placed to the right flank for the Mediflex retractor that was used to retract the left lobe of the liver. The patient had significant hepatomegaly. The gastro-esophageal fat pad was opened with the ultrasonic device (Thunderbeat, Olympus) and the anterior esophagus and hiatus were exposed. The angle of His was opened with the ultrasonic device the fundus of the stomach from any diaphragmatic and splenic attachments. I then opened the gastrocolic ligament between the transverse colon and the greater curvature of the stomach with the ultrasonic device to enter the lesser sac and facilitate the ligation of the short gastric vessels. I started at a mid-point along the greater curvature and using the Thunderbeat, all short gastric vessels were divided all the way to the angle of His until the left halima was completely dissected at its entirety. I then divided the gastro-colic ligament distally to a distance of about 3-4 cm proximal to the pylorus. The patient had an extremely large omentum which was very difficult to move and get adequate exposure. As a result, an extra 5 mm Versi-step port was placed in the left mid-abdomen to be able to retract the omentum more effectively and get adequate exposure to do the operation safely. This prolonged the operation for an additional 60 minutes with a total operative time of 142 minutes. There were extensive congenital adhesions between the pancreas and posterior gastric wall. Those were lysed completely with the ultrasonic device. Adhesiolysis took approximately 45 min to complete. The stomach was then divided transversely with two Endo NEIL-45 purple and four NEIL-6s0 articulating purple loads using the SIGNIA stapler and loads. Every effort was made that the gastric sleeve had a tubular shape and an even caliber throughout. Once the sleeve resection was completed, the staple line of the gastric sleeve was reinforced with Hemoclips. The resected stomach was retrieved without difficulty from the Monique port. A gastropexy was then performed in order to prevent postoperative GERD and partial gastric volvulus. Several interrupted 2.0 Surgidac sutures were placed between the sleeve's staple line and the previously divided greater omentum and gastro-colic ligament using the Endo-Stitch device. ?An upper endoscopy was performed. There was no narrowing at the GE junction. The scope was easily advanced all the way to the pylorus which was clearly visualized. There was no narrowing anywhere and the sleeve's caliber was even throughout. The sleeve's staple line was inspected and there was no evidence of ischemia, bleeding or dehiscence. At that point the gastroscope was withdrawn from the patient?s mouth while we were decompressing the bowel and the stomach from any remaining air. I looked into the lesser sac to see how the sleeve was situating and it was situating well. There was no bleeding from the staple line, spleen, or short gastric vessels. The Mediflex retractor was removed, and the undersurface of the liver was inspected and there was no bleeding. The patient was placed in supine position. I closed the fascial defect of the 12 mm port site with a figure of eight #1 Polysorb suture. Then 30cc Ropivacaine plain with 10 mg of Dexamethasone were used to infiltrate the fascial closure as well as all skin incisions. At this point, the abdomen was deflated, all ports were removed under direct vision, and no bleeding was noted from any of the port sites. The skin incisions were irrigated with saline and were closed with 4-0 absorbable monofilament sutures. Steri-Strips and OpSites were used to cover all incisions. The patient was extubated and was transferred in stable condition to the recovery room for further care. I was present and performed all rapp parts of the procedure. Ms. Funez was the business development assistant. There were no residents to assist with this case. Skyler Rice MD, PhD, FACS Surgeon: Haroon Rice MD Anesthesia: local and other (TAP block) Was an Floriculture Teacher used for this Procedure?: No Floriculture Teacher: Swapnil Galindo Estimated blood loss (mL): 10 IV fluids (mL): 2,500 Urine output (mL): 0 (No Casey to record output) Pathology: other (1) Stomach, 2) Gastro-esophageal fat pad) Condition: stable Disposition: PACU
--- NOTE | 2025-01-12 07:51 | P.PNGS_ITS ---
Subjective Subjective Date of Service: 01/13/25 Interval history: Feels well. Mild incisional pain. She is tolerating phase 1 bariatric diet Physical Exam 2 Vital Signs: Vital Signs: Last Vital Signs Temp 97.5 F 01/12/25 06:32 Pulse 78 01/12/25 06:32 Resp 16 01/12/25 06:32 BP 106/73 01/12/25 06:32 Pulse Ox 96 01/12/25 06:32 O2 Del Method Room Air 01/12/25 06:32 BMI result Body Mass Index 45.4 GI: Inspection: Yes normal to inspection, Yes incision (clean, dry and intact) and Yes obesity Palpation (GI): Soft to palpation Extrem: Right lower extremity: normal to inspection (no calf tenderness) L eft lower extremity: normal to inspection (no calf tenderness) Objective Data Active Medications Albuterol Sulfate (Albuterol Sulfate (0.083%) 2.5 Mg/3 Ml Vial.Neb) 2.5 mg INHALE ONCE PRN PRN Reason: Shortness of Breath/Wheezing Albuterol/Ipratropium (Albuterol/Iprat 2.5/0.5mg 3 Ml Ampul.Neb) 3 ml INHALE ONCE PRN PRN Reason: Bronchospasm/wheezing Stop: 01/12/25 13:31 Fentanyl (Fentanyl Citrate/Pf 100 Mcg/2 Ml Vial) 25 mcg IVPUSH Q5M PRN PRN Reason: Pain, Moderate to Severe (Pain Scale 4-10) Stop: 01/12/25 13:31 Haloperidol Lactate (Haloperidol Lactate 5 Mg/Ml Vial) 1 mg IVPUSH ONCE PRN PRN Reason: intractable nausea Stop: 01/12/25 13:31 Hydromorphone HCl (Hydromorphone Hcl 0.5 Mg/0.5 Ml Syringe) 0.25 mg IVPUSH Q5M PRN PRN Reason: Pain, Moderate to Severe (Pain Scale 4-10) Stop: 01/12/25 13:31 Lactated Ringer's (Lr) 1,000 mls @ 100 mls/hr IVCONT .Q10H FRANCOISE Stop: 01/12/25 10:14 Naloxone HCl (Naloxone Hcl 0.4 Mg/Ml Vial) 0.04 mg IVPUSH Q5M PRN PRN Reason: Excessive sedation or RR < 8 Ondansetron HCl (Ondansetron Hcl 4 Mg/2 Ml Vial) 4 mg IVPUSH ONCE PRN PRN Reason: Nausea and Vomiting Stop: 01/12/25 13:31 Labs 01/13/25 05:44 01/13/25 05:44 Procedures Date of Service Date of Service: 01/13/25 Progress Note: A&P Assessment and plan (1) Morbid obesity: Status: Acute Assessment and Plan: s/p laparoscopic sleeve gastrectomy, lysis of adhesions and gastropexy Doing well Will check am labs and if OK the patient will be discharged home (2) GERD (gastroesophageal reflux disease): Status: Acute (3) DJD (degenerative joint disease): Status: Acute (4) Congenital intra-abdominal adhesions: Status: Acute (5) S/P laparoscopic sleeve gastrectomy: Status: Acute (6) Hepatomegaly: Status: Acute Time Spent With Patient Time: Total time managing care of this patient today ____ minutes. Quality Stroke Does the patient have a stroke diagnosis?: No VTE Prior VTE?: No VTE Risk Level:: Surgical - moderate VTE Device Contraindication: N/A - Device Ordered VTE Drug Contraindication: Treatment Not Indicated
--- NOTE | 2025-01-12 10:40 | P.DS_ITS ---
DS: Providers Provider Date of Service: 01/13/25 Date of admission: 01/12/25 06:02 Date of discharge: 01/13/25 Primary care physician: Kaitlynn Tam MD DS: Diagnosis Discharge Diagnosis (1) Morbid obesity: Status: Acute (2) GERD (gastroesophageal reflux disease): Status: Acute (3) DJD (degenerative joint disease): Status: Acute DS: Summary Hospital Course Hospital Course: ADMITTING DIAGNOSIS: morbid obesity, low back pain, lymphedema, hypertension, peripheral vascular disease, asthma ? DISCHARGE DIAGNOSIS: same, s/p laparoscopic sleeve gastrectomy ? PAST SURGICAL HISTORY: Laparoscopic cholecystectomy, laminectomy, hysterectomy, right lower lobe lobectomy ? PROCEDURE: upper endoscopy, laparoscopic sleeve gastrectomy ? DISCHARGE SUMMARY: ? History of Present Illness: ? The patient is a?54 year-old woman with a BMI of?47.7 kg/m2 and associated co- morbidities as described above. The patient had extensive work-up,lost?34.9 lbs preoperatively and was electively scheduled for laparoscopic, possible open sleeve gastrectomy and gastropexy. Risks and complications of the surgery were discussed with the patient in advance, particularly the possibility of , pulmonary embolism, anastomotic leak, bleeding, bowel injury, GERD, cardiac, renal or pulmonary complications. The patient understood all the risks and was in agreement with the surgical plan. ? Hospital Course: ? The patient underwent an uneventful laparoscopic sleeve gastrectomy with gastropexy on the day of admission. Postoperatively, the patient was transferred to the surgical floor. The patient received IV Acetaminophen and IV dilaudid for pain control. Patient was started on bariatric phase 1 diet POD #0. On postoperative day one, the patient was feeling well without nausea, vomiting, fevers, or tachycardia. The patient had some mild incisional pain and the abdomen was soft. ? On the morning of postoperative day one, the patient was continued on 1 ounce of water or ice every half hour. During the day, the patient did fairly well, having some incisional pain, but able to ambulate adequately and to tolerate liquids well. ? Since the patient is doing well, we decided that the patient was ready to be discharged. The patient was given instructions to follow-up with me next week and to call my office for any fever over 101, persistent abdominal pain, nausea, vomiting, GERD, symptoms of DVT such as calf tenderness, or leg swelling, or pulmonary embolism such as chest pain or shortness of breath. The patient was also instructed to drink 40-60 ounces of liquids per day using the 1-ounce cups. The patient had been given prescriptions for Tylenol for pain, Zofran prn for nausea, and pantoprazole and carafate previously. The patient was encouraged to ambulate and use the incentive spirometer. The patient was allowed to shower, but no baths, and encouraged to stay active at home. All of these instructions were given to the patient personally. All questions were answered and the patient understood all instructions, the instructions were also given to the patient in print. Time Attestation Total time managing care of this patient today: 25 mintues. Discharge Coordination Time (in mins): 25 Quality: Safe Use of Opioids Does Pt have an Active Cancer Diagnosis on the Problem List?: No Quality: Stroke Does the patient have a stroke diagnosis?: No Physical Exam Vital Signs: Vital Signs: Last Vital Signs Temp 97.5 F 01/12/25 06:32 Pulse 78 01/12/25 06:32 Resp 16 01/12/25 06:32 BP 106/73 01/12/25 06:32 Pulse Ox 96 01/12/25 06:32 O2 Del Method Room Air 01/12/25 06:32 BMI result Body Mass Index 45.4 DS: Data Data Completed and Pending Pending studies at discharge: Pending at discharge 01/12/25 09:56 Surgical [PTH] Routine Discharge Plan Discharge Anticipated Discharge Date/Time: 01/13/25 10:00 Patient Disposition: Home, Self-Care Discharge Diagnosis: Status post laparoscopic sleeve gastrectomy Referrals: Kaitlynn Tam MD [Primary Care Provider, Internal Medicine] - 1 Week Discharge Medications: Continued albuterol sulfate 2.5 mg/0.5 mL solution for nebulization 5 mg inhalation Q6H PRN (Reason: shortness of breath or wheezing) Qty: 30 0RF acetaminophen 500 mg tablet 500 mg PO Q6H PRN (Reason: pain) fluticasone furoate [Arnuity Ellipta] 200 mcg/actuation blister with device 1 inh INHALATION DAILY Held cholecalciferol (vitamin D3) 125 mcg (5,000 unit) capsule 125 mcg PO DAILY Qty: 90 0RF Hold Instructions: Resume on 01/27/25. mecobalamin (vitamin B12) 1,000 mcg tablet,disintegrating 1,000 mcg sublingual DAILY Qty: 90 0RF Hold Instructions: Resume on 01/20/25. Rx Instructions: place tablet under tongue and allow to dissolve for at least30 secs before swallowing Discontinued omeprazole 20 mg capsule,delayed release(DR/EC) 20 mg PO DAILY@0630 Discharge Orders: Discharge Order (Routine); Ordered 01/13/25 Ordered By: Haroon Rice Activity on Discharge: No heavy lifting Stand Alone Forms: Patient Portal Discharge page Print Language: Chinese Care Plan Goals: Weight loss Health Concerns: Morbid obesity Plan of Treatment: No tub baths, sex or returning to work until discussed at first post op appointment. No exercise, alcohol, tobacco or illegal drug use. Continue to use incentive spirometer hourly while awake. Walk in home for 5- 10 minutes every 2 hours during the first week. Follow all instructions in the bariatric handbook and call with any questions.Discharge Instructions 1. Please call your doctor or come back to the emergency room should any new symptoms arise. 2. You will receive a courtesy call from [facility] 24-48 hours after discharge. 3. Activity: abstain from alcohol, practice limited stair climbing, no bending, no driving, no exercise, no illicit substances, no lifting, no sex, no tub bath, no work. 4. Diet: continue as discussed with Dr. Rice. 5. Dressing Change/Wound Care: Your incision is covered by clear bandages and guaze underneath. If the area is tender, you may apply an ice pack for short intervals (no more than 20 minutes on, followed by at least 20 minutes off). Do not apply heat. Do not use creams, lotions, or topical antibiotics unless instructed to do so by your surgeon. These can cause infection or allergic reaction. 6. Call your doctor if: - Your temperature exceeds 101.5 F - You experience excessive pain or swelling - You have an unexpected reaction to medication - You have excessive bleeding - You experience continued vomiting/nausea - Your incision begins to separate - Your incision shows signs of infection such as increased redness, swelling, excessive pain, heat, or drainage (light blood or clear fluid is normal) 7. General instructions: No lifting greater than 5 lbs for 1 week and not more than 20lbs the next 3?weeks. No driving until seen at the office in 5-7 days after surgery. If you do not move your bowels in the next 2 days, please tell?Dr. Rice. Please walk around your home every hour or two to prevent blood clots from forming in your legs. You do not need to wake from sleeping to walk. Please sleep in a bed or couch to prevent kinking at the hips and knees. Please take your incentive spirometer (your lung landscape account manager) home with you and use it for the next few days to prevent pneumonia. You may shower, no hot tubs, baths or swimming pools.?Please follow the post op diet instructions you are?given by Dr Rice? and text me daily at 5-6pm for an update.?If you have any issues or concerns or questions please communicate this to him via text.? The Celebrate shakes have all of the bariatric vitamins you need if you consume these shakes. If you are drinking other protein shakes, you will need to purchase the Celebrate multivitamins and calcium that are available in the [employer] shop on the first floor of the [facility].??Do not take anything without first discussing with Dr Rice. Please make sure you are consuming at least 40 ounces of fluids per day starting the?day AFTER your discharge from the hospital. Always drink 1-2 ml per minute using the 5ml?syringe. If you drink faster you may experience?bloating,?gas pain, burping, nausea or heartburn. In that case please slow down your pace and use the syringe to?understand better the?proper?pace and volume of drinking. Do not hesitate to contact the office with any questions at . The patient's medical history has been reviewed and they are considered low risk for post op DVT and therefore DVT prophylaxis is not considered necessary. Travel after surgery was reviewed. The patient has not disclosed any travel plans during the first 30 days after surgery and they have been advised that within the first 30 days after surgery any bus, plane, train or car travel over 2 hours in duration is contraindicated due to the possibility of developing blood clots from immobility. Any travel, needs to include periods of ambulation of 10 minutes in duration every 2 hours.? The patient was instructed to discuss any plans for travel during this period with their bariatric surgeon. Assessment: Stable, status post laparoscopic sleeve gastrectomy
[2025-01-12 11:38] LABS: Hematocrit 39.4 % (37.0-47.0); Hemoglobin 12.6 g/dl (12.0-16.0)
[2025-01-12 11:51] LABS: Anion Gap 14 (12-20); Blood Urea Nitrogen 7 mg/dL (9-16); Calcium 9.0 mg/dL (8.4-10.2); Carbon Dioxide 25 mmol/L (22-29); Chloride 107 mmol/L (96-108); Creatinine Clr Calc Pharmacy 101.1; Estimated Glomerular Filt Rate > 60; Potassium 3.8 mmol/L (3.3-5.1); Sodium 142 mmol/L (135-145)
[2025-01-12] MEDS: Lactated Ringers 1,000 ML 100 ML IVCONT ×2 (12:12→20:31)
--- NOTE | 2025-01-12 15:28 | PHA.MEDREC ---
Addendum entered by Swapnil Valdivia [facility] 01/12/25 16:27: Med rec reviewed. Pt no longer takes pulmicort or qvar Original Note: Pharmacy Consult ? Medication Reconciliation Pharmacy has completed the medication reconciliation. Spoke with pt and she confirmed her medications. Pt confirmed she took Polythylene glycol powder before the surgery and finished that, she is taking Omeprazole once daily but states she is going to start Pantoprazole when she gets home from the surgery (Pt confirmed she also is starting Ondansetron and Sucralfate when she gets home from the surgery.
[2025-01-12] MEDS: 0.9 % Sodium Chloride Flush 3 ML SYRINGE IVFLUSH (20:32)
[2025-01-13 03:40] VITALS: BP 129/71; PULSE 68; RESP 18; TEMP 36.6; O2SAT 93
[2025-01-13 06:06] LABS: MANUAL DIFF FLAG NO
[2025-01-13 06:21] LABS: Hematocrit 36.8 % (37.0-47.0); Hemoglobin 11.9 g/dl (12.0-16.0); Imm Gran Abs Auto 0.04 X10*3/uL (0.00-0.03); Imm Gran Pct Auto 0.5 % (0.0-0.4); Lymphocytes Absolute Auto 1.2 X10*3/uL (1.2-4.9); Mean Corpuscular HGB Conc 32.3 g/dl (31.0-35.0); Mean Corpuscular Hemoglobin 27.6 pg (27.0-33.0); Mean Corpuscular Volume 85.4 fL (80.0-98.0); NRBC Abs Auto 0.000 X10*3/uL (0.0-0.012); NRBC Pct Auto 0.0 /100WBC (0.0-0.2); Platelet Count 249 X10*3/uL (160-400); Red Blood Count 4.31 X10*6/uL (4.20-5.50); White Blood Count 8.1 X10*3/uL (4.8-10.8)
[2025-01-13 06:22] LABS: Anion Gap 14 (12-20); Blood Urea Nitrogen 7 mg/dL (9-16); Calcium 9.0 mg/dL (8.4-10.2); Carbon Dioxide 24 mmol/L (22-29); Chloride 111 mmol/L (96-108); Creatinine Clr Calc Pharmacy 114.8; Estimated Glomerular Filt Rate > 60; Potassium 4.5 mmol/L (3.3-5.1); Sodium 144 mmol/L (135-145)
[2025-01-13 07:07] VITALS: BP 137/77; PULSE 62; RESP 12; TEMP 36.1; O2SAT 93
--- NOTE | 2025-01-13 09:37 | MHC.CM.PN ---
CM MET WITH PT AT BEDSIDE. PT LIVES WITH OTHERS AND IS FUNCTIONALLY INDEPENDENT, EMPLOYED F/T. +DRIVES. NO SERVICES OR DME. + HCP ON FILE AND VERIFIED. PCP DR. GARRETT DP: PT HAS BEEN MEDICALLY CLEARED FOR DC HOME, NO SERVICES. PT HAS OWN RIDE HOME.
--- NOTE | 2025-01-13 10:34 | HO.POSTANES ---
Post Anesthesia Evaluation Post Anesthesia Evaluation Date of Service: 01/13/25 Vital Signs: Vital Signs Temp Pulse Resp BP Pulse Ox O2 Del Method 01/13/25 07:07 96.9 F 62 12 137/77 93 Room Air 01/13/25 03:40 97.8 F 68 18 129/71 93 Room Air 01/12/25 23:11 98.1 F 72 18 106/62 94 Room Air Anesthesia: General Mental Status: Awake Pain Control: Satisfactory Nausea/Vomiting: None Hydration: Adequate Anesthesia-Related Issues: No Anes. Related Issues
[2025-01-13 11:34] VITALS: BP 132/76; PULSE 61; RESP 15; TEMP 36.2; O2SAT 93
== END 2025-01-13 11:53 | disposition home or self-care (01) | DRG 620 ==
LOC: HO.SSSA 06:25 → HO.S3 10:34
PROVIDERS: Physician Assistant Surgical; Admitting Provider Surgery; PCP Internal Medicine; Visit Provider Surgery
PROC: 0DB64Z3 Excision of Stomach, Percutaneous Endoscopic Approach, Vertical (ICD-10-PCS; CPT 43845; principal; 2025-01-12 07:30)
DX: E66.01 Morbid (severe) obesity due to excess calories (principal); Q43.3 Congenital malformations of intestinal fixation; I10 Essential (primary) hypertension; K21.9 Gastro-esophageal reflux disease without esophagitis; I73.9 Peripheral vascular disease, unspecified; M19.90 Unspecified osteoarthritis, unspecified site; K76.0 Fatty (change of) liver, not elsewhere classified; Z68.41 Body mass index [BMI] 40.0-44.9, adult; Z79.899 Other long term (current) drug therapy
CPT/HCPCS: 36415; 80048; 80053; 80061; 83036; 83525; 84443; 85014; 85018; 85025; 85610; 85730; 86140; 86850; 86900; 86901; 88305; 88307; 88342; A4649; C9145; J0131; J0690; J1100; J1171; J2003; J2250; J2371; J2405; J2470; J2704; J2765; J2795; J3010; J7120

== ENCOUNTER → 2025-01-12 06:02 | Outpatient (BNV) | payer OTHER, SELFPAY | PROVIDERS: Admitting Provider Surgery; PCP Internal Medicine; Visit Provider Surgery | DX: E66.01 Morbid (severe) obesity due to excess calories (principal); K21.9 Gastro-esophageal reflux disease without esophagitis; M19.90 Unspecified osteoarthritis, unspecified site; Q43.3 Congenital malformations of intestinal fixation; Z98.84 Bariatric surgery status; R16.0 Hepatomegaly, not elsewhere classified | CPT/HCPCS: 43659; 43775; 99024; 99499 ==

== ENCOUNTER 2025-01-19 14:40 | Outpatient (AMB) | payer OTHER, SELFPAY ==
--- NOTE | 2025-01-19 14:39 | MHC.WMTHER ---
Intake Intake Visit Reasons: TV PO LSG 01/12/2025 Allergies hydrocodone (From Vicodin) Allergy (Severe, Verified 12/28/24 12:15) NAUSEA,DIZZY sulfamethoxazole (From Bactrim) Allergy (Severe, Verified 12/28/24 12:15) Rash trimethoprim (From Bactrim) Allergy (Severe, Verified 12/28/24 12:15) Rash morphine Adverse Reaction (Severe, Verified 12/28/24 12:15) Chills oxycodone (From PERCOCET) Adverse Reaction (Severe, Verified 12/28/24 12:15) nausea,VOMITING PFSH Medical History (Updated 01/16/25 @ 00:03 by Background Daemon) Lung nodule Lung nodule seen on imaging study Pre-op evaluation Abnormal chest xray De Quervain's tenosynovitis, right Left leg paresthesias Right elbow pain Numbness and tingling in right hand Right tennis elbow Right rotator cuff tendonitis Cellulitis Lumbar facet arthropathy DJD (degenerative joint disease) GERD (gastroesophageal reflux disease) Migraine HTN (hypertension) Obesity Arthritis Low back pain History of cellulitis Headache PVD (peripheral vascular disease) Numbness and tingling of both legs Elevated LFTs Fatty liver Ear infection Hx of pneumothorax Spondyloarthropathy Asthma Surgical History (Updated 01/16/25 @ 00:03 by Background Daemon) History of esophagogastroduodenoscopy (EGD) (10/22/24) History of carpal tunnel surgery of right wrist (09/22/24) H/O colonoscopy History of esophagogastroduodenoscopy (EGD) History of cholecystectomy Hx of total hysterectomy with removal of both tubes and ovaries Hx of laminectomy History of lung surgery Family History Father Diabetes HTN (hypertension) Mother Stroke CVD (cardiovascular disease) Social History Household Members: None Housing: Apartment Are you a primary care management specialist to a significant other at home: No Do you presently have visiting nurse or other home services: No Alcohol intake: current Alcohol intake frequency: holidays/special occasions only Patient Tobacco Use Status: Never used Tobacco e-Cigarette/Vaping Use: Never Used service: No Current occupational status: employed Behavioral Health Assessment Weight Management Therapy Therapy Notes Details Subjective: Patient underwent weight loss surgery on 01/12/2025. She denies pain or recovery difficulties and reports tolerating the liquid diet well, consuming 40?60 oz of fluids daily, including three protein shakes. She took last week off and returned to work on Saturday, currently working from home. Mood is good, with no emotional challenges reported. She identifies strong support from her mother, , daughter, and cousin. Patient denies hunger or preoccupation with food. She does note some difficulty managing others? comments and expectations regarding her recovery. Objective: Patient seen for behavioral health post-operative follow-up. Guided emotional check-in completed to assess mood, adjustment, and recovery. Psychoeducation provided on typical emotional and psychological changes after bariatric surgery. Discussed strategies for staying mindful of physical and emotional needs while maintaining adherence to post-operative guidelines. PHQ-9 administered, indicating no significant depressive symptoms. Reinforced the importance of following Weight Management Program instructions, including hydration, meal pacing, and exercise. Provided tips for long-term success and invited patient to join the program?s [employer] support group for ongoing resources. Assessment/Response: Mental status: WNL Risk reported/identified: None. Mental status within normal limits. No safety risks identified or reported. Patient is adjusting well post-operatively, with good insight and support system in place. Questionnaires PHQ-9 Over the last 2 weeks, how often have you been bothered by any of the following problems? 1. Little interest or pleasure in doing things: not at all 2. Feeling down, depressed, or hopeless: not at all 3. Trouble falling or staying asleep, or sleeping too much: not at all 4. Feeling tired or having little energy: not at all 5. Poor appetite or overeating: not at all 6. Feeling bad about yourself - or that you are a failure or have let yourself or your family down: not at all 7. Trouble concentrating on things, such as reading the newspaper or watching television: not at all 8. Moving or speaking so slowly that other people could have noticed. Or the opposite - being so fidgety or restless that you have been moving around a lot more than usual: not at all 9. Thoughts that you would be better off or of hurting yourself in some way: not at all Total score: 0 Depression Screening Interpretation: Negative Depression Screening Done: Yes 64507 - PHQ-9 Billing: Yes Source: Developed by Drs. Nino Luna, Zamzam Dalton, Dilan Gonzalez and colleagues, with an educational yessy from [employer]. Assessment & Plan Assessment & Plan (1) Adjustment disorder: Code(s): F43.20 - Adjustment disorder, unspecified (2) Inappropriate diet or eating habits: Code(s): Z72.4 - Inappropriate diet and eating habits (3) Status post bariatric surgery: Code(s): Z98.84 - Bariatric surgery status Plan No safety concerns were identified, and behavioral health monitoring is not indicated at this time. The patient declined further behavioral health visits but is aware of the support available should she need it in the future. Telehealth Telehealth Telehealth Platform: [facility] Location of provider rendering services: other (Home office. [place], [place]) Location of patient: address on file Patient Identification confirmed using: Name, : Yes Telehealth method: voice only Patient verbally consented to treatment: Yes Patient verbally consented to billing insurance company: Yes Patient informed of any privacy concerns related to visit: Yes Minutes spent on Phone/Video with Pt.: 20 Coding Level of Care Code Established Pt Tele Psytx 30 mins (52706) Patient Type Established Diagnoses Adjustment disorder F43.20 Inappropriate diet or eating habits Z72.4 Status post bariatric surgery Z98.84 Additional Codes PHQ-9 - 09985 - PHQ-9 Billing: Yes ([id number]) Time Spent (min) 20
--- OUTSIDE RECORDS SUMMARY | 2025-01-19 16:00 | XMS_ITS | Clinical Summary ---
[facility] Organization [facility] Address [id number] [place] [id number] Care Team Providers Care Assistant At Surgery Name Role Phone Kaitlynn Garrett MD Primary Care Provider [phone] Medical History Medical History Date Comments Asthma [...] Procedure Name Priority Date/Time Associated Diagnosis Comments [facility] SCREENING DIGITAL Routine 12/03/2018 5:27 PM EDT Encounter for screening mammogram for malignant neoplasm of breast from Last 3 Months or Most Recently Relevant to Health Maintenance Results * JENNIFER SCREENING DIGITAL (12/03/2018 5:27 PM EDT) Anatomical Region Laterality Modality Mammography 12/03/2018 3:09 PM EDT Narrative 12/03/2018 5:27 PM EDT [facility] Diagnostic Imaging Department [address] [place] [id number] Patient: GLADYSKISHOREMADYSON /Age/Sex: 1970 - 48 - F Unit#: [id number] Location/Status: SPDIMAM/REG CLI Mnemonic/Ordering Site: DIGSC/SPMAM Ordering [...] mammography. BIRADS category 1, negative examination, 3341F [address]14, , [address] Note: Patient information entered into a reminder system with a target due date for the next mammogram; PQRI II 7032F Dictating Physician: MIKE CORDERO MD Electronically Signed by: MIKE CORDERO MD Dic Date/Time: 12/03/181722 Sign date/Time: 12/03/181726 Procedure Note Mike Cordero - 05/23/2022 [facility] Diagnostic Imaging Department [address] [place] [address] Patient: MADYSON GRAHAM /Age/Sex: 1970 - 48 - F Unit#: [id number] Location/Status: [facility] CLI Mnemonic/Ordering Site: [facility] Ordering Physician: KAITLYNN GARRETT MD Jennifer Screening [...] mammography. BIRADS category 1, negative examination, 3341F [address]672, , [address] Note: Patient information entered into a reminder system with a targetdue date for the next mammogram; PQRI II 7025F Dictating Physician: MIKE CORDERO MD Electronically Signed by: MIKE CORDERO MD Dic Date/Time: 12/03/181722 Sign date/Time: 12/03/181726 Kaitlynn Garrett MD IMG BI PROCEDURES Final Resul t from Last 3 Months or Most Recently Relevant to Health Maintenance Care Teams Assistant At Surgery Relationship Specialty Start Date End Date Kaitlynn Garrett MD [address] [facility] [address] [place] PCP - General Internal Medicine 11/07/16
--- OUTSIDE RECORDS SUMMARY | 2025-01-19 16:00 | XMS_ITS | Clinical Summary ---
Author Organization [facility] Address [address] [place] [phone] Phone Care Team Providers Care Gasket Supervisor Name Role Phone Kaitlynn Tam MD Primary [...] topic Medical Devices Not on file [facility] C[facility] O POS [facility]IG HMO POS CIG HMO POS CIGNA HMO POS Care Teams Gasket Supervisor Relationship Specialty Start Date End Date Kaitlynn Tam MD [address] [place] [address] [place] [phone] PCP - General Internal Medicine 03/24/20 Additional Source Comments The information contained in this document represents components of the legal health record. It is not the complete legal health record.[facility]
== END 2025-01-19 15:01 | disposition home or self-care (01) ==
LOC: HO.HBST 14:40
PROVIDERS: PCP Internal Medicine; Visit Provider Counselor Mental Health
DX: F43.20 Adjustment disorder, unspecified (principal); Z72.4 Inappropriate diet and eating habits; Z98.84 Bariatric surgery status
CPT/HCPCS: 90832

== ENCOUNTER 2025-01-20 14:50 | Outpatient (AMB) | payer OTHER, SELFPAY ==
--- NOTE | 2025-01-20 14:53 | MHC.OFFVISWM ---
VS Expanded 01/20/25 15:14 BP 136/79 Blood Pressure Location Rt brachial Blood Pressure Position Sitting Pulse 62 Pulse Source Pulse Oximeter Temp 95.5 F L Temperature Source Temporal Artery Scan Pulse Oximetry 96 Oxygen Delivery Method Room Air Height 5 ft 7 in Weight 280 lb 12.8 oz BMI 44.0 Body Fat % 50.9 Body Fat Mass 142.8 Fat Free Mass 137.8 Visceral Fat Rating 17.0 Body Water % 35.0 Body Water Mass 98.2 Muscle Mass/Score 131.0 Basal Metabolic Rate/Score 1,982 Intake Visit Reasons: OV PO LSG 01/12/25 Allergies hydrocodone (From Vicodin) Allergy (Severe, Verified 12/28/24 12:15) NAUSEA,DIZZY sulfamethoxazole (From Bactrim) Allergy (Severe, Verified 12/28/24 12:15) Rash trimethoprim (From Bactrim) Allergy (Severe, Verified 12/28/24 12:15) Rash morphine Adverse Reaction (Severe, Verified 12/28/24 12:15) Chills oxycodone (From PERCOCET) Adverse Reaction (Severe, Verified 12/28/24 12:15) nausea,VOMITING HPI Comments Details: This?a?54?yo female who is s/p LSG without hiatal hernia repair on?01/12/2025. Presents for 8 day post op visit. Weight today is 280.8 pounds, with a BMI of 44. She is tolerating 3 Premier protein shakes at 8-11, 1-4, 5-8. She is drinking approximately 60 oz of fluids per day and has moved her bowels. [facility] Medical History (Updated 01/16/25 @ 00:03 by Santino Cerna) Lung nodule Lung nodule seen on imaging study Pre-op evaluation Abnormal chest xray De Quervain's tenosynovitis, right Left leg paresthesias Right elbow pain Numbness and tingling in right hand Right tennis elbow Right rotator cuff tendonitis Cellulitis Lumbar facet arthropathy DJD (degenerative joint disease) GERD (gastroesophageal reflux disease) Migraine HTN (hypertension) Obesity Arthritis Low back pain History of cellulitis Headache PVD (peripheral vascular disease) Numbness and tingling of both legs Elevated LFTs Fatty liver Ear infection Hx of pneumothorax Spondyloarthropathy Asthma Surgical History (Updated 01/20/25 @ 15:16 by Edith Mallory CMA) S/P gastric sleeve procedure History of esophagogastroduodenoscopy (EGD) (10/22/24) History of carpal tunnel surgery of right wrist (09/22/24) H/O colonoscopy History of esophagogastroduodenoscopy (EGD) History of cholecystectomy Hx of total hysterectomy with removal of both tubes and ovaries Hx of laminectomy History of lung surgery Family History Father Diabetes HTN (hypertension) Mother Stroke CVD (cardiovascular disease) Social History Household Members: None Housing: Apartment Are you a primary lawn caretaker to a significant other at home: No Do you presently have visiting nurse or other home services: No Alcohol intake: current Alcohol intake frequency: holidays/special occasions only Patient Tobacco Use Status: Never used Tobacco e-Cigarette/Vaping Use: Never Used service: No Current occupational status: employed Physical Exam GI Inspection: Yes incision (Clean, dry, intact.) Assessment & Plan Assessment & Plan (1) S/P laparoscopic sleeve gastrectomy: Code(s): Z98.84 - Bariatric surgery status Category: Surgical Plan: POD 8 s/p LSG on 01/12/[address] Rcie Weight loss prior to surgery was 34.9 pounds or 11.4 % TBWL. Original weight on 09/29/2024 was 304.8 pounds and op weight was 269.9 pounds. Be sure to text Dr Rice exactly 1 week after surgery your weight from your home scale so he can adjust your meal plan. Continue meal plan until f/u w Megan May shower, no submersion in bath for another week Continue abdominal binder with activity and exercise for the next 2 weeks. Exercise prior to surgery was treadmill at [employer] and may resume No abdominal exercises for 6 weeks post operatively Will be emailed link to post op video for review Reminded of the pace of drinking, 2 mL per minute, 1 oz/15 min.
[2025-01-20 15:14] VITALS: BP 136/79; PULSE 62; TEMP 35.3; O2SAT 96; BMI 44.0
--- OUTSIDE RECORDS SUMMARY | 2025-01-20 15:46 | XMS_ITS | Clinical Summary ---
[facility] Organization [facility] Address [address] [place] [phone] Care Team Providers Care Peel Oven Tender Name Role Phone Kaitlynn Garrett MD Primary Care Provider Medical History Medical History Date Comments Asthma [...] Procedure Name Priority Date/Time Associated Diagnosis Comments [facility] SCREENING DIGITAL Routine 12/03/2018 5:27 PM EDT Encounter for screening mammogram for malignant neoplasm of breast from Last 3 Months or Most Recently Relevant to Health Maintenance Results * [facility] SCREENING DIGITAL (12/03/2018 5:27 PM EDT) Anatomical Region Laterality Modality Mammography 12/03/2018 3:09 PM EDT Narrative 12/03/2018 5:27 PM EDT [facility] Diagnostic Imaging Department [address] [place] [address] Patient: GLADYSKISHOREMADYSON /Age/Sex: 1970 - 48 - F Unit#: [id number] Location/Status: SPDIMAM/REG CLI Mnemonic/Ordering Site: [facility]SC/[facility] Ordering [...] mammography. BIRADS category 1, negative examination, 3341F 11721, , [address]250 Note: Patient information entered into a reminder system with a target due date for the next mammogram; PQRI II 7058F Dictating Physician: MIKE CORDERO MD Electronically Signed by: MIKE CORDERO MD Dic Date/Time: 12/03/181722 Sign date/Time: 12/03/181726 Procedure Note Mike Cordero - 05/23/2022 [facility] Diagnostic Imaging Department [address] [place] [address] Patient: MADYSON GRAHAM /Age/Sex: 1970 - 48 - F Unit#: [id number] Location/Status: [facility] CLI Mnemonic/Ordering Site: [facility] Ordering Physician: KAITLYNN GARRETT MD [...] mammography. BIRADS category 1, negative examination, 3341F 87594, , [address]455 Note: Patient information entered into a reminder system with a targetdue date for the next mammogram; PQRI II 7025F Dictating Physician: MIKE CORDERO MD Electronically Signed by: MIKE CORDERO MD Dic Date/Time: 12/03/181722 Sign date/Time: 12/03/181726 Kaitlynn Garrett MD IMG BI PROCEDURES Final Resul t from Last 3 Months or Most Recently Relevant to Health Maintenance Care Teams Peel Oven Tender Relationship Specialty Start Date End Date Kaitlynn Garrett MD [facility] [address] [place] PCP - General Internal Medicine 11/07/16
--- OUTSIDE RECORDS SUMMARY | 2025-01-20 15:46 | XMS_ITS | Clinical Summary ---
Author Organization [facility] Address [address] [place] [address] Phone Care Team Providers Care Finisher Special Stocks Name Role Phone Kaitlynn Tam MD Primary [...] topic Medical Devices Not on file Insurance [employer] POS CIGNA O POS [employer] POS CIGNA O POS CIGNA O POS [employer] POS CIG HMO POS CIG HMO POS CIGNA HMO POS Care Teams Finisher Special Stocks Relationship Specialty Start Date End Date Kaitlynn Tam MD [address] [place] [address] [place] [phone] PCP - General Internal Medicine 03/24/20 Additional Source Comments The information contained in this document represents components of the legal health record. It is not the complete legal health record.[facility]
== END 2025-01-20 15:25 | disposition home or self-care (01) ==
LOC: HO.HBS 14:51
PROVIDERS: PCP Internal Medicine; Visit Provider Physician Assistant Surgical
DX: Z98.84 Bariatric surgery status (principal)
CPT/HCPCS: 99024

== ENCOUNTER → 2025-02-05 08:28 | Outpatient (BNVA) | payer OTHER, SELFPAY | PROVIDERS: PCP Internal Medicine; Visit Provider Physician Assistant Surgical | DX: E11.9 Type 2 diabetes mellitus without complications (principal) ==

== ENCOUNTER 2025-02-12 11:56 | Outpatient (AMB) | payer OTHER, SELFPAY ==
--- NOTE | 2025-02-12 11:43 | MHC.OFFVISWM ---
VS Expanded 02/12/25 11:46 Height 5 ft 7 in Weight 270 lb BMI 42.3 Intake Visit Reasons: TV PO LSG 01/12/25 Allergies hydrocodone (From Vicodin) Allergy (Severe, Verified 12/28/24 12:15) NAUSEA,DIZZY sulfamethoxazole (From Bactrim) Allergy (Severe, Verified 12/28/24 12:15) Rash trimethoprim (From Bactrim) Allergy (Severe, Verified 12/28/24 12:15) Rash morphine Adverse Reaction (Severe, Verified 12/28/24 12:15) Chills oxycodone (From PERCOCET) Adverse Reaction (Severe, Verified 12/28/24 12:15) nausea,VOMITING Medication List - Last Reconciled 02/12/25 by MARY Jeffers acetaminophen 500 mg PO Q6H PRN albuterol sulfate 5 mg inhalation Q6H PRN cholecalciferol (vitamin D3) 125 mcg PO DAILY Held on 01/13/25. Instructions: Resume on 01/27/25. fluticasone furoate 200 mcg/actuation (Arnuity Ellipta) 1 inh inhalation DAILY mecobalamin (vitamin B12) 1,000 mcg sublingual DAILY Held on 01/13/25. Instructions: Resume on 01/20/25. HPI Comments Details: This?is a?54?yo F who is s/p LSG 01/12/2025. Presents for 1mo post op visit. Weight at last visit on 01/20/2025 was 280.8 pounds. Weight today is 270 pounds, representing a 10.8 pound weight loss with a BMI today of 42.3.? No complaints of nausea, emesis, abdominal pain or reflux, or constipation. Present meal plan includes: shakes- Premier shakes x3 per day hydration is adequate Exercise routine includes: stair climbing but nothing formal [facility] Medical History (Updated 01/16/25 @ 00:03 by Santino Cerna) Lung nodule Lung nodule seen on imaging study Pre-op evaluation Abnormal chest xray De Quervain's tenosynovitis, right Left leg paresthesias Right elbow pain Numbness and tingling in right hand Right tennis elbow Right rotator cuff tendonitis Cellulitis Lumbar facet arthropathy DJD (degenerative joint disease) GERD (gastroesophageal reflux disease) Migraine HTN (hypertension) Obesity Arthritis Low back pain History of cellulitis Headache PVD (peripheral vascular disease) Numbness and tingling of both legs Elevated LFTs Fatty liver Ear infection Hx of pneumothorax Spondyloarthropathy Asthma Surgical History (Updated 01/20/25 @ 15:16 by Edith Mallory CMA) S/P gastric sleeve procedure History of esophagogastroduodenoscopy (EGD) (10/22/24) History of carpal tunnel surgery of right wrist (09/22/24) H/O colonoscopy History of esophagogastroduodenoscopy (EGD) History of cholecystectomy Hx of total hysterectomy with removal of both tubes and ovaries Hx of laminectomy History of lung surgery Family History Father Diabetes HTN (hypertension) Mother Stroke CVD (cardiovascular disease) Social History Household Members: None Housing: Apartment Are you a primary care specialist to a significant other at home: No Do you presently have visiting nurse or other home services: No Alcohol intake: current Alcohol intake frequency: holidays/special occasions only Patient Tobacco Use Status: Never used Tobacco e-Cigarette/Vaping Use: Never Used service: No Current occupational status: employed Telehealth Telehealth Telehealth Platform: Telephone Location of provider rendering services: practice address Location of patient: address on file Patient Identification confirmed using: Name, : Yes Telehealth method: voice only Patient verbally consented to treatment: Yes Patient verbally consented to billing insurance company: Yes Patient informed of any privacy concerns related to visit: Yes Minutes spent on Phone/Video with Pt.: 15 Assessment & Plan Assessment & Plan (1) Morbid obesity: Code(s): E66.01 - Morbid (severe) obesity due to excess calories Category: Medical (2) S/P laparoscopic sleeve gastrectomy: Code(s): Z98.84 - Bariatric surgery status Category: Surgical Plan Pt to continue meal plan per Dr. Palacios She will try to increase exercise to goal of 2000 calories burned per week, says she has too much other stuff happening right now to focus on it. Reviewed heavy lifting restriction until 6w postop. Continue PPI and carafate. RTC 2mo phone visit 15min.
[2025-02-12 11:46] VITALS: BMI 42.3
--- OUTSIDE RECORDS SUMMARY | 2025-02-12 14:26 | XMS_ITS | Clinical Summary ---
Author Organization [facility] Address [address] [place] [address] Phone Care Team Providers Care Resident Surgeon Name Role Phone Kaitlynn Tam MD Primary [...] 2022 ZOSTER VACCINES (1 of 2) 2022 INFLUENZA VACCINE (#1) 2025 07/03/2018 COVID-19 VACCINE (3 - 2024-2 6 season) 2025 10/14/2020, 09/23/2020 HEPATITIS A VACCINES Aged Out [...] topic Medical Devices Not on file Insurance CIGNA O POS CIGNA O POS CIGNA HMO POS Member Subscriber Plan / Payer ( fective 2017-Present) Name:Madyson Arguelles Relation to Subscriber:Self Name:Madyson Arguelles Payer ID:[id number] ([facility]) Type:HMO Address: [place] [id number] CIGNA HMO POS CIGNA HMO POS O POS Member Subscriber Plan / Payer (Ef fective 2017-Present) Name:Madyson Arguelles Relation to Subscriber:Self Name:Madyson Arguelles Payer ID:[id number] ([facility]) Type:HMO Address: [place] [id number] [place], [place] [address]O POS [facility] POS CIGNA O POS [facility] Address: [address] [place] [address] Care Teams Resident Surgeon Relationship Specialty Start Date End Date Kaitlynn Tam MD [address] [place] [address] [place] [address] PCP - General Internal Medicine 03/24/20 Additional Source Comments The information contained in this document represents components of the legal health record. It is not the complete legal health record.[facility]
--- OUTSIDE RECORDS SUMMARY | 2025-02-12 14:26 | XMS_ITS | Clinical Summary ---
Author Organization [facility] Address [address] [place] [phone] Care Team Providers Care Motor Block Mechanic Name Role Phone Kaitlynn Garrett MD Primary Care Provider [phone] Medical History Medical History Date Comments Asthma [...] 05/05/2022 Zoster Vaccines (1 of 2) 2022 Depression Screening 06/03/2024 COVID-19 Vaccine (2023-2 5 season) 2025 Influenza Vaccine (#1) 2025 07/03/2018 HIB Vaccines [...] Procedure Name Priority Date/Time Associated Diagnosis Comments [facility] SCREENING DIGITAL Routine 12/03/2018 5:27 PM EDT Encounter for screening mammogram for malignant neoplasm of breast from Last 3 Months or Most Recently Relevant to Health Maintenance Results * [facility] SCREENING DIGITAL (12/03/2018 5:27 PM EDT) Anatomical Region Laterality Modality Mammography 12/03/2018 3:09 PM EDT Narrative 12/03/2018 5:27 PM EDT [facility] Diagnostic Imaging Department [address] [place] [address] Patient: GLADYSKISHOREMADYOSN /Age/Sex: 1970 - 48 - F Unit#: [id number] Location/Status: SPDIMAM/REG CLI Mnemonic[facility] Ordering Physician: KAITLYNN GARRETT MD Jennifer Screening [...] mammography. BIRADS category 1, negative examination, 3341F 28024, , [address] Note: Patient information entered into a reminder system with a target due date for the next mammogram; PQRI II 7015F Dictating Physician: MIKE CORDERO MD Electronically Signed by: MIKE CORDERO MD Dic Date/Time: 12/03/181722 Sign date/Time: 12/03/181726 Procedure Note Mike Cordero - 05/23/2022 [facility] Diagnostic Imaging Department [address] [place] [address] Patient: MADYSON GRAHAM /Age/Sex: 1970 - 48 - F Unit#: [id number] Location/Status: [facility] CLI Mnemonic/Ordering Site: [facility] Ordering Physician: KAITLYNN GARRETT MD Jennifer [...] mammography. BIRADS category 1, negative examination, 3341F 01903, , [id number] Note: Patient information entered into a reminder system with a targetdue date for the next mammogram; PQRI II 7025F Dictating Physician: MIKE CORDERO MD Electronically Signed by: MIKE CORDERO MD Dic Date/Time: 12/03/181722 Sign date/Time: 12/03/181726 Kaitlynn Garrett MD IMG BI PROCEDURES Final Resul t from Last 3 Months or Most Recently Relevant to Health Maintenance Care Teams Motor Block Mechanic Relationship Specialty Start Date End Date Kaitlynn Garrett MD [address] [facility] [place] [address] [place] PCP - General Internal Medicine 11/07/16
== END 2025-02-12 11:56 | disposition home or self-care (01) ==
LOC: HO.HBS 11:56
PROVIDERS: PCP Internal Medicine; Visit Provider Physician Assistant Surgical
DX: E66.01 Morbid (severe) obesity due to excess calories (principal); Z68.42 Body mass index [BMI] 45.0-49.9, adult; Z90.3 Acquired absence of stomach [part of]; Z98.84 Bariatric surgery status
CPT/HCPCS: 99024

== ENCOUNTER 2025-02-16 15:07 | Outpatient (REF) | payer OTHER, SELFPAY ==
--- NOTE | ~2025-02-16 | CT_ITS ---
EXAMINATION: CT CHEST WITH CONTRAST CLINICAL INFORMATION: R91.1 - Solitary pulmonary nodule, left lower lobe COMPARISON: November 16, 2024 TECHNIQUE: Multidetector volumetric CT imaging of the chest was obtained after the administration of 65 mL of Omnipaque 350 intravenous contrast without immediate adverse reactions. Axial MIP volume rendering provided. Sagittal and coronal reformatted images were obtained. This CT examination was performed using dose optimization techniques as appropriate, variously including the following: *Automated exposure control *Adjustment of mA and/or kV according to patient size (this includes techniques or standardized protocols for targeted exams where dose is matched to indication/reason for exam; i.e. extremities or head) *Use of iterative reconstruction technique DLP: 197 mGy*cm FINDINGS: LUNGS: Again seen is a nodular density in the posterior lateral base of the left lower lobe measuring 15 mm diameter, previously 16 mm. It contacts pleura and diaphragm. There is mild focal bronchiectasis of a small airway medial to the density. Density tracks cephalad along the pleura for 37 mm. Again seen is a density in the medial posterior base of the right lower lobe with comet tail morphology, adjacent to pleural thickening and pleural calcification, is most consistent with rounded atelectasis. MEDIASTINUM: Unremarkable PLEURA: There is no pleural effusion. Pleural thickening and focal calcification is noted in the posterior medial basal right lower lobe. AXILLA: No lymphadenopathy. UPPER ABDOMEN: Cholecystectomy has been performed. There are clips in the gallbladder fossa. Gastric bypass surgery is also been performed. OSSEOUS STRUCTURES: Unremarkable. CT/CT chest w IV con IMPRESSION: Stable nodular changes in the posterior lateral basilar left lower lobe. Pulmonary nodule versus rounded atelectasis. There is a short segment of bronchiectasis involving a small airway medial to the nodular density suggesting that there could be scarring in this region raising question of rounded atelectasis. Consider PET/CT. Biopsy could also be an option but would probably be technically challenging given the location. Suspected rounded atelectasis in the posterior medial basal right lower lobe. Fleischner guidelines were followed. Electronically signed by: Tyler Duarte MD 02/16/2025 04:15 PM EDT
[2025-02-16] MEDS: iohexoL 350 MG/ML 100 ML INFUS..BTL 65 ML IV (15:39)
[2025-02-16 16:34] LABS: Creatinine POC 0.8 mg/dL (0.5-1.4); GFR POC > 60
--- OUTSIDE RECORDS SUMMARY | 2025-02-16 18:40 | XMS_ITS | Clinical Summary ---
Author Organization [facility] Address [address] [place] [address] Phone Care Team Providers Care Miller Head Assistant Wet Process Name Role Phone Kaitlynn Tam MD Primary [...] Relation to Subscriber:Self Name:Madyson Arguelles Payer ID:[id number] ([facility]) Type:HMO Address: [place] [id number] CIGNA HMO POS CIGNA HMO POS O POS Member Subscriber Plan / Payer (Ef fective 2017-Present) Name:Madyson Arguelles Relation to Subscriber:Self Name:Madyson Arguelles Payer ID:[id number] ([facility]) Type:HMO Address: [place] [id number] [place], [place] [address]O POS [facility] CIGNA O POS [facility] Address: [address] [place] [address] Care Teams Miller Head Assistant Wet Process Relationship Specialty Start Date End Date Kaitlynn Tam MD [address] [place] [address] [place] [address] PCP - General Internal Medicine 03/24/20 Additional Source Comments The information contained in this document represents components of the legal health record. It is not the complete legal health record.[facility]
--- OUTSIDE RECORDS SUMMARY | 2025-02-16 18:40 | XMS_ITS | Clinical Summary ---
Author Organization [facility] Address [address] [place] [address] Care Team Providers Care Gas Tender Name Role Phone Kaitlynn Garrett MD Primary Care Provider [phone] Medical History Medical History Date Comments Asthma [...] Procedure Name Priority Date/Time Associated Diagnosis Comments [facility] SCREENING DIGITAL Routine 12/03/2018 5:27 PM EDT Encounter for screening mammogram for malignant neoplasm of breast from Last 3 Months or Most Recently Relevant to Health Maintenance Results * [facility] SCREENING DIGITAL (12/03/2018 5:27 PM EDT) Anatomical Region Laterality Modality Mammography 12/03/2018 3:09 PM EDT Narrative 12/03/2018 5:27 PM EDT [facility] Diagnostic Imaging Department [address] [place] [address] Patient: GLADYSKISHOREMADYSON /Age/Sex: 1970 - 48 - F Unit#: [id number] Location/Status: SPDIMAM/REG CLI Mnemonic[facility] Ordering Physician: KAITLYNN GARRETT MD Jennifer Screening [...] mammography. BIRADS category 1, negative examination, 3341F [address]276, , [address]18[address] Note: Patient information entered into a reminder system with a target due date for the next mammogram; PQRI II 7061F Dictating Physician: MIKE CORDERO MD Electronically Signed by: MIKE CORDERO MD Dic Date/Time: 12/03/181722 Sign date/Time: 12/03/181726 Procedure Note Mike Cordero - 05/23/2022 [facility] Diagnostic Imaging Department [address] [place] [address] Patient: MADYSON GRAHAM /Age/Sex: 1970 - 48 - F Unit#: [id number] Location/Status: [facility] CLI Mnemonic/Ordering Site: [facility] Ordering Physician: KAITLYNN GARRETT MD Jennifer Screening [...] mammography. BIRADS category 1, negative examination, 3341F 55199, , 54698 Note: Patient information entered into a reminder system with a targetdue date for the next mammogram; PQRI II 7025F Dictating Physician: MIKE CORDERO MD Electronically Signed by: MIKE CORDERO MD Dic Date/Time: 12/03/181722 Sign date/Time: 12/03/181726 Kaitlynn Garrett MD IMG BI PROCEDURES Final Resul t from Last 3 Months or Most Recently Relevant to Health Maintenance Care Teams Gas Tender Relationship Specialty Start Date End Date Kaitlynn Garrett MD [address] [facility] [address] [place] PCP - General Internal Medicine 11/07/16
== END 2025-02-16 15:08 | disposition home or self-care (01) ==
LOC: HO.CT 15:07
PROVIDERS: PCP Internal Medicine; Visit Provider Surgery
DX: R91.1 Solitary pulmonary nodule (principal)
CPT/HCPCS: 71260; 82565; Q9967

== ENCOUNTER → 2025-02-16 15:09 | Outpatient (BNV) | payer OTHER, SELFPAY | PROVIDERS: PCP Internal Medicine; Visit Provider Radiology Diagnostic Radiology | DX: R91.1 Solitary pulmonary nodule (principal) | CPT/HCPCS: 71260 ==

== ENCOUNTER 2025-03-09 06:12 | Outpatient (REF) | payer OTHER, SELFPAY ==
--- OUTSIDE RECORDS SUMMARY | 2025-03-09 06:14 | XMS_ITS | Clinical Summary ---
Author Organization [facility] Address [address] [place] [address] Care Team Providers Care Aircraft Power Plant Assembler Name Role Phone Kaitlynn Garrett MD Primary Care Provider [phone] Medical History Medical History Date Comments Asthma [...] Health Maintenance Due Date Last Done Comments Colorectal Cancer Screening: Colonoscopy 1972 DTaP,Tdap,and Td Vaccines (1 - Tdap) 09/01/1991 Hepatitis B Vaccines (1 of 3 - 19+ 3-dose series) 09/01/1991 Pneumococcal Vaccine: 50+ Ye ars (1 of 2 - PCV) 09/01/1991 Cervical Cancer Screening: P ap Smear 1993 Breast Cancer Screening 12/03/2020 12/03/2018 Cholesterol Screening (Lipid Panel) 05/05/2022 HIV Screening 05/05/2022 Hepatitis C Screening 05/05/2022 Social Influencers of Health Screening 05/05/2022 Zoster Vaccines (1 of 2) 2022 Depression Screening 06/03/2024 COVID-19 Vaccine (2023-2 5 season) 2025 Influenza Vaccine (#1) 2025 07/03/2018 RSV Immunization Adult Patie nts (1 - 1-dose 75+ series) 09/01/2047 HIB Vaccines Aged Out No longer eligi [...] Procedure Name Priority Date/Time Associated Diagnosis Comments [facility] SCREENING DIGITAL Routine 12/03/2018 5:27 PM EDT Encounter for screening mammogram for malignant neoplasm of breast from Last 3 Months or Most Recently Relevant to Health Maintenance Results * [facility] SCREENING DIGITAL (12/03/2018 5:27 PM EDT) Anatomical Region Laterality Modality Mammography 12/03/2018 3:09 PM EDT Narrative 12/03/2018 5:27 PM EDT [facility] Diagnostic Imaging Department [address] [place] [address] [phone] Patient: MADYSON GRAHAM /Age/Sex: 1970 - 48 - F Unit#: [id number] Location/Status: [facility]/REG CLI Mnemonic/Ordering Site: [facility] Ordering Physician: KAITLYNN GARRETT MD [...] mammography. BIRADS category 1, negative examination, 3341F 70997, , [id number] Note: Patient information entered into a reminder system with a target due date for the next mammogram; PQRI II 7021F Dictating Physician: MIKE CORDERO MD Electronically Signed by: MIKE CORDERO MD Dic Date/Time: 12/03/181722 Sign date/Time: 12/03/181726 Procedure Note Mike Cordero - 05/23/2022 [facility] Diagnostic Imaging Department [address] [place] [address] Patient: GLADYSMADYSON /Age/Sex: 1970 - 48 - F Unit#: [id number] Location/Status: [facility] CLI Mnemonic/Ordering Site: [facility] Ordering Physician: KAITLYNN GARRETT MD [...] mammography. BIRADS category 1, negative examination, 3341F 68174, , [id number] Note: Patient information entered into a reminder system with a targetdue date for the next mammogram; PQRI II 7025F Dictating Physician: MIKE CORDERO MD Electronically Signed by: MIKE CORDERO MD Dic Date/Time: 12/03/181722 Sign date/Time: 12/03/181726 Kaitlynn Garrett MD IMG BI PROCEDURES Final Resul t from Last 3 Months or Most Recently Relevant to Health Maintenance Care Teams Aircraft Power Plant Assembler Relationship Specialty Start Date End Date Kaitlynn Garrett MD [address] [facility] [address] [place] PCP - General Internal Medicine 11/07/16
--- OUTSIDE RECORDS SUMMARY | 2025-03-09 06:14 | XMS_ITS | Clinical Summary ---
Author Organization [facility] Address [address] [place] [address] Phone Care Team Providers Care Powder Carrier Name Role Phone Kaitlynn Tam MD Primary [...] Relation to Subscriber:Self Name:Madyson Arguelles Payer ID:[id number] ([facility]) Type:HMO Address: [place] [id number] CIGNA HMO POS CIGNA HMO POS O POS Member Subscriber Plan / Payer (Ef fective 2017-Present) Name:Madyson Arguelles Relation to Subscriber:Self Name:Madyson Arguelles Payer ID:[id number] ([facility]) Type:HMO Address: [place] [id number] [place], [place] [address]O [facility] O POS [facility] Address: [address] N[place]ONZO [address] Care Teams Powder Carrier Relationship Specialty Start Date End Date Kaitlynn Tam MD [address] [place] [address] [place] [address] PCP - General Internal Medicine 03/24/20 Additional Source Comments The information contained in this document represents components of the legal health record. It is not the complete legal health record.[facility]
== END 2025-03-09 06:13 | disposition home or self-care (01) ==
LOC: CF 06:12
PROVIDERS: Visit Provider Anesthesiology
DX: Z13.89 Encounter for screening for other disorder (principal)

== ENCOUNTER 2025-03-30 14:08 | Outpatient (AMB) | payer OTHER, SELFPAY ==
--- NOTE | 2025-03-30 14:10 | A.OFFVIS_ITS ---
Vital Signs 03/30/25 14:11 Height 5 ft 7 in Weight 257 lb 8 oz BMI 40.3 BP 124/78 Blood Pressure Location Rt brachial Position Sitting Pulse 50 Pulse Source Pulse Oximeter Pulse Oximetry (%) 98 Oxygen Delivery Method Room Air Intake Visit Reasons: Pulmonary Nodule Allergies hydrocodone (From Vicodin) Allergy (Severe, Verified 03/30/25 14:13) NAUSEA,DIZZY sulfamethoxazole (From Bactrim) Allergy (Severe, Verified 03/30/25 14:13) Rash trimethoprim (From Bactrim) Allergy (Severe, Verified 03/30/25 14:13) Rash morphine Adverse Reaction (Severe, Verified 03/30/25 14:13) Chills oxycodone (From PERCOCET) Adverse Reaction (Severe, Verified 03/30/25 14:13) nausea,VOMITING HPI HPI Pulmonary Nodule: Details: Madyson is a pleasant 54 year old female,never smoker, with underlying h/o childhood asthma, h/o pneumothorax and RLL wedge resection s/p PNA (benign) in 1999, HTN, GERD and PVD. She was referred by Dr. Rice after recent abnormal chest CT. She underwent CXR for preoperative evaluation found to have possible nodule of LLL with recommendations for chest CT. Chest CT 11/2024 dem onstrated 16 mm spiculated nodule in the left lower lobe, which decreased to 15 mm on a subsequent scan 02/2025. The patient has a significant family history of cancer, with relatives on both sides affected, raising her concern about the nodule's potential malignancy. Denies any occupational exposures. The patient has a history of asthma, diagnosed in childhood, which has required hospitalization in the past but not intubation. Her asthma is currently managed with Anoro and albuterol as needed, with exacerbations triggered by allergens such as dust and cats. She reports having pneumonia twice last year, which complicates her asthma management. The patient underwent bariatric surgery three months ago, contributing to her recent weight loss. She has a history of Spondyloarthropathy, previously treated with Enbrel, which was discontinued due to cellulitis. Her SCOT levels were elevated in 2019, and she has a family history of lupus. She was previously under the care of rheumatology but has been lost to follow up. [facility] Medical History (Updated 03/30/25 @ 14:53 by Leda Mccoy NP) Lung nodule Lung nodule seen on imaging study Pre-op evaluation Abnormal chest xray De Quervain's tenosynovitis, right Left leg paresthesias Right elbow pain Numbness and tingling in right hand Right tennis elbow Right rotator cuff tendonitis Cellulitis Lumbar facet arthropathy DJD (degenerative joint disease) GERD (gastroesophageal reflux disease) Migraine HTN (hypertension) Obesity Arthritis Low back pain History of cellulitis Headache PVD (peripheral vascular disease) Numbness and tingling of both legs Elevated LFTs Fatty liver Ear infection Hx of pneumothorax Spondyloarthropathy Asthma Surgical History (Updated 01/20/25 @ 15:16 by Edith Mallory CMA) S/P gastric sleeve procedure History of esophagogastroduodenoscopy (EGD) (10/22/24) History of carpal tunnel surgery of right wrist (09/22/24) H/O colonoscopy History of esophagogastroduodenoscopy (EGD) History of cholecystectomy Hx of total hysterectomy with removal of both tubes and ovaries Hx of laminectomy History of lung surgery Family History Father Diabetes HTN (hypertension) Mother Stroke CVD (cardiovascular disease) Social History Household Members: None Housing: Apartment Are you a primary manager medicare marketing to a significant other at home: No Do you presently have visiting nurse or other home services: No Alcohol intake: current Alcohol intake frequency: holidays/special occasions only Patient Tobacco Use Status: Never used Tobacco e-Cigarette/Vaping Use: Never Used service: No Current occupational status: employed Review of Systems Const Denies chills, Denies excessive sweating, Denies fever(s), Denies headache(s) and Denies night sweats Eyes Denies dry eyes, Denies irritation and Denies itchy eyes ENT Reports Normal hearing present, Denies headache(s), Denies nasal congestion, Denies nasal discharge, Denies post nasal drip and Denies sore throat Card Denies chest pain, Denies chest pain at rest, Denies chest pain with activity, Denies claudication, Denies leg edema, Denies dyspnea, Denies dyspnea on exertion, Denies orthopnea and Denies paroxysmal nocturnal dyspnea Resp Denies chest congestion, Denies cough, Denies excessive phlegm production, Denies pain on inspiration, Denies pain with cough, Denies dyspnea, Denies dyspnea on exertion, Denies stridor and Denies wheezing Musc Denies myalgias Neuro Reports Normal hearing present and Denies headache(s) Endo Denies excessive sweating Rony/Lymph Denies lymphadenopathy Aller/Immun Denies itchy eyes, Denies seasonal rhinorrhea and Denies wheezing Physical Exam Vital Signs: Last Vital Signs Pulse 50 03/30/25 14:11 BP 124/78 03/30/25 14:11 Pulse Ox 98 03/30/25 14:11 Oxygen Delivery Method Room Air 03/30/25 14:11 BMI result Body Mass Index 40.3 Const General: cooperative, healthy appearing, comfortable, no acute distress, well developed and alert Nutritional Appearance: obese Orientation/consciousness: patient oriented x3 Limitations: no limitations HEENT Head: Yes normal to inspection, Yes normocephalic and Yes atraumatic Ears: hearing grossly normal bilaterally and external ears normal Eyes General: appearance normal, both eyes and all related structures Eyelids: Yes eyelids normal Sclerae: sclerae normal EOM: EOMs intact bilaterally Neck Neck: Yes normal visual inspection and Yes no lymphadenopathy Lymphatic: no lymphadenopathy noted Chest Chest palpation & inspection: normal inspection of the chest Resp Effort & Inspection: normal respiratory effort, able to speak in complete sentences, no audible wheezes, no cough, no stridor, not tachypneic, no tripod positioning and no use of accessory muscles Auscultation: clear to auscultation bilaterally Cardio Jugular venous distension: no JVD Rate: regular rate Rhythm: regular rhythm Skin Other: warm, dry General skin exam: no rashes or lesions noted Neuro General: patient oriented x3 Cranial nerves: Yes Normal hearing present Cognition (Neuro): normal cognition Gait exam (Neuro): Normal gait present Extrem General: Yes normal to inspection, Yes capillary refill normal, Yes no clubbing, cyanosis or edema and Yes no pedal edema Psych Appearance: grossly normal and well kempt Speech and movement: Normal speech and movement present and Clear speech present Affect: normal affect Attitude: cooperative Thought process: Normal thought process present Thought content: Normal thought content present Insight: Good insight present (Psych) Judgement: Good judgement present (Psych) Assessment & Plan Assessment & Plan (1) Pulmonary nodule 1 cm or greater in diameter: Code(s): R91.1 - Solitary pulmonary nodule Category: Medical (2) Asthma: Code(s): J45.909 - Unspecified asthma, uncomplicated Category: Medical Plan We reviewed chest CT 02/2025 which redemonstrated LLL pulmonary nodule however has decreased in size from 16 mm to 15 mm, which is reassuring. Given the decrease in size, the plan is to repeat the CT scan in three months to monitor any changes. If the patient remains concerned, referral to a thoracic surgeon for further evaluation and potential biopsy can be considered. If there is notable increase in size will send for PET. The patient's asthma is currently managed with Anoro and albuterol as needed. Due to concerns about asthma control and frequent pneumonias, switching to Breo, which includes an inhaled steroid and long-acting albuterol, is recommended. The patient is advised to monitor asthma symptoms and seek medical attention if exacerbations occur. All questions were answered and patient is in agreement of plan. Will follow up to review results or sooner if needed. Orders: Orders CT chest wo IV con 2 Months R91.1 - Solitary pulmonary nodule Medications: New fluticasone furoate-vilanterol 200-25 mcg/dose (Breo Ellipta) 1 inh inhalation DAILY 60 ea 3RF Coding Level of Care Code New Pt Level 4 (17886) Diagnoses Pulmonary nodule 1 cm or greater in diameter R91.1 Asthma J45.909
[2025-03-30 14:11] VITALS: BP 124/78; PULSE 50; O2SAT 98; BMI 40.3
--- OUTSIDE RECORDS SUMMARY | 2025-03-30 18:33 | XMS_ITS | Clinical Summary ---
Author Organization [facility] Address [address] [place] [address] Phone Care Team Providers Care Clinical Informatics Physician Name Role Phone Kaitlynn Tam MD Primary [...] - 2024-2 6 season) 2025 10/14/2020, 09/23/2020 RSV VACCINE (1 - 1-dose 75+ series) 09/01/2047 HEPATITIS A VACCINES Aged Out No long [...] topic Medical Devices Not on file Insurance [facility] CIGNA HMO POS CIGNA HMO POS CIGNA HMO POS CIGNA HMO POS CIG HMO POS CIGNA HMO POS CIGNA HMO POS CIGNA HMO POS Care Teams Clinical Informatics Physician Relationship Specialty Start Date End Date Kaitlynn Tam MD [address] [place] [address] [place] [address] PCP - General Internal Medicine 03/24/20 Additional Source Comments The information contained in this document represents components of the legal health record. It is not the complete legal health record.[facility]
--- OUTSIDE RECORDS SUMMARY | 2025-03-30 18:33 | XMS_ITS | Clinical Summary ---
Author Organization [facility] Address [address] [place] [address] Care Team Providers Care Roll Table Operator Name Role Phone Kaitlynn Garrett MD Primary Care Provider [phone] Medical History Medical History Date Comments Asthma [...] 05/05/2022 Social Influencers of Health Screening 05/05/2022 RSV Immunization Adult Patie nts (1 - Risk 50-74 years 1-dose series) 2022 Zoster Vaccines (1 of 2) 2022 Depression [...] Procedure Name Priority Date/Time Associated Diagnosis Comments [facility] SCREENING DIGITAL Routine 12/03/2018 5:27 PM EDT Encounter for screening mammogram for malignant neoplasm of breast from Last 3 Months or Most Recently Relevant to Health Maintenance Results * [facility] SCREENING DIGITAL (12/03/2018 5:27 PM EDT) Anatomical Region Laterality Modality Mammography 12/03/2018 3:09 PM EDT Narrative 12/03/2018 5:27 PM EDT [facility] Diagnostic Imaging Department [address] [place] [id number] Patient: GRAHAMMADYSON /Age/Sex: 1970 - 48 - F Unit#: [id number] Location/Status: [facility] CLI Mnemonic/Ordering Site: [facility] Ordering Physician: KAITLYNN GARRETT MD [...] mammography. BIRADS category 1, negative examination, 3341F 80387, , [address]92 Note: Patient information entered into a reminder system with a target due date for the next mammogram; PQRI II 7054F Dictating Physician: MIKE CORDERO MD Electronically Signed by: MIKE CORDERO MD Dic Date/Time: 12/03/181722 Sign date/Time: 12/03/181726 Procedure Note Mike Cordero - 05/23/2022 [facility] Diagnostic Imaging Department [address] [place] [address] Patient: MADYSON GRAHAM /Age/Sex: 1970 - 48 - F Unit#: [id number] Location/Status: [facility]REG CLI Mnemonic/Ordering Site: [facility] Ordering Physician: KAITLYNN GARRETT MD [...] mammography. BIRADS category 1, negative examination, 3341F 36089, , 73750 Note: Patient information entered into a reminder system with a targetdue date for the next mammogram; PQRI II 7025F Dictating Physician: MIKE CORDERO MD Electronically Signed by: MIKE CORDERO MD Dic Date/Time: 12/03/181722 Sign date/Time: 12/03/181726 Kaitlynn Garrett MD IMG BI PROCEDURES Final Resul t from Last 3 Months or Most Recently Relevant to Health Maintenance Care Teams Roll Table Operator Relationship Specialty Start Date End Date Kaitlynn Garrett MD [address] [facility] [address] [place], [place] PCP - General Internal Medicine 11/07/16
== END 2025-03-30 14:48 | disposition home or self-care (01) ==
LOC: HO.HPSW 14:10
PROVIDERS: PCP Internal Medicine; Referring Provider Surgery; Visit Provider Nurse Practitioner Family
DX: R91.1 Solitary pulmonary nodule (principal); J45.909 Unspecified asthma, uncomplicated
CPT/HCPCS: 99204

== ENCOUNTER 2025-04-13 06:07 | Outpatient (REF) | payer OTHER, SELFPAY ==
--- OUTSIDE RECORDS SUMMARY | 2025-04-13 06:11 | XMS_ITS | Clinical Summary ---
Author Organization [facility] Address [address] [place] [phone] Care Team Providers Care Finished Cloth Examiner Name Role Phone Kaitlynn Garrett MD Primary Care Provider [phone] Medical History Medical History Date Comments Asthma [...] 2) 2022 Depression Screening 06/03/2024 COVID-19 Vaccine (2024-2 6 season) 2025 Influenza Vaccine (#1) 2025 07/03/2018 [...] Procedure Name Priority Date/Time Associated Diagnosis Comments [facility] SCREENING DIGITAL Routine 12/03/2018 5:27 PM EDT Encounter for screening mammogram for malignant neoplasm of breast from Last 3 Months or Most Recently Relevant to Health Maintenance Results * [facility] SCREENING DIGITAL (12/03/2018 5:27 PM EDT) Anatomical Region Laterality Modality Mammography 12/03/2018 3:09 PM EDT Narrative 12/03/2018 5:27 PM EDT [facility] Diagnostic Imaging Department [address] [place] [address] [phone] Patient: GRAHAMMADYSON /Age/Sex: 1970 - 48 - F Unit#: [id number] Location/Status: [facility] CLI Mnemonic/Ordering Site: [facility] Ordering Physician: KAITLYNN GARRETT MD Jennifer [...] mammography. BIRADS category 1, negative examination, 3341F 43001, , 90003 Note: Patient information entered into a reminder system with a target due date for the next mammogram; PQRI II 7023F Dictating Physician: MIKE CORDERO MD Electronically Signed by: MIKE CORDERO MD Dic Date/Time: 12/03/181722 Sign date/Time: 12/03/181726 Procedure Note Mike Cordero - 05/23/2022 [facility] Diagnostic Imaging Department [address] [place] [address] Patient: MADYSON GRAHAM /Age/Sex: 1970 - 48 - F Unit#: [id number] Location/Status: [facility]REG CLI Mnemonic/Ordering Site: [facility] Ordering Physician: KAITLYNN GARRETT MD Jennifer [...] mammography. BIRADS category 1, negative examination, 3341F 77614, , [address] Note: Patient information entered into a reminder system with a targetdue date for the next mammogram; PQRI II 7025F Dictating Physician: MIKE CORDERO MD Electronically Signed by: MIKE CORDERO MD Dic Date/Time: 12/03/181722 Sign date/Time: 12/03/181726 Kaitlynn Garrett MD IMG BI PROCEDURES Final Resul t from Last 3 Months or Most Recently Relevant to Health Maintenance Care Teams Finished Cloth Examiner Relationship Specialty Start Date End Date Kaitlynn Garrett MD [address] [facility] [address] [place], [place] PCP - General Internal Medicine 11/07/16
--- OUTSIDE RECORDS SUMMARY | 2025-04-13 06:11 | XMS_ITS | Clinical Summary ---
Author Organization [facility] Address [address] [place] [phone] Phone Care Team Providers Care Reading Tutor Name Role Phone Kaitlynn Tam MD Primary [...] topic Medical Devices Not on file [facility] POS CIGNA HMO POS CIGNA HMO POS CIGNA HMO POS CIG HMO POS CIGNA HMO POS CIGNA HMO POS CIGNA HMO POS Care Teams Reading Tutor Relationship Specialty Start Date End Date Kaitlynn Tam MD [address] [place] [address] [place] [phone] PCP - General Internal Medicine 03/24/20 Additional Source Comments The information contained in this document represents components of the legal health record. It is not the complete legal health record.[facility]
== END 2025-04-13 06:08 | disposition home or self-care (01) ==
LOC: CF 06:07
PROVIDERS: Visit Provider Anesthesiology
DX: Z13.89 Encounter for screening for other disorder (principal)

== ENCOUNTER 2025-04-16 09:59 | Outpatient (AMB) | payer OTHER, SELFPAY ==
--- NOTE | 2025-04-16 09:46 | A.OFFVIS_ITS ---
VS Expanded 04/16/25 09:48 Height 5 ft 7 in Weight 246 lb BMI 38.5 Intake Visit Reasons: Phone PO LSG 01/12/25 Allergies hydrocodone (From Vicodin) Allergy (Severe, Verified 03/30/25 14:13) NAUSEA,DIZZY sulfamethoxazole (From Bactrim) Allergy (Severe, Verified 03/30/25 14:13) Rash trimethoprim (From Bactrim) Allergy (Severe, Verified 03/30/25 14:13) Rash morphine Adverse Reaction (Severe, Verified 03/30/25 14:13) Chills oxycodone (From PERCOCET) Adverse Reaction (Severe, Verified 03/30/25 14:13) nausea,VOMITING Medication List - Last Reconciled 04/16/25 by MARY Jeffers acetaminophen 500 mg PO Q6H PRN albuterol sulfate 5 mg inhalation Q6H PRN cholecalciferol (vitamin D3) 125 mcg PO DAILY Held on 01/13/25. Instructions: Resume on 01/27/25. fluticasone furoate-vilanterol 200-25 mcg/dose (Breo Ellipta) 1 inh inhalation DAILY mecobalamin (vitamin B12) 1,000 mcg sublingual DAILY Held on 01/13/25. Instructions: Resume on 01/20/25. HPI Comments Details: This is a 54 yo F who is s/p LSG 01/12/2025. Presents for 3mo post op visit. Weight at last visit on 02/12/2025 was 270 pounds. Weight today is 246 pounds, representing a 24 pound weight loss with a BMI today of 38.5. No complaints of nausea, emesis, abdominal pain, or constipation. Some heartburn when she eats things by mistake such as accidently eating a jalapeno. Present meal plan includes: shakes- no longer drinking Premier, my body is rejecting them so changed to a different brand generally taking one per day tolerating protein bars- 2x per day tolerating yogurt okay but was adding granola one meal with 3 ff meat, 3 ff veg hydration is adequate MVI Exercise routine includes: joined a gym- 3x week, doing circuit training walks an hour per day with her dog [facility] Medical History (Updated 04/16/25 @ 09:52 by MARY Jeffesr) Lung nodule Lung nodule seen on imaging study Pre-op evaluation Abnormal chest xray De Quervain's tenosynovitis, right Left leg paresthesias Right elbow pain Numbness and tingling in right hand Right tennis elbow Right rotator cuff tendonitis Cellulitis Lumbar facet arthropathy DJD (degenerative joint disease) GERD (gastroesophageal reflux disease) Migraine HTN (hypertension) Obesity Arthritis Low back pain History of cellulitis Headache PVD (peripheral vascular disease) Numbness and tingling of both legs Elevated LFTs Fatty liver Ear infection Hx of pneumothorax Spondyloarthropathy Asthma Surgical History (Updated 01/20/25 @ 15:16 by Edith Mallory CMA) S/P gastric sleeve procedure History of esophagogastroduodenoscopy (EGD) (10/22/24) History of carpal tunnel surgery of right wrist (09/22/24) H/O colonoscopy History of esophagogastroduodenoscopy (EGD) History of cholecystectomy Hx of total hysterectomy with removal of both tubes and ovaries Hx of laminectomy History of lung surgery Family History Father Diabetes HTN (hypertension) Mother Stroke CVD (cardiovascular disease) Social History Household Members: None Housing: Apartment Are you a primary health care legal assistant to a significant other at home: No Do you presently have visiting nurse or other home services: No Alcohol intake: current Alcohol intake frequency: holidays/special occasions only Patient Tobacco Use Status: Never used Tobacco e-Cigarette/Vaping Use: Never Used service: No Current occupational status: employed Telehealth Telehealth Telehealth Platform: Telephone Location of provider rendering services: other Location of patient: address on file Patient Identification confirmed using: Name, : Yes Telehealth method: voice only Patient verbally consented to treatment: Yes Patient verbally consented to billing insurance company: Yes Patient informed of any privacy concerns related to visit: Yes Minutes spent on Phone/Video with Pt.: 12 Assessment & Plan Assessment & Plan (1) S/P laparoscopic sleeve gastrectomy: Code(s): Z98.84 - Bariatric surgery status Category: Surgical Plan We discussed discontinuing granola. Only take in solids that are high protein (meat, eggs, yogurt/CC) and not granola or other high carb/sugar/calorie items. We discussed how harmful these types of foods are for weight loss. Pt has joined a gym so I congratulated her on that. Her exercise is still not up to goal calorie burn but she has made improvements. RTC 3mo TV 15 min.
[2025-04-16 09:48] VITALS: BMI 38.5
--- OUTSIDE RECORDS SUMMARY | 2025-04-16 11:41 | XMS_ITS | Clinical Summary ---
Author Organization [facility] Address [address] [place] [address] Care Team Providers Care Customer Counter Representative Name Role Phone Kaitlynn Garrett MD Primary Care Provider [phone] Medical History Medical History Date Comments Asthma [...] Procedure Name Priority Date/Time Associated Diagnosis Comments [facility] SCREENING DIGITAL Routine 12/03/2018 5:27 PM EDT Encounter for screening mammogram for malignant neoplasm of breast from Last 3 Months or Most Recently Relevant to Health Maintenance Results * [facility] SCREENING DIGITAL (12/03/2018 5:27 PM EDT) Anatomical Region Laterality Modality Mammography 12/03/2018 3:09 PM EDT Narrative 12/03/2018 5:27 PM EDT [facility] Diagnostic Imaging Department [address] [place] [address] [id number] Patient: GRAHAMMADYSON /Age/Sex: 1970 - 48 - F Unit#: [id number] Location/Status: [facility] CLI Mnemonic/Ordering Site: [facility] Ordering Physician: KAITLYNN GARRETT MD Jennifer Screening [...] mammography. BIRADS category 1, negative examination, 3341F 93021, , [address] Note: Patient information entered into a reminder system with a target due date for the next mammogram; PQRI II 7068F Dictating Physician: MIKE CORDERO MD Electronically Signed by: MIKE CORDERO MD Dic Date/Time: 12/03/181722 Sign date/Time: 12/03/181726 Procedure Note Mike Cordero - 05/23/2022 [facility] Diagnostic Imaging Department [address] [place] [address] Patient: MADYSON GRAHAM /Age/Sex: 1970 - 48 - F Unit#: [id number] Location/Status: SPDIMAM/REG CLI Mnemonic/Ordering Site: [facility] Ordering Physician: KAITLYNN GARRETT MD Jennifer Screening [...] mammography. BIRADS category 1, negative examination, 3341F 24742, , [address]140 Note: Patient information entered into a reminder system with a targetdue date for the next mammogram; PQRI II 7025F Dictating Physician: MIKE CORDERO MD Electronically Signed by: MIKE CORDERO MD Dic Date/Time: 12/03/181722 Sign date/Time: 12/03/181726 Kaitlynn Garrett MD IMG BI PROCEDURES Final Resul t from Last 3 Months or Most Recently Relevant to Health Maintenance Care Teams Customer Counter Representative Relationship Specialty Start Date End Date Kaitlynn Garrett MD 12[address] [facility] [address] [place], [place] PCP - General Internal Medicine 11/07/16
--- OUTSIDE RECORDS SUMMARY | 2025-04-16 11:41 | XMS_ITS | Clinical Summary ---
Author Organization [facility] Address [address] [place] [address] Phone Care Team Providers Care Auto Body Straightener Name Role Phone Kaitlynn Tam MD Primary [...] patient's age to complete this topic IPV VACCINES Aged Out No longer eligi ble based on patient's age to complete this topic MENINGOCOCCAL VACCINES (ACWY) Aged Out No longer eligible based on patient's age to complete this topic MENINGOCOCCAL VACCINES (B) Aged Out N o longer eligible based on patient's age to complete this topic Medical Devices Not on file [facility] CIGNA HMO POS CIGNA HMO POS CIGNA HMO POS CIGNA HMO POS Member Subscriber Plan / Payer (Ef fective 2017-Present) Name:Madyson Arguelles Relation to Subscriber:Self Name:Madyson Arguelles Payer ID:[id number] ([facility]) Type:HMO Address: [place] [id number] CIGNA HMO POS Member Subscriber Plan / Payer ( fective 2017-Present) Name:Madyson Arguelles Relation to Subscriber:Self Name:Madyson Arguelles Payer ID:[id number] ([facility]) Type:HMO Address: [place] [id number] CIGNA O POS Member Subscriber Plan / Payer ( fective 2017-Present) Name:Madyson Arguelles Relation to Subscriber:Self Name:Madyson Arguelles Payer ID:[id number] ([facility]) Type:HMO Address: [place] [id number] C[place]NA HMO POS C[place] [facility] [place]: [facility] [id number] [place] [address] Care Teams Auto Body Straightener Relationship Specialty Start Date End Date Kaitlynn Tam MD [address] [place] [address] [place] [address] PCP - General Internal Medicine 03/24/20 Additional Source Comments The information contained in this document represents components of the legal health record. It is not the complete legal health record.[facility]
== END 2025-04-16 10:01 | disposition home or self-care (01) ==
LOC: HO.HBS 09:59
PROVIDERS: PCP Internal Medicine; Visit Provider Physician Assistant Surgical
DX: E66.9 Obesity, unspecified (principal); Z68.38 Body mass index [BMI] 38.0-38.9, adult; Z90.3 Acquired absence of stomach [part of]; Z98.84 Bariatric surgery status
CPT/HCPCS: 98013

== ENCOUNTER 2025-04-23 08:56 | Outpatient (AMB) | payer OTHER, SELFPAY ==
--- NOTE | 2025-04-23 09:04 | A.OFFVIS_ITS ---
Vital Signs 3 04/23/25 09:07 Height 5 ft 7 in Weight 247 lb BMI 38.7 BP 129/77 Blood Pressure Location Rt brachial Position Sitting Respiration 16 Pulse 63 Pulse Source Pulse Oximeter Pulse Oximetry (%) 96 Oxygen Delivery Method Room Air Intake Visit Reasons: PROCEDURE DISCUSSION Scrap Bunch Maker Required: No Accompanied by: Self / Same As Patient Allergies hydrocodone (From Vicodin) Allergy (Severe, Verified 04/23/25 09:08) NAUSEA,DIZZY sulfamethoxazole (From Bactrim) Allergy (Severe, Verified 04/23/25 09:08) Rash trimethoprim (From Bactrim) Allergy (Severe, Verified 04/23/25 09:08) Rash morphine Adverse Reaction (Severe, Verified 04/23/25 09:08) Chills oxycodone (From PERCOCET) Adverse Reaction (Severe, Verified 04/23/25 09:08) nausea,VOMITING HPI Comments Details: The patient is a 54-year-old individual presenting with sacroiliac joint dysfunction and questions about upcoming diagnostic injection. The patient reports persistent pain in the sacroiliac region, which has been exacerbated by prolonged sitting and standing, and is described as a [id number]-lx-[id number] sensation. The pain has been ongoing despite significant weight loss following a sleeve gastrectomy performed on January 12. The patient has a history of steroid-induced weight gain, which led to the development of obesity and subsequent health issues such as cellulitis and fatty liver disease. The patient has experienced adverse effects from steroid use, including hypertension and difficulty with physical activities due to increased weight. The patient has undergone previous interventions, including an epidural steroid injection, which did not provide significant relief. The current plan involves a diagnostic test injection to assess the sacroiliac joint's contribution to the pain, with a follow-up to evaluate the effectiveness of the procedure. - Onset: Persistent pain in the sacroiliac region - Quality: Described as gfye-oe-aqic sensation - Location: Sacroiliac region, with radiation to the buttock and possibly down the leg - Exacerbating factors: Prolonged sitting, standing, and certain physical activities - Relieving factors: Not explicitly discussed - Interference: Affects ability to perform daily activities such as cooking, cleaning, and driving - Affect: Pain impacts the patient's mood and daily functioning - Analgesia: Previous epidural steroid injection provided minimal relief - Adverse Effects: Steroid use led to weight gain and hypertension - Activities of Daily Living: Pain limits ability to perform tasks such as cooking and driving - Aberrant Drug Related Behaviors: None reported PFSH Medical History (Updated 04/16/25 @ 09:52 by MARY Jeffers) Lung nodule Lung nodule seen on imaging study Pre-op evaluation Abnormal chest xray De Quervain's tenosynovitis, right Left leg paresthesias Right elbow pain Numbness and tingling in right hand Right tennis elbow Right rotator cuff tendonitis Cellulitis Lumbar facet arthropathy DJD (degenerative joint disease) GERD (gastroesophageal reflux disease) Migraine HTN (hypertension) Obesity Arthritis Low back pain History of cellulitis Headache PVD (peripheral vascular disease) Numbness and tingling of both legs Elevated LFTs Fatty liver Ear infection Hx of pneumothorax Spondyloarthropathy Asthma Surgical History (Updated 01/20/25 @ 15:16 by Edith Mallory CMA) S/P gastric sleeve procedure History of esophagogastroduodenoscopy (EGD) (10/22/24) History of carpal tunnel surgery of right wrist (09/22/24) H/O colonoscopy History of esophagogastroduodenoscopy (EGD) History of cholecystectomy Hx of total hysterectomy with removal of both tubes and ovaries Hx of laminectomy History of lung surgery Family History Father Diabetes HTN (hypertension) Mother Stroke CVD (cardiovascular disease) Social History Household Members: None Housing: Apartment Are you a primary child care associate teacher to a significant other at home: No Do you presently have visiting nurse or other home services: No Alcohol intake: current Alcohol intake frequency: holidays/special occasions only Patient Tobacco Use Status: Never used Tobacco e-Cigarette/Vaping Use: Never Used service: No Current occupational status: employed Review of Systems Narrative - Musculoskeletal: Reports persistent sacroiliac pain exacerbated by sitting and standing - Endocrine: Denies current use of steroids due to past adverse effects - Gastrointestinal: Reports history of fatty liver disease - Cardiovascular: Reports history of hypertension Physical Exam Vital Signs: Last Vital Signs Pulse 63 04/23/25 09:07 Resp 16 04/23/25 09:07 BP 129/77 04/23/25 09:07 Pulse Ox 96 04/23/25 09:07 Oxygen Delivery Method Room Air 04/23/25 09:07 BMI result Body Mass Index 38.7 General: awake, alert, oriented. Answers questions appropriately. Fully engaged in examination. Skin: warm, dry, intact HEENT: Normocephalic. Hearing intact. Cardiac: External chest normal in appearance. Respiratory: No cough, audible wheezing or stridor. Abdomen: without gross distension. MS: No obvious swelling or deformities. Able to transition from sit to stand unassisted. Ambulates with bilaterally normal heel strike and toe off Tenderness over left PSIS. Pain with thigh thrust, [place], SI compression Neurological: Oriented to person, place, time and situation. Thought process intact. No gait abnormalities appreciated. Psychiatric: Appropriate mood and affect. Good judgment and insight. Results Reviewed Results Reviewed: 02/11/24 Left tibial and peroneal motor studies were performed. Left superficial peroneal, sural, median, and lateral plantar sensory studies were performed. Tibial H-reflex was obtained. Needle examination was performed. IMPRESSION: 1. Left lower lumbar radiculopathy. 2. Mild underlying sensory motor peripheral neuropathy. 01/27/24 MRI LS Assessment & Plan Assessment & Plan (1) Radiculopathy, lumbar region: Code(s): M54.16 - Radiculopathy, lumbar region Category: Medical (2) Lumbar spondylosis: Code(s): M47.816 - Spondylosis without myelopathy or radiculopathy, lumbar region Category: Medical (3) Sacroiliac joint dysfunction of left side: Code(s): M53.3 - Sacrococcygeal disorders, not elsewhere classified Category: Medical Plan The plan involves performing a diagnostic test injection to evaluate the sacroiliac joint's role in the patient's pain. This procedure will help determine if the joint is the primary source of discomfort. Following the test injection, the patient will maintain a pain diary to document relief and any changes in symptoms. This information will be used to assess the effectiveness of the injection and guide further treatment options. Given the patient's history of adverse reactions to steroids, alternative treatments such as peripheral nerve stimulation or fusion may be considered if the test injection indicates sacroiliac joint involvement. The patient is advised to avoid steroid use due to previous complications, and a low-dose steroid may be considered only if necessary for insurance purposes. C/W planned diagnostic SIJ injection as scheduled. Patient was informed and verbally consented to the use of an ambient scribe for clinic note documentation during this visit. Patient Instructions: - Maintain a pain diary after the test injection to track relief and changes in symptoms. - Avoid steroid use unless absolutely necessary and discussed with the healthcare provider. - Follow up with the healthcare provider to discuss the results of the test injection and potential next steps. Coding Level of Care Code Est Pt Level 3 (82238) Diagnoses Radiculopathy, lumbar region M54.16 Lumbar spondylosis M47.816 Sacroiliac joint dysfunction of left side M53.3
[2025-04-23 09:07] VITALS: BP 129/77; PULSE 63; RESP 16; O2SAT 96; BMI 38.7
--- OUTSIDE RECORDS SUMMARY | 2025-04-23 09:08 | XMS_ITS | Clinical Summary ---
Author Organization [facility] Address [address] [place] [address] Phone Care Team Providers Care Cone Tender Name Role Phone Kaitlynn Tam MD Primary [...] topic Medical Devices Not on file [facility] C[facility]NA HMO POS CIGNA HMO POS CIGNA HMO POS CIGNA HMO POS CIG HMO POS CIGNA HMO POS CIGNA HMO POS CIGNA HMO POS Care Teams Cone Tender Relationship Specialty Start Date End Date Kaitlynn Tam MD [address] [place] [address] [place] [address] PCP - General Internal Medicine 03/24/20 Additional Source Comments The information contained in this document represents components of the legal health record. It is not the complete legal health record.[facility]
--- OUTSIDE RECORDS SUMMARY | 2025-04-23 09:08 | XMS_ITS | Clinical Summary ---
Author Organization [facility] Address [address] [place] [address] Care Team Providers Care Lining Stamper Name Role Phone Kaitlynn Garrett MD Primary Care Provider [phone] Medical History Medical History Date Comments Asthma [...] Procedure Name Priority Date/Time Associated Diagnosis Comments [facility] SCREENING DIGITAL Routine 12/03/2018 5:27 PM EDT Encounter for screening mammogram for malignant neoplasm of breast from Last 3 Months or Most Recently Relevant to Health Maintenance Results * [facility] SCREENING DIGITAL (12/03/2018 5:27 PM EDT) Anatomical Region Laterality Modality Mammography 12/03/2018 3:09 PM EDT Narrative 12/03/2018 5:27 PM EDT [facility] Diagnostic Imaging Department [address] [place] [address] [id number] Patient: GRAHAMMADYSON /Age/Sex: 1970 - 48 - F Unit#: [id number] Location/Status: [facility] CLI Mnemonic/Ordering Site: [facility] Ordering Physician: KAITLYNN GARRETT MD [...] mammography. BIRADS category 1, negative examination, 3341F 63025, , [address] Note: Patient information entered into a reminder system with a target due date for the next mammogram; PQRI II 7070F Dictating Physician: MIKE CORDERO MD Electronically Signed by: MIKE CORDERO MD Dic Date/Time: 12/03/181722 Sign date/Time: 12/03/181726 Procedure Note Mike Cordero - 05/23/2022 [facility] Diagnostic Imaging Department [address] [place] [address] Patient: MADYSON GRAHAM /Age/Sex: 1970 - 48 - F Unit#: [id number] Location/Status: SPDIMAM/REG CLI Mnemonic/Ordering Site: [facility] Ordering Physician: KAITLYNN GARRETT MD [...] mammography. BIRADS category 1, negative examination, 3341F [address]1243, , [address] Note: Patient information entered into a reminder system with a targetdue date for the next mammogram; PQRI II 7025F Dictating Physician: MIKE CORDERO MD Electronically Signed by: MIKE CORDERO MD Dic Date/Time: 12/03/181722 Sign date/Time: 12/03/181726 Kaitlynn Garrett MD IMG BI PROCEDURES Final Resul t from Last 3 Months or Most Recently Relevant to Health Maintenance Care Teams Lining Stamper Relationship Specialty Start Date End Date Kaitlynn Garrett MD [address] [facility] [address] [place], [place] PCP - General Internal Medicine 11/07/16
== END 2025-04-23 09:26 | disposition home or self-care (01) ==
LOC: HO.PMC 08:57
PROVIDERS: PCP Internal Medicine; Visit Provider Registered Nurse Emergency
DX: M54.16 Radiculopathy, lumbar region (principal); M47.816 Spondylosis without myelopathy or radiculopathy, lumbar region; M53.3 Sacrococcygeal disorders, not elsewhere classified
CPT/HCPCS: 99213

== ENCOUNTER 2025-05-11 06:15 | Outpatient (REF) | payer OTHER, SELFPAY ==
--- NOTE | ~2025-05-11 | FL_ITS ---
EXAMINATION: FL GUIDANCE ONLY HISTORY: M53.3 - Sacrococcygeal disorders, not elsewhere classified COMPARISON: None available. TECHNIQUE: Fluoroscopy time: 8 seconds. Cumulative Dose: 2.40 mGy. DAP: 511.90 mGycm2 Images: 2. FINDINGS: Fluoroscopic spot films of the left hemipelvis demonstrate a needle and contrast material in the region of the sacroiliac joint. FL/FL guidance in treatment room IMPRESSION: Fluoroscopy during procedure. Please see procedure report for additional information. Electronically signed by: Nino Barrera MD 05/11/2025 11:10 AM KAILEY
--- OUTSIDE RECORDS SUMMARY | 2025-05-11 06:20 | XMS_ITS | Clinical Summary ---
Author Organization [facility] Address [address] [place] [address] Care Team Providers Care Diesel Tractor Operator Name Role Phone Kaitlynn Garrett MD Primary Care Provider [phone] Medical History Medical History Date Comments Asthma 03/29/2020 DX:Asthma Eczema 03/29/2020 DX:Eczema Social History Tobacco Use Types Packs/Day Years Used Date Smoking Tobacco: Never Smokeless Tobacco: Never Comments Unknown Sex and Gender Information Value Date Recorded Sex Assigned at Not on file Legal Sex Female 7:31 PM EST Gender Identity Not on file Sexual Orientation Not on file Last Filed Vital Signs Vital Sign Reading [...] Procedure Name Priority Date/Time Associated Diagnosis Comments [facility] SCREENING DIGITAL Routine 12/03/2018 5:27 PM EDT Encounter for screening mammogram for malignant neoplasm of breast from Last 3 Months or Most Recently Relevant to Health Maintenance Results * [facility] SCREENING DIGITAL (12/03/2018 5:27 PM EDT) Anatomical Region Laterality Modality Mammography 12/03/2018 3:09 PM EDT Narrative 12/03/2018 5:27 PM EDT [facility] Diagnostic Imaging Department [address] [place] [address] [id number] Patient: GLADYSMADYSON /Age/Sex: 1970 - 48 - F Unit#: [id number] Location/Status: [facility]/REG CLI Mnemonic/Ordering Site: [facility] Ordering Physician: KAITLYNN GARRETT MD Jennifer [...] mammography. BIRADS category 1, negative examination, 3341F 83121, , [address] Note: Patient information entered into a reminder system with a target due date for the next mammogram; PQRI II 7093F Dictating Physician: MIKE CORDERO MD Electronically Signed by: MIKE CORDERO MD Dic Date/Time: 12/03/181722 Sign date/Time: 12/03/181726 Procedure Note Mike Cordero - 05/23/2022 [facility] Diagnostic Imaging Department [address] [place] [address] Patient: MADYSON GRAHAM /Age/Sex: 1970 - 48 - F Unit#: [id number] Location/Status: [facility]/REG CLI Mnemonic/Ordering Site: [facility] Ordering Physician: KAITLYNN GARRETT MD Jennifer [...] mammography. BIRADS category 1, negative examination, 3341F 53388, , 63565 Note: Patient information entered into a reminder system with a targetdue date for the next mammogram; PQRI II 7025F Dictating Physician: MIKE CORDERO MD Electronically Signed by: MIKE CORDERO MD Dic Date/Time: 12/03/181722 Sign date/Time: 12/03/181726 Kaitlynn Garrett MD IMG BI PROCEDURES Final Resul t from Last 3 Months or Most Recently Relevant to Health Maintenance Care Teams Diesel Tractor Operator Relationship Specialty Start Date End Date Kaitlynn Garrett MD 12[address] [facility] [address] [place] PCP - General Internal Medicine 11/07/16
--- OUTSIDE RECORDS SUMMARY | 2025-05-11 06:20 | XMS_ITS | Clinical Summary ---
Author Organization [facility] Address [address] [place] [address] Phone Care Team Providers Care Pin Cleaner Name Role Phone Kaitlynn Tam MD Primary [...] topic Medical Devices Not on file Insurance [facility] C[facility]NA HMO POS CIGNA HMO POS CIGNA HMO POS CIGNA HMO POS CIG HMO POS CIGNA HMO POS CIGNA HMO POS CIGNA HMO POS [facility] Address: [facility] [phone] [place] [address] Care Teams Pin Cleaner Relationship Specialty Start Date End Date Kaitlynn Tam MD [address] [place] [address] [place] [address] PCP - General Internal Medicine 03/24/20 Additional Source Comments The information contained in this document represents components of the legal health record. It is not the complete legal health record.[facility]
== END 2025-05-11 06:16 | disposition home or self-care (01) ==
LOC: CF 06:15
PROVIDERS: Visit Provider Anesthesiology
DX: M53.3 Sacrococcygeal disorders, not elsewhere classified (principal)
CPT/HCPCS: 27096; J2003; J2795; Q9967

== ENCOUNTER 2025-05-11 07:16 | Outpatient (AMB) | payer OTHER, SELFPAY ==
[2025-05-11 07:22] VITALS: BP 125/79; PULSE 55; RESP 16; O2SAT 98; BMI 38.7
--- NOTE | 2025-05-11 07:22 | MHC.OFFVIS ---
Vital Signs 05/11/25 07:22 12 08:27 Height 5 ft 7 in Weight 247 lb BMI 38.7 BP 125/79 141/77 H Blood Pressure Location Lt brachial Lt brachial Position Sitting Sitting Respiration 16 16 Pulse 55 46 L Pulse Source Pulse Oximeter Pulse Oximeter Pulse Oximetry (%) 98 98 Oxygen Delivery Method Room Air Room Air Intake Visit Reasons: LEFT DIAGNOSTIC SIJ INJECTION Allergies hydrocodone (From Vicodin) Allergy (Severe, Verified 04/23/25 09:08) NAUSEA,DIZZY sulfamethoxazole (From Bactrim) Allergy (Severe, Verified 04/23/25 09:08) Rash trimethoprim (From Bactrim) Allergy (Severe, Verified 04/23/25 09:08) Rash morphine Adverse Reaction (Severe, Verified 04/23/25 09:08) Chills oxycodone (From PERCOCET) Adverse Reaction (Severe, Verified 04/23/25 09:08) nausea,VOMITING PFSH Medical History (Updated 04/16/25 @ 09:52 by MARY Jeffers) Lung nodule Lung nodule seen on imaging study Pre-op evaluation Abnormal chest xray De Quervain's tenosynovitis, right Left leg paresthesias Right elbow pain Numbness and tingling in right hand Right tennis elbow Right rotator cuff tendonitis Cellulitis Lumbar facet arthropathy DJD (degenerative joint disease) GERD (gastroesophageal reflux disease) Migraine HTN (hypertension) Obesity Arthritis Low back pain History of cellulitis Headache PVD (peripheral vascular disease) Numbness and tingling of both legs Elevated LFTs Fatty liver Ear infection Hx of pneumothorax Spondyloarthropathy Asthma Surgical History (Updated 01/20/25 @ 15:16 by Edith Mallory CMA) S/P gastric sleeve procedure History of esophagogastroduodenoscopy (EGD) (10/22/24) History of carpal tunnel surgery of right wrist (09/22/24) H/O colonoscopy History of esophagogastroduodenoscopy (EGD) History of cholecystectomy Hx of total hysterectomy with removal of both tubes and ovaries Hx of laminectomy History of lung surgery Family History Father Diabetes HTN (hypertension) Mother Stroke CVD (cardiovascular disease) Social History (Reviewed 03/30/25 @ 14:13 by VASILE Cisneros Household Members: None Housing: Apartment Are you a primary nonfarm animal caretaker to a significant other at home: No Do you presently have visiting nurse or other home services: No Alcohol intake: current Alcohol intake frequency: holidays/special occasions only Patient Tobacco Use Status: Never used Tobacco e-Cigarette/Vaping Use: Never Used service: No Current occupational status: employed Physical Exam Vital Signs: Last Vital Signs Pulse 46 L 05/11/25 08:27 Resp 16 05/11/25 08:27 BP 141/77 H 05/11/25 08:27 Pulse Ox 98 05/11/25 08:27 Oxygen Delivery Method Room Air 05/11/25 08:27 BMI result Body Mass Index 38.7 Assessment & Plan Assessment & Plan (1) Sacroiliac joint dysfunction of left side: Code(s): M53.3 - Sacrococcygeal disorders, not elsewhere classified Category: Medical Plan Left diagnostic sacroiliac joint injection. the risks, benefits and alternatives were discussed with the patient and informed consent was obtained, patient was placed in the prone position on the operating table. Time out was performed delineating correct site and side of the procedure , name and of the patient, patient participated in time out procedure. The lower back and upper buttocks of the patient were prepped with ChloraPrep and draped with sterile self adhesive utility towels. C-arm was brought over the operating field and picture of the left SI joint was demonstrated on the screen. Tilting C-arm contralateral to the right the posterior silhouette of the sacroiliac joint was superimposed on anterior silhouette of the sacroiliac joint. The point slightly medial to the sacroiliac joint silhouette was injected with lidocaine 2%, forming skin wheal. After that 22 gauge 3-1/2 inch spinal needle was inserted through the skin wheal and advanced to were the sacroiliac joint in tunnel vision fashion. When the needle entered the sacroiliac joint capsule injection of the contrast was performed delineating intra-articular and minimally periarticular spread of the contrast. After that injection of the treatment solution of ropivacaine 0.5% 5 cc into the joint was performed. Upon completion of the injection needle was withdrawn sterile Band-Aid was applied. The patient tolerated the procedure well. Orders: Orders FL guidance in treatment room Today M53.3 - Sacrococcygeal disorders, not elsewhere classified Coding Level of Care Code Procedure Only Diagnoses Sacroiliac joint dysfunction of left side M53.3
[2025-05-11 08:27] VITALS: BP 141/77; PULSE 46; RESP 16; O2SAT 98
== END 2025-05-11 08:28 | disposition home or self-care (01) ==
LOC: HO.PMCPRC 07:16
PROVIDERS: PCP Internal Medicine; Visit Provider Anesthesiology
DX: M53.3 Sacrococcygeal disorders, not elsewhere classified (principal)
CPT/HCPCS: 27096

== ENCOUNTER 2025-05-14 08:19 | Outpatient (AMB) | payer OTHER, SELFPAY ==
[2025-05-14 08:25] VITALS: BP 134/74; PULSE 56; RESP 16; O2SAT 99; BMI 37.7
--- NOTE | 2025-05-14 08:25 | A.OFFVIS_ITS ---
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 Accompanied by: Self / Same As Patient Allergies hydrocodone (From Vicodin) Allergy (Severe, Verified 05/14/25 08:25) NAUSEA,DIZZY sulfamethoxazole (From Bactrim) Allergy (Severe, Verified 05/14/25 08:25) Rash trimethoprim (From Bactrim) Allergy (Severe, Verified 05/14/25 08:25) Rash morphine Adverse Reaction (Severe, Verified 05/14/25 08:25) Chills oxycodone (From PERCOCET) Adverse Reaction (Severe, Verified 05/14/25 08:25) nausea,VOMITING HPI Comments Details: History of Present Illness The patient is a 54 year old female presenting for a follow-up visit 3 days status post left diagnostic sacroiliac joint injection. The test injection did not contain steroids. She reported experiencing 100% pain relief for approximately two days following the procedure, with the pain returning to its usual level yesterday after the local anesthetic wore off. The patient has a history of recent weight loss surgery and expressed concern about receiving steroids. She is also working toward a weight loss goal. Pain Description - Location: Left sacroiliac joint. - Relieving Factors: The patient had 100% relief for two days following a diagnostic left sacroiliac joint injection. Pain Management - Analgesia: The patient reported 100% pain relief for 2 days following a left diagnostic sacroiliac joint injection. - Activities of Daily Living: It was noted that better pain control would allow the patient to be more active and help with her weight loss goals. [facility] Medical History (Updated 04/16/25 @ 09:52 by MARY Jeffers) Lung nodule Lung nodule seen on imaging study Pre-op evaluation Abnormal chest xray De Quervain's tenosynovitis, right Left leg paresthesias Right elbow pain Numbness and tingling in right hand Right tennis elbow Right rotator cuff tendonitis Cellulitis Lumbar facet arthropathy DJD (degenerative joint disease) GERD (gastroesophageal reflux disease) Migraine HTN (hypertension) Obesity Arthritis Low back pain History of cellulitis Headache PVD (peripheral vascular disease) Numbness and tingling of both legs Elevated LFTs Fatty liver Ear infection Hx of pneumothorax Spondyloarthropathy Asthma Surgical History (Updated 01/20/25 @ 15:16 by Edith Mallory CMA) S/P gastric sleeve procedure History of esophagogastroduodenoscopy (EGD) (10/22/24) History of carpal tunnel surgery of right wrist (09/22/24) H/O colonoscopy History of esophagogastroduodenoscopy (EGD) History of cholecystectomy Hx of total hysterectomy with removal of both tubes and ovaries Hx of laminectomy History of lung surgery Family History Father Diabetes HTN (hypertension) Mother Stroke CVD (cardiovascular disease) Social History Household Members: None Housing: Apartment Are you a primary manager critical care to a significant other at home: No Do you presently have visiting nurse or other home services: No Alcohol intake: current Alcohol intake frequency: holidays/special occasions only Patient Tobacco Use Status: Never used Tobacco e-Cigarette/Vaping Use: Never Used service: No Current occupational status: employed Review of Systems Narrative Review of Systems Const All systems reviewed & are unremarkable except as noted in HPI and below Physical Exam Exam Exam: General: awake, alert, oriented. Answers questions appropriately. Fully engaged in examination. Skin: warm, dry, intact HEENT: Normocephalic. Hearing intact. Cardiac: External chest normal in appearance. Respiratory: No cough, audible wheezing or stridor. Abdomen: without gross distension. MS: No obvious swelling or deformities. Neurological: Oriented to person, place, time and situation. Thought process intact. No gait abnormalities appreciated. Psychiatric: Appropriate mood and affect. Good judgment and insight. Vital Signs: Last Vital Signs Pulse 56 05/14/25 08:25 Resp 16 05/14/25 08:25 BP 134/74 05/14/25 08:25 Pulse Ox 99 05/14/25 08:25 Oxygen Delivery Method Room Air 05/14/25 08:25 BMI result Body Mass Index 37.7 Results Reviewed Results Reviewed: 02/11/24 Left tibial and peroneal motor studies were performed. Left superficial peroneal, sural, median, and lateral plantar sensory studies were performed. Tibial H-reflex was obtained. Needle examination was performed. IMPRESSION: 1. Left lower lumbar radiculopathy. 2. Mild underlying sensory motor peripheral neuropathy. 01/27/24 MRI LS Assessment & Plan Assessment & Plan (1) Sacroiliac joint dysfunction of left side: Code(s): M53.3 - Sacrococcygeal disorders, not elsewhere classified Category: Medical Plan Plan Given the patient's excellent response to the diagnostic block, the plan is to proceed with a therapeutic left sacroiliac joint injection with steroids for longer-lasting pain relief. A submission will be made to her insurance, [employer], for pre-authorization. Due to the patient's concerns about steroids related to her prior weight loss surgery, she will contact her surgical team to obtain clearance for the steroid injection. If her surgeon approves, the procedure will be scheduled once insurance authorization is obtained. If the steroid injection is contraindicated, the patient will follow up to discuss alternative treatments, such as Sprint peripheral nerve stimulation, which may have insurance coverage limitations. Patient was informed and verbally consented to the use of an ambient scribe for clinic note documentation during this visit. Discussion Notes I informed the patient that her 100% pain relief for two days following the diagnostic sacroiliac joint injection was an excellent result, confirming the SI joint as the pain generator. I recommended a therapeutic injection with steroids for longer relief. The patient voiced concerns about steroids due to her history of stomach surgery. I explained that we use a normal dose of steroids, and a half-dose is a possible alternative, though it might be less effective. I advised her to consult her surgical team for clearance before proceeding. We discussed that improved mobility from the injection would aid her weight loss goals. I informed her that we would submit for insurance authorization in the meantime and that she should call us only if her surgeon denies clearance, at which point we would explore other options like peripheral nerve stimulation. Patient Instructions - Contact your surgeon's office to ask if it is safe for you to get a steroid injection in your back joint, considering your previous weight loss surgery. - If your surgeon says it is okay, you do not need to do anything else; our office is already working on getting the injection approved by your insurance. - If your surgeon says you should not get the steroid injection, please call our office to let us know so we can discuss other treatment options. Coding Level of Care Code Est Pt Level 3 (43235) Add On Problem Visit Only Diagnoses Sacroiliac joint dysfunction of left side M53.3
== END 2025-05-14 08:42 | disposition home or self-care (01) ==
LOC: HO.PMC 08:20
PROVIDERS: PCP Internal Medicine; Visit Provider Registered Nurse Emergency
DX: M53.3 Sacrococcygeal disorders, not elsewhere classified (principal)
CPT/HCPCS: 99213